=== PATIENT | female | born 1995 | race Caucasian/White ===

== ENCOUNTER 2023-07-02 14:11 | Outpatient (OUT) | payer OTHER, SELFPAY ==
--- NOTE | 2023-07-02 14:21 | US_ITS ---
The [address] [address] Patient Name: JENNIFER SWEET MRN: [id number] date: 1995 Sex: F Assigned Patient Location: US Current Patient Location: US Accession/Order Number: [id number] Exam Date: 07/02/2023 14:45 Report Date: 07/02/2023 15:32 At the request of: CANDELARIA ROWLAND Procedure: US OB transvaginal EXAMINATION: US OB transvaginal HISTORY: amenorrhea N91.2 COMPARISON: No relevant comparison available. FINDINGS: Transvaginal images The uterus is normal in size, contour and echotexture. No focal myometrial mass. The uterus is anteflexed. No intrauterine or ectopic is observed The right kidney measures 3.9 x 2.0 x 2.1 cm. Area of hypoechogenicity measuring 2 cm. The left ovary measures 3.2 x 2.1 x 1.8 cm. Normal color Doppler flow. The cervix is closed measuring 3.8 cm in length US/US OB transvaginal IMPRESSION: No intrauterine or ectopic is observed. Correlate with serial quantitative beta hCG Electronically authenticated by: ARETHA MCGOWAN Date: 07/02/2023 15:32
== END 2023-07-02 14:12 | disposition home or self-care (01) ==
LOC: US 14:15
PROVIDERS: PCP Family Medicine; Visit Provider Midwife
DX: N91.2 Amenorrhea, unspecified (principal)
CPT/HCPCS: 76817

== ENCOUNTER 2023-07-17 07:51 | Outpatient (OUT) | payer OTHER, SELFPAY ==
--- OUTSIDE RECORDS SUMMARY | 2023-07-17 07:54 | XMS_ITS | CCD ---
Author Name Unknown Address [address] [place] [address] Organization [facility] Care Team Providers Care College Teacher Name Role Phone Luli Maddox Primary Care Provi edelmira MIROSLAVA TAPIA Referring Unavailable BRANT-LULI BHAKTA Primary Care Un available POOL, CHANTAL E Referring Unavailable BRANT-LULI BHAKTA Primary Care Un available HOTELLING, MAXINE P Admitting Unavailable HOTELLING, MAXINE P Attending Unavailable BRANT-LULI BHAKTA Primary Care Un available POOL, CHANTAL E Referring Unavailable BRANT-LULI BHAKTA Primary Care Un available POOL, CHANTAL E Admitting Unavailable POOL, CHANTAL E Attending Unavailable BRANT-LULI BHAKTA Primary Care Un available POOL, CHANTAL E Admitting Unavailable POOL, CHANTAL E Attending Unavailable BRANT-LULI BHAKTA Primary Care Un available GREENSLADE-YONY, LULI Camacho Primary Care Un available MYRA REHMANIN Attending Unavailable POOL, CHANTAL E Referring Unavailable BRANT-LULI BHAKTA Primary Care Un available POOL, CHANTAL E Admitting Unavailable POOL, CHANTAL E Attending Unavailable BRANT-LULI BHAKTA Primary Care Un available GUY, LILLIAM Attending Unavailable GUY, LILLIAM Consulting Unavailable GUY, LILLIAM Admitting Unavailable Luli Maddox MD Primary Care Pr ovider NO FAMILY, PHYSICIAN Primary Care Unavailable Printy, [place] Admitting Unavailable Marla Travis Attending Unavailable Medications Current Medications Medication Drug Class(es) Dates Sig (Normalized) Sig (Original) acetaminophen 325 mg oral tablet (1 source) Start: 07-14-2019 acetaminophen (TYLENOL) tablet 650 mg acetaminophen 325 mg / butalbital 50 mg / caffeine 40 mg oral tablet (2 sources) Barbiturate, Central Nervous System Stimulant, Methylxanthine Start: 07-18-2019 take 1 tablet by mouth every four hours as needed for headache butalbital-acetami nophen-caffeine (FIORICET, ESGIC) 50-325-40 MG per tablet Take 1 tablet by mouth every 4 hours as needed for Headaches 30 tablet 0 07/18/2019 Active Start: 07-18-2019 butalbital-baltazar taminophen-caffeine (FIORICET, ESGIC) per tablet 1 tablet acetaminophen 325 mg / oxyCODONE hydrochloride 5 mg oral tablet (3 sources) Opioid Agonist Start: 07-18-2019 End: 07-21-2019 take 1 tablet by mouth every six hours as needed for pain oxyCODONE-acetaminophen (PERCOCET) 5-325 MG per tablet Indications: S/P primary low transverse Take 1 tablet by mouth every 6 hours as needed for Pain for up to 3 days. 12 tablet 0 07/18/2019 07/21/2019 Active Start: 07-14-2019 oxyCODONE-acet aminophen (PERCOCET) 5-325 MG per tablet 2 tablet azithromycin 250 mg oral tablet (2 sources) Macrolide Antimicrobial Start: 04-16-2019 azithromycin (ZITHROMAX) 250 MG tablet Indications: URI, acute Take 2 tabs (500 mg) on Day 1, and take 1 tab (250 mg) on days 2 through 5. 1 packet 0 04/16/2019 Active calcium chloride 0.0014 meq/ml / potassium chloride 0.004 meq/ml / sodium chloride 0.103 meq/ml / sodium lactate 0.028 meq/ml injectable solution (3 sources) Start: 07-14-2019 End: 07-14-2019 lactated ringers infusion docusate sodium 100 mg oral capsule (1 source) Start: 07-14-2019 docusate sodium (COLACE) capsule 100 mg 0.4 ml enoxaparin sodium 100 mg/ml prefilled syringe (1 source) Low Molecular Weight Heparin Start: 07-15-2019 enoxaparin (LOVENOX) injection 40 mg ibuprofen 800 mg oral tablet (5 sources) Nonsteroidal Anti-inflammatory Drug Start: 02-12-2018 ibuprofen (ADVIL;MOTRIN) tablet 800 mg lanolin 0.5 mg/mg topical ointment (1 source) Start: 07-14-2019 lanolin ointment oxytocin (PITOCIN) 20 Units in sodium chloride 0.9 % 1,000 mL infusion (1 source) Start: 07-14-2019 oxytocin (PITOCIN) 20 Units in sodium chloride 0.9 % 1,000 mL infusion oxytocin (PITOCIN) 30 Units in sodium chloride 0.9 % 500 mL infusion (1 source) Start: 07-14-2019 oxytocin (PITOCIN) 30 Units in sodium chloride 0.9 % 500 mL infusion Vit-Fe Fumarate-FA ( VITAMIN) 27-0.8 MG TABS (4 sources) Start: 01-15-2019 take 1 tablet by mouth once daily Vit-Fe Fumarate-FA ( VITAMIN) 27-0.8 MG TABS Indications: 13 weeks gestation of Take 1 tablet by mouth daily 30 tablet 10 01/15/2019 Active 3 ml sodium chloride 9 mg/ml injection (2 sources) Start: 07-14-2019 sodium chloride flush 0.9 % injection 10 mL Completed/Discontinued Medications Medication Drug Class(es) Dates Sig (Normalized) Sig (Original) calcium carbonate 500 mg chewable tablet (3 sources) End: 0 take 2 tablets by mouth three times daily as needed for gastroesophageal reflux disease calcium carbonate (TUMS) 500 MG chewable tablet Take 2 tablets by mouth 3 times daily as needed for Heartburn 0 07/18/2019 Discontinued (Stop Taking at Discharge) cefOXitin (MEFOXIN) 2 g in dextrose 5% 50 mL (mini-bag) (1 source) Start: 0 End: 0 cefOXitin (MEFOXIN) 2 g in dextrose 5% 50 mL (mini-bag) citric acid 66.8 mg/ml / sodium citrate 100 mg/ml oral solution (1 source) Calculi Dissolution Agent, Anti-coagulant Start: 0 End: 0 citric acid-sodium citrate (BICITRA) solution 30 mL diphenhydrAMINE hydrochloride 25 mg oral capsule (1 source) Histamine-1 Receptor Antagonist Start: 0 End: 0 diphenhydrAMINE (BENADRYL) capsule 50 mg 2 ml famotidine 10 mg/ml injection (1 source) Histamine-2 Receptor Antagonist Start: 0 End: 0 famotidine (PEPCID) injection 20 mg 1 ml ketorolac tromethamine 15 mg/ml cartridge (1 source) Nonsteroidal Anti-inflammatory Drug, Cyclooxygenase Inhibitor Start: 0 End: 0 ketorolac (TORADOL) injection 30 mg 2 ml metoclopramide 5 mg/ml prefilled syringe (1 source) Dopamine-2 Receptor Antagonist Start: 0 End: 0 metoclopramide (REGLAN) injection 10 mg Start: 07-14-2019 End: 07-14-2019 metoclopramide (REGLAN) inje ction 10 mg omeprazole 20 mg delayed release oral capsule (4 sources) Proton Pump Inhibitor Start: 04-06-2019 End: 07-18-2019 take 1 capsule by mouth twice daily before mealtime omeprazole (PRILOSEC) 20 MG delayed release capsule Take 1 capsule by mouth 2 times daily (before meals) 30 capsule 1 04/06/2019 07/18/2019 Discontinued (Stop Taking at Discharge) ondansetron 4 mg oral tablet (4 sources) Serotonin-3 Receptor Antagonist Start: 01-26-2019 End: 07-18-2019 take 1 tablet by mouth once daily as needed for nausea ondansetron (ZOFRAN) 4 MG tablet Take 1 tablet by mouth daily as needed for Nausea or Vomiting 30 tablet 0 01/26/2019 07/18/2019 Discontinued (Stop Taking at Discharge) Problems Active Problems Problem Classification Problem Date Documented Da te Episodic/Chronic Immunizations and screening for infectious disease (4 sources) Contact with and (suspected) exposure to other viral communicable diseases; Translations: [CONTCT EXPS OTH VIRL COMMUNICABL DZ] Onset: 06-02-2020 Episodic Other lower respiratory disease (1 source) Cough; Translations: [COUGH] Onset: 06-14-2020 Episodic Other upper respiratory disease (1 source) Nasal congestion; Translations: [NASAL CONGESTION] Onset: 06-14-2020 Episodic Residual codes; unclassified (1 source) Gestation period, 27 weeks; Translations: [27 weeks gestation of ] Episodic Unclassified (2 sources) Finding of uterine contractions 07-09-2019 Unclassified (1 source) History of uterine scar from previous surgery; Translations: [History of uterine scar from previous surgery] Onset: 05-05-2021 Past or Other Problems Problem Classification Problem Date Documented Da te Episodic/Chronic Other circulatory disease (4 sources) Elevated blood pressure Episodic Other conditions (2 sources) Abnormal heart rate Onset: 07-14-2019 Episodic Other and delivery including normal (1 source) Normal labor Onset: 07-14-2019 07-14-2019 Episodic Polyhydramnios and other problems of amniotic cavity (2 sources) Meconium in amniotic fluid affecting management of mother Onset: 07-14-2019 Episodic Residual codes; unclassified (1 source) Gestation period, 36 weeks Episodic Residual codes; unclassified (2 sources) Gestation period, 38 weeks 07-09-2019 Episodic Residual codes; unclassified (2 sources) Gestation period, 39 weeks Onset: 07-14-2019 Episodic Short gestation; low weight; and growth retardation (1 source) [id number] baby Episodic NEGATED: Highlighted row has been ruled out!Unclassified (2 sources) No known active problems Results Test Name Value Interpretation Reference Range Facility US Pelvic, Transvaginalon US Pelvic, Transvaginal HISTORY: Irregul ar menses since spontaneous one year ago. Urine test performed today was negative. TECHNIQUE: Transvaginal ultrasound was performed of the pelvis COMPARISON: None available FINDINGS: Uterus measures 9.4 x 7.3 x 4.4 cm. Areas of altered echogenicity within the uterus are most likely fibroids, the largest of which measures 2.1 x 1.9 x 2.7 cm. Nonspecific thickening of the endometrium measured as 17 mm. A small amount of fluid within the endometrial canal at the fundus measures 1.2 x 0.6 x 0.4 cm. No yolk sac or pole identified. Right ovary is normal in size measuring 2.6 x 2.2 x 3 cm. Blood flow is identified to the right ovary. Left ovary is not visualized. No adnexal mass. There is no free fluid in the pelvis. IMPRESSION: Nonspecific thickening of the endometrium measured as 17 mm. A small amount of nonspecific fluid within the endometrial canal at the fundus measures 1.2 x 0.6 x 0.4 cm. No yolk sac or pole identified. Uterine fibroids, the largest of which measures approximately 2.7 cm. Report reported and signed by Kash Moore on 10/30/2022 1247 Normal [facility] [employer] Director Complete Blood Count Auto Di ffon 05-06-2021 Basophils (Bld) [#/Vol] 0.0 10*3/uL Normal 0.0-0.2 [facility] Comment on above: Result Comment: PERF ORMED BY: [place] [address] PATHOLOGIST TRANSPLANT COORDINATOR TAYLOR YO M.D. Performed By: #### C BC #### [address] Basophils/100 WBC (Bld) 0.4 % Normal . [facility] Comment on above: Performed By: #### C BC #### [address] Eosinophils (Bld) [#/Vol] 0.1 10*3/uL Normal 0.0-0.45 [facility] Comment on above: Performed By: #### C BC #### [address] Eosinophils/100 WBC (Bld) 0.6 % Normal . [facility] Comment on above: Performed By: #### C BC #### [address] Erythrocyte distribution width (RBC) [Ratio] 15.2 % Normal 11.9-15.3 [facility] Comment on above: Performed By: #### C BC #### [address] Hematocrit (Bld) [Volume fraction] 24.6 % Low 34.0-46.4 [facility] Comment on above: Performed By: #### C BC #### [address] Hemoglobin (Bld) [Mass/Vol] 8.1 g/dL Low 11.8-15.4 [facility] Comment on above: Performed By: #### C BC #### [facility] [address] Lymphocytes (Bld) [#/Vol] 3.0 10*3/uL Normal 1.00-4.8 [facility] Comment on above: Performed By: #### C BC #### [facility] [address] Lymphocytes/100 WBC (Bld) 27.3 % Normal . [facility] Comment on above: Performed By: #### C BC #### [facility] [address] MCH (RBC) [Entitic mass] 24.4 pg Low 24.7-34.3 [facility] Comment on above: Performed By: #### C BC #### [address] MCV (RBC) [Entitic vol] 74.1 fL Low 80-100 F [facility] Comment on above: Performed By: #### C BC #### [address] Mean Corpuscular HGB Conc 33.0 g/dL Normal 32.0-35.0 [facility] Comment on above: Performed By: #### C BC #### [address] Monocytes (Bld) [#/Vol] 1.3 10*3/uL High 0.0-0.8 [facility] Comment on above: Performed By: #### C BC #### [facility] [address] [place] [address] [place] Monocytes/100 WBC (Bld) 11.6 % Normal . [facility] Comment on above: Performed By: #### C BC #### [address] Neutrophils (Bld) [#/Vol] 6.5 10*3/uL Normal 1.8-7.7 [facility] Comment on above: Performed By: #### C BC #### [address] Neutrophils/100 WBC (Bld) 60.1 % Normal . [facility] Comment on above: Performed By: #### C BC #### [address] Nucleated RBC/100 WBC (Bld) [Ratio] 0.1 % Normal 0-0.5 [facility] Comment on above: Performed By: #### C BC #### [address] Platelet mean volume (Bld) [Entitic vol] 8.4 fL Normal 6.3-10.7 [facility] Comment on above: Performed By: #### C BC #### [address] Platelets (Bld) [#/Vol] 242 10*3/uL Normal 150-450 [facility] Comment on above: Performed By: #### C BC #### [address] RBC (Bld) [#/Vol] 3.32 10*6/uL Low 3.60-5.00 [facility] Comment on above: Performed By: #### C BC #### [address] WBC (Bld) [#/Vol] 10.8 10*3/uL Normal 4.5-11.0 [facility] Comment on above: Performed By: #### C BC #### [address] COVID-19 Antigenon 1 COVID-19 Antigen Healthcare Worker?: N Mariya Reference Mariya Reference Negative SARS-CoV+SARS-CoV-2 (COVID-19) Ag [Presence] in Respiratory specimen by Rapid immunoassay Negative for SARS Antigen by YURY COVID19 Blank Space Mariya Disclaimer Negative results, from patients with symptom Mariya Disclaimer onset beyond five days, should be treated as Mariya Disclaimer presumptive and confirmation with a molecular Mariya Disclaimer assay, if necessary, for patient management, Mariya Disclaimer may be performed. Negative results do not rule Mariya Disclaimer out COVID-19 and should not be used as the sole Mariya Disclaimer basis for treatment or patient management Mariya Disclaimer decisions, including infection control decisions. Mariya Disclaimer Negative results should be considered in the Mariya Disclaimer context of a patient's recent exposures, history Mariya Disclaimer and the presence of clinical signs and symptoms Mariya Disclaimer consistent with COVID-19. COVID19 Blank Space Mariya Disclaimer The Mariya SARS Antigen YURY does not differentiate Mariya Disclaimer between SARS-CoV and SARS-CoV-2. COVID19 Blank Space Mairya Disclaimer This test was developed and its performance Mariya Disclaimer characteristic determined by [employer] and Mariya Disclaimer validated at [facility]. This Mariya Disclaimer test has not been FDA cleared or approved. This Mariya Disclaimer test has been authorized by FDA under an Emergency Use Mariya Disclaimer Authorization (EUA). This test has been validated Mariya Disclaimer in accordance with the FDA's Guidance Document (Policy Mariya Disclaimer for Diagnostics Testing in Laboratories Certified to Mariya Disclaimer Perform High Complexity Testing under CLIA prior to Mariya Disclaimer Emergency Use Authorization for Coronavirus Mariya Disclaimer isease-2018 during the Public Health Emergency) Mariya Disclaimer issued on September 17, 2019. This test is only authorized Mariya Disclaimer for the duration of time the declaration that Mariya Disclaimer circumstances exist justifying the authorization of Mariya Disclaimer the emergency use of in vitro diagnostic tests for Mariya Disclaimer detection of SARS-CoV-2 virus and/or diagnosis of Mariya Disclaimer COVID-19 infection under section 564(b)(1) of the Mariya Disclaimer Act, 21 U.S.C. 360bbb-3(b)(1), unless the Mariya Disclaimer authorization is terminated or revoked sooner. PERFORMED BY: [place] [address] PATHOLOGIST TRANSPLANT COORDINATOR TAYLOR YO M.D. Normal [facility] Comment on above: Performed By: #### C OVID-19 MARIYA, SOFIANEG #### [address] Complete Blood Count Auto Di ffon 05-05-2021 Basophils (Bld) [#/Vol] 0.1 10*3/uL Normal 0.0-0.2 [facility] Comment on above: Result Comment: PERF ORMED BY: [place] [address] PATHOLOGIST TRANSPLANT COORDINATOR TAYLOR YO M.D. Performed By: #### C BC #### [address] Basophils/100 WBC (Bld) 0.6 % Normal . [facility] Comment on above: Performed By: #### C BC #### [place] [address] [place] Eosinophils (Bld) [#/Vol] 0.1 10*3/uL Normal 0.0-0.45 [facility] Comment on above: Performed By: #### C BC #### [address] Eosinophils/100 WBC (Bld) 0.9 % Normal . [facility] Comment on above: Performed By: #### C BC #### [address] [place] [address] [place] Erythrocyte distribution width (RBC) [Ratio] 15.2 % Normal 11.9-15.3 [facility] Comment on above: Performed By: #### C BC #### [address] Hematocrit (Bld) [Volume fraction] 32.3 % Low 34.0-46.4 [facility] Comment on above: Performed By: #### C BC #### [address] Hemoglobin (Bld) [Mass/Vol] 10.6 g/dL Low 11.8-15.4 [facility] Comment on above: Performed By: #### C BC #### [address] Lymphocytes (Bld) [#/Vol] 2.2 10*3/uL Normal 1.00-4.8 [facility] Comment on above: Performed By: #### C BC #### [address] Lymphocytes/100 WBC (Bld) 22.3 % Normal . [facility] Comment on above: Performed By: #### C BC #### [address] MCH (RBC) [Entitic mass] 24.2 pg Low 24.7-34.3 [facility] Comment on above: Performed By: #### C BC #### [address] MCV (RBC) [Entitic vol] 73.8 fL Low 80-100 F [facility] Comment on above: Performed By: #### C BC #### [address] Mean Corpuscular HGB Conc 32.8 g/dL Normal 32.0-35.0 [facility] Comment on above: Performed By: #### C BC #### [address] Monocytes (Bld) [#/Vol] 1.2 10*3/uL High 0.0-0.8 [facility] Comment on above: Performed By: #### C BC #### [facility] [address] [place] [address] [place] Monocytes/100 WBC (Bld) 12.4 % Normal . [facility] Comment on above: Performed By: #### C BC #### [facility] [address] [place] [address] [place] Neutrophils (Bld) [#/Vol] 6.2 10*3/uL Normal 1.8-7.7 [facility] Comment on above: Performed By: #### C BC #### [facility] [address] Neutrophils/100 WBC (Bld) 63.8 % Normal . [facility] Comment on above: Performed By: #### C BC #### [facility] [address] [place] [address] [place] Nucleated RBC/100 WBC (Bld) [Ratio] 0.0 % Normal 0-0.5 [facility] Comment on above: Performed By: #### C BC #### [facility] [address] [place] [address] [place] Platelet mean volume (Bld) [Entitic vol] 8.0 fL Normal 6.3-10.7 [facility] Comment on above: Performed By: #### C BC #### [facility] [address] [place] [address] [place] Platelets (Bld) [#/Vol] 298 10*3/uL Normal 150-450 [facility] Comment on above: Performed By: #### C BC #### [facility] [address] [place] [address] [place] RBC (Bld) [#/Vol] 4.38 10*6/uL Normal 3.60-5.00 [facility] Comment on above: Performed By: #### C BC #### [facility] [address] [place] [address] [place] WBC (Bld) [#/Vol] 9.7 10*3/uL Normal 4.5-11.0 [facility] Comment on above: Performed By: #### C BC #### [facility] [address] [place] [address] [place] Dipstick and Microscopicon 1 07-05-2020 Appearance (U) Cloudy Critically abnormal Clear [facility] Comment on above: Order Comment: Name Collection Type:: Clean-Voided Midstream Performed By: #### C UU, ADDONUAPLUS #### [address] Bacteria,Urine 1+ High None Seen [facility] Comment on above: Order Comment: Name Collection Type:: Clean-Voided Midstream Performed By: #### C UU, ADDONUAPLUS #### [place] [address] [place] Bilirubin,Urine Negative Normal Negative [facility] Comment on above: Order Comment: Name Collection Type:: Clean-Voided Midstream Performed By: #### C UU, ADDONUAPLUS #### [address] Color (U) Yellow Normal Yellow [facility] Comment on above: Order Comment: Name Collection Type:: Clean-Voided Midstream Performed By: #### C UU, ADDONUAPLUS #### [place] [address] [place] Glucose Ql (U) Normal Normal Normal [facility] Comment on above: Order Comment: Name Collection Type:: Clean-Voided Midstream Performed By: #### C UU, ADDONUAPLUS #### [place] [address] [place] Hyaline Casts,Urine 0-8 Normal 0-8 [facility] Comment on above: Order Comment: Name Collection Type:: Clean-Voided Midstream Result Comment: PERF ORMED BY: [place] [address] PATHOLOGIST TRANSPLANT COORDINATOR TAYLOR YO M.D. Performed By: #### C UU, ADDONUAPLUS #### [address] [place] [address] [place] Ketones Ql (U) Negative Normal Negative [facility] Comment on above: Order Comment: Name Collection Type:: Clean-Voided Midstream Performed By: #### C UU, ADDONUAPLUS #### [address] Leukocyte esterase Test strip Ql (U) 1+ High Negative [facility] Comment on above: Order Comment: Name Collection Type:: Clean-Voided Midstream Performed By: #### C UU, ADDONUAPLUS #### [address] Nitrite,Urine Negative Normal Negative [facility] Comment on above: Order Comment: Name Collection Type:: Clean-Voided Midstream Performed By: #### C UU, ADDONUAPLUS #### [address] Occult Blood,Urine Negative Normal Negative [facility] Comment on above: Order Comment: Name Collection Type:: Clean-Voided Midstream Result Comment: PERF ORMED BY: [place] [address] PATHOLOGIST TRANSPLANT COORDINATOR TAYLOR YO M.D. Performed By: #### C UU, ADDONUAPLUS #### [place] [address] [place] pH (U) 6.5 [pH] Normal 5.0-9.0 [facility] Comment on above: Order Comment: Name Collection Type:: Clean-Voided Midstream Performed By: #### C UU, ADDONUAPLUS #### [facility] [address] [place] [address] [place] Protein,Urine Trace High Negative [facility] Comment on above: Order Comment: Name Collection Type:: Clean-Voided Midstream Performed By: #### C UU, ADDONUAPLUS #### [place] [address] [place] RBC,Urine 1-2 Normal 0-4 [facility] Comment on above: Order Comment: Name Collection Type:: Clean-Voided Midstream Performed By: #### C UU, ADDONUAPLUS #### [facility] [address] [place] [address] Specificy Dracut,Urine 1.019 Normal 1.001-1.030 [facility] Comment on above: Order Comment: Name Collection Type:: Clean-Voided Midstream Performed By: #### C UU, ADDONUAPLUS #### [place] [address] [place] Squamous Epithelial Cell,Urine 04-04 High 0-2 [facility] Comment on above: Order Comment: Name Collection Type:: Clean-Voided Midstream Performed By: #### C UU, ADDONUAPLUS #### [address] Urobilinogen,Urine Normal Normal Normal [facility] Comment on above: Order Comment: Name Collection Type:: Clean-Voided Midstream Performed By: #### C UU, ADDONUAPLUS #### [address] WBC,Urine 04-04 High 0-4 [facility] Comment on above: Order Comment: Name Collection Type:: Clean-Voided Midstream Performed By: #### C UU, ADDONUAPLUS #### [address] OB Urine Drug Screen (NO THC )on 05-05-2021 Amphetamine Screen,Urine Negative Normal Negative [facility] Comment on above: Performed By: #### O BUDS #### [place] [address] [place] Barbiturate Screen,Urine Negative Normal Negative [facility] Comment on above: Performed By: #### O BUDS #### [place] [address] [place] Benzodiazepines Screen,Urine Negative Normal Negative [facility] Comment on above: Performed By: #### O BUDS #### [place] [address] [place] Cocaine Screen,Urine Negative Normal Negative [facility] Comment on above: Performed By: #### O BUDS #### [address] Opiate Screen,Urine Negative Normal Negative [facility] Comment on above: Performed By: #### O BUDS #### [address] Phencyclidine Screen, Urine Negative Normal Negative [facility] Comment on above: Result Comment: Thes e are unconfirmed results and should not be used for legal purposes. Drug Cut-Off Concentration: AMPH 1000 ng/mL LC 200 ng/mL HARDY 200 ng/mL COCM 300 ng/mL OP 300 ng/mL PCP 25 ng/mL PERFORMED BY: [place] [address] PATHOLOGIST TRANSPLANT COORDINATOR TAYLOR YO M.D. Performed By: #### O BUDS #### [address] RPR w/rfx to Quant TP Abson 05-05-2021 RPR, Rfx Quant RPR Non-Reactive Normal Non Reactive [facility] Comment on above: Result Comment: Perf ormed at: - [facility] [place] [id number] Instructional Designer: Neto Rivera PhD, Phone: [phone] PERFORMED BY: [place] [address] PATHOLOGIST TRANSPLANT COORDINATOR TAYLOR YO M.D. Performed By: #### R OK W RFX #### [facility] , Mariya Ag Negativeon 05-05-20 21 Mariya Ag Negative Negative Normal Negative [facility] Comment on above: Result Comment: This is a duplicate Mariya SARS Antigen (YURY) result to be used for statistical tracking purpose only. PERFORMED BY: [place] [address] PATHOLOGIST TRANSPLANT COORDINATOR TAYLOR YO M.D. Performed By: #### C OVID-19 MARIYA, SOFIANEG #### [address] Urine Cultureon 05-05-2021 Bacteria identified Cx Nom (U) 20,000 colonies/ml mixed bacterial skin contaminants 2 Days PERFORMED BY: [facility] [address] [facility] [place] [id number] PATHOLOGIST TRANSPLANT COORDINATOR TAYLOR YO M.D. Normal [facility] Comment on above: Performed By: #### C UU, ADDONUAPLUS #### [facility] [address] [id number] [facility] Covid-19 PCR (CVDTB)on 05-17 Covid-19 PCR DETECTED Abnormal NOT DETECTED [facility] Comment on above: Result Comment: This test is not yet approved or cleared by the [place] FDA. When there are no FDA-approved or cleared tests available, and other criteria are met, FDA can make tests available under an emergency access mechanism called an Emergency Use Authorization (EUA). The EUA for this test is supported by the [place] of Health and Human Service's (HHS's) declaration that circumstances exist to justify the emergency use of in vitro diagnostics for the detection and/or diagnosis of the virus that causes COVID-19. This EUA will remain in effect (meaning this test can be used) for the duration of the COVID-19 declaration justifying emergency of IVDs, unless it is terminated or revoked by FDA (after which the test may no longer be used). Performed By: #### C VDTBH #### Laboratory [address] [address] [place] EUA Statement SEE BELOW [facility] Comment on above: Result Comment: This test is not yet approved or cleared by the [place] FDA. When there are no FDA-approved or cleared tests available, and other criteria are met, FDA can make tests available under an emergency access mechanism called an Emergency Use Authorization (EUA). The EUA for this test is supported by the Placement Coordinator of Health and Human Service?s (HHS?s) declaration that circumstances exist to justify the emergency use of in vitro diagnostics for the detection and/or diagnosis of the virus that causes COVID-19. This EUA will remain in effect (meaning this test can be used) for the duration of the COVID-19 declaration justifying emergency of IVDs, unless it is terminated or revoked by FDA (after which the test may no longer be used). When diagnostic testing is negative, the possibility of a false negative should be considered in the context of a patients recent exposures and the presence of clinical signs and symptoms consistent with SARS-CoV-2. Performed By: #### C VDTB #### Laboratory [address] [place], [place] [address] [place] CBC auto differentialOrdered By: Maxine Crawley on 07-18-2019 Absolute Eos # 0.37 [employer] [facility] Work Phone: Absolute Immature Granulocyte 0.04 [employer] Work Phone: Absolute Lymph # 2.08 [employer] [facility] Work Phone: Absolute Tensas # 0.61 [employer] [facility] Work Phone: Basophils (Bld) [#/Vol] 10*3/uL [employer] Work Phone: Basophils/100 WBC (Bld) 0 % 0 - 2 % [employer] Work Phone: Differential Type NOT REPORTED [employer] Phone: Eosinophils/100 WBC (Bld) 4 % 1 - 4 % [employer] Phone: Erythrocyte distribution width (RBC) [Ratio] 14.3 % 11.8 - 14.4 % [employer] Phone: Hematocrit (Bld) [Volume fraction] 29.0 % Low 36.3 - 47.1 % [employer] Phone: Hemoglobin (Bld) [Mass/Vol] 9.1 g/dL Low 11.9 - 15.1 g/dL [employer] Phone: Immature granulocytes/100 WBC (Bld) 1 % High 0 [employer] Phone: Interpretation and review of laboratory results Abnormal [employer] Phone: Lymphocytes/100 WBC (Bld) 25 % 24 - 43 % [employer] Work Phone: MCH (RBC) [Entitic mass] 26.5 pg 25.2 - 33.5 pg [employer] Work Phone: MCHC (RBC) [Mass/Vol] 31.4 g/dL 28.4 - 34.8 g/dL [facility] Work Phone: MCV (RBC) [Entitic vol] 84.3 fL 82.6 - 102.9 fL [facility] Work Phone: Monocytes/100 WBC (Bld) 7 % 3 - 12 % [facility] Work Phone: NRBC Automated 0.0 0.0 per 100 WBC [facility] Work Phone: Platelet Estimate NOT REPORTED [facility] Work Phone: Platelet mean volume (Bld) [Entitic vol] 9.8 fL 8.1 - 13.5 fL [facility] Work Phone: Platelets (Bld) [#/Vol] 269 10*3/uL [employer] Work Phone: RBC (Bld) [#/Vol] 3.44 10*6/uL Low 3.95 - 5.1 1 m/uL [facility] Work Phone: RBC morphology finding Nom (Bld) NOT REPORTED [facility] Work Phone: Segmented neutrophils/100 WBC (Bld) 63 % 36 - 65 % [facility] Work Phone: Segs Absolute 5.25 [employer] [facility] [employer] Work Phone: WBC (Bld) [#/Vol] 8.4 10*3/uL [facility] Work Phone: WBC Morphology NOT REPORTED [employer] [facility] Work Phone: CBC with Diffon 07-18-2019 Abs. Basophil <0.03 Normal 0.00-0.20 [facility] Comment on above: Performed By: #### B HCG #### [facility] [address] [place], [id number] Instructional Designer: Urbano Moore MD Abs.Imm.Granulocyte 0.04 k/uL Normal 0.00-0.30 [facility] Comment on above: Performed By: #### B HCG #### [facility] [address] [place], [place] [address] Instructional Designer: Urbano Moore MD Abs.Neutrophil (Seg) 5.25 k/uL Normal 1.50-8.10 [facility] Comment on above: Performed By: #### B HCG #### [facility] [address] [place], [place] [address] Instructional Designer: Urbano Moore MD Basophils/100 WBC (Bld) 0 % Normal 0-2 [facility] Comment on above: Performed By: #### B HCG #### [facility] [address] [place], [id number] Instructional Designer: Urbano Moore MD Eosinophils (Bld) [#/Vol] 0.37 10*3/uL Normal 0.00-0.44 [facility] Comment on above: Performed By: #### B HCG #### [facility] [address] [place], [place] [address] Instructional Designer: Urbano Moore MD Eosinophils/100 WBC (Bld) 4 % Normal 1-4 [facility] Comment on above: Performed By: #### B HCG #### [facility] [address] [place], [id number] Instructional Designer: Urbano Moore MD Erythrocyte distribution width (RBC) [Ratio] 14.3 % Normal 11.8-14.4 [facility] Comment on above: Performed By: #### B HCG #### [facility] [address] [place], [id number] Instructional Designer: Urbano Moore MD Hematocrit (Bld) [Volume fraction] 29.0 % Low 36.3-47.1 [facility] Comment on above: Performed By: #### B HCG #### [facility] [address] [place] [id number] Instructional Designer: Urbano Moore MD Hemoglobin (Bld) [Mass/Vol] 9.1 g/dL Low 11.9-15.1 [facility] Comment on above: Performed By: #### B HCG #### [facility] [address] [place], [place] [address] Instructional Designer: Urbano Moore MD Immature granulocytes (Bld) [#/Vol] 1 % High 0 [facility] Comment on above: Performed By: #### B HCG #### [facility] [address] [place] [address] Instructional Designer: Urbano Moore MD Lymphocytes (Bld) [#/Vol] 2.08 10*3/uL Normal 1.10-3.70 [facility] Comment on above: Performed By: #### B HCG #### [facility] [address] [place], [place] [address] Instructional Designer: Urbano Moore MD Lymphocytes/100 WBC (Bld) 25 % Normal 24-43 [facility] Comment on above: Performed By: #### B HCG #### [facility] [address] [place], [place] [address] Instructional Designer: Urbano Moore MD MCH (RBC) [Entitic mass] 26.5 pg Normal 25.2-33.5 [facility] Comment on above: Performed By: #### B HCG #### [facility] [address] [place], [id number] Instructional Designer: Urbano Moore MD MCHC (RBC) [Mass/Vol] 31.4 g/dL Normal 28.4-34.8 [facility] Comment on above: Performed By: #### B HCG #### [facility] [address] [place], [place] [id number] Instructional Designer: Urbano Moore MD MCV (RBC) [Entitic vol] 84.3 fL Normal 82.6-102.9 [facility] Comment on above: Performed By: #### B HCG #### [facility] [address] [place] [address] Instructional Designer: Urbano Moore MD Monocytes (Bld) [#/Vol] 0.61 10*3/uL Normal 0.10-1.20 [facility] Comment on above: Performed By: #### B HCG #### [address] [place], [place] [id number] Instructional Designer: Urbano Moore MD Monocytes/100 WBC (Bld) 7 % Normal 3-12 [facility] Comment on above: Performed By: #### B HCG #### [address] [place], [id number] Instructional Designer: Urbano Moore MD Neutrophil (Seg) 63 % Normal 36-65 [facility] Comment on above: Performed By: #### B HCG #### [address] [place], [place] [id number] Instructional Designer: Urbano Moore MD NRBC Automated 0.0 per 100 WBC Normal 0.0 [facility] Comment on above: Performed By: #### B HCG #### [address] [place], [place] [id number] Instructional Designer: Urbano Moore MD Platelet mean volume (Bld) [Entitic vol] 9.8 fL Normal 8.1-13.5 [facility] Comment on above: Performed By: #### B HCG #### [facility] [address] [place] [address] Instructional Designer: Urbano Moore MD Platelets (Bld) [#/Vol] 269 10*3/uL Normal 138-453 [facility] Comment on above: Performed By: #### B HCG #### [facility] [address] [place] [address] Instructional Designer: Urbano Moore MD RBC (Bld) [#/Vol] 3.44 10*6/uL Low 3.95-5.11 [facility] Comment on above: Performed By: #### B HCG #### [facility] [address] [place] [address] Instructional Designer: Urbano Moore MD WBC (Bld) [#/Vol] 8.4 10*3/uL Normal 3.5-11.3 [facility] Comment on above: Performed By: #### B HCG #### [facility] [address] [place] [address] Instructional Designer: Urbano Moore MD Auto Diff Performed NOT REPORTED Normal [facility] Comment on above: Performed By: #### B HCG #### [facility] [address] [place] [address] Instructional Designer: Urbano Moore MD Platelets (Bld) [#/Vol] NOT REPORTED Normal [facility] Comment on above: Performed By: #### B HCG #### [facility] [address] [place] [address] Instructional Designer: Urbano Moore MD RBC morphology finding Nom (Bld) NOT REPORTED Normal [facility] Comment on above: Performed By: #### B HCG #### [facility] [address] [place] [address] Instructional Designer: Urbano Moore MD WBC Morphology NOT REPORTED Normal [facility] Comment on above: Performed By: #### B HCG #### [facility] [address] [place] [address] Instructional Designer: Urbano Moore MD CT HEAD WO CONTRASTon 2019 CT HEAD WO CONTRAST EXAMINATION: CT OF THE HEAD WITHOUT CONTRAST 07/18/2019 11:18 am TECHNIQUE: CT of the head was performed without the administration of intravenous contrast. Dose modulation, iterative reconstruction, and/or weight based adjustment of the mA/kV was utilized to reduce the radiation dose to as low as reasonably achievable. COMPARISON: None. HISTORY: ORDERING SYSTEM PROVIDED HISTORY: Headache TECHNOLOGIST PROVIDED HISTORY: Headache Is the patient ?->No FINDINGS: BRAIN/VENTRICLES: There is no acute intracranial hemorrhage, mass effect or midline shift. No abnormal extra-axial fluid collection. The urena-white differentiation is maintained without evidence of an acute infarct. There is no evidence of hydrocephalus. ORBITS: The visualized portion of the orbits demonstrate no acute abnormality. SINUSES: The visualized paranasal sinuses and mastoid air cells demonstrate no acute abnormality. SOFT TISSUES/SKULL: No acute abnormality of the visualized skull or soft tissues. IMPRESSION: No acute intracranial abnormality. Interpreted by: Crissy Morocho MD Signed by: Crissy Morocho MD 07/18/19 Final result Normal [facility] CT HEAD WO CONTRASTOrdered B y: Maxine Crawley on 07-18-2019 No acute intracranial abnormality. [employer] Phone: EXAMINATION: CT OF THE HEAD WITHOUT CONTRAST 07/18/2019 11:18 am TECHNIQUE: CT of the head was performed without the administration of intravenous contrast. Dose modulation, iterative reconstruction, and/or weight based adjustment of the mA/kV was utilized to reduce the radiation dose to as low as reasonably achievable. COMPARISON: None. HISTORY: ORDERING SYSTEM PROVIDED HISTORY: Headache TECHNOLOGIST PROVIDED HISTORY: Headache Is the patient ?->No FINDINGS: BRAIN/VENTRICLES: There is no acute intracranial hemorrhage, mass effect or midline shift. No abnormal extra-axial fluid collection. The urena-white differentiation is maintained without evidence of an acute infarct. There is no evidence of hydrocephalus. ORBITS: The visualized portion of the orbits demonstrate no acute abnormality. SINUSES: The visualized paranasal sinuses and mastoid air cells demonstrate no acute abnormality. SOFT TISSUES/SKULL: No acute abnormality of the visualized skull or soft tissues. [facility] (ac[facility] by [employer] in 2014) Phone: Bimal, Mhpn Incoming Radiant Results From [employer] - 07/18/2019 11:31 AM EST EXAMINATION: CT OF THE HEAD WITHOUT CONTRAST 07/18/2019 11:18 am TECHNIQUE: CT of the head was performed without the administration of intravenous contrast. Dose modulation, iterative reconstruction, and/or weight based adjustment of the mA/kV was utilized to reduce the radiation dose to as low as reasonably achievable. COMPARISON: None. HISTORY: ORDERING SYSTEM PROVIDED HISTORY: Headache TECHNOLOGIST PROVIDED HISTORY: Headache Is the patient ?->No FINDINGS: BRAIN/VENTRICLES: There is no acute intracranial hemorrhage, mass effect or midline shift. No abnormal extra-axial fluid collection. The urena-white differentiation is maintained without evidence of an acute infarct. There is no evidence of hydrocephalus. ORBITS: The visualized portion of the orbits demonstrate no acute abnormality. SINUSES: The visualized paranasal sinuses and mastoid air cells demonstrate no acute abnormality. SOFT TISSUES/SKULL: No acute abnormality of the visualized skull or soft tissues. IMPRESSION: No acute intracranial abnormality. [facility] [place] Work Phone: Comp Metabolic Profon 2019 (cont.) Normal [facility] Comment on above: Result Comment: Aver age GFR for 20-29 years old: 116 mL/min/1.73sq m Chronic Kidney Disease: <60 mL/min/1.73sq m Kidney failure: <15 mL/min/1.73sq m eGFR calculated using average adult body mass. Additional eGFR calculator available at: http://www.Bvents.SingleFeed/multiple_crcl_2012.htm Performed By: #### G LYHGB #### [facility] [address] [place] [address] [place] [address] Instructional Designer: Urbano Moore MD #### VIPUL HODGSONB #### [facility] [place] [address] Instructional Designer: Porfirio Calix MD Albumin [Mass/Vol] 2.9 g/dL Low 3.5-5.2 [facility] Comment on above: Performed By: #### G LYHGB #### [facility] [address] [place] [address] Instructional Designer: Urbano Moore MD #### GOKUL HIVCMB #### [place] [address] [place] [address] Instructional Designer: Porfirio Calix MD Albumin/Globulin [Mass ratio] 0.9 {ratio} Low 1.0-2.5 [facility] Comment on above: Performed By: #### G LYHGB #### [facility] [address] [place], [place] [id number] Instructional Designer: Urbano Moore MD #### GOKUL, HIVCMB #### [address] [id number] Instructional Designer: Porfirio Calix MD Alkaline Phos 117 U/L High 35-104 [facility] Comment on above: Performed By: #### G LYHGB #### [facility] [address] [place] [address] [address] [place], [place] [id number] Instructional Designer: Urbano Moore MD #### GOKUL HIVCMB #### [address] [address] Instructional Designer: Porfirio Calix MD ALT [Catalytic activity/Vol] 7 U/L Normal 5-33 [facility] Comment on above: Performed By: #### G LYHGB #### [address] [place], [place] [address] Instructional Designer: Urbano Moore MD #### GOKUL HIVCMB #### [address] [address] Instructional Designer: Porfirio Calix MD Anion gap [Moles/Vol] 13 mmol/L Normal 9-17 [facility] Comment on above: Performed By: #### G LYHGB #### [address] [place], [place] [address] Instructional Designer: Urbano Moore MD #### GOKUL HIVCMB #### [address] [address] Instructional Designer: Porfirio Calix MD AST [Catalytic activity/Vol] 14 U/L Normal <32 [facility] Comment on above: Performed By: #### G LYHGB #### [facility] [address] [place] [address] Instructional Designer: Urbano Moore MD #### AHKOURTNEY, HIVCMB #### [address] [id number] Instructional Designer: Porfirio Calix MD Bilirubin Ql (U) <0.10 Low 0.3-1.2 [facility] Comment on above: Performed By: #### G LYHGB #### [facility] [address] [place] [address] [place] [id number] Instructional Designer: Urbano Moore MD #### GOKUL, HIVCMB #### [address] [id number] Instructional Designer: Porfirio Calix MD BUN/CRE Ratio 12 Normal 9-20 [facility] Comment on above: Performed By: #### G LYHGB #### [address] [place] [id number] Instructional Designer: Urbano Moore MD #### GOKUL, HIVCMB #### [address] [id number] Instructional Designer: Porfirio Calix MD Calcium [Mass/Vol] 8.8 mg/dL Normal 8.6-10.4 [facility] Comment on above: Performed By: #### G LYHGB #### [facility] [address] [place] [address] [place] [address] Instructional Designer: Urbano Moore MD #### AHCV, HIVCMB #### [address] [address] Instructional Designer: Profirio Calix MD Chloride [Moles/Vol] 99 mmol/L Normal 98-107 [facility] Comment on above: Performed By: #### G LYHGB #### [facility] [address] [place] [address] Instructional Designer: Urbano Moore MD #### AHCV, HIVCMB #### [address] [id number] Instructional Designer: Porfirio Calix MD CO2 [Moles/Vol] 23 mmol/L Normal 20-31 [facility] Comment on above: Performed By: #### G LYHGB #### [facility] [address] [place], [place] 9[address]83 Instructional Designer: Urbano Moore MD #### AHCV, HIVCMB #### [address] [address] Instructional Designer: Porfirio Calix MD Creatinine [Mass/Vol] 0.51 mg/dL Normal 0.50-0.90 [facility] Comment on above: Performed By: #### G LYHGB #### [facility] [address] [place], [place] [address]83 Instructional Designer: Urbano Moore MD #### AHKOURTNEY, HIVCMB #### [address] [address] Instructional Designer: Porfirio Calix MD GFR, Amer >60 Normal >60 [facility] Comment on above: Performed By: #### G LYHGB #### [facility] [address] [place], [place] [address] Instructional Designer: Urbano Moore MD #### AHCV, HIVCMB #### [address] [address] Instructional Designer: Porfirio Calix MD GFR,non Amer >60 Normal >60 [facility] Comment on above: Performed By: #### G LYHGB #### [address] [place], [place] [address] Instructional Designer: Urbano Moore MD #### GOKUL HIVCMB #### [address] [id number] Instructional Designer: Porfirio Calix MD Glucose [Mass/Vol] 98 mg/dL Normal 70-99 [facility] Comment on above: Performed By: #### G LYHGB #### [address] [place], [place] 517[address]83 Instructional Designer: Urbano Moore MD #### GOKUL HIVCMB #### [address] [id number] Instructional Designer: Porfirio Calix MD Potassium [Moles/Vol] 3.9 mmol/L Normal 3.7-5.3 [facility] Comment on above: Performed By: #### G LYHGB #### [address] [place], [place] 9420983 Instructional Designer: Urbano Moore MD #### GOKUL HIVCMB #### [address] [id number] Instructional Designer: Porfirio Calix MD Protein [Mass/Vol] 6.0 g/dL Low 6.4-8.3 [facility] Comment on above: Performed By: #### G LYHGB #### [address] [place], [place] 7339283 Instructional Designer: Urbano Moore MD #### GOKUL HIVCMB #### [address] [id number] Instructional Designer: Porfirio Calix MD Sodium [Moles/Vol] 135 mmol/L Normal 135-144 [facility] Comment on above: Performed By: #### G LYHGB #### [address] [place] [address] Instructional Designer: Urbano Moore MD #### AHCV, HIVCMB #### [facility] [address] [place] [address] Instructional Designer: Porfirio Calix MD Staging: Normal [facility] Comment on above: Result Comment: Stag e 1: Some kidney damage normal GFR Stage 2: Mild kidney damage GFR 60-89 Stage 3: Moderate kidney damage GFR 30-59 Stage 4: Severe kidney damage GFR 15-29 Stage 5: Severe kidney damage GFR <15 ESRD - chronic treatment by dialysis or transplant Performed By: #### G LYHGB #### [facility] [address] [place] [address] Instructional Designer: Urbano Moore MD #### AHCV, HIVCMB #### [address] [place] [address] Instructional Designer: Porfirio Calix MD Urea nitrogen [Mass/Vol] 6 mg/dL Normal 6-20 [facility] Comment on above: Performed By: #### G LYHGB #### [facility] [address] [place] [address] Instructional Designer: Urbano Moore MD #### AHCV, HIVCMB #### [facility] [address], [place] [id number] Instructional Designer: Porfirio Calix MD Comprehensive metabolic pane lOrdered By: Maxine Crawley on 07-18-2019 Albumin [Mass/Vol] 2.9 g/dL Low 3.5 - 5.2 g/dL [employer] Phone: Albumin/Globulin [Mass ratio] 0.9 {ratio} Low [facility] (acquired by [employer] in 2014) Phone: ALP [Catalytic activity/Vol] 117 U/L High 35 - 104 U/L [facility] (acquired by [employer] in 2014) Phone: ALT [Catalytic activity/Vol] 7 U/L 5 - 33 U/L [facility] (acquired by [employer] in 2014) Phone: Anion gap [Moles/Vol] 13 mmol/L 9 - 17 mmol/L [employer] Work Phone: AST [Catalytic activity/Vol] 14 U/L <32 [employer] Phone: Bilirubin [Mass/Vol] mg/dL Low 0.3 - 1 .2 mg/dL [employer] Work Phone: Bun/Cre Ratio 12 [employer] Work Phone: Calcium [Mass/Vol] 8.8 mg/dL 8.6 - 10. 4 mg/dL [employer] Work Phone: Chloride [Moles/Vol] 99 mmol/L 98 - 10 7 mmol/L [employer] Phone: CO2 [Moles/Vol] 23 mmol/L 20 - 31 mmol/L [employer] Phone: Creatinine [Mass/Vol] 0.51 mg/dL 0.5 - 0.9 mg/dL [employer] Phone: GFR >60 >60 mL/min [employer] Phone: GFR Comment [employer] Phone: Comment on above: Average GFR for 20-2 9 years old: 116 mL/min/1.73sq m Chronic Kidney Disease: <60 mL/min/1.73sq m Kidney failure: <15 mL/min/1.73sq m eGFR calculated using average adult body mass. Additional eGFR calculator available at: http://www.Bvents.SingleFeed/multiple_crcl_2012.htm GFR Non- >60 >60 mL/min [employer] Phone: GFR Staging [employer] Phone: Comment on above: Stage 1: Some kidney damage normal GFR Stage 2: Mild kidney damage GFR 60-89 Stage 3: Moderate kidney damage GFR 30-59 Stage 4: Severe kidney damage GFR 15-29 Stage 5: Severe kidney damage GFR <15 ESRD - chronic treatment by dialysis or transplant Glucose [Mass/Vol] 98 mg/dL 70 - 99 mg/dL [employer] Phone: Interpretation and review of laboratory results Abnormal [employer] Phone: Potassium [Moles/Vol] 3.9 mmol/L 3.7 - 5.3 mmol/L [employer] Phone: Protein [Mass/Vol] 6.0 g/dL Low 6.4 - 8.3 g/dL [employer] Phone: Sodium [Moles/Vol] 135 mmol/L 135 - 144 mmol/L [employer] Phone: Urea nitrogen [Mass/Vol] 6 mg/dL 6 - 20 mg/dL [employer] Phone: Surgical PathologyOrdered By : Chantal Mckeon on 07-16-2019 Surgical Pathology Report [id number] [facility] ANATOMIC PATHOLOGY [address] [place] [id number] SURGICAL PATHOLOGY CONSULTATION Patient Name: JENNIFER SWEET [facility] Rec: [id number] Path Number: [id number] Collected: 07/14/2019 Received: 07/15/2019 Reported: 07/16/2019 17:45 -- Diagnosis -- PLACENTA, CORD AND MEMBRANES, DELIVERY: - MILD ACUTE CHORIOAMNIONITIS AND MECONIUM STAINING OF MEMBRANES, AND ACUTE DECIDUITIS. - MILD LYMPHOHISTIOCYTIC VILLITIS. - FOCAL PLACENTAL INFARCTION. - MATURE THIRD TRIMESTER PLACENTA WITH THREE-VESSEL CORD. Alek Mejia M.D. Electronically Signed Out jet/07/16/2019 Clinical Information Operative Findings: PLACENTA Source of Specimen 1: PLACENTA Gross Description JENNIFER SWEET, PLACENTA Placenta with attached membranes and umbilical cord. UMBILICAL CORD Length: 26.0 cm Diameter: 1.3 cm True knots: No Number of vessels: 3 Spiraling: Hypospiraled Insertion into surface: Eccentric, 2.0 cm from the margin MEMBRANES Color: [place]-frederick, focally opacified with faint green discoloration and a marginal insertion Meconium staining: Possible, faint SURFACE Color: Purple-urena, with a normal array of surface vessels Subchorionic fibrin: No MATERNAL SURFACE Cotyledons: -Fragmented/torn: (Approximately 5%) but appears complete -Focal lesions: There are areas of frederick induration up to 1.0 cm that occupy less than 5% of the disc Placental size: 17.0 x 15.0 x 3.0 cm Shape: Ovoid Weight: 272 grams Number of cassettes: 4cs tm Microscopic Description Umbilical cord: Unremarkable Membranes: mild neutrophilic inflammation Meconium staining: yes Infarcts: yes Intervillous thrombi: No Subchorionic fibrin: Not significantly increased Villous maturation: Appropriate Nucleated erythrocytes in villous capillaries: Not increased Other: Few microcalcifications. Patchy lymphohistiocytic villitis and acute deciduitis. An anti-treponemal* antibody immunostain is negative for spirochetes. Controls stain appropriately. * This test was developed and its performance characteristics determined by [facility] Anatomic Pathology. It has not been cleared or approved by the U.S. Food and Drug Administration. The FDA has determined that such clearance or approval is not necessary. This test is used for clinical purposes. It should not be regarded as investigational or for research. This laboratory is certified under the Clinical Laboratory Improvement Amendments of 1988 (CLIA) as qualified to perform high complexity clinical laboratory testing. [facility] Work Phone: CBCon 07-15-2019 Erythrocyte distribution width (RBC) [Ratio] 13.7 % Normal 11.8-14.4 [facility] Comment on above: Performed By: #### B HCG #### [facility] [address] [place] [address] Instructional Designer: Urbano Moore MD Hematocrit (Bld) [Volume fraction] 32.3 % Low 36.3-47.1 [facility] Comment on above: Performed By: #### B HCG #### [facility] [address] [place] [address] Instructional Designer: Urbano Moore MD Hemoglobin (Bld) [Mass/Vol] 10.4 g/dL Low 11.9-15.1 [facility] Comment on above: Performed By: #### B HCG #### [facility] [address] [place] [address] Instructional Designer: Urbano Moore MD MCH (RBC) [Entitic mass] 26.3 pg Normal 25.2-33.5 [facility] Comment on above: Performed By: #### B HCG #### [facility] [address] [place] [id number] Instructional Designer: Urbano Moore MD MCHC (RBC) [Mass/Vol] 32.2 g/dL Normal 28.4-34.8 [facility] Comment on above: Performed By: #### B HCG #### [facility] [address] [place] [id number] Instructional Designer: Urbano Moore MD MCV (RBC) [Entitic vol] 81.6 fL Low 82.6-102.9 [facility] Comment on above: Performed By: #### B HCG #### [facility] [address] [place] [address] Instructional Designer: Urbano Moore MD NRBC Automated 0.0 per 100 WBC Normal 0.0 [facility] Comment on above: Performed By: #### B HCG #### [facility] [address] [place] [id number] Instructional Designer: Urbano Moore MD Platelet mean volume (Bld) [Entitic vol] 11.1 fL Normal 8.1-13.5 [facility] Comment on above: Performed By: #### B HCG #### [facility] [address] [place] [id number] Instructional Designer: Urbano Moore MD Platelets (Bld) [#/Vol] 222 10*3/uL Normal 138-453 [facility] Comment on above: Performed By: #### B HCG #### [facility] [address] [place] [address] Instructional Designer: Urbano Moore MD RBC (Bld) [#/Vol] 3.96 10*6/uL Normal 3.95-5.11 [facility] Comment on above: Performed By: #### B HCG #### [facility] [address] [place] [address] Instructional Designer: Urbano Moore MD WBC (Bld) [#/Vol] 16.1 10*3/uL High 3.5-11.3 [facility] Comment on above: Performed By: #### B HCG #### [facility] [address] [place] [address] Instructional Designer: Urbano Moore MD CBCOrdered By: Anabela damon on 07-15-2019 Erythrocyte distribution width (RBC) [Ratio] 13.7 % 11.8 - 14.4 % [employer] Phone: Hematocrit (Bld) [Volume fraction] 32.3 % Low 36.3 - 47.1 % [employer] Phone: Hemoglobin (Bld) [Mass/Vol] 10.4 g/dL Low 11.9 - 15.1 g/dL [employer] Phone: Interpretation and review of laboratory results Abnormal [employer] Phone: MCH (RBC) [Entitic mass] 26.3 pg 25.2 - 33.5 pg [employer] Phone: MCHC (RBC) [Mass/Vol] 32.2 g/dL 28.4 - 34.8 g/dL [employer] Phone: MCV (RBC) [Entitic vol] 81.6 fL Low 82.6 - 102.9 fL [employer] Phone: NRBC Automated 0.0 0.0 per 100 WBC [employer] Phone: Platelet mean volume (Bld) [Entitic vol] 11.1 fL 8.1 - 13.5 fL [employer] Work Phone: Platelets (Bld) [#/Vol] 222 10*3/uL [employer] Work Phone: RBC (Bld) [#/Vol] 3.96 10*6/uL 3.95 - 5.1 1 m/uL [facility] Work Phone: WBC (Bld) [#/Vol] 16.1 10*3/uL High [facility] Work Phone: CBC auto differentialOrdered By: Chantal Mckeon on 07-14-2019 Absolute Eos # 0.09 [facility] Work Phone: Absolute Immature Granulocyte 0.07 [employer] Work Phone: Absolute Lymph # 2.62 [employer] [facility] Work Phone: Absolute Tensas # 0.96 [facility] Work Phone: Basophils (Bld) [#/Vol] 0.05 10*3/uL [employer] Work Phone: Basophils/100 WBC (Bld) 0 % 0 - 2 % [facility] Work Phone: Differential Type NOT REPORTED [employer] Work Phone: Eosinophils/100 WBC (Bld) 1 % 1 - 4 % [facility] Work Phone: Erythrocyte distribution width (RBC) [Ratio] 13.7 % 11.8 - 14.4 % [employer] Work Phone: Hematocrit (Bld) [Volume fraction] 37.8 % 36.3 - 47.1 % [employer] Work Phone: Hemoglobin (Bld) [Mass/Vol] 12.3 g/dL 11.9 - 15.1 g/dL [employer] Work Phone: Immature granulocytes/100 WBC (Bld) 1 % High 0 [employer] Work Phone: Interpretation and review of laboratory results Abnormal [facility] Work Phone: Lymphocytes/100 WBC (Bld) 22 % Low 24 - 43 % [facility] Work Phone: MCH (RBC) [Entitic mass] 26.5 pg 25.2 - 33.5 pg [facility] (ac[employer] by [employer] in 2014) Phone: MCHC (RBC) [Mass/Vol] 32.5 g/dL 28.4 - 34.8 g/dL [facility] Work Phone: MCV (RBC) [Entitic vol] 81.5 fL Low 82.6 - 102.9 fL [facility] Work Phone: Monocytes/100 WBC (Bld) 8 % 3 - 12 % [facility] Work Phone: NRBC Automated 0.0 0.0 per 100 WBC [facility] Work Phone: Platelet Estimate NOT REPORTED [facility] Work Phone: Platelet mean volume (Bld) [Entitic vol] 10.8 fL 8.1 - 13.5 fL [facility] (ac[facility] by [employer] in 2014) Phone: Platelets (Bld) [#/Vol] 305 10*3/uL [facility] Work Phone: RBC (Bld) [#/Vol] 4.64 10*6/uL 3.95 - 5.1 1 m/uL [facility] Work Phone: RBC morphology finding Nom (Bld) NOT REPORTED [facility] [employer] Work Phone: Segmented neutrophils/100 WBC (Bld) 68 % High 36 - 65 % [facility] [employer] Work Phone: Segs Absolute 8.06 [facility] [employer] Work Phone: WBC (Bld) [#/Vol] 11.9 10*3/uL High [facility] Work Phone: WBC Morphology NOT REPORTED [employer] [facility] Work Phone: CBC with Diffon 07-14-2019 Abs. Basophil 0.05 k/uL Normal 0.00-0.20 [facility] Comment on above: Performed By: #### B HCG #### [facility] [address] [place] [address] Instructional Designer: Urbano Moore MD Abs.Imm.Granulocyte 0.07 k/uL Normal 0.00-0.30 [facility] Comment on above: Performed By: #### B HCG #### [facility] [address] [place] [address] Instructional Designer: Urbano Moore MD Abs.Neutrophil (Seg) 8.06 k/uL Normal 1.50-8.10 [facility] Comment on above: Performed By: #### B HCG #### [facility] [address] [place], [place] [id number] Instructional Designer: Urbano Moore MD Basophils/100 WBC (Bld) 0 % Normal 0-2 [facility] Comment on above: Performed By: #### B HCG #### [facility] [address] [place] [address] Instructional Designer: Urbano Moore MD Eosinophils (Bld) [#/Vol] 0.09 10*3/uL Normal 0.00-0.44 [facility] Comment on above: Performed By: #### B HCG #### [facility] [address] [place] [address] Instructional Designer: Urbano Moore MD Eosinophils/100 WBC (Bld) 1 % Normal 1-4 [facility] Comment on above: Performed By: #### B HCG #### [facility] [address] [place], [place] [id number] Instructional Designer: Urbano Moore MD Erythrocyte distribution width (RBC) [Ratio] 13.7 % Normal 11.8-14.4 [facility] Comment on above: Performed By: #### B HCG #### [facility] [address] [place], [place] [address] Instructional Designer: Urbano Moore MD Hematocrit (Bld) [Volume fraction] 37.8 % Normal 36.3-47.1 [facility] Comment on above: Performed By: #### B HCG #### [facility] [address] [place] [id number] Instructional Designer: Urbano Moore MD Hemoglobin (Bld) [Mass/Vol] 12.3 g/dL Normal 11.9-15.1 [facility] Comment on above: Performed By: #### B HCG #### [facility] [address] [place], [place] [id number] Instructional Designer: Urbano Moore MD Immature granulocytes (Bld) [#/Vol] 1 % High 0 [facility] Comment on above: Performed By: #### B HCG #### [facility] [address] [place], [id number] Instructional Designer: Urbano Moore MD Lymphocytes (Bld) [#/Vol] 2.62 10*3/uL Normal 1.10-3.70 [facility] Comment on above: Performed By: #### B HCG #### [facility] [address] [place], [place] [id number] Instructional Designer: Urbano Moore MD Lymphocytes/100 WBC (Bld) 22 % Low 24-43 [facility] Comment on above: Performed By: #### B HCG #### [facility] [address] [place], [place] [id number] Instructional Designer: Urbano Moore MD MCH (RBC) [Entitic mass] 26.5 pg Normal 25.2-33.5 [facility] Comment on above: Performed By: #### B HCG #### [facility] [address] [place] [id number] Instructional Designer: Urbano Moore MD MCHC (RBC) [Mass/Vol] 32.5 g/dL Normal 28.4-34.8 [facility] Comment on above: Performed By: #### B HCG #### [facility] [address] [place], [place] [id number] Instructional Designer: Urbano Moore MD MCV (RBC) [Entitic vol] 81.5 fL Low 82.6-102.9 [facility] Comment on above: Performed By: #### B HCG #### [facility] [address] [place], [place] [id number] Instructional Designer: Urbano Moore MD Monocytes (Bld) [#/Vol] 0.96 10*3/uL Normal 0.10-1.20 [facility] Comment on above: Performed By: #### B HCG #### [facility] [address] [place], [id number] Instructional Designer: Urbano Moore MD Monocytes/100 WBC (Bld) 8 % Normal 3-12 [facility] Comment on above: Performed By: #### B HCG #### [facility] [address] [place], [place] [address] Instructional Designer: Urbano Moore MD Neutrophil (Seg) 68 % High 36-65 [facility] Comment on above: Performed By: #### B HCG #### [facility] [address] [place], [place] [address] Instructional Designer: Urbano Moore MD NRBC Automated 0.0 per 100 WBC Normal 0.0 [facility] Comment on above: Performed By: #### B HCG #### [facility] [address] [place], [place] [address] Instructional Designer: Urbano Moore MD Platelet mean volume (Bld) [Entitic vol] 10.8 fL Normal 8.1-13.5 [facility] Comment on above: Performed By: #### B HCG #### [facility] [address] [place] [address] Instructional Designer: Urbano Moore MD Platelets (Bld) [#/Vol] 305 10*3/uL Normal 138-453 [facility] Comment on above: Performed By: #### B HCG #### [facility] [address] [place] [address] Instructional Designer: Urbano Moore MD RBC (Bld) [#/Vol] 4.64 10*6/uL Normal 3.95-5.11 [facility] Comment on above: Performed By: #### B HCG #### [facility] [address] [place] [address] Instructional Designer: Urbano Moore MD WBC (Bld) [#/Vol] 11.9 10*3/uL High 3.5-11.3 [facility] Comment on above: Performed By: #### B HCG #### [facility] [address] [place] [address] Instructional Designer: Urbano Moore MD Auto Diff Performed NOT REPORTED Normal [facility] Comment on above: Performed By: #### B HCG #### [facility] [address] [place] [address] Instructional Designer: Urbano Moore MD Platelets (Bld) [#/Vol] NOT REPORTED Normal [facility] Comment on above: Performed By: #### B HCG #### [facility] [address] [place] [address] Instructional Designer: Urbaon Moore MD RBC morphology finding Nom (Bld) NOT REPORTED Normal [facility] Comment on above: Performed By: #### B HCG #### [facility] [address] [place] [address] Instructional Designer: Urbano Moore MD WBC Morphology NOT REPORTED Normal [facility] Comment on above: Performed By: #### B HCG #### [facility] [address] [place], [place] [address] Instructional Designer: Urbano Moore MD Comp Metabolic Profon 2019 (cont.) Normal [facility] Comment on above: Result Comment: Aver age GFR for 20-29 years old: 116 mL/min/1.73sq m Chronic Kidney Disease: <60 mL/min/1.73sq m Kidney failure: <15 mL/min/1.73sq m eGFR calculated using average adult body mass. Additional eGFR calculator available at: http://www.[employer]/multiple_crcl_2012.htm Performed By: #### B HCG #### [facility] [address] [place], [place] [id number] Instructional Designer: Urbano Moore MD Albumin [Mass/Vol] 3.7 g/dL Normal 3.5-5.2 [facility] Comment on above: Performed By: #### B HCG #### [facility] [address] [place], [place] [address] Instructional Designer: Urbano Moore MD Albumin/Globulin [Mass ratio] 1.0 {ratio} Normal 1.0-2.5 [facility] Comment on above: Performed By: #### B HCG #### [facility] [address] [place], [place] [address] Instructional Designer: Urbano Moore MD Alkaline Phos 181 U/L High 35-104 [facility] Comment on above: Performed By: #### B HCG #### [facility] [address] [place], [place] [id number] Instructional Designer: Urbano Moore MD ALT [Catalytic activity/Vol] U/L Low 5-33 [facility] Comment on above: Performed By: #### B HCG #### [facility] [address] [place] [address] Instructional Designer: Urbano Moore MD Anion gap [Moles/Vol] 14 mmol/L Normal 9-17 [facility] Comment on above: Performed By: #### B HCG #### [facility] [address] [place], [place] [address] Instructional Designer: Urbano Moore MD AST [Catalytic activity/Vol] 11 U/L Normal <32 [facility] Comment on above: Performed By: #### B HCG #### [facility] [address] [place], [place] [id number] Instructional Designer: Urbano Moore MD Bilirubin Ql (U) 0.15 mg/dL Low 0.3-1.2 [facility] Comment on above: Performed By: #### B HCG #### [facility] [address] [place], [place] [address] Instructional Designer: Urbano Moore MD BUN/CRE Ratio 13 Normal 9-20 [facility] Comment on above: Performed By: #### B HCG #### [facility] [address] [place], [place] [address]483 Instructional Designer: Urbano Moore MD Calcium [Mass/Vol] 9.0 mg/dL Normal 8.6-10.4 [facility] Comment on above: Performed By: #### B HCG #### [facility] [address] [place], [place] [address] Instructional Designer: Urbano Moore MD Chloride [Moles/Vol] 103 mmol/L Normal 98-107 [facility] Comment on above: Performed By: #### B HCG #### [facility] [address] [place], [place] [address] Instructional Designer: Urbano Moore MD CO2 [Moles/Vol] 18 mmol/L Low 20-31 [facility] Comment on above: Performed By: #### B HCG #### [facility] [address] [place], [place] [address] Instructional Designer: Urbano Moore MD Creatinine [Mass/Vol] 0.55 mg/dL Normal 0.50-0.90 [facility] Comment on above: Performed By: #### B HCG #### [facility] [address] [place], [place] [address] Instructional Designer: Urbano Moore MD GFR, Amer >60 Normal >60 [facility] Comment on above: Performed By: #### B HCG #### [facility] [address] [place], [place] [id number] Instructional Designer: Urbano Moore MD GFR,non Amer >60 Normal >60 [facility] Comment on above: Performed By: #### B HCG #### [facility] [address] [place], [place] [phone] Instructional Designer: Urbano Moore MD Glucose [Mass/Vol] 80 mg/dL Normal 70-99 [facility] Comment on above: Performed By: #### B HCG #### [facility] [address] [place], [place] [id number] Instructional Designer: Urbano Moore MD Potassium [Moles/Vol] 4.6 mmol/L Normal 3.7-5.3 [facility] Comment on above: Performed By: #### B HCG #### [facility] [address] [place], [place] [address] Instructional Designer: Urbano Moore MD Protein [Mass/Vol] 7.5 g/dL Normal 6.4-8.3 [facility] Comment on above: Performed By: #### B HCG #### [facility] [address] [place], [place] [address] Instructional Designer: Urbano Moore MD Sodium [Moles/Vol] 135 mmol/L Normal 135-144 [facility] Comment on above: Performed By: #### B HCG #### [facility] [address] [place], [place] [address] Instructional Designer: Urbano Moore MD Staging: Normal [facility] Comment on above: Result Comment: Stag e 1: Some kidney damage normal GFR Stage 2: Mild kidney damage GFR 60-89 Stage 3: Moderate kidney damage GFR 30-59 Stage 4: Severe kidney damage GFR 15-29 Stage 5: Severe kidney damage GFR <15 ESRD - chronic treatment by dialysis or transplant Performed By: #### B HCG #### [facility] [address] [place] [address] Instructional Designer: Urbano Moore MD Urea nitrogen [Mass/Vol] 7 mg/dL Normal 6-20 [facility] Comment on above: Performed By: #### B HCG #### [facility] [address] [place] [address] Instructional Designer: Urbano Moore MD [facility] Metabolic Pane lOrdered By: Chantal Mckeon on 07-14-2019 Albumin [Mass/Vol] 3.7 g/dL 3.5 - 5.2 g/dL [facility] ([facility] [employer] in 2014) Phone: Albumin/Globulin [Mass ratio] 1.0 {ratio} [facility] Work Phone: ALP [Catalytic activity/Vol] 181 U/L High 35 - 104 U/L [facility] ([facility] by [employer] in 2014) Phone: ALT [Catalytic activity/Vol] U/L Low 5 - 33 U/L [facility] (acquired by [employer] in 2014) Phone: Anion gap [Moles/Vol] 14 mmol/L 9 - 17 mmol/L [facility] (acquired by [employer] in 2014) Phone: AST [Catalytic activity/Vol] 11 U/L <32 [facility] (acquired by [employer] in 2014) Phone: Bilirubin [Mass/Vol] 0.15 mg/dL Low 0.3 - 1 .2 mg/dL [facility] (acquired by [employer] in 2014) Phone: Bun/Cre Ratio 13 [facility] Work Phone: Calcium [Mass/Vol] 9.0 mg/dL 8.6 - 10. 4 mg/dL [facility] (acquired by [employer] in 2014) Phone: Chloride [Moles/Vol] 103 mmol/L 98 - 10 7 mmol/L [employer] Phone: CO2 [Moles/Vol] 18 mmol/L Low 20 - 31 mmol/L [employer] Phone: Creatinine [Mass/Vol] 0.55 mg/dL 0.5 - 0.9 mg/dL [employer] Phone: GFR >60 >60 mL/min [employer] Phone: GFR Comment [employer] Phone: Comment on above: Average GFR for 20-2 9 years old: 116 mL/min/1.73sq m Chronic Kidney Disease: <60 mL/min/1.73sq m Kidney failure: <15 mL/min/1.73sq m eGFR calculated using average adult body mass. Additional eGFR calculator available at: http://www.[employer]/multiple_crcl_2012.htm GFR Non- >60 >60 mL/min [employer] Phone: GFR Staging [employer] Phone: Comment on above: Stage 1: Some kidney damage normal GFR Stage 2: Mild kidney damage GFR 60-89 Stage 3: Moderate kidney damage GFR 30-59 Stage 4: Severe kidney damage GFR 15-29 Stage 5: Severe kidney damage GFR <15 ESRD - chronic treatment by dialysis or transplant Glucose [Mass/Vol] 80 mg/dL 70 - 99 mg/dL [employer] Phone: Interpretation and review of laboratory results Abnormal [employer] Phone: Potassium [Moles/Vol] 4.6 mmol/L 3.7 - 5.3 mmol/L [employer] Phone: Protein [Mass/Vol] 7.5 g/dL 6.4 - 8.3 g/dL [employer] Phone: Sodium [Moles/Vol] 135 mmol/L 135 - 144 mmol/L [employer] Phone: Urea nitrogen [Mass/Vol] 7 mg/dL 6 - 20 mg/dL [facility] Work Phone: DRUG SCREEN MULTI URINEOrder ed By: Chantal Mckeon on 07-14-2019 Amphetamine Screen, Ur Negative NEGATIVE [facility] Work Phone: Barbiturate Screen, Ur Negative NEGATIVE [facility] Work Phone: Benzodiazepine Screen, Urine Negative NEGATIVE [facility] Work Phone: Buprenorphine Urine Negative NEGATIVE [facility] Work Phone: Cannabinoid Scrn, Ur Negative NEGATIVE [facility] Work Phone: Cocaine Metabolite, Urine Negative NEGATIVE [facility] Work Phone: MDMA, Urine NOT REPORTED NEGATIVE [facility] Work Phone: Methadone Screen, Urine Negative NEGATIVE [facility] Work Phone: Methamphetamine, Urine Negative NEGATIVE [facility] Work Phone: Opiates, Urine Negative NEGATIVE [facility] Work Phone: Oxycodone Screen, Ur Negative NEGATIVE [facility] Work Phone: Phencyclidine, Urine Negative NEGATIVE [facility] Work Phone: Propoxyphene, Urine Negative NEGATIVE [facility] Work Phone: Test Information NOT REPORTED [facility] Work Phone: Tricyclic Antidepressants, Urine Negative NEGATIVE [facility] Work Phone: Comment on above: Drug screen results are to be used for medical purposes only. All positive results are unconfirmed. Testing for employment or legal uses should be sent to a reference laboratory for confirmation. Drug Scr, Abuse, Uron 2019 Amphetamine(s),Ur Negative Normal NEG [facility] Comment on above: Performed By: #### B HCG #### [facility] [address] [place] [address] [place] [address] Instructional Designer: Urbano Moore MD Barbiturate(s),Ur Negative Normal [facility] Comment on above: Performed By: #### B HCG #### [facility] [address] [place] [address] Instructional Designer: Urbano Moore MD Base excess Calc (Bld) [Moles/Vol] Negative Normal [facility] Comment on above: Performed By: #### B HCG #### [facility] [address] [place], [place] [id number] Instructional Designer: Urbano Moore MD Benzodiazepine(s) Negative Normal [facility] Comment on above: Performed By: #### B HCG #### [facility] [address] [place], [place] [id number] Instructional Designer: Urbano Moore MD Buprenorphrine, Ur Negative Normal [facility] Comment on above: Performed By: #### B HCG #### [facility] [address] [place] [address] Instructional Designer: Urbano Moore MD Cannabinoid(s),Ur Negative [facility] Comment on above: Performed By: #### B HCG #### [facility] [address] [place], [place] [id number] Instructional Designer: Urbano Moore MD Methadone Ql (U) Negative Normal [facility] Comment on above: Performed By: #### B HCG #### [facility] [address] [place] [address] Instructional Designer: Urbano Moore MD Methamphetamine, Ur Negative [facility] Comment on above: Performed By: #### B HCG #### [facility] [address] [place], [place] [id number] Instructional Designer: Urbano Moore MD Opiate(s), Ur Negative Normal [facility] Comment on above: Performed By: #### B HCG #### [facility] [address] [place] [address] Instructional Designer: Urbano Moore MD Oxycodone, Urine Negative Normal NEG [facility] Comment on above: Performed By: #### B HCG #### [facility] [address] [place], [place] [id number] Instructional Designer: Urbano Moore MD Phencyclidine, Ur Negative Normal NEG [facility] Comment on above: Performed By: #### B HCG #### [facility] [address] [place] [address] Instructional Designer: Urbano Moore MD Propoxyphene,Urine Negative Normal NEG [facility] Comment on above: Performed By: #### B HCG #### [facility] [address] [place] [address] Instructional Designer: Urbano Moore MD Tricyclic antidepressants Screen Ql (U) Negative Normal [facility] Comment on above: Result Comment: Drug screen results are to be used for medical purposes only. All positive results are unconfirmed. Testing for employment or legal uses should be sent to a reference laboratory for confirmation. Performed By: #### B HCG #### [facility] [address] [place] [address] Instructional Designer: Urbano Moore MD Interpretive Info NOT REPORTED Normal [facility] Comment on above: Performed By: #### B HCG #### [facility] [address] [place] [address] Instructional Designer: Urbano Moore MD MDMA, Urine NOT REPORTED Normal NEG [facility] Comment on above: Performed By: #### B HCG #### [facility] [address] [place] [address] Instructional Designer: Urbano Moore MD Fibrinogenon 07-14-2019 Fibrinogen 491 mg/dL High 185-451 [facility] Comment on above: Performed By: #### B HCG #### [facility] [address] [place] [address] Instructional Designer: Urbano Moore MD FibrinogenOrdered By: Jorge Mckeon on 07-14-2019 Fibrinogen 491 mg/dL High 185 - 451 mg/dL [facility] (acquired by [employer] in 2014) Phone: Interpretation and review of laboratory results Abnormal [employer] Phone: Lactate Dehydrogenaseon 06-18 LDH [Catalytic activity/Vol] 149 U/L Normal 135-214 [facility] Comment on above: Performed By: #### B HCG #### [facility] [address] [place] [address] Instructional Designer: Urbano Moore MD Lactate DehydrogenaseOrdered By: Chantal Mckeon on 07-14-2019 LD 149 U/L 135 - 214 U/L [employer] Phone: Surgical Pathologyon 020 Surgical Pathology (NOTE) [id number] [employer] CONSULTING PATHOLOGISTS [facility] [place] ANATOMIC PATHOLOGY [address] [place] [id number] SURGICAL PATHOLOGY CONSULTATION Patient Name: JENNIFER SWEET [facility] Rec: [id number] Path Number: [id number] Collected: 07/14/2019 Received: 07/15/2019 Reported: 07/16/2019 17:45 -- Diagnosis -- PLACENTA, CORD AND MEMBRANES, DELIVERY: - MILD ACUTE CHORIOAMNIONITIS AND MECONIUM STAINING OF MEMBRANES, AND ACUTE DECIDUITIS. - MILD LYMPHOHISTIOCYTIC VILLITIS. - FOCAL PLACENTAL INFARCTION. - MATURE THIRD TRIMESTER PLACENTA WITH THREE-VESSEL CORD. Alek Mejia M.D. Electronically Signed Out jet/07/16/2019 Clinical Information Operative Findings: PLACENTA Source of Specimen 1: PLACENTA Gross Description JENNIFER SWEET, PLACENTA Placenta with attached membranes and umbilical cord. UMBILICAL CORD Length: 26.0 cm Diameter: 1.3 cm True knots: No Number of vessels: 3 Spiraling: Hypospiraled Insertion into surface: Eccentric, 2.0 cm from the margin MEMBRANES Color: [place]-frederick, focally opacified with faint green discoloration and a marginal insertion Meconium staining: Possible, faint SURFACE Color: Purple-urena, with a normal array of surface vessels Subchorionic fibrin: No MATERNAL SURFACE Cotyledons: -Fragmented/torn: (Approximately 5%) but appears complete -Focal lesions: There are areas of frederick induration up to 1.0 cm that occupy less than 5% of the disc Placental size: 17.0 x 15.0 x 3.0 cm Shape: Ovoid Weight: 272 grams Number of cassettes: 4cs tm Microscopic Description Umbilical cord: Unremarkable Membranes: mild neutrophilic inflammation Meconium staining: yes Infarcts: yes Intervillous thrombi: No Subchorionic fibrin: Not significantly increased Villous maturation: Appropriate Nucleated erythrocytes in villous capillaries: Not increased Other: Few microcalcifications. Patchy lymphohistiocytic villitis and acute deciduitis. An anti-treponemal* antibody immunostain is negative for spirochetes. Controls stain appropriately. * This test was developed and its performance characteristics determined by [facility] Anatomic Pathology. It has not been cleared or approved by the U.S. Food and Drug Administration. The FDA has determined that such clearance or approval is not necessary. This test is used for clinical purposes. It should not be regarded as investigational or for research. This laboratory is certified under the Clinical Laboratory Improvement Amendments of 1988 (CLIA) as qualified to perform high complexity clinical laboratory testing. Normal [facility] Comment on above: Performed By: #### B HCG #### [facility] [address] [place] [address] [place] [address] Instructional Designer: Urbano Moore MD Uric Acidon 07-14-2019 Urate [Mass/Vol] 4.7 mg/dL Normal 2.4-5.7 [facility] Comment on above: Performed By: #### B HCG #### [facility] [address] [place] [address] Instructional Designer: Urbano Moore MD Uric AcidOrdered By: Gianni Mckeon on 07-14-2019 Urate [Mass/Vol] 4.7 mg/dL 2.4 - 5.7 mg/dL [facility] Work Phone: Cult,Urineon 07-10-2019 Cult,Urine Specimen Description .VOIDED URINE Special Requests NOT REPORTED Culture NO SIGNIFICANT GROWTH Report Status FINAL 07/10/2019 Normal [facility] Comment on above: Performed By: #### B HCG #### [facility] [address] [place] [address] Instructional Designer: Urbano Moore MD APTTon 07-09-2019 aPTT Coag (Bld) [Time] 25.4 s Normal 23.2-34.4 [facility] Comment on above: Performed By: #### F IB, PT, PTT, URI ####[facility] [place] [address] Lab Director: Urbano Moore MD APTTOrdered By: Chantal camacho on 07-09-2019 aPTT Coag (Bld) [Time] 25.4 s [facility] Work Phone: CBC auto differentialOrdered By: Chantal Mckeon on 07-09-2019 [employer] Eos # 0.08 [facility] Work Phone: Absolute Immature Granulocyte 0.03 [facility] Work Phone: Absolute Lymph # 2.13 [facility] Work Phone: Absolute Tensas # 1.14 [facility] Work Phone: Basophils (Bld) [#/Vol] 0.04 10*3/uL [facility] [employer] Work Phone: Basophils/100 WBC (Bld) 1 % 0 - 2 % M [facility] [employer] Work Phone: Differential Type NOT REPORTED [facility] [employer] Work Phone: Eosinophils/100 WBC (Bld) 1 % 1 - 4 % [facility] [employer] Work Phone: Erythrocyte distribution width (RBC) [Ratio] 13.6 % 11.8 - 14.4 % [employer] Phone: Hematocrit (Bld) [Volume fraction] 36.3 % 36.3 - 47.1 % [facility] (acquired by [employer] in 2014) Phone: Hemoglobin (Bld) [Mass/Vol] 12.0 g/dL 11.9 - 15.1 g/dL [employer] Phone: Immature granulocytes/100 WBC (Bld) 0 % 0 [facility] (acquired by [employer] in 2014) Phone: Interpretation and review of laboratory results Abnormal [employer] Phone: Lymphocytes/100 WBC (Bld) 25 % 24 - 43 % [facility] (acquired by [employer] in 2014) Phone: MCH (RBC) [Entitic mass] 26.7 pg 25.2 - 33.5 pg [employer] Phone: MCHC (RBC) [Mass/Vol] 33.1 g/dL 28.4 - 34.8 g/dL [employer] Phone: MCV (RBC) [Entitic vol] 80.7 fL Low 82.6 - 102.9 fL [employer] Phone: Monocytes/100 WBC (Bld) 13 % High 3 - 12 % [facility] ([facility] by [employer] in 2014) Phone: NRBC Automated 0.0 0.0 per 100 WBC [employer] Phone: Platelet Estimate NOT REPORTED [facility] (acquired by [employer] in 2014) Phone: Platelet mean volume (Bld) [Entitic vol] 10.9 fL 8.1 - 13.5 fL [facility] (acquired by [employer] in 2014) Phone: Platelets (Bld) [#/Vol] 270 10*3/uL [employer] Phone: RBC (Bld) [#/Vol] 4.50 10*6/uL 3.95 - 5.1 1 m/uL [employer] Phone: RBC morphology finding Nom (Bld) NOT REPORTED [facility] Work Phone: Segmented neutrophils/100 WBC (Bld) 60 % 36 - 65 % [facility] Work Phone: Segs Absolute 5.17 [facility] Work Phone: WBC (Bld) [#/Vol] 8.6 10*3/uL [facility] Work Phone: WBC Morphology NOT REPORTED [facility] Work Phone: CBC with Diffon 07-09-2019 Abs. Basophil 0.04 k/uL Normal 0.00-0.20 [facility] Comment on above: Performed By: #### U A #### [address] [place] [address] Instructional Designer: Urbano Moore MD Abs.Imm.Granulocyte 0.03 k/uL Normal 0.00-0.30 [facility] Comment on above: Performed By: #### U A #### [address] [place], [place] [id number] Instructional Designer: Urbano Moore MD Abs.Neutrophil (Seg) 5.17 k/uL Normal 1.50-8.10 [facility] Comment on above: Performed By: #### U A #### [address] [place] [address] Instructional Designer: Urbano Moore MD Basophils/100 WBC (Bld) 1 % Normal 0-2 [facility] Comment on above: Performed By: #### U A #### [address] [place] [address] Instructional Designer: Urbano Moore MD Eosinophils (Bld) [#/Vol] 0.08 10*3/uL Normal 0.00-0.44 [facility] Comment on above: Performed By: #### U A #### [facility] [address] [place] [address] [place] [address] Instructional Designer: Urbano Moore MD Eosinophils/100 WBC (Bld) 1 % Normal 1-4 [facility] Comment on above: Performed By: #### U A #### [facility] [address] [place] [id number] Instructional Designer: Urbano Moore MD Erythrocyte distribution width (RBC) [Ratio] 13.6 % Normal 11.8-14.4 [facility] Comment on above: Performed By: #### U A #### [facility] [address] [place] [address] Instructional Designer: Urbano Moore MD Hematocrit (Bld) [Volume fraction] 36.3 % Normal 36.3-47.1 [facility] Comment on above: Performed By: #### U A #### [address] [place] [address] Instructional Designer: Urbano Moore MD Hemoglobin (Bld) [Mass/Vol] 12.0 g/dL Normal 11.9-15.1 [facility] Comment on above: Performed By: #### U A #### [address] [place] [address] Instructional Designer: Urbano Moore MD Immature granulocytes (Bld) [#/Vol] 0 % Normal 0 [facility] Comment on above: Performed By: #### U A #### [facility] [address] [place], [place] [address] Instructional Designer: Urbano Moore MD Lymphocytes (Bld) [#/Vol] 2.13 10*3/uL Normal 1.10-3.70 [facility] Comment on above: Performed By: #### U A #### [facility] [address] [place] [address] Instructional Designer: Urbano Moore MD Lymphocytes/100 WBC (Bld) 25 % Normal 24-43 [facility] Comment on above: Performed By: #### U A #### [facility] [address] [place] [id number] Instructional Designer: Urbano Moore MD MCH (RBC) [Entitic mass] 26.7 pg Normal 25.2-33.5 [facility] Comment on above: Performed By: #### U A #### [address] [place] [id number] Instructional Designer: Urbano Moore MD MCHC (RBC) [Mass/Vol] 33.1 g/dL Normal 28.4-34.8 [facility] Comment on above: Performed By: #### U A #### [address] [place] [address] Instructional Designer: Urbano Moore MD MCV (RBC) [Entitic vol] 80.7 fL Low 82.6-102.9 [facility] Comment on above: Performed By: #### U A #### [address] [place], [place] [address] Instructional Designer: Urbano Moore MD Monocytes (Bld) [#/Vol] 1.14 10*3/uL Normal 0.10-1.20 [facility] Comment on above: Performed By: #### U A #### [address] [place] [address] Instructional Designer: Urbano Moore MD Monocytes/100 WBC (Bld) 13 % High 3-12 [facility] Comment on above: Performed By: #### U A #### [facility] [address] [place] [address] [place]. [place] [id number] Instructional Designer: Urbano Moore MD Neutrophil (Seg) 60 % Normal 36-65 [facility] Comment on above: Performed By: #### U A #### [facility] [address] [place] [address] [place] [address] Instructional Designer: Urbano Moore MD NRBC Automated 0.0 per 100 WBC Normal 0.0 [facility] Comment on above: Performed By: #### U A #### [facility] [address] [place], [id number] Instructional Designer: Urbano Moore MD Platelet mean volume (Bld) [Entitic vol] 10.9 fL Normal 8.1-13.5 [facility] Comment on above: Performed By: #### U A #### [facility] [address] [place], [id number] Instructional Designer: Urbano Moore MD Platelets (Bld) [#/Vol] 270 10*3/uL Normal 138-453 [facility] Comment on above: Performed By: #### U A #### [address] [place], [id number] Instructional Designer: Urbano Moore MD RBC (Bld) [#/Vol] 4.50 10*6/uL Normal 3.95-5.11 [facility] Comment on above: Performed By: #### U A #### [address] [place], [id number] Instructional Designer: Urbano Moore MD WBC (Bld) [#/Vol] 8.6 10*3/uL Normal 3.5-11.3 [facility] Comment on above: Performed By: #### U A #### [address] [place], [id number] Instructional Designer: Urbano Moore MD Auto Diff Performed NOT REPORTED Normal [facility] Comment on above: Performed By: #### U A #### [facility] [address] [place], [id number] Instructional Designer: Urbano Moore MD Platelets (Bld) [#/Vol] NOT REPORTED Normal [facility] Comment on above: Performed By: #### U A #### [facility] [address] [place], [id number] Instructional Designer: Urbano Moore MD RBC morphology finding Nom (Bld) NOT REPORTED Normal [facility] Comment on above: Performed By: #### U A #### [facility] [address] [place] [address] Instructional Designer: Urbano Moore MD WBC Morphology NOT REPORTED Normal [facility] Comment on above: Performed By: #### U A #### [facility] [address] [place], [place] [id number] Instructional Designer: Urbano Moore MD Comp Metabolic Profon 2019 (cont.) Normal [facility] Comment on above: Result Comment: Aver age GFR for 20-29 years old: 116 mL/min/1.73sq m Chronic Kidney Disease: <60 mL/min/1.73sq m Kidney failure: <15 mL/min/1.73sq m eGFR calculated using average adult body mass. Additional eGFR calculator available at: http://www.[employer]/multiple_crcl_2011.htm Performed By: #### C DP, CP ####[address] , [place] [id number] [facility] Director: Urbano Moore MD Albumin [Mass/Vol] 3.6 g/dL Normal 3.5-5.2 [facility] Comment on above: Performed By: #### C DP, CP ####[address] , [place] [id number] [facility] Director: Urbano Moore MD Albumin/Globulin [Mass ratio] 1.0 {ratio} Normal 1.0-2.5 [facility] Comment on above: Performed By: #### C DP, CP ####[address] [place] [address] [facility] Director: Urbano Moore MD Alkaline Phos 162 U/L High 35-104 [facility] Comment on above: Performed By: #### C DP, CP ####[address] , [place] [id number] Lab Director: Urbano Moore MD ALT [Catalytic activity/Vol] U/L Low 5-33 [facility] Comment on above: Performed By: #### C DP, CP ####[address] , [place] [id number] Lab Director: Urbano Moore MD Anion gap [Moles/Vol] 14 mmol/L Normal 9-17 [facility] Comment on above: Performed By: #### C DP, CP ####[address] , [place] [id number] Lab Director: Urbano Moore MD AST [Catalytic activity/Vol] 9 U/L Normal <32 [facility] Comment on above: Performed By: #### C DP, CP ####[address] , [place] [id number] Lab Director: Urbano Moore MD Bilirubin Ql (U) 0.16 mg/dL Low 0.3-1.2 [facility] Comment on above: Performed By: #### C DP, CP ####[address] [place] [address] Lab Director: Urbano Moore MD BUN/CRE Ratio 16 Normal 9-20 [facility] Comment on above: Performed By: #### C DP, CP ####[address] [place] [address] Lab Director: Urbano Moore MD Calcium [Mass/Vol] 9.4 mg/dL Normal 8.6-10.4 [facility] Comment on above: Performed By: #### C DP, CP ####[address] , [place] [id number] Lab Director: Urbano Moore MD Chloride [Moles/Vol] 104 mmol/L Normal 98-107 [facility] Comment on above: Performed By: #### C DP, CP ####[address] [place] [address] Lab Director: Urbano Moore MD CO2 [Moles/Vol] 19 mmol/L Low 20-31 [facility] Comment on above: Performed By: #### C DP, CP ####[address] , [place] [id number] Lab Director: Urbano Moore MD Creatinine [Mass/Vol] 0.56 mg/dL Normal 0.50-0.90 [facility] Comment on above: Performed By: #### C DP, CP ####[address] , [place] [id number] Lab Director: Urbano Moore MD GFR, Amer >60 Normal >60 [facility] Comment on above: Performed By: #### C DP, CP ####[address] [place] [address] Lab Director: Urbano Moore MD GFR,non Amer >60 Normal >60 [facility] Comment on above: Performed By: #### C DP, CP ####[address] [place] [address] Lab Director: Urbano Moore MD Glucose [Mass/Vol] 83 mg/dL Normal 70-99 [facility] Comment on above: Performed By: #### C DP, CP ####[address] [place] [address] Lab Director: Urbano Moore MD Potassium [Moles/Vol] 3.9 mmol/L Normal 3.7-5.3 [facility] Comment on above: Performed By: #### C DP, CP ####[address] [place] [address] Lab Director: Urbano Moore MD Protein [Mass/Vol] 7.2 g/dL Normal 6.4-8.3 [facility] Comment on above: Performed By: #### C DP, CP ####[facility] [place] [address] lab Director: Urbano Moore MD Sodium [Moles/Vol] 137 mmol/L Normal 135-144 [facility] Comment on above: Performed By: #### C DP, CP ####[facility] [place] [address] lab Director: Urbnao Moore MD Staging: Normal [facility] Comment on above: Result Comment: Stag e 1: Some kidney damage normal GFR Stage 2: Mild kidney damage GFR 60-89 Stage 3: Moderate kidney damage GFR 30-59 Stage 4: Severe kidney damage GFR 15-29 Stage 5: Severe kidney damage GFR <15 ESRD - chronic treatment by dialysis or transplant Performed By: #### C DP, CP ####[address] [place] [address] lab Director: Urbano Moore MD Urea nitrogen [Mass/Vol] 9 mg/dL Normal 6-20 [facility] Comment on above: Performed By: #### C DP, CP ####[address] [place] [address] lab Director: Urabno Moore MD [facility] lOrdered By: Chantal Mckeon on 07-09-2019 Albumin [Mass/Vol] 3.6 g/dL 3.5 - 5.2 g/dL [employer] Phone: Albumin/Globulin [Mass ratio] 1.0 {ratio} [facility] (acquired by [employer] in 2014) Phone: ALP [Catalytic activity/Vol] 162 U/L High 35 - 104 U/L [employer] Phone: ALT [Catalytic activity/Vol] U/L Low 5 - 33 U/L [facility] (acquired by [employer] in 2014) Phone: Anion gap [Moles/Vol] 14 mmol/L 9 - 17 mmol/L [employer] Phone: AST [Catalytic activity/Vol] 9 U/L <32 [employer] Phone: Bilirubin [Mass/Vol] 0.16 mg/dL Low 0.3 - 1 .2 mg/dL [employer] Phone: Bun/Cre Ratio 16 [email or web address] Work Phone: Calcium [Mass/Vol] 9.4 mg/dL 8.6 - 10. 4 mg/dL [employer] Phone: Chloride [Moles/Vol] 104 mmol/L 98 - 10 7 mmol/L [employer] Phone: CO2 [Moles/Vol] 19 mmol/L Low 20 - 31 mmol/L [employer] Phone: Creatinine [Mass/Vol] 0.56 mg/dL 0.5 - 0.9 mg/dL [employer] Phone: GFR >60 >60 mL/min [employer] Phone: GFR Comment [employer] Phone: Comment on above: Average GFR for 20-2 9 years old: 116 mL/min/1.73sq m Chronic Kidney Disease: <60 mL/min/1.73sq m Kidney failure: <15 mL/min/1.73sq m eGFR calculated using average adult body mass. Additional eGFR calculator available at: http://www.Bvents.SingleFeed/multiple_crcl_2012.htm GFR Non- >60 >60 mL/min [employer] Phone: GFR Staging [employer] Phone: Comment on above: Stage 1: Some kidney damage normal GFR Stage 2: Mild kidney damage GFR 60-89 Stage 3: Moderate kidney damage GFR 30-59 Stage 4: Severe kidney damage GFR 15-29 Stage 5: Severe kidney damage GFR <15 ESRD - chronic treatment by dialysis or transplant Glucose [Mass/Vol] 83 mg/dL 70 - 99 mg/dL [employer] Phone: Interpretation and review of laboratory results Abnormal [employer] Phone: Potassium [Moles/Vol] 3.9 mmol/L 3.7 - 5.3 mmol/L [employer] Phone: Protein [Mass/Vol] 7.2 g/dL 6.4 - 8.3 g/dL [employer] Work Phone: Sodium [Moles/Vol] 137 mmol/L 135 - 144 mmol/L [employer] Work Phone: Urea nitrogen [Mass/Vol] 9 mg/dL 6 - 20 mg/dL [employer] Phone: Fibrinogenon 07-09-2019 Fibrinogen 498 mg/dL High 185-451 [facility] Comment on above: Performed By: #### F IB, PT, PTT, URI ####[facility] [place] [address] [facility] Director: Urbano Moore MD FibrinogenOrdered By: Jorge Mckeon on 07-09-2019 Fibrinogen 498 mg/dL High 185 - 451 mg/dL [facility] (acquired by [employer] in 2014) Phone: Microscopic UrinalysisOrdere d By: Chantal Mckeon on 07-09-2019 - [employer] Work Phone: Amorphous, UA NOT REPORTED None [employer] [facility] Work Phone: Bacteria, UA 1+ Abnormal None [employer] Work Phone: Casts UA NOT REPORTED /LPF [employer] Work Phone: Crystals UA NOT REPORTED None /HPF [employer] [facility] Work Phone: Epithelial Cells UA 2 TO 5 [employer] Work Phone: Interpretation and review of laboratory results Abnormal [employer] Work Phone: Mucus, UA TRACE Abnormal None [employer] Phone: Other Observations UA NOT REPORTED NOT REQ. [employer] Phone: RBC, UA None [employer] Phone: Renal Epithelial, Urine NOT REPORTED 0 /HPF [employer] Phone: Trichomonas, UA NOT REPORTED None [employer] Work Phone: WBC, UA None [employer] Phone: Yeast, UA NOT REPORTED None [employer] Phone: No Panel InformationOrdered By: Chantal Mckeon on 07-09-2019 Single live intrauterine with gestational age of 36 weeks, 0 days by current sonographic biometry. The estimated due date is 08/06/2019 by measurements. Biophysical profile score of 8/8. [employer] Phone: EXAMINATION: BIOPHYSICAL PROFILE WITH NON-STRESS TEST; TRANSABDOMINAL SECOND/THIRD TRIMESTER OBSTETRIC PELVIC ULTRASOUND WITH COLOR DOPPLER FLOW 07/09/2019 TECHNIQUE: ULTRASOUND BIOPHYSICAL PROFILE WITH NON-STRESS TEST; TRANSABDOMINAL PELVIC ULTRASOUND WITH COLOR DOPPLER FLOW HISTORY: ORDERING SYSTEM PROVIDED HISTORY: elevated bp, ctx, SGA TECHNOLOGIST PROVIDED HISTORY: ADD COMPLETE elevated bp, ctx, SGA; ORDERING SYSTEM PROVIDED HISTORY: Elevated blood pressure affecting , antepartum TECHNOLOGIST PROVIDED HISTORY: complete FINDINGS: A single live intrauterine is present. heart rate measures 135 beats per minute. There is normal body and limb movement. The fetus is in cephalic position. The placenta is located anterior. The amniotic fluid volume is 17.7 and the amniotic fluid index measures normal. BPD measures 9.0 cm, 19.3 percentile. Head circumference measures 32.0 cm, less than 3 percentile. Abdominal circumference measures 32.4 cm, 14.2 percentile. Femur length measures 6.9 cm, less than 3 percentile. Estimated weight is 2822 grams which correlates to 11.8 percentile based upon last menstrual period. Estimated gestational age by current ultrasound is 36 weeks, 0 days. BIOPHYSICAL PROFILE: Tone: 2/2 Gross Body: 2/2 Breathin/2 Qualitative Fluid: 2/2 Biophysical Profile Score: 8/8 [employer] Phone: Bimal, Mhpn Incoming Radiant Results From [id number]/Pacs - 07/09/2019 12:29 PM EST EXAMINATION: BIOPHYSICAL PROFILE WITH NON-STRESS TEST; TRANSABDOMINAL SECOND/THIRD TRIMESTER OBSTETRIC PELVIC ULTRASOUND WITH COLOR DOPPLER FLOW 07/09/2019 TECHNIQUE: ULTRASOUND BIOPHYSICAL PROFILE WITH NON-STRESS TEST; TRANSABDOMINAL PELVIC ULTRASOUND WITH COLOR DOPPLER FLOW HISTORY: ORDERING SYSTEM PROVIDED HISTORY: elevated bp, ctx, SGA TECHNOLOGIST PROVIDED HISTORY: ADD COMPLETE elevated bp, ctx, SGA; ORDERING SYSTEM PROVIDED HISTORY: Elevated blood pressure affecting , antepartum TECHNOLOGIST PROVIDED HISTORY: complete FINDINGS: A single live intrauterine is present. heart rate measures 135 beats per minute. There is normal body and limb movement. The fetus is in cephalic position. The placenta is located anterior. The amniotic fluid volume is 17.7 and the amniotic fluid index measures normal. BPD measures 9.0 cm, 19.3 percentile. Head circumference measures 32.0 cm, less than 3 percentile. Abdominal circumference measures 32.4 cm, 14.2 percentile. Femur length measures 6.9 cm, less than 3 percentile. Estimated weight is 2822 grams which correlates to 11.8 percentile based upon last menstrual period. Estimated gestational age by current ultrasound is 36 weeks, 0 days. BIOPHYSICAL PROFILE: Tone: 2/2 Gross Body: 2/2 Breathin/2 Qualitative Fluid: 2/2 Biophysical Profile Score: 8/8 IMPRESSION: Single live intrauterine with gestational age of 36 weeks, 0 days by current sonographic biometry. The estimated due date is 08/06/2019 by measurements. Biophysical profile score of 8/8. [employer] Phone: Interpretation and review of laboratory results Abnormal [employer] Phone: PTon 07-09-2019 INR Coag (PPP) [Relative time] 0.9 {INR} Normal 0.9-1.2 [facility] Comment on above: Performed By: #### F IB, PT, PTT, URI ####[facility] [place] [address] lab Director: Urbano Moore MD PT Coag (PPP) [Time] 9.1 s Low 9.7-12.2 [facility] Comment on above: Performed By: #### F IB, PT, PTT, URI ####[facility] [place] [address] lab Director: Urbano Moore MD Protein, urine, randomOrdere d By: Chantal Mckeon on 07-09-2019 Protein (U) [Mass/Vol] 42 mg/dL [facility] [employer] Phone: Comment on above: No normal range esta blished. Protein,Tot,[place] Uron 2019 Tot Prot. Conc. 42 mg/dL Normal [facility] Comment on above: Result Comment: No n ormal range established. Performed By: #### U RTP ####[facility] [place] [address] lab Director: Urbano Moore MD Protime-INROrdered By: Nicolas Mckeon on 07-09-2019 INR Coag (PPP) [Relative time] 0.9 {INR} [facility] [employer] Phone: PT Coag (PPP) [Time] 9.1 s Low [facility] [employer] Phone: US BIOPHYS PROFILE W N ON STRESSon 07-09-2019 US BIOPHYS PROFILE W NON STRESS EXAMINATION: BIOPHYSICAL PROFILE WITH NON-STRESS TEST; TRANSABDOMINAL SECOND/THIRD TRIMESTER OBSTETRIC PELVIC ULTRASOUND WITH COLOR DOPPLER FLOW 07/09/2019 TECHNIQUE: ULTRASOUND BIOPHYSICAL PROFILE WITH NON-STRESS TEST; TRANSABDOMINAL PELVIC ULTRASOUND WITH COLOR DOPPLER FLOW HISTORY: ORDERING SYSTEM PROVIDED HISTORY: elevated bp, ctx, SGA TECHNOLOGIST PROVIDED HISTORY: ADD COMPLETE elevated bp, ctx, SGA; ORDERING SYSTEM PROVIDED HISTORY: Elevated blood pressure affecting , antepartum TECHNOLOGIST PROVIDED HISTORY: complete FINDINGS: A single live intrauterine is present. heart rate measures 135 beats per minute. There is normal body and limb movement. The fetus is in cephalic position. The placenta is located anterior. The amniotic fluid volume is 17.7 and the amniotic fluid index measures normal. BPD measures 9.0 cm, 19.3 percentile. Head circumference measures 32.0 cm, less than 3 percentile. Abdominal circumference measures 32.4 cm, 14.2 percentile. Femur length measures 6.9 cm, less than 3 percentile. Estimated weight is 2822 grams which correlates to 11.8 percentile based upon last menstrual period. Estimated gestational age by current ultrasound is 36 weeks, 0 days. BIOPHYSICAL PROFILE: Tone: 2/2 Gross Body: 2/2 Breathin/2 Qualitative Fluid: 2/2 Biophysical Profile Score: 8/8 IMPRESSION: Single live intrauterine with gestational age of 36 weeks, 0 days by current sonographic biometry. The estimated due date is 08/06/2019 by measurements. Biophysical profile score of 8/8. Interpreted by: Jose Garcia MD Signed by: Jose Garcia MD 07/09/19 Final result Normal [facility] US OB 14 PLUS WEEKS SINGLE O R FIRST GESTATIONon 07-09-2019 US OB 14 PLUS WEEKS SINGLE OR FIRST GESTATION EXAMINATION: BIOPHYSICAL PROFILE WITH NON-STRESS TEST; TRANSABDOMINAL SECOND/THIRD TRIMESTER OBSTETRIC PELVIC ULTRASOUND WITH COLOR DOPPLER FLOW 07/09/2019 TECHNIQUE: ULTRASOUND BIOPHYSICAL PROFILE WITH NON-STRESS TEST; TRANSABDOMINAL PELVIC ULTRASOUND WITH COLOR DOPPLER FLOW HISTORY: ORDERING SYSTEM PROVIDED HISTORY: elevated bp, ctx, SGA TECHNOLOGIST PROVIDED HISTORY: ADD COMPLETE elevated bp, ctx, SGA; ORDERING SYSTEM PROVIDED HISTORY: Elevated blood pressure affecting , antepartum TECHNOLOGIST PROVIDED HISTORY: complete FINDINGS: A single live intrauterine is present. heart rate measures 135 beats per minute. There is normal body and limb movement. The fetus is in cephalic position. The placenta is located anterior. The amniotic fluid volume is 17.7 and the amniotic fluid index measures normal. BPD measures 9.0 cm, 19.3 percentile. Head circumference measures 32.0 cm, less than 3 percentile. Abdominal circumference measures 32.4 cm, 14.2 percentile. Femur length measures 6.9 cm, less than 3 percentile. Estimated weight is 2822 grams which correlates to 11.8 percentile based upon last menstrual period. Estimated gestational age by current ultrasound is 36 weeks, 0 days. BIOPHYSICAL PROFILE: Tone: 2/2 Gross Body: 2/2 Breathin/2 Qualitative Fluid: 2/2 Biophysical Profile Score: 8/8 IMPRESSION: Single live intrauterine with gestational age of 36 weeks, 0 days by current sonographic biometry. The estimated due date is 08/06/2019 by measurements. Biophysical profile score of 8/8. Interpreted by: Jose Garcia MD Signed by: Jose Garcia MD 07/09/19 Final result Normal [facility] Uric Acidon 07-09-2019 Urate [Mass/Vol] 4.5 mg/dL Normal 2.4-5.7 [facility] Comment on above: Performed By: #### F IB, PT, PTT, URI ####[facility] [place] , [place] [id number] [facility] Director: Urbano Moore MD Uric acidOrdered By: Gianni Mckeon on 07-09-2019 Urate [Mass/Vol] 4.5 mg/dL 2.4 - 5.7 mg/dL [facility] Work Phone: UrinalysisOrdered By: Jorge Mckeon on 07-09-2019 Bilirubin Urine Negative NEGATIVE [facility] Work Phone: Color, UA YELLOW YELLOW [facility] Work Phone: Glucose, Ur Negative NEGATIVE [facility] Work Phone: Interpretation and review of laboratory results Abnormal [facility] Work Phone: Ketones Ql (U) Negative NEGATIVE [facility] Work Phone: Leukocyte esterase Test strip Ql (U) Negative NEGATIVE [facility] [employer] Phone: Nitrite, Urine Negative NEGATIVE [facility] Work Phone: pH, UA 7.5 [facility] [employer] Work Phone: Protein, UA TRACE Abnormal NEGATIVE [facility] Work Phone: Specific [place], UA 1.015 [facility] [employer] Work Phone: Turbidity UA CLEAR CLEAR [facility] Work Phone: Urinalysis Comments NOT REPORTED [facility] [employer] Work Phone: Urine Hgb Negative NEGATIVE [facility] Work Phone: Urobilinogen, Urine Normal Normal [facility] Work Phone: Urinalysis, Routineon 2019 Acetoacetic Acid,Ur Negative Normal [facility] Comment on above: Performed By: #### U A, UMICAO ####[facility] [place] [address] Lab Director: Urbano Moore MD Bilirubin, SemiQt,Ur Negative Normal NEG [facility] Comment on above: Performed By: #### U A, UMICAO ####[facility] [place] [address] Lab Director: Urbano Moore MD Color (U) YELLOW Normal [facility] Comment on above: Performed By: #### U A, UMICAO ####[address] [place] [address] Lab Director: Urbano Moore MD Glucose Ql (U) Negative Normal [facility] Comment on above: Performed By: #### U A, UMICAO ####[address] [place] [address] Lab Director: Urbano Moore MD Hemoglobin, Ur Negative Normal [facility] Comment on above: Performed By: #### U A, UMICAO ####[address] [place] [address] Lab Director: Urbano Moore MD Leukocyte esterase Test strip Ql (U) Negative Normal [facility] Comment on above: Performed By: #### U A, UMICAO ####[address] [place] [address] Lab Director: Urbano Moore MD Nitrite,Ur Negative Normal [facility] Comment on above: Performed By: #### U A, UMICAO ####[address] [place] [address] Lab Director: Urbano Moore MD pH (U) 7.5 [pH] Normal 5.0-9.0 [facility] Comment on above: Performed By: #### U A, UMICAO ####[address] , [place] [phone] Director: Urbano Moore MD Protein Ql (U) TRACE Abnormal NEG [facility] Comment on above: Performed By: #### U A, UMICAO ####[address] [place] [address] Lab Director: Urbano Moore MD Specific gravity (U) [Rel density] 1.015 Normal 1.010-1.020 [facility] Comment on above: Performed By: #### U A, UMICAO ####[address] , [place] [address])[phone] Director: Urbano Moore MD Turbidity CLEAR Normal CLEAR [facility] Comment on above: Performed By: #### U A, UMICAO ####[address] [place] [address] Lab Director: Urbano Moore MD Urobilinogen,Ur Normal Normal NORM [facility] Comment on above: Performed By: #### U A, UMICAO ####[address] , [place] [address])[phone] Director: Urbano Moore MD Comment NOT REPORTED Normal [facility] Comment on above: Performed By: #### U A, UMICAO ####[address] [place] [address] Lab Director: Urbano Moore MD Urinalysis,Microon 0 ----- Normal [facility] Comment on above: Performed By: #### U A, UMICAO ####[address] [phone] Director: Urbano Moore MD Bacteria LM.HPF (Urine sed) [#/Area] 1+ Abnormal [facility] Comment on above: Performed By: #### U A, UMICAO ####[address] [place] [id number] Lab Director: Urbano Moore MD Epithelial cells LM.HPF (Urine sed) [#/Area] 2 TO 5 Normal 0-25 [facility] Comment on above: Performed By: #### U A, UMICAO ####[address] [place] [phone] Director: Urbano Moore MD Mucus Strands TRACE Abnormal [facility] Comment on above: Performed By: #### U A, UMICAO ####[address] [place] [id number])[phone] Director: Urbano Moore MD RBC (U) [#/Vol] None Normal 0-2 [facility] Comment on above: Performed By: #### U A, UMICAO ####[address] [place] [phone] Director: Urbano Moore MD WBC (U) [#/Vol] None Normal 0-5 [facility] Comment on above: Performed By: #### U A, UMICAO ####[address] , [phone] Director: Urbano Moore MD Amorphous sediment LM Ql (Urine sed) NOT REPORTED Normal [facility] Comment on above: Performed By: #### U A, UMICAO ####[address] [place] [phone] Director: Urbano Moore MD Casts LM.LPF (Urine sed) [#/Area] NOT REPORTED Normal [facility] Comment on above: Performed By: #### U A, UMICAO ####[facility] [place] [address] Lab Director: Urbano Moore MD Crystals LM Nom (Urine sed) NOT REPORTED Normal NONE [facility] Comment on above: Performed By: #### U A, UMICAO ####[facility] [place] [address] Lab Director: Urbano Moore MD Epithelial, Renal NOT REPORTED Normal 0 [facility] Comment on above: Performed By: #### U A, UMICAO ####[address] [place] [address] Lab Director: Urbano Moore MD Other Observations NOT REPORTED Normal NREQ [facility] Comment on above: Performed By: #### U A, UMICAO ####[address] [place] [address] [facility] Director: Urbano Moore MD Trichomonas NOT REPORTED Normal [facility] Comment on above: Performed By: #### U A, UMICAO ####[address] [place] [address] Lab Director: Urbano Moore MD Yeast LM Ql (Urine sed) NOT REPORTED Normal NONE [facility] Comment on above: Performed By: #### U A, UMICAO ####[address] [place] [address] Lab Director: Urbano Moore MD Urinalysis, Routineon 2019 Acetoacetic Acid,Ur TRACE Abnormal NEG [facility] Comment on above: Performed By: #### U A #### [address] [place] [address] Instructional Designer: Urbano Moore MD Bilirubin, SemiQt,Ur Negative Normal NEG [facility] Comment on above: Performed By: #### U A #### [facility] [address] [place] [address] Instructional Designer: Urbano oMore MD Color (U) YELLOW Normal YEL [facility] Comment on above: Performed By: #### U A #### [facility] [address] [place], [place] [phone] Instructional Designer: Urbano Moore MD Glucose Ql (U) Negative Normal NEG [facility] Comment on above: Performed By: #### U A #### [facility] [address] [place], [place] [phone] Instructional Designer: Urbano Moore MD Hemoglobin, Ur Negative Normal NEG [facility] Comment on above: Performed By: #### U A #### [facility] [address] [place] [address] Dr[address] [place], [place] [phone] Instructional Designer: Urbano Moore MD Leukocyte esterase Test strip Ql (U) Negative Normal NEG [facility] Comment on above: Performed By: #### U A #### [facility] [address] [place] [address] Dr[address] [place], [place] [id number] Instructional Designer: Urbano Moore MD Nitrite,Ur Negative Normal [facility] Comment on above: Performed By: #### U A #### [facility] [address] [place] [address] Dr[address] [place], [place] [phone] Instructional Designer: Urbano Moore MD pH (U) 7.0 [pH] Normal 5.0-9.0 [facility] Comment on above: Performed By: #### U A #### [facility] [address] [place], [place] [phone] Instructional Designer: Urbano Moore MD Protein Ql (U) 1+ Abnormal NEG [facility] Comment on above: Performed By: #### U A #### [facility] [address] [place], [place] [phone] Instructional Designer: Urbano Moore MD Specific gravity (U) [Rel density] 1.020 Normal 1.010-1.020 [facility] Comment on above: Performed By: #### U A #### [facility] [address] [place] [address] Instructional Designer: Urbano Moore MD Turbidity CLEAR Normal CLEAR [facility] Comment on above: Performed By: #### U A #### [facility] [address] [place] [address] Instructional Designer: Urbano Moore MD Urobilinogen,Ur Normal Normal NORM [facility] Comment on above: Performed By: #### U A #### [facility] [address] [place] [address] Instructional Designer: Urbano Moore MD Comment NOT REPORTED Normal [facility] Comment on above: Performed By: #### U A #### [facility] [address] [place] [id number] Instructional Designer: Urbano Moore MD Urinalysis,Microon 0 ----- Normal [facility] Comment on above: Performed By: #### U A #### [facility] [address] [place] [address] Instructional Designer: Urbano Moore MD Bacteria LM.HPF (Urine sed) [#/Area] 1+ Abnormal NONE [facility] Comment on above: Performed By: #### U A #### [facility] [address] [place], [id number] Instructional Designer: Urbano Moore MD Epithelial cells LM.HPF (Urine sed) [#/Area] 2 TO 5 Normal 0-25 [facility] Comment on above: Performed By: #### U A #### [facility] [address] [place] [address] Instructional Designer: Urbano Moore MD Mucus Strands 1+ Abnormal NONE [facility] Comment on above: Performed By: #### U A #### [facility] [facility] [address] [place], [place] [id number] Instructional Designer: Urbano Moore MD RBC (U) [#/Vol] 0 TO 2 Normal 0-2 [facility] Comment on above: Performed By: #### U A #### [facility] [address] [place] [address] Instructional Designer: Urbano Moore MD WBC (U) [#/Vol] 0 TO 2 Normal 0-5 [facility] [place] Comment on above: Performed By: #### U A #### [facility] [address] [place], [place] [address] Instructional Designer: Urbano Moore MD Amorphous sediment LM Ql (Urine sed) NOT REPORTED Normal NONE [facility] Comment on above: Performed By: #### U A #### [address] [place] [id number] Instructional Designer: Urbano Moore MD Casts LM.LPF (Urine sed) [#/Area] NOT REPORTED Normal [facility] Comment on above: Performed By: #### U A #### [address] [place] [id number] Instructional Designer: Urbano oMore MD Crystals LM Nom (Urine sed) NOT REPORTED Normal NONE [facility] Comment on above: Performed By: #### U A #### [facility] [address] [place] [address] Dr. [place], [id number] Instructional Designer: Urbano Moore MD Epithelial, Renal NOT REPORTED Normal 0 [facility] Comment on above: Performed By: #### U A #### [address] [place] [address] Instructional Designer: Urbano Moore MD Other Observations NOT REPORTED Normal NREQ [facility] Comment on above: Performed By: #### U A #### [facility] [address] [place] [address] [place] [address] Instructional Designer: Urbano Moore MD Trichomonas NOT REPORTED Normal NONE [facility] Comment on above: Performed By: #### U A #### [facility] [address] [place] [address] Instructional Designer: Urbano Moore MD Yeast LM Ql (Urine sed) NOT REPORTED Normal [facility] Comment on above: Performed By: #### U A #### [facility] [address] [place] [address] Instructional Designer: Urbano Moore MD Rule Out Grp.B Strepon 06-27 Rule Out Grp.B Strep Specimen Descriptio n .VAGINA Special Requests NOT REPORTED Culture NEGATIVE FOR GROUP B STREPTOCOCCI Report Status FINAL 06/27/2019 Normal [facility] Comment on above: Performed By: #### U A #### [address] [place] [address] Instructional Designer: Urbano Moore MD Urinalysis, Routineon 2018 Acetoacetic Acid,Ur Negative Normal NEG [facility] Comment on above: Performed By: #### U A #### [address] [place] [address] Instructional Designer: Urbano Moore MD Bilirubin, SemiQt,Ur Negative Normal NEG [facility] Comment on above: Performed By: #### U A #### [facility] [address] [place] [address] Instructional Designer: Urbano Moore MD Color (U) YELLOW Normal YEL [facility] Comment on above: Performed By: #### U A #### [facility] [address] [place] [address] Instructional Designer: Urbano Moore MD Glucose Ql (U) Negative Normal NEG [facility] Comment on above: Performed By: #### U A #### [facility] [address] [place] [address] Instructional Designer: Urbano Moore MD Hemoglobin, Ur Negative Normal NEG [facility] Comment on above: Performed By: #### U A #### [facility] [address] [place] [address] Instructional Designer: Urbano Moore MD Leukocyte esterase Test strip Ql (U) Negative Normal NEG [facility] Comment on above: Performed By: #### U A #### [facility] [address] [place] [address] Instructional Designer: Urbano Moore MD Nitrite,Ur Negative Normal NEG [facility] Comment on above: Performed By: #### U A #### [facility] [address] [place] [address] [place] [address] Instructional Designer: Urbano Moore MD pH (U) 7.5 [pH] Normal 5.0-9.0 [facility] Comment on above: Performed By: #### U A #### [address] [place] [address] Instructional Designer: Urbano Moore MD Protein Ql (U) Negative Normal NEG [facility] Comment on above: Performed By: #### U A #### [address] [place] [address] Instructional Designer: Urbano Moore MD Specific gravity (U) [Rel density] 1.010 Normal 1.010-1.020 [facility] Comment on above: Performed By: #### U A #### [facility] [address] [place] [address] [place] [address] Instructional Designer: Urbano Moore MD Turbidity CLEAR Normal CLEAR [facility] Comment on above: Performed By: #### U A #### [facility] [address] [place] [address] [place] [address] Instructional Designer: Urbano Moore MD Urobilinogen,Ur Normal Normal NORM [facility] Comment on above: Performed By: #### U A #### [facility] [address] [place], [place] [address] Instructional Designer: Urbano Moore MD Comment NOT REPORTED Normal [facility] Comment on above: Performed By: #### U A #### [facility] [address] [place], [place] [address] Instructional Designer: Urbano Moore MD Hemoglobinon 04-27-2019 Hemoglobin (Bld) [Mass/Vol] 12.2 g/dL Normal 11.9-15.1 [facility] Comment on above: Performed By: #### U A #### [facility] [address] [place] [id number] Instructional Designer: Urbano Moore MD Hemoglobin (Bld) [Mass/Vol] 12.2 g/dL 11.9 - 15.1 g/dL [place], [place] Hemoglobin A1Con 04-27-2019 HbA1c (Bld) [Mass fraction] 5.0 % Normal 4.8-5.9 [facility] Comment on above: Performed By: #### U A #### [facility] [address] [place] [id number] Instructional Designer: Urbano Moore MD HbA1c (Bld) [Mass fraction] 97 mg/dL Normal [facility] Comment on above: Result Comment: The ADA and AACC recommend providing the estimated average glucose result to permit better patient understanding of their HBA1c result. Performed By: #### U A #### [facility] [address] [place] [id number] Instructional Designer: Urbano Moore MD Glucose [Mass/Vol] 97 mg/dL [place], [place] Comment on above: The ADA and AACC rec ommend providing the estimated average glucose result to permit better patient understanding of their HBA1c result. HbA1c (Bld) [Mass fraction] 5.0 % 4.8 - 5.9 % [place], [place] Cytologyon 01-15-2019 Cytology (NOTE) [id number] [facility] Bin1 ATE CONSULTING PATHOLOGISTS [facility] ANATOMIC PATHOLOGY [address] [place], [place] [address] GYNECOLOGIC CYTOLOGY REPORT Patient Name: JENNIFER SWEET MR#: [id number] Specimen #[id number] Source: 1: Cervical material, (ThinPrep vial, Imaging-assisted review) Clinical History : Z3A.13 High risk HPV DNA testing is requested if the diagnosis is abnormal LMP: 10/14/18 INTERPRETATION Cervical material, (ThinPrep vial, Imaging-assisted review): Specimen Adequacy: Satisfactory for evaluation. - Endocervical/transfo rmation zone component present. Descriptive Diagnosis: Negative for intraepithelial lesion or malignancy. Mortgage Processing Manager: GUERITA Mcdonald JD(ASCP) Electronically Signed Out benitez/01/23/2019 Normal [facility] Comment on above: Performed By: #### U A #### [facility] [address] [place] [address] Instructional Designer: Urbano Moore MD Chlamydia/GC DNA, Uron 11-27 Chlamydia Probe, Ur Negative Normal NEG [facility] Comment on above: Result Comment: CHLA MYDIA TRACHOMATIS DNA not detected by nucleic acid amplification. This test is intended for medical purposes only and is not valid for the evaluation of suspected sexual abuse or for other forensic purposes. In certain contexts, culture may be required to meet applicable laws and regulations for diagnosis of C. trachomatis and N. gonorrhoeae infections. Per 2014 CDC recommendations, this test does not include confirmation of positive results by an alternative nucleic acid target. Performed By: #### U A #### [facility] [address] [place] [address] Instructional Designer: Urbano Moore MD Gonorrhea Probe, Ur Negative Normal NEG [facility] Comment on above: Result Comment: NEIS SERIA GONORRHOEAE DNA not detected by nucleic acid amplification. This test is intended for medical purposes only and is not valid for the evaluation of suspected sexual abuse or for other forensic purposes. In certain contexts, culture may be required to meet applicable laws and regulations for diagnosis of C. trachomatis and N. gonorrhoeae infections. Per 2014 CDC recommendations, this test does not include confirmation of positive results by an alternative nucleic acid target. Performed By: #### U A #### [facility] [address] [place] [address] [place] [address] Instructional Designer: Urbano Moore MD HIV Ag/Abon 11-26-2018 HIV Ag/Ab NONREACTIVE Normal [facility] Comment on above: Result Comment: No l aboratory evidence of HIV infection. If acute HIV infection is suspected, consider testing for HIV-1 RNA. Performed By: #### G LYHGB #### [facility] [address] [place] [address] [place] [address] Instructional Designer: Urbano Moore MD #### GOKUL, HIVCMB #### [place] [address] [place] [address] Instructional Designer: Porfirio Calix MD Hep C Abon 11-26-2018 Hep C Ab NONREACTIVE Normal [facility] Comment on above: Result Comment: The hepatitis C procedure used in our laboratory is a Chemiluminescent test specific for three recombinant HCV antigens. A negative anti-HCV result indicates that the antibodies to hepatitis C virus are not present at this time. Individuals with reactive anti-HCV should be considered infected and infectious until proven otherwise. Confirmation of all equivocal or reactive results is recommended by ordering HCV RNA by PCR. Performed By: #### G LYHGB #### [address] [place] [address] Instructional Designer: Urbano Moore MD #### GOKUL, HIVCMB #### [place] [address] [place] [address] Instructional Designer: Porfirio Calix MD Profileon 9 T.pallidum Ab Screen NONREACTIVE Normal [facility] Comment on above: Result Comment: T. pallidum antibodies are not detected. There is no serological evidence of infection with T. pallidum (early primary syphilis cannot be excluded). Retest in 2-4 weeks if syphilis is clinically suspect. Performed By: #### U A #### [facility] [address] [place] [address] Instructional Designer: Urbano Moore MD Hep B Surf Ag NONREACTIVE Normal NR [facility] Comment on above: Performed By: #### U A #### [address] [place] [address] Instructional Designer: Urbano Moore MD Rubella Ab, IgG 124.7 IU/mL Normal [facility] Comment on above: Result Comment: REFERENCE RANGE: <5.0 NON-REACTIVE (non-immune) 5.0 TO 9.9 EQUIVOCAL >=10.0 REACTIVE (immune) Performed By: #### U A #### [address] [place] [address] Instructional Designer: Urbano Moore MD HCG, Quanton 11-25-2018 HCG, Quant [id number] IU/L High <5 [facility] Comment on above: Result Comment: Non-preg premeno <=5 Postmeno <=8 Male <=3 If HCG results do not concur with clinical observations, additional testing to confirm results is recommended. Elevated results not associated with may be found in patients with other diseases such as tumors of the germ cells (testis, ovaries, etc.), bladder, pancreas, stomach, lungs, and liver. Performed By: #### B HCG #### [address] [place] [address] Instructional Designer: Urbano Moore MD Hemoglobin A1Con 11-25-2018 HbA1c (Bld) [Mass fraction] 4.8 % Normal 4.8-5.9 [facility] Comment on above: Performed By: #### G LYHGB #### [address] [place] [address] Instructional Designer: Urbano Moore MD #### AHCV, HIVCMB #### [address] [id number] Instructional Designer: Porfirio Calix MD HbA1c (Bld) [Mass fraction] 91 mg/dL Normal [facility] Comment on above: Result Comment: The ADA and AACC recommend providing the estimated average glucose result to permit better patient understanding of their HBA1c result. Performed By: #### G LYHGB #### [facility] [address] [place] [address] Instructional Designer: Urbano Moore MD #### AHCV, HIVCMB #### [facility] [address] [place], [place] [address]25[address] Instructional Designer: Porfirio Calix MD Profileon 9 Abs. Basophil 0.03 k/uL Normal 0.00-0.20 [facility] Comment on above: Performed By: #### U A #### [address] [place] [id number] ( Instructional Designer: Urbano Moore MD Abs.Imm.Granulocyte <0.03 Normal 0.00-0.30 [facility] Comment on above: Performed By: #### U A #### [address] [place] [address] Instructional Designer: Urbano Moore MD Abs.Neutrophil (Seg) 4.36 k/uL Normal 1.50-8.10 [facility] Comment on above: Performed By: #### U A #### [address] [place] [address] Instructional Designer: Urbano Moore MD Basophils/100 WBC (Bld) 0 % Normal 0-2 [facility] Comment on above: Performed By: #### U A #### [address] [place] [address] Instructional Designer: Urbano Moore MD Eosinophils (Bld) [#/Vol] 0.08 10*3/uL Normal 0.00-0.44 [facility] Comment on above: Performed By: #### U A #### [address] [place] [id number] Instructional Designer: Urbano Moore MD Eosinophils/100 WBC (Bld) 1 % Normal 1-4 [facility] Comment on above: Performed By: #### U A #### [facility] [address] [place] [id number] Instructional Designer: Urbano Moore MD Erythrocyte distribution width (RBC) [Ratio] 13.1 % Normal 11.8-14.4 [facility] Comment on above: Performed By: #### U A #### [facility] [address] [place] [address] Instructional Designer: Urbano Moore MD Hematocrit (Bld) [Volume fraction] 37.8 % Normal 36.3-47.1 [facility] Comment on above: Performed By: #### U A #### [address] [place] [address] Instructional Designer: Urbano Moore MD Hemoglobin (Bld) [Mass/Vol] 11.9 g/dL Normal 11.9-15.1 [facility] Comment on above: Performed By: #### U A #### [address] [place], [id number] Instructional Designer: Urbano Moore MD Immature granulocytes (Bld) [#/Vol] 0 % Normal 0 [facility] Comment on above: Performed By: #### U A #### [facility] [address] [place], [id number] Instructional Designer: Urbano Moore MD Lymphocytes (Bld) [#/Vol] 2.11 10*3/uL Normal 1.10-3.70 [facility] Comment on above: Performed By: #### U A #### [facility] [address] [place], [id number] Instructional Designer: Urbano Moore MD Lymphocytes/100 WBC (Bld) 28 % Normal 24-43 [facility] Comment on above: Performed By: #### U A #### [facility] [address] [place] [address] Instructional Designer: Urbano Moore MD MCH (RBC) [Entitic mass] 26.0 pg Normal 25.2-33.5 [facility] Comment on above: Performed By: #### U A #### [facility] [address] [place] [id number] Instructional Designer: Urbano Moore MD MCHC (RBC) [Mass/Vol] 31.5 g/dL Normal 28.4-34.8 [facility] Comment on above: Performed By: #### U A #### [address] [place] [address] Instructional Designer: Urbano Moore MD MCV (RBC) [Entitic vol] 82.5 fL Low 82.6-102.9 [facility] Comment on above: Performed By: #### U A #### [address] [place], [id number] Instructional Designer: Urbano Moore MD Monocytes (Bld) [#/Vol] 0.99 10*3/uL Normal 0.10-1.20 [facility] Comment on above: Performed By: #### U A #### [address] [place], [id number] Instructional Designer: Urbano Moore MD Monocytes/100 WBC (Bld) 13 % High 3-12 [facility] Comment on above: Performed By: #### U A #### [facility] [address] [place] [address] Instructional Designer: Urbano Moore MD Neutrophil (Seg) 58 % Normal 36-65 [facility] Comment on above: Performed By: #### U A #### [facility] [address] [place] [address] Instructional Designer: Urbano Moore MD NRBC Automated 0.0 per 100 WBC Normal 0.0 [facility] Comment on above: Performed By: #### U A #### [facility] [address] [place] [id number] Instructional Designer: Urbano Moore MD Platelet mean volume (Bld) [Entitic vol] 10.2 fL Normal 8.1-13.5 [facility] Comment on above: Performed By: #### U A #### [facility] [address] [place] [id number] Instructional Designer: Urbano Moore MD Platelets (Bld) [#/Vol] 311 10*3/uL Normal 138-453 [facility] Comment on above: Performed By: #### U A #### [address] [place] [id number] Instructional Designer: Urbano Moore MD RBC (Bld) [#/Vol] 4.58 10*6/uL Normal 3.95-5.11 [facility] Comment on above: Performed By: #### U A #### [address] [place] [id number] Instructional Designer: Urbano Moore MD WBC (Bld) [#/Vol] 7.6 10*3/uL Normal 3.5-11.3 [facility] Comment on above: Performed By: #### U A #### [address] [place], [id number] Instructional Designer: Urbano Moore MD Auto Diff Performed NOT REPORTED Normal [facility] Comment on above: Performed By: #### U A #### [address] [place] [address] Instructional Designer: Urbano Moore MD Platelets (Bld) [#/Vol] NOT REPORTED Normal [facility] Comment on above: Performed By: #### U A #### [address] [place] [address] Instructional Designer: Urbano Moore MD RBC morphology finding Nom (Bld) NOT REPORTED Normal [facility] Comment on above: Performed By: #### U A #### [facility] [address] [place], [place] [address]83 Instructional Designer: Urbano Moore MD WBC Morphology NOT REPORTED Normal [facility] Comment on above: Performed By: #### U A #### [facility] [address] [place] [address] Instructional Designer: Urbano Moore MD Type + Scrnon 11-25 Type + Scrn Negative [facility] Comment on above: Performed By: #### P RTYS #### [facility] [address] [place] [address] [place] [address] Instructional Designer: Urbano Moore MD Toxicology Scree, Urineon Amphetamine(s),Ur Negative Normal NEG [facility] Comment on above: Performed By: #### C PDAU #### [facility] [address] [place], [place] 2348983 Instructional Designer: Urbano Moore MD Barbiturate(s),Ur Negative Normal NEG [facility] Comment on above: Performed By: #### C PDAU #### [facility] [address] [place] [address] Instructional Designer: Urbano Moore MD Benzodiazepine(s) Negative Normal [facility] Comment on above: Performed By: #### C PDAU #### [facility] [address] [place], [place] [id number] Instructional Designer: Urbano Moore MD Buprenorphrine, Ur Negative Normal NEG [facility] Comment on above: Performed By: #### C PDAU #### [facility] [address] [place], [place] 1959883 Instructional Designer: Urbano Moore MD Cannabinoid(s),Ur Negative Normal NEG [facility] Comment on above: Performed By: #### C PDAU #### [facility] [address] [place] [address] Instructional Designer: Urbano Moore MD Cocaine Metabolite Negative Normal [facility] Comment on above: Performed By: #### C PDAU #### [facility] [address] [place] [address] Instructional Designer: Urbano Moore MD Methadone Ql (U) Negative Normal NEG [facility] Comment on above: Performed By: #### C PDAU #### [facility] [address] [place] [address] Instructional Designer: Urbano Moore MD Methamphetamine, Ur Negative Normal [facility] Comment on above: Performed By: #### C PDAU #### [facility] [address] [place], [id number] Instructional Designer: Urbano Moore MD Opiate(s), Ur Negative Normal [facility] Comment on above: Performed By: #### C PDAU #### [facility] [address] [place] [id number] Instructional Designer: Urbano Moore MD Oxycodone, Urine Negative Normal [facility] Comment on above: Performed By: #### C PDAU #### [facility] [address] [place], [id number] Instructional Designer: Urbano Moore MD Phencyclidine, Ur Negative Normal [facility] Comment on above: Performed By: #### C PDAU #### [facility] [address] [place] [address] Instructional Designer: Urbano Moore MD Propoxyphene,Urine Negative Normal [facility] Comment on above: Performed By: #### C PDAU #### [facility] [address] [place], [place] [id number] Instructional Designer: Urbano Moore MD Tricyclic antidepressants Screen Ql (U) Negative Normal NEG [facility] Comment on above: Result Comment: Drug screen results are to be used for medical purposes only. All positive results are unconfirmed. Testing for employment or legal uses should be sent to a reference laboratory for confirmation. Performed By: #### C PDAU #### [facility] [address] [place], [place] 4158183 Instructional Designer: Urbano Moore MD Interpretive Info NOT REPORTED Normal [facility] Comment on above: Performed By: #### C PDAU #### [address] [place] [address] Instructional Designer: Urbano Moore MD MDMA, Urine NOT REPORTED Normal NEG [facility] Comment on above: Performed By: #### C PDAU #### [address] [place], [place] 0295383 Instructional Designer: Urbano Moore MD ABO/Rh(D)on 11-22-2018 ABO/Rh(D) Positive Normal [facility] Comment on above: Performed By: #### A [facility] #### [address] [place], [place] [id number] Instructional Designer: Urbano Moore MD HCG, Quanton 11-22-2018 HCG, Quant [id number] IU/L High <5 [facility] Comment on above: Result Comment: Non-preg premeno <=5 Postmeno <=8 Male <=3 If HCG results do not concur with clinical observations, additional testing to confirm results is recommended. Elevated results not associated with may be found in patients with other diseases such as tumors of the germ cells (testis, ovaries, etc.), bladder, pancreas, stomach, lungs, and liver. Performed By: #### B HCG #### [facility] [address] [place] [address] Instructional Designer: Urbano Moore MD OB TRANSVAGINALon 019 US OB TRANSVAGINAL EXAMINATION: FIRST TRIMESTER OBSTETRIC ULTRASOUND 11/22/2018 TECHNIQUE: Transvaginal first trimester obstetric pelvic ultrasound was performed without color Doppler flow evaluation. COMPARISON: None HISTORY: ORDERING SYSTEM PROVIDED HISTORY: Pelvic pain / rule out ectopic FINDINGS: Uterus: 8.9 x 6 x 5.1 cm. No myometrial abnormality. Gestational Sac(s): Single normal appearing gestational sac. No evidence of subchorionic hemorrhage. Yolk Sac: Present Pole: Single pole [place] Rump Length: 2 mm Heart Rate: No cardiac motion identified. Right ovary: Normal, measuring 2.6 x 1.8 x 1.7 cm Left ovary: Normal, measuring 1.9 x 1.7 x 1.3 cm Free fluid: None. Measurements: Estimated gestational age by current ultrasound: 5 weeks, 4 days Estimated gestational by LMP/prior ultrasound: 5 weeks, 4 days Estimated Due Date: 07/21/2019 IMPRESSION: 1. Single intrauterine gestation of 5 weeks, 4 days estimated sonographic gestational age. No cardiac motion is detected, however none is expected with crown-rump length less than 7 mm. 2. No perigestational hemorrhage. 3. Normal ovaries. Interpreted by: Oni Burroughs MD Signed by: Oni Burroughs MD 11/22/18 Final result Normal [facility] Urinalysis, Routineon 2018 Acetoacetic Acid,Ur Negative Normal NEG [facility] Comment on above: Performed By: #### U A #### [facility] [address] [place] [address] Instructional Designer: Urbano Moore MD Bilirubin, SemiQt,Ur Negative Normal NEG [facility] Comment on above: Performed By: #### U A #### [facility] [address] [place] [address] Instructional Designer: Urbano Moore MD Color (U) YELLOW Normal L [facility] Comment on above: Performed By: #### U A #### [facility] [address] [place] [address] Instructional Designer: Urbano Moore MD Glucose Ql (U) Negative Normal [facility]G [facility] Comment on above: Performed By: #### U A #### [facility] [address] [place], [id number] Instructional Designer: Urbano Moore MD Hemoglobin, Ur Negative Normal NEG [facility] in Hospital Comment on above: Performed By: #### U A #### [facility] [address] [place] [address] Dr. [place], [id number] Instructional Designer: Urbano Moore MD Leukocyte esterase Test strip Ql (U) Negative Normal NEG [facility] Comment on above: Performed By: #### U A #### [address] [place] [id number] Instructional Designer: Urbano Moore MD Nitrite,Ur Negative Normal NEG [facility] Comment on above: Performed By: #### U A #### [address] [place] [id number] Instructional Designer: Urbano Moore MD pH (U) 6.5 [pH] Normal 5.0-9.0 [facility] Comment on above: Performed By: #### U A #### [address] [place] [id number] Instructional Designer: Urbano Moore MD Protein Ql (U) Negative Normal NEG [facility] in Hospital Comment on above: Performed By: #### U A #### [address] [place], [id number] Instructional Designer: Urbano Moore MD Specific gravity (U) [Rel density] 1.020 Normal 1.010-1.020 [facility] Comment on above: Performed By: #### U A #### [address] [place] [address] Instructional Designer: Urbano Moore MD Turbidity CLEAR Normal CLEAR [facility] Comment on above: Performed By: #### U A #### [address] [place], [place] [id number] Instructional Designer: Urbano Moore MD Urobilinogen,Ur Normal Normal NORM [facility] Comment on above: Performed By: #### U A #### [facility] [address] [place], [place] [id number] Instructional Designer: Urbano Moore MD Comment NOT REPORTED Normal [facility] Comment on above: Performed By: #### U A #### [facility] [address] [place], [place] [id number] Instructional Designer: Urbano Moore MD Vital Signs Date Time Vital Sign Value Performing Clinician Shital ayers 07-18-2019 08:24-0500 Body temperature 98.4 [degF] Chantal Pool RELOCATION ASSOCIATE - CNM Work Phone: [employer] Work Phone: 07-18-2019 08:24-0500 Diastolic blood pressure 82 mm[Hg] Chantal Pool RELOCATION ASSOCIATE - CNM Work Phone: [employer] Work Phone: 07-18-2019 08:24-0500 Heart rate 75 /min Chantal Pool RELOCATION ASSOCIATE - CNM Work Phone: [employer] Work Phone: 07-18-2019 08:24-0500 Respiratory rate 16 /min Chantal Pool RELOCATION ASSOCIATE - CNM Work Phone: [employer] Work Phone: 07-18-2019 08:24-0500 Systolic blood pressure 141 mm[Hg] Chantal Pool RELOCATION ASSOCIATE - CNM Work Phone: [employer] Work Phone: 07-15-2019 01:23-0500 SaO2% (BldA) [Mass fraction] 97 % Chantal Pool RELOCATION ASSOCIATE - CNM Work Phone: [employer] Work Phone: 07-09-2019 12:52-0500 Diastolic blood pressure 67 mm[Hg] Chantal Mckeon RELOCATION ASSOCIATE - CNM Work Phone: [employer] Work Phone: 07-09-2019 12:52-0500 Heart rate 76 /min Chantal Pool RELOCATION ASSOCIATE - CNM Work Phone: [employer] Work Phone: 07-09-2019 12:52-0500 Systolic blood pressure 125 mm[Hg] Chantal Pool RELOCATION ASSOCIATE - CNM Work Phone: [employer] Work Phone: 07-09-2019 12:23-0500 Respiratory rate 16 /min Chantal Pool RELOCATION ASSOCIATE - CNM Work Phone: [employer] Work Phone: 07-09-2019 12:08-0500 Body temperature 98.49 [degF] Chantal Mckeon RELOCATION ASSOCIATE - CNM Work Phone: [employer] Work Phone: Encounters Encounter Date Encounter Type Care Provider Facility Start: 05-05-2021 End: 05-07-2021 Evaluation and management of inpatient PHYSICIAN [facility]IA [facility] Facility:[facility] Start: 06-02-2020 End: 06-02-2020 Patient encounter procedure [facility] Facility: Start: 07-14-2019 End: 07-18-2019 Evaluation and management of inpatient [facility] Start: 07-14-2019 End: 07-18-2019 Evaluation and management of inpatient Chantal E Guanica RELOCATION ASSOCIATE - CNM Work Phone: [facility] Comment on above: S/P primary low franco sverse (Primary Dx) Start: 07-09-2019 End: 07-09-2019 Patient encounter procedure [facility] Start: 07-09-2019 End: 07-09-2019 Subsequent hospital visit by physician Chantal Mckeon RELOCATION ASSOCIATE - CNM Work Phone: [facility] Comment on above: Elevated blood press ure affecting , antepartum; SGA (small for gestational age) Start: 07-08-2019 End: 07-09-2019 Patient encounter procedure [facility] Start: 06-23-2019 End: 06-24-2019 Patient encounter procedure [facility] Start: 06-23-2019 End: 06-23-2019 Subsequent hospital visit by physician Luli Maddox MD Work Phone: [facility] Laboratory Comment on above: 36 weeks gestation o f Start: 06-07-2019 End: 06-07-2019 Patient encounter procedure [facility] Start: 04-27-2019 End: 04-28-2019 Patient encounter procedure [facility] Start: 04-27-2019 End: 04-27-2019 Subsequent hospital visit by physician Luli HODGES Laboratory Comment on above: 27 weeks gestation o f Start: 01-15-2019 End: 01-16-2019 Patient encounter procedure MIROSLAVA Brito [facility] Start: 11-25-2018 End: 11-26-2018 Patient encounter procedure [facility] Start: 11-22-2018 Emergency department patient visit [facility] Procedures Date Procedure Procedure Detail Performing Clinician Start: 07-18-2019 DISCHARGE PATIENT MIROSLAVA TAPIA Start: 07-18-2019 Ct head/brain w/o contrast material MIROSLAVA TAPIA Start: 07-18-2019 INSERT PERIPHERAL IV MIROSLAVA TAPIA Start: 07-18-2019 Blood count complete auto&auto difrntl wbc MIROSLAVA TAPIA Start: 07-18-2019 Comprehensive metabolic panel MIROSLAVA TAPIA Start: 07-18-2019 Ct head/brain w/o contrast material Maxine Crawley RELOCATION ASSOCIATE - CNM Work Phone: Start: 07-18-2019 Comprehensive metabolic panel Maxine Crawley RELOCATION ASSOCIATE - CNM Work Phone: Start: 07-18-2019 INITIATE OXYGEN THERAPY PROTOCOL MIROSLAVA TAPIA Start: 07-17-2019 INITIATE OXYGEN THERAPY PROTOCOL MIROSLAVA TAPIA Start: 07-16-2019 INITIATE OXYGEN THERAPY PROTOCOL MIROSLAVA TAPIA Start: 07-15-2019 INITIATE OXYGEN THERAPY PROTOCOL MIROSLAVA TAPIA Start: 07-15-2019 Blood count complete automated MIROSLAVA TAPIA Start: 07-15-2019 Blood count complete automated Anabela Bragg DO Work Phone: Start: 07-14-2019 Level iv surg pathology gross&microscopic exam MIROSLAVA TAPIA Start: 07-14-2019 DIET GENERAL MIROSLAVA TAPIA Start: 07-14-2019 ENCOURAGE DEEP BREATHING AND COUGHING MIROSLAVA TAPIA Start: 07-14-2019 INITIATE OXYGEN THERAPY PROTOCOL MIROSLAVA TAPIA Start: 07-14-2019 PLACE INTERMITTENT PNEUMATIC COMPRESSION DEVICE MIROSLAVA TAPIA Start: 07-14-2019 AMBULATE PATIENT MIROSLAVA TAPIA Start: 07-14-2019 CATHETER REMOVAL MIROSLAVA TAPIA Start: 07-14-2019 FULL CODE MIROSLAVA TAPIA Start: 07-14-2019 INTAKE AND OUTPUT MIROSLAVA TAPIA Start: 07-14-2019 NOTIFY PHYSICIAN (SPECIFY) MIROSLAVA TAPIA Start: 07-14-2019 STRAIGHT CATH MIROSLAVA TAPIA Start: 07-14-2019 VITAL SIGNS MIROSLAVA TAPIA Start: 07-14-2019 WOUND CARE MIROSLAVA TAPIA Start: 07-14-2019 TRANSFER PATIENT MIROSLAVA TAPIA Start: 07-14-2019 PATIENT STATUS (DIRECT) MIROSLAVA TAPIA Start: 07-14-2019 Assay of blood/uric acid MIROSLAVA TAPIA Start: 07-14-2019 Blood count complete auto&auto difrntl wbc MIROSLAVA TAPIA Start: 07-14-2019 Comprehensive metabolic panel MIROSLAVA TAPIA Start: 07-14-2019 Fibrinogen activity MIROSLAVA TAPAI Start: 07-14-2019 Lactate dehydrogenase ldh MIROSLAVA TAPIA Start: 07-14-2019 End: 07-14-2019 delivery only Anabela Bragg DO Work Phone: Start: 07-14-2019 Comprehensive metabolic panel Chantal Mckeon RELOCATION ASSOCIATE - CNM Work Phone: Start: 07-14-2019 Drug screen class list a MIROSLAVA TAPIA Start: 07-14-2019 Level iv surg pathology gross&microscopic exam MIROSLAVA TAPIA Start: 07-14-2019 Drug screen class list a Chantal Mckeon RELOCATION ASSOCIATE - CNM Work Phone: Start: 07-14-2019 Level iv surg pathology gross&microscopic exam Chantal Enriquez CN Work Phone: Start: 07-14-2019 H/O: section S/P primary low transverse Chantal Mckeon APRN - CN Work Phone: Start: 07-09-2019 DISCHARGE PATIENT MIROSLAVA TAPIA Start: 07-09-2019 biophysical profile non-stress testing MIROSLAVA TAPIA Start: 07-09-2019 Us preg uterus after 1st trimest 06/17 gestation MIROSLAVA TAPIA Start: 07-09-2019 Assay of blood/uric acid MIROSLAVA TAPIA Start: 07-09-2019 Blood count complete auto&auto difrntl wbc MIROSLAVA TAPIA Start: 07-09-2019 Comprehensive metabolic panel MIRSOLAVA TAPIA Start: 07-09-2019 Fibrinogen activity MIROSLAVA TAPIA Start: 07-09-2019 Prothrombin time MIROSLAVA TAPIA Start: 07-09-2019 Thromboplastin time partial plasma/whole blood MIROSLAVA ROSSDez Start: 07-09-2019 CONTRACTION -MONITORING MIROSLAVA TAPIA Start: 07-09-2019 DIET NPO, NOW MIROSLAVA TAPIA Start: 07-09-2019 FULL CODE MIROSLAVA TAPIA Start: 07-09-2019 Gluc bld gluc mntr dev cleared fda spec home use MIROSLAVA TAPIA Start: 07-09-2019 NOTIFY PHYSICIAN (SPECIFY) MIROSLAVA VANDANADez Start: 07-09-2019 SALINE LOCK IV MIROSLAVA TAPIA Start: 07-09-2019 ASSESS HEART TONES MIROSLAVA VANDANADez Start: 07-09-2019 MONITOR HEART TONES MIROSLAVA VANDANADez Start: 07-09-2019 VITAL SIGNS MIROSLAVA TAPIA Start: 07-09-2019 Protein total xcpt refractometry urine MIROSLAVA TAPIA Start: 07-09-2019 Urinalysis microscopic only MIROSLAVA TAPIA Start: 07-09-2019 Urnls dip stick/tablet rgnt auto w/o microscopy MIROSLAVA TAPIA Start: 07-09-2019 Us preg uterus after 1st trimest 06/17 gestation Chantal Mckeon RELOCATION ASSOCIATE - CNM Work Phone: Start: 07-09-2019 End: 07-09-2019 Comprehensive metabolic panel Chantal Mckeon APRN - CN Work Phone: Start: 07-09-2019 Urinalysis microscopic only Chantal Montgomery Pool RELOCATION ASSOCIATE - CNM Work Phone: Start: 07-09-2019 Urnls dip stick/tablet rgnt auto w/o microscopy Chantal Mckeon RELOCATION ASSOCIATE - CNM Work Phone: Start: 07-09-2019 DISCHARGE PATIENT MIROSLAVA TAPIA Start: 07-08-2019 ASSESS HEART TONES MIROSLAVA TAPIA Start: 07-08-2019 CONTRACTION -MONITORING MIROSLAVA TAPIA Start: 07-08-2019 DIET CLEAR LIQUID MIROSLAVA TAPIA Start: 07-08-2019 FULL CODE MIROSLAVA TAPIA Start: 07-08-2019 Gluc bld gluc mntr dev cleared fda spec home use MIROSLAVA TAPIA Start: 07-08-2019 MONITOR HEART TONES MIROSLAVA TAPIA Start: 07-08-2019 NOTIFY PHYSICIAN (SPECIFY) MIROSLAVA TAPIA Start: 07-08-2019 VITAL SIGNS MIROSLAVA TAPIA Start: 07-08-2019 Culture bacterial quanttative colony count urine MIROSLAVA TAPIA Start: 07-08-2019 Urinalysis microscopic only MIROSLAVA TAPIA Start: 07-08-2019 Urnls dip stick/tablet rgnt auto w/o microscopy MIROSLAVA TAPIA Start: 06-24-2019 Cul prsmptv pthgnc organism scrn w/colony estimj MIROSLAVA TAPIA Start: 06-07-2019 Urnls dip stick/tablet rgnt auto w/o microscopy MIROSLAVA TAPIA Start: 06-07-2019 CONTRACTION -MONITORING MIROSLAVA TAPIA Start: 06-07-2019 DIET NPO, NOW MIROSLAVA TAPIA Start: 06-07-2019 FULL CODE MIROSLAVA TAPIA Start: 06-07-2019 Gluc bld gluc mntr dev cleared fda spec home use MIROSLAVA TAPIA Start: 06-07-2019 MONITOR HEART TONES MIROSLAVA TAPIA Start: 06-07-2019 NOTIFY PHYSICIAN (SPECIFY) MIROSLAVA TAPIA Start: 06-07-2019 VITAL SIGNS MIROSLAVA TAPIA Start: 04-27-2019 Blood count hemoglobin MIROSLAVA TAPIA Start: 04-27-2019 Hemoglobin glycosylated a1c MIROSLAVA TAPIA Start: 04-27-2019 Blood count hemoglobin Chantal Mckeon Work Phone: Start: 04-27-2019 Hemoglobin glycosylated a1c Chantal Montgomery [employer] Work Phone: Start: 01-15-2019 Screen pap by vanessa mcpherson MIROSLAVA TAPIA Start: 11-25-2018 C.TRACHOMATIS N.GONORRHOEAE DNA, URINE MIROSLAVA TAPIA Start: 11-25-2018 Drug screen, qualitate/multi MIROSLAVA TAPIA Start: 11-25-2018 Gonadotropin chorionic quantitative MIROSLAVA TAPIA Start: 11-25-2018 Antibody hiv-1&hiv-2 single result MIROSLAVA TAPIA Start: 11-25-2018 Hemoglobin glycosylated a1c MIROSLAVA TAPIA Start: 11-25-2018 Hepatitis c antibody MIROSLAVA TAPIA Start: 11-25-2018 Obstetric panel MIROSLAVA TAPIA Start: 11-25-2018 TYPE AND SCREEN MIROSLAVA TAPIA Start: 11-22-2018 Us preg uterus real time w/image dcmtn transvag MIROSLAVA TAPIA Start: 11-22-2018 Urnls dip stick/tablet rgnt auto w/o microscopy MIROSLAVA TAPIA Start: 11-22-2018 ABO/RH MIROSLAVA TAPIA Start: 11-22-2018 Gonadotropin chorionic quantitative MIROSLAVA TAPIA Plan of Treatment Date Care Activity Detail Author Start: 01-15-2022 Cervical cancer screen Cervical canc er screen [place] Start: 11-26-2019 Chlamydia screen Chlamydia screen [place], [place] Start: 08-25-2019 End: 08-25-2019 ambulatory 08/25/2019 Visit Obstetrics and Gynecology GuyChantal, RELOCATION ASSOCIATE - CNM [address] [place], [place] [id number] [facility] Start: 08-17-2019 HPV vaccine (1 - Fem conor 2-dose series) HPV vaccine (1 - Female 2-dose series) [facility] (acquired by [employer] in 2014) Phone: Comment on above: Postponed from 05/24 (Not Indicated) Start: 08-17-2019 Influenza vaccination Flu vaccine (# 1) [facility] Phone: Comment on above: Postponed from 02/15 (Not Indicated) Start: 07-30-2019 End: 07-30-2019 ambulatory 07/30/2019 Visit Obstetrics and Gynecology Chantal Mckeon APRN - IAN [address] [place] [address] [phone] [facility] Start: 07-22-2019 End: 07-22-2019 ambulatory 07/22/2019 Visit Obstetrics and Gynecology Chantal Mckeon APRN - CNM [address] [place] [address] [phone] [facility] Start: 07-21-2019 DTaP/Tdap/Td vaccine (1 - Tdap) DTaP/Tdap/Td vaccine (1 - Tdap) [facility] Phone: Comment on above: Postponed from 05/24 (Not Indicated) Start: 07-21-2019 Varicella Vaccine (1 of 2 - 2-dose childhood series) Varicella Vaccine (1 of 2 - 2-dose childhood series) [employer] Phone: Comment on above: Postponed from 05/24 (Not Indicated) Start: 07-16-2019 End: 07-16-2019 Patient encounter procedure 07/16/2019 Routine Obstetrics and Gynecology Chantal Mckeon APRN - CNM [address] [place] [address] [phone] [facility] Start: 07-09-2019 End: 07-09-2019 Patient encounter procedure 07/09/2019 Routine Obstetrics and Gynecology Chantal Mckeon APRN - CNM [address] [place] [address] [phone] [facility] Start: 06-30-2019 End: 06-30-2019 Patient encounter procedure 06/30/2019 Routine Obstetrics and Gynecology Chantal Mckeon APRN - IAN [address] [place] [address] [phone] [facility] Start: 06-29-2019 DTaP/Tdap/Td vaccine (1 - Tdap) DTaP/Tdap/Td vaccine (1 - Tdap) [facility] (acquired by [employer] in 2014) Phone: Comment on above: Postponed from 05/24 (Not Indicated) Start: 06-29-2019 Varicella Vaccine (1 of 2 - 2-dose childhood series) Varicella Vaccine (1 of 2 - 2-dose childhood series) [facility] (acquired by [employer] in 2014) Phone: Comment on above: Postponed from 05/24 (Not Indicated) Start: 06-10-2019 HPV vaccine (1 - Fem conor 2-dose series) HPV vaccine (1 - Female 2-dose series) [place] Comment on above: Postponed from 05/24 (Not Indicated) Start: 05-11-2019 End: 05-11-2019 Routine 05/11/2019 Routine Obstetrics and Gynecology Chantal Mckeon APRN 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 Start: 05-07-2019 DTaP/Tdap/Td vaccine (1 - Tdap) DTaP/Tdap/Td vaccine (1 - Tdap) [place] Comment on above: Postponed from 05/24 (Not Indicated) Start: 05-07-2019 Varicella Vaccine (1 of 2 - 2-dose childhood series) Varicella Vaccine (1 of 2 - 2-dose childhood series) [place] Comment on above: Postponed from 05/24 (Not Indicated) Start: 02-15-2019 Influenza vaccination Flu vaccine (# 1) [place] nonstress test nonst ress test OB Routine Daily until discontinued starting 07/10/2019 [facility] (acquired by [employer] in 2014) Phone: Comment on above: Daily until disconti nued starting 07/10/2019 Initiate Oxygen Ther apy Protocol Initiate Oxygen Therapy Protocol Respiratory Care Routine Daily until discontinued starting 07/14/2019 [facility] (acquired by [employer] in 2014) Phone: Comment on above: Daily until disconti nued starting 07/14/2019 Nonrebreather mask oxygen Nonrebreather mask oxygen Respiratory Care Routine As directed - RT (PRN) until discontinued starting 07/09/2019 [employer] Phone: Comment on above: As directed - RT (OK N) until discontinued starting 07/09/2019 End: 06-23-2019 Strep B Screen, Vaginal / Rectal Strep B Screen, Vaginal / Rectal Microbiology Routine 36 weeks gestation of 1 Occurrences starting 06/23/2019 until 06/23/2019 [employer] Phone: Comment on above: 1 Occurrences starti ng 06/23/2019 until 06/23/2019 Strep B Screen, Vagi nal / Rectal Strep B Screen, Vaginal / Rectal Microbiology Routine 36 weeks gestation of 06/23/2019 10:09 PM EST [employer] Phone: End: 07-14-2019 Surgical Pathology Surgical Pathology Lab Routine One Time for 1 Occurrences starting 07/14/2019 until 07/14/2019 [employer] Phone: Comment on above: One Time for 1 Occur rences starting 07/14/2019 until 07/14/2019 End: 07-09-2019 SVE SVE Point of Care Testing Routine One Time for 1 Occurrences starting 07/09/2019 until 07/09/2019 [employer] Phone: Comment on above: One Time for 1 Occur rences starting 07/09/2019 until 07/09/2019 Immunizations Immunization Date Immunization Notes Care Provider Fa cility 07-14-2019 diphtheria, tetanus toxoids and acellular pertussis vaccine, unspecified formulation Chantal Mckeon RELOCATION ASSOCIATE - CNM Work Phone: [employer] Phone: Payers Date Payer Category Payer Self-pay 2021 Unknown [id number] 2014 Unknown BCBS [place] - [place] P PO xxxxxxxxxxxx 2014-Present [address] [place] [address] xxxxxxxxxxxx [id number] 1996 Unknown [id number] 1996 Unknown [id number] 1996 Unknown [id number] 1996 Unknown [id number] 1996 Unknown [id number] 1996 Unknown [id number] 1996 Unknown [id number] 1996 Unknown [id number] 1996 Unknown [id number] 1996 Unknown [id number] 1959 Unknown [id number] Unknown [id number] Social History Date Type Detail Facility Start: 04-27-2019 End: 07-17-2019 Tobacco smoking status NHIS Never smoker [place] Start: 04-27-2019 End: 07-17-2019 Alcohol intake Current non-drinker of alcohol (finding) [place] Start: 10-28-2018 [place] Sex Assigned At Not on file [place] History of Present illness Narrative 07-18-2019 Kiley Lee RN - 07/18/2019 5:25 PM Maxine Velazquez APRN - IAN - 07/18/2019 12:41 PM Chantal Noyola APRN - CNM - 07/17/2019 11:38 AM EST Note Date & Type Note Facility 07-18-2019 History of Present illness Narrative Patient off unit in stable condition. Departure Mode: with significant other. Mobility at Departure: ambulatory Discharged to: private residence Time of Discharge: 1724 C/S Labor and Delivery Post Progress Note Flatus:+ Bm: + Diet: Tolerating regular diet Ambulation: Ambulating without difficulty Vitals: VSS ABDOMEN: NT INCISION: C/D NSI GENITAL/URINARY: normal Cor: RRR no Murmurs Pulmonary: clear to auscultation anterior and posterior Extremities: no Clubbing cyanosis or ecchymosis OBJECTIVE: Vitals: BP (!) 141/82 Pulse 75 Temp 98.4 F (36.9 C) (Oral) Resp 16 LMP 10/14/2018 SpO2 97% Unknown Patient Vitals for the past 24 hrs: BP Temp Temp src Pulse Resp 07/18/19 0824 (!) 141/82 98.4 F (36.9 C) Oral 75 16 07/18/19 0123 136/65 98.4 F (36.9 C) Oral 75 07/17/19 2037 134/69 98.8 F (37.1 C) Oral 61 16 07/17/19 1542 (!) 121/57 98.2 F (36.8 C) Oral 74 16 ASSESSMENT: Principal Problem: Intermittant Elevated blood pressure affecting , antepartum 39 weeks gestation of Non-reassuring heart rate with late deceleration Meconium in amniotic fluid affecting management of mother in third trimester S/P primary low transverse S/P C/S post op day # 4 Headache- Neg CT of head, relieved with benadryl, IV hydration and fioracet PLAN: Home this afternoon if no further headache C/S Labor and Delivery Post Progress Note SUBJECTIVE: Pt doing well . Pt does not want to go home today Flatus:Present BM:no Diet: Tolerating regular diet Ambulation: Ambulateswithout difficulty OBJECTIVE: Vitals: BP 128/60 Pulse 71 Temp 98.2 F (36.8 C) (Oral) Resp 16 LMP 10/14/2018 SpO2 97% Unknown Patient Vitals for the past 24 hrs: BP Temp Temp src Pulse Resp 07/17/19 0744 128/60 98.2 F (36.8 C) Oral 71 16 07/17/19 0326 (!) 121/55 98.2 F (36.8 C) Oral 77 16 07/16/19 2245 (!) 120/53 97.9 F (36.6 C) Oral 73 14 07/16/192014 130/66 97.8 F (36.6 C) Oral 68 14 07/16/19 1524 126/63 97.7 F (36.5 C) Oral 73 16 ABDOMEN: No scars, normal bowel sounds, soft, non-distended, non-tender, no masses palpated, no hepatosplenomegally INCISION: dressing in place, clean, dry and intact GENITAL/URINARY: Cor: RRR no Murmurs Pulmonary: clear to auscultation anterior and posterior Extremities: no Clubbing cyanosis or ecchymosis DATA: Hemoglobin/Hematocrit: Lab Results Component Value Date HGB 10.4 07/15/2019 HCT 32.3 07/15/2019 ASSESSMENT: Principal Problem: Elevated blood pressure affecting , antepartum Active Problems: 39 weeks gestation of Non-reassuring heart rate with late deceleration Meconium in amniotic fluid affecting management of mother in third trimester S/P primary low transverse S/P C/S post op day # 3 PLAN: Continue care C/S Labor and Delivery Post Progress Note SUBJECTIVE: Patient resting today. Stating she has not showered yet but she is ready to get up and shower. Patient states she is feeling really good and her pain is well controlled. Flatus:Present BM:no Diet: Tolerating regular diet Ambulation: Ambulateswithout difficulty OBJECTIVE: Vitals: BP (!) 110/55 Pulse 67 Temp 97.7 F (36.5 C) (Oral) Resp 16 LMP 10/14/2018 SpO2 97% Unknown Patient Vitals for the past 24 hrs: BP Temp Temp src Pulse Resp 07/16/19 0723 (!) 110/55 97.7 F (36.5 C) Oral 67 16 07/16/19 0426 (!) 113/53 98 F (36.7 C) Oral 86 14 07/15/19 2325 (!) 118/56 98 F (36.7 C) Oral 64 16 07/15/19 2016 (!) 113/57 98.4 F (36.9 C) Oral 75 18 07/15/19 1622 (!) 126/59 98.2 F (36.8 C) Oral 62 16 07/15/19 1254 123/67 98.3 F (36.8 C) Oral 62 16 ABDOMEN: No scars, normal bowel sounds, soft, non-distended, non-tender, no masses palpated, no hepatosplenomegally INCISION: dressing in place, clean, dry and intact GENITAL/URINARY: Uterus: Size normal, Contour normal Cor: RRR no Murmurs Pulmonary: clear to auscultation anterior and posterior Extremities: no Clubbing cyanosis or ecchymosis DATA: Hemoglobin/Hematocrit: Lab Results Component Value Date HGB 10.4 07/15/2019 HCT 32.3 07/15/2019 ASSESSMENT: Principal Problem: Elevated blood pressure affecting , antepartum Active Problems: 39 weeks gestation of Non-reassuring heart rate with late deceleration Meconium in amniotic fluid affecting management of mother in third trimester S/P primary low transverse S/P C/S post op day # 2 PLAN: Continue care C/S Labor and Delivery Post Progress Note Flatus:+ Bm: - Diet: Tolerating regular diet Ambulation: Ambulates OBJECTIVE: Vitals: VSS ABDOMEN: NT INCISION: C/D NSI GENITAL/URINARY: normal Cor: RRR no Murmurs Pulmonary: clear to auscultation anterior and posterior Extremities: no Clubbing cyanosis or ecchymosis DATA: ASSESSMENT: S/P C/S post op day # 1 PLAN: F/U in am Pt disconnected from monitors to be taken to OR at this time. Dr. Spencer on unit at this time. Kristal Mckeon CNM on unit and c/s called at this time. RN notified Kristal Mckeon CNM about FHR. RN informed that she will be calling Dr. Spencer at this time. Dr. Spencer notified of need for C/S due to late deceleration Planning 30 minutes Vikas Lopez CRNA in pt's room to attempt IV start with ultrasound guide. ale Burnett supervision in pt's room to start IV. Melina Burciaga RN in pt's room to attempt IV start. Kristal Salguero RN in room to start IV at this time. Kristal Mckeon CNM notified by RN that late decels were noted on monitor. RN ask if pt BP's was fine. RN verbalized it was stable. RN ordered to re-assess FHR pattern once IV access was successfully placed. Pt arrived to the unit from Kristal Mckeon CNM office for pitocin induction due to have high blood pressures. Pt denies any concerns at this time. Pt placed on monitors, admission questions asked, and urine sample collected. documented in this encounter [employer] Work Phone: Hospital Discharge instructions 07-18-2019 Instructions Note Date & Type Note Facility 07-18-2019 Hospital Discharg e instructions Kiley Lee RN - 07/18/2019 Follow-up with your OB doctor as specified. [facility] OB Department phone: Dr. Daisy Mckeon CNM Dr. Jaylan Keen CNM [address] [facility] [address] [place] Idalia Dos Santos, MSN, RELOCATION ASSOCIATE, CNM [place] [id number] [facility] [address] [address] [facility] [address] [address] Twila Haro [address] [place], [place] [id number] Maxine PLAZA [address] [place] [address] [place] [address] DIET Eat a well balanced diet focusing on foods high in fiber and protein. Drink plenty of fluids especially water. To avoid constipation you may take a mild stool softener as recommended by your doctor or audiology director. ACTIVITY Gradually increase your activity. Resume exercise regimen only after advice by your doctor or audiology director. Avoid lifting anything heavier than a gallon of milk for SIX weeks. Avoid driving until your doctor or audiology director has given their approval. Rise slowly from a lying to sitting and then a standing position. Climb stairs one at a time. Use caution when carrying your baby up and down the stairs. NO SEXUAL Activity for 4-6 weeks or until advised by your doctor; Nothing in vagina: intercourse, tampons, or douching. Be prepared to discuss family planning at your follow-up OB visit. You may feel tired or have a lack of energy. You may continue your vitamin to replenish nutrients post delivery. Nap when baby naps to catch up on sleep. EMOTIONS You may feel matt, sad, teary, & overwhelmed. Contact your OB provider if you feel you may be showing signs of depression, or have thoughts of harming yourself or your infant. If infant will not stop crying, contact another adult for help or place infant in their crib on their back and take a break. NEVER shake your . BLEEDING Vaginal bleeding will decrease in amount over the next few weeks. You will notice that as your activity increases, your flow may increase. This is your body's way of telling you, you need to take things easier and rest more often. Call your care provider if you are saturating more than one maxi pad in an hour & resting does not help. BREAST CARE Take medications as recommended by your doctor or audiology director for pain If you develop a warm, red, tender area on your breast or develop a fever contact your OB provider. For moms: If you become engorged, feeding may be more difficult or painful for 1-2 days. You may find it helpful to hand express some milk so that the can latch on more easily. While , continue to take your vitamins as directed by your doctor or audiology director. Refer to the booklet in the folder/binder for more information. If you feel you need more assistance or have questions, please call Jacklyn Garcia IBCLC, contact center consultant, at or the OB department to schedule an appointment or phone consultation. For more FREE help, visit the Support Group on Saturday evenings at 7 pm in the OB department. For NON- moms: You may apply ice packs to your breasts over your bra for twenty minutes at a time for comfort. Avoid stimulation to your breasts, when showering allow the water to strike your back not your breasts. Wear a good fitting bra until your milk dries, such as a sports bra. INCISIONAL CARE / RENEA CARE Clean your incision in the shower with mild soap. After shower pat the incision area dry and allow the area open to air. If used, Steri-strips should be completely removed by 2 weeks but you may remove them as they become loose or soiled. If used, Jessica should be removed by your care provider. If used/ordered, an abdominal binder may provide support for your incision. Use the renea-bottle after toileting until bleeding stops. Cleanse your perineum from front to back If used, stitches will dissolve in 4-6 weeks. You may use a sitz bath or soak in a clean tub as needed for comfort. Kegel exercises will help restore bladder control. SWELLING Try to keep your legs elevated when you are sitting. When lying down keep your legs elevated. When wearing stocking or socks, make sure they are not too tight. WHEN TO CALL THE DOCTOR If you have a temp of 100.6 or more. If your bleeding has increased and you are saturating a pad in an hour. Your abdomen is tender to touch. You are passing blood clots bigger than the size of a lemon. If you are experiencing extreme weakness or dizziness. If you are having flu-like symptoms such as achy muscles or joints. There is a foul smell or a green color to your vaginal bleeding. If you have pain that cannot be relieved. You have persistent burning or frequency with urination. Call if you have concerns about your well-being. You are unable to sleep, eat, or are having thoughts of harming yourself or your baby. You have swelling, bleeding, drainage, foul odor, redness, or warmth in/around your incision or stitches. You have a red, warm, tender area in your calf. documented in this encounter [employer] Phone: History of Present illness Narrative 07-09-2019 Chantal Mckeon APRN - CNM - 07/09/2019 12:47 PM Rajni Hussein RN - 07/09/2019 10:19 AM EST Note Date & Type Note Facility 07-09-2019 History of Present illness Narrative NSt reactive DX. 38 weeks gestation elevated BP in office PT ARRIVES TO OB UNIT AMBULATORY BY SELF SENT FROM Kristal MCKEON CNM OFFICE D/T ELEVATED BP. ORIENTED PT TO ROOM, POC, AND XTAFF. PT ACKNOWLEDGES AND UNDERSTANDS. PT DENIES C/O VAGINAL LEAKING, BLEEDING, CTX, AND PAIN. PT DENIES C/O VISUAL DISTURBANCES, RUQ PAIN, N/V, CP AT THIS TIME. documented in this encounter [employer] Phone: Evaluation note Note Date & Type Note Facility Evaluation note Diagnosis 36 weeks gestation of state, incidental documented in this encounter [employer] Phone: Evaluation note Note Date & Type Note Facility Evaluation note Diagnosis Elevated blood pressure affecting , antepartum SGA (small for gestational age) [id number] without mention of malnutrition, unspecified (weight) documented in this encounter [employer] Phone: Evaluation note Note Date & Type Note Facility Evaluation note Diagnosis Elevated blood pressure affecting , antepartum- Primary S/P primary low transverse delivery, without mention of indication, unspecified as to episode of care 39 weeks gestation of state, incidental Non-reassuring heart rate with late deceleration Meconium in amniotic fluid affecting management of mother in third trimester documented in this encounter [employer] Phone: Hospital Discharge instructions Instructions Note Date & Type Note Facility Hospital Discharge instructions Rajni Bruno RN - 07/09/2019 OUTPATIENT DISCHARGE Viv Dodd [facility] [place] Maxine Quintanilla [facility] ACTIVITY LIMITATIONS: ( X )Up and about as desired and tolerated ( )Up to bathroom only (X )Lay on either side (X )Avoid heavy lifting or exercise ( )No sex ( )No nipple stimulation ( )Complet bedrest ( )Avoid using stairs ( )Increase fluids DRINK AT LEAST eight-8oz. Glasses of water daily. Call your Doctor if: (X )Contractions are every 5 minutes apart (from start of one to the start of the next contraction) lasting 60 seconds for at least 1 hour, strong enough you can not walk or talk through the contraction and regular. (X )Bag of water breaks (X )Vaginal bleeding ( X )Unusual pain occurs (X )Decreased movement Keep your scheduled follow up appointment. Or call for a follow up on 07-16-2019 NST IN CASE OF EMERGENCY CONTACT LABOR AND DELIVERY . 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 Latest Code Status on File Code Status Date Activated Date Inactivated Comments Full Code 06/07/2019 5:22 PM 06/07/2019 11:38 PM Latest Code Status on File Code Status Date Activated Date Inactivated Comments Full Code 07/09/2019 10:35 AM Full Code 07/08/2019 9:30 PM 07/09/2019 1:26 AM Full Code 06/07/2019 5:22 PM 06/07/2019 11:38 PM Latest Code Status on File Code Status Date Activated Date Inactivated Comments Full Code 07/14/2019 8:07 PM Full Code 07/14/2019 6:07 PM 07/14/2019 8:02 PM Full Code 07/14/2019 3:35 PM 07/14/2019 6:07 PM Full Code 07/09/2019 10:35 AM 07/09/2019 3:46 PM Summary Purpose Family History No Family History Records FoundNo Family History Records FoundNo Family History Records FoundNo Family History Records Found Additional Source Comments INFORMATION SOURCE (unrecogn ized section and content) DATE CREATED AUTHOR 07/20/2019 Esha Whelan [facility] DATE CREATED AUTHOR AUTHOR'S ORGANIZ ATION 06/15/2020 [facility] DATE CREATED AUTHOR AUTHOR'S ORGANIZ ATION 04/21/2022 [facility] DATE CREATED AUTHOR AUTHOR'S ORGANIZ ATION 10/31/2022 [facility] dical Specialist Reason for Visit (unrecogniz ed section and content) Reason Comments Hypertension SENT FROM OFFICE Reason Comments Hypertension Status Reason Specialty Diagnoses / Procedures Referre d By Contact Referred To Contact Diagnoses Normal labor Chantal Mckeon, RELOCATION ASSOCIATE - CNM [address] [facility] [address] [place] [address] [employer] FOR RECORDS PERTAINING TO PATIENTS WHO ARE OR HAVE BEEN ENROLLED IN A CHEMICAL DEPENDENCY/SUBSTANCEABUSE PROGRAM, SOME INFORMATION MAY BE OMITTED. This clinical summary was aggregated from multiple sources. Caution should be exercised in using it in the provision of clinical care. This summary normalizes information from multiple sources, and as a consequence, information in this document may materially change the coding, format and clinical context of patient data. In addition, data may be omitted in some cases. CLINICAL DECISIONS SHOULD BE BASED ON THE PRIMARY CLINICAL RECORDS. [employer] [facility]. provides no warranty or guarantee of the accuracy or completeness of information in this document.
--- NOTE | 2023-07-17 07:57 | US_ITS ---
[address] [address] Patient Name: JENNIFER SWEET MRN: [id number] date: 1995 Sex: F Assigned Patient Location: US Current Patient Location: US Accession/Order Number: [id number] Exam Date: 07/17/2023 08:00 Report Date: 07/17/2023 08:50 At the request of: CANDELARIA ROWLAND Procedure: US OB transvaginal EXAMINATION: US OB transvaginal HISTORY: Amenorrhea N91.2 COMPARISON: 07/02/2023 FINDINGS: Area of anechoic echogenicity is identified within the endometrial cavity with a mean sac diameter of 9.7 mm. There is a small area of hypoechogenicity within the fluid measuring 4.2 mm possibly a yolk sac or pole. Cervix: Closed, 3.8 cm The right ovary measures 3.7 x 2.4 x 2.2 cm. Corpus luteal cyst. Left ovary is not visualized US/US OB transvaginal IMPRESSION: Suspected early intrauterine gestation. Correlation with quantitative beta hCG as well as follow-up ultrasound is recommended Electronically authenticated by: ARETHA MCGOWAN Date: 07/17/2023 08:50
== END 2023-07-17 07:52 | disposition home or self-care (01) ==
LOC: US 07:51
PROVIDERS: PCP Family Medicine; Visit Provider Midwife
DX: N91.2 Amenorrhea, unspecified (principal)
CPT/HCPCS: 76817

== ENCOUNTER 2023-07-30 15:25 | Outpatient (OUT) | payer OTHER, SELFPAY ==
--- NOTE | 2023-07-30 15:28 | US_ITS ---
[address] [address] Patient Name: JENNIFER SWEET MRN: [id number] date: 1995 Sex: F Assigned Patient Location: US Current Patient Location: Accession/Order Number: [id number] Exam Date: 07/30/2023 15:30 Report Date: 07/31/2023 06:25 At the request of: CANDELARIA ROWLAND Procedure: US OB transvaginal EXAMINATION: US OB transvaginal HISTORY: amenorrhea N91.2 COMPARISON: 07/17/2023 US OB transvaginal FINDINGS: GESTATIONAL SAC: Present and normal appearing. YOLK SAC: Present and normal appearing. POLE: Present and normal appearing. CARDIAC: Present. UTERUS: Small subchorionic hematoma. OVARIES: Right: Corpus luteal cysts. Left: Not seen. CERVIX: 5.8 cm in length and closed. CUL-DE-SAC: Normal. OTHER: None. AGE BY LMP: Unknown LMP NATASHA BY LMP: AGE BY US CRL: 7w 3d NATASHA BY US CRL: 03/14/2024 US/US OB transvaginal IMPRESSION: 1. Single live intrauterine 7weeks 3 days gestational age. Electronically authenticated by: ABHISHEK HAMMOND Date: 07/31/2023 06:25
== END 2023-07-30 15:26 | disposition home or self-care (01) ==
LOC: US 15:25
PROVIDERS: PCP Family Medicine; Visit Provider Midwife
DX: Z34.91 Encounter for supervision of normal pregnancy, unspecified, first trimester (principal); Z3A.01 Less than 8 weeks gestation of pregnancy; N91.2 Amenorrhea, unspecified
CPT/HCPCS: 76817

== ENCOUNTER 2023-11-14 16:59 | Observation (INO) | payer OTHER, SELFPAY ==
--- NOTE | 2023-11-14 17:16 | US_ITS ---
[address] [address] Patient Name: JENNIFER SWEET MRN: [id number] date: 1995 Sex: F Assigned Patient Location: [facility] Current Patient Location: Accession/Order Number: [id number] Exam Date: 11/14/2023 17:50 Report Date: 11/14/2023 20:29 At the request of: CANDELARIA ROWLAND Procedure: US OB placenta US PELVIS: OB Greater than 14 weeks HISTORY: 28 year old G 4 P 2 AB 1 female presents for US evaluation. TECHNIQUE: Ultrasound performed of the pelvis using static images with urena scale, M-mode and color doppler. This exam is performed in the emergency room setting to evaluate viability. As such, it is not protocoled to evaluate anatomy as that should be performed on an outpatient basis at the patient's PHP WEB DEVELOPER office. COMPARISON: None. FINDINGS: Summary: Number of Fetuses: Singlefetus in breech position. Total TESFAYE: Subjectively normal heart: 120 bpm. Cervix: Cervical length: 5.8 cm. Cervix: Closed. Placenta previa: Complete placenta previa covering the internal os. US/US OB placenta IMPRESSION: 1. Viable Melo fetus IUP 2. Complete placenta previa covering the internal os. Electronically authenticated by: REYNA ARANDA Date: 11/14/2023 20:29
[2023-11-14 17:35] VITALS: BP 120/59; PULSE 82
[2023-11-14 17:42] LABS: Bilirubin Urine NEGATIVE (NEGATIVE); Blood Urine NEGATIVE (NEGATIVE); Clarity Urine CLEAR (CLEAR); Color Urine YELLOW (YELLOW); Glucose Urine UA NEGATIVE (NEGATIVE); Ketones Urine TRACE mg/dL (NEGATIVE); Leukocyte Esterase Urine NEGATIVE (NEGATIVE); Nitrite Urine NEGATIVE (NEGATIVE); Protein Urine NEGATIVE (NEG/TRACE); Specific Gravity Urine 1.025 (1.005-1.025)
[2023-11-14 17:45] LABS: Urine Microscopic Indicated NO
[2023-11-14] MEDS: ACETAMINOPHEN 500 MG TABLET 1000 MG PO (17:59)
--- NOTE | 2023-11-14 18:13 | PC.NURSE ---
1750: Idalia Dos Santos CNM notified of patient assessment and UA results. States if placenta US WNL may be discharged and XS tylenol given for muscoskeletal discomfort.
--- NOTE | 2023-11-14 18:28 | US_ITS ---
[address] [address] Patient Name: JENNIFER SWEET MRN: [id number] date: 1995 Sex: F Assigned Patient Location: [facility] Current Patient Location: [facility] Accession/Order Number: [id number] Exam Date: 11/14/2023 17:50 Report Date: 11/14/2023 20:39 At the request of: CANDELARIA ROWLAND Procedure: US OB cervical length US PELVIS: OB Greater than 14 weeks HISTORY: 28 year old G 4 P 2 AB 1 female presents for US evaluation. TECHNIQUE: Ultrasound performed of the pelvis using static images with urena scale, M-mode and color doppler. This exam is performed in the emergency room setting to evaluate viability. As such, it is not protocoled to evaluate anatomy as that should be performed on an outpatient basis at the patient's COMB WINDER office. COMPARISON: None. FINDINGS: Summary: Number of Fetuses: Singlefetus in breech position. Total TESFAYE: Subjectively normal heart: 120 bpm. Cervix: Cervical length: 5.8 cm. Cervix: Closed. Placenta previa: Complete placenta previa covering the internal os. US/US OB cervical length IMPRESSION: 1. Viable Melo fetus IUP 2. Complete placenta previa covering the internal os. Electronically authenticated by: REYNA ARANDA Date: 11/14/2023 20:39
--- NOTE | 2023-11-14 19:07 | PC.NURSE ---
1845- Cervical length 5.2. Fluid noted in the stripe of the patients cervix. Complete placenta previa noted.
== END 2023-11-14 19:05 | disposition home or self-care (01) ==
PROVIDERS: Admitting Provider Midwife; PCP Family Medicine; Visit Provider Midwife
DX: O26.852 Spotting complicating pregnancy, second trimester (principal); O26.892 Other specified pregnancy related conditions, second trimester; R10.9 Unspecified abdominal pain; O44.02 Complete placenta previa NOS or without hemorrhage, second trimester; Z3A.22 22 weeks gestation of pregnancy
CPT/HCPCS: 59025; 76815; 76817; 81003; G0378; G0379

== ENCOUNTER 2024-02-12 20:21 | Inpatient (IN) | payer OTHER, SELFPAY ==
[2024-02-12] VITALS (19 sets, daily range): BP systolic 122–172; BP diastolic 55–87; PULSE 60–100; TEMP 36.5; O2SAT 98–100
--- OUTSIDE RECORDS SUMMARY | 2024-02-12 20:26 | XMS_ITS | CCD ---
Author Organization [facility] Care Team Providers Care Drier Operator Head Name Role Phone Luli Bolden Primary Care Provi edelmira MIROSLAVA TAPIA Referring Unavailable BRANT-LULI BHAKTA Primary Care Un available POOL, CHANTAL E Referring Unavailable BRANT-LULI BHAKTA Primary Care Un available HOTELLING, MAXINE P Admitting Unavailable HOTELLING, MAXINE P Attending Unavailable LULI BOLDEN Primary Care Un available POOL, CHANTAL E Referring Unavailable BRANT-LULI BHAKTA Primary Care Un available POOL, CHANTAL E Admitting Unavailable POOL, CHANTAL E Attending Unavailable BRANT-LULI BHAKTA Primary Care Un available POOL, CHANTAL E Admitting Unavailable POOL, CHANTAL E Attending Unavailable BRANT-LULI BHAKTA Primary Care Un available CINTHIASLADE-YONY, LULI Camacho Primary Care Un available ANDMYRA MAHERIN Attending Unavailable POOL, CHANTAL E Referring Unavailable BRANT-LULI BHAKTA Primary Care Un available POOL, CHANTAL E Admitting Unavailable POOL, CHANTAL E Attending Unavailable BRANT-LULI BHAKTA Primary Care Un available GUY, LILLIAM Attending Unavailable GUY, LILLIAM Consulting Unavailable GUY, LILLIAM Admitting Unavailable Luli Bolden MD Primary Care Pr ovider FRANCES, JUANJOSE A Referring Unavailable FRANCES, JUANJOSE A Primary Care Unavailable ODILON GARCIA Attending Unavailable NO FAMILY, PHYSICIAN Primary Care Provider Unava MD Paty Evangelista Emergency Provider [phone] MD Camden Lala Attending Provider [phone] DOCHEVA, NIKOLINA P Referring Unavailable FRANCES, JUANJOSE A Primary Care Unavailable DOCHEVA, NIKOLINA P Referring Unavailable FRANCES, JUANJOSE A Primary Care Unavailable DOCHEVA, NIKOLINA P Referring Unavailable FRANCES, JUANJOSE A Primary Care Unavailable DOCHEVA, NIKOLINA P Referring Unavailable FRANCES, JUANJOSE A Primary Care Unavailable DOCHEVA, NIKOLINA P Referring Unavailable FRANCES, JUANJOSE A Primary Care Unavailable NO FAMILY, PHYSICIAN Primary Care Unavailable Paty Burnette Admitting Unavailable Paty Burnette Attending Unavailable Camden Lala Admitting Unavailable Camden Lala Attending Unavailable NO FAMILY, PHYSICIAN Primary Care Unavailable FLORO, CANDELARIA Referring Unavailable FRANCES, JUANJOSE A Primary Care Unavailable DOCHEVA, NIKOLINA P Attending Unavailable HAVEN CODY Referring Unavailab le FRANCES, JUANJOSE A Primary Care Unavailable REGUEYRA ESTHER A Admitting Unavailable REGUEYRA ESTHER A Attending Unavailable FRANCES, JUANJOSE A Primary Care Unavailable AYANA WILLINGHAM Attending Unavaila ble FRANCES, JUANJOSE A Referring Unavailable FRANCES, JUANJOSE A Primary Care Unavailable AYANA WILLINGHAM Referring Unavaila ble FRANCES, JUANJOES A Primary Care Unavailable DOCHEVA, NIKOLINA P Attending Unavailable FLORO, CANDELARIA Referring Unavailable FRANCES, JUANJOSE A Primary Care Unavailable FLORO, CANDELARIA Referring Unavailable FRANCES, JUANJOSE A Primary Care Unavailable FLORO, CANDELARIA Camacho Attending Unavailable FLORO, CANDELARIA Camacho Attending Unavailable FLORO, CANDELARIA Camacho Attending Unavailable FLORO, CANDELARIA L Attending Unavailable FLORO, CANDELARIA L Referring Unavailable FLORO, CANDELARIA L Attending Unavailable FLORO, CANDELARIA L Attending Unavailable FLORO, CANDELARIA L Attending Unavailable FLORO, CANDELARIA L Attending Unavailable FLORO, CANDELARIA L Attending Unavailable FLORO, CANDELARIA L Referring Unavailable FLORO, CANDELARIA L Attending Unavailable FLORO, CANDELARIA L Referring Unavailable FLORO, CANDELARIA L Attending Unavailable FLORO, CANDELARIA L Referring Unavailable FLORO, CANDELARIA L Attending Unavailable CANDELARIA DOS SANTOS Attending Unavailable CANDELARIA DOS SANTOS Referring Unavailable CAMDEN LALA Attending Unavailable CANDELARIA DOS SANTOS Attending Unavailable CANDELARIA DOS SANTOS Referring Unavailable Medications Current Medications Medication Drug Class(es) Dates Sig (Normalized) Sig (Original) acetaminophen 500 mg oral tablet (5 sources) Start: 05-06-2021 End: 12-22-2023 take 1000 mg by mouth every six hours Acetaminophen Active 1000 MG PO Q6H December 22, 2023 12:00am Start: 07-14-2019 acetaminophen (TYLENOL) tablet 650 mg acetaminophen 325 mg / butalbital 50 mg / caffeine 40 mg oral tablet (2 sources) Barbiturate, Central Nervous System Stimulant, Methylxanthine Start: 07-18-2019 take 1 tablet by mouth every four hours as needed for headache abwqtdgmiz-tixlhfpfujsck-qqwofffn (FIORICET, ESGIC) 50-325-40 MG per tablet Take [...] (PERCOCET) 5-325 MG per tablet 2 tablet aspirin 81 mg delayed release oral tablet (4 sources) Platelet Aggregation Inhibitor, Nonsteroidal Anti-inflammatory Drug Start: 12-22-2023 take 1 tablet by mouth once daily Aspirin (Adult Aspirin Regimen) 81 mg tablet,delayed release (DR/EC) Active 81 MG PO Daily December 22, 2023 12:00am Start: 02-11-2021 End: 05-05-2021 take 80 mg by mouth once daily Aspirin Discontinued 80 MG PO Daily February 11, 2021 12:00am May 05, 2021 7:21am azithromycin 250 mg oral tablet (2 sources) [...] Start: 07-14-2019 End: 07-14-2019 lactated ringers infusion 0.4 ml enoxaparin sodium 100 mg/ml prefilled syringe (1 source) Low Molecular Weight Heparin Start: 07-15-2019 enoxaparin (LOVENOX) injection 40 mg lanolin 0.5 mg/mg topical ointment (1 [...] sodium chloride 0.9 % 500 mL infusion [id number] Fumarate-Fa () 28-800 mg-mcg Tablet (2 sources) Start: 02-11-2021 take 1 tablet by mouth once daily [id number] Fumarate-Fa () 28-800 mg-mcg Tablet Active 1 TAB PO Daily February 11, 2021 12:00am Vit-Fe Fumarate-FA ( VITAMIN) 27-0.8 MG TABS [...] 500 mg chewable tablet (3 sources) End: 07-18-2019 take 2 tablets by mouth three times daily as needed for gastroesophageal reflux disease calcium carbonate (TUMS) 500 MG chewable tablet Take 2 tablets by mouth 3 times daily as needed for Heartburn 0 07/18/2019 Discontinued (Stop Taking at Discharge) cefOXitin (MEFOXIN) 2 g in dextrose 5% 50 mL (mini-bag) (1 source) Start: 07-14-2019 End: 07-14-2019 cefOXitin (MEFOXIN) 2 g in dextrose 5% 50 mL (mini-bag) citric acid 66.8 mg/ml / sodium citrate 100 mg/ml oral solution (1 source) Calculi Dissolution Agent, Anti-coagulant Start: 07-14-2019 End: 07-14-2019 citric acid-sodium citrate (BICITRA) solution 30 mL diphenhydrAMINE hydrochloride 25 mg oral capsule (1 source) Histamine-1 Receptor Antagonist Start: 07-18-2019 End: 07-18-2019 diphenhydrAMINE (BENADRYL) capsule 50 mg docusate sodium 100 mg oral capsule (5 sources) Start: 03-09-2021 End: 12-22-2023 take 1 capsule by mouth once daily at bedtime Docusate Sodium (Dok) 100 mg Capsule Discontinued 100 MG PO Daily at bedtime May 06, 2021 1:00am December 22, 2023 4:09pm Start: 07-14-2019 docusate sodiu m (COLACE) capsule 100 mg 2 ml famotidine 10 mg/ml injection (1 source) Histamine-2 Receptor Antagonist Start: 07-14-2019 End: 07-14-2019 famotidine (PEPCID) injection 20 mg ferrous sulfate 325 mg oral tablet (4 sources) Start: 05-07-2021 End: 12-22-2023 take 325 mg by mouth once daily Ferrous Sulfate Discontinued 325 MG PO Daily May 07, 2021 1:00am December 22, 2023 4:09pm Start: 03-09-2021 End: 12-22-2023 take 325 mg by mouth twice daily Ferrous Sulfate Discontinued 325 MG PO Twice daily March 09, 2021 12:00am December 22, 2023 4:09pm ibuprofen 600 mg oral tablet (7 sources) Nonsteroidal Anti-inflammatory Drug Start: 05-06-2021 End: 12-22-2023 take 600 mg by mouth every six hours Ibuprofen Discontinued 600 MG PO Q6H 60 May 06, 2021 1:00am December 22, 2023 4:09pm Start: 02-12-2018 ibuprofen (ADV IL;MOTRIN) tablet 800 mg 1 ml ketorolac tromethamine 15 mg/ml cartridge (1 source) Nonsteroidal Anti-inflammatory Drug, Cyclooxygenase Inhibitor Start: 07-14-2019 End: 07-15-2019 ketorolac (TORADOL) injection 30 mg 2 ml metoclopramide 5 mg/ml prefilled syringe (1 source) Dopamine-2 Receptor Antagonist Start: 07-14-2019 End: 07-14-2019 metoclopramide (REGLAN) injection 10 mg Start: 07-14-2019 [...] Active Problems Problem Classification Problem Date Documented Date Episodic/Chronic 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; 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] Onset: 01-27-2024 Chronic Hypertension complicating ; childbirth and the puerperium (2 sources) Unspecified maternal hypertension, unspecified trimester; Translations: [Unspecified maternal hypertension, unspecified trimester] Onset: 01-07-2024 Chronic Hypertension complicating ; childbirth and the puerperium (1 source) Gestational [-induced] hypertension without significant proteinuria, third trimester; Translations: [Gestational (-induced) hypertension without significant proteinuria, third trimester] Onset: 02-06-2024 Episodic Immunizations and screening for infectious disease (4 sources) Contact with and (suspected) exposure to other viral communicable diseases; Translations: [CONTCT EXPS OTH VIRL COMMUNICABL DZ] Onset: 06-02-2020 Episodic Nonspecific chest pain (3 sources) Atypical chest pain; Translations: [Other chest pain] Onset: 12-22-2023 12-22-2023 Episodic Other complications of (1 source) Obesity complicating , second trimester; Translations: [Obesity complicating , second trimester] Onset: 11-29-2023 Chronic Other complications of (1 source) Obesity complicating , unspecified trimester; Translations: [Obesity complicating , unspecified trimester] Onset: 01-07-2024 Chronic Other complications of (1 source) Maternal care for excessive growth, second trimester, not applicable or unspecified; Translations: [Maternal care for excessive growth, second trimester, not applicable or unspecified] Onset: 11-29-2023 Episodic Other complications of (1 source) Supervision of with other poor reproductive or obstetric history, unspecified trimester; Translations: [Supervision of with other poor reproductive or obstetric history, unspecified trimester] Onset: 11-29-2023 Episodic Other complications of (2 sources) Abnormal ultrasonic finding on screening of mother; Translations: [Abnormal ultrasonic finding on screening of mother] Onset: 11-29-2023 Episodic Other complications of (1 source) Decreased movements, third trimester, not applicable or unspecified; Translations: [Decreased movements, third trimester, not applicable or unspecified] Onset: 02-01-2024 Episodic Other complications of (1 source) Supervision of high risk , unspecified, unspecified trimester; Translations: [Supervision of high risk , unspecified, unspecified trimester] Onset: 01-07-2024 Episodic Other complications of (1 source) Maternal care for excessive growth, third trimester, not applicable or unspecified; Translations: [Maternal care for excessive growth, third trimester, not applicable or unspecified] Onset: 01-07-2024 Episodic Other lower respiratory disease (1 source) Cough; Translations: [COUGH] Onset: 06-14-2020 Episodic Other screening for suspected conditions (not mental disorders or infectious disease) (3 sources) Encounter for other specified screening; Translations: [Encounter for screening for macrosomia] Onset: 11-29-2023 Episodic Other upper respiratory disease (1 source) Nasal congestion; Translations: [NASAL CONGESTION] Onset: 06-14-2020 Episodic Polyhydramnios and other problems of amniotic cavity (5 sources) Meconium in amniotic fluid affecting management of mother ; Translations: [Polyhydramnios, unspecified trimester, not applicable or unspecified] Onset: 07-14-2019 Episodic Previous (2 sources) Maternal care for unspecified type scar from previous delivery; Translations: [Maternal care for unspecified type scar from previous delivery] Onset: 11-29-2023 Episodic Residual codes; unclassified (1 source) Gestation period, 27 weeks; Translations: [27 weeks gestation of ] Episodic Residual codes; unclassified (1 source) 24 weeks gestation of ; Translations: [24 weeks gestation of ] Onset: 11-29-2023 Episodic Residual codes; unclassified (2 sources) 30 weeks gestation of ; Translations: [30 weeks gestation of ] Onset: 01-07-2024 Episodic Residual codes; unclassified (1 source) 34 weeks gestation of ; Translations: [34 weeks gestation of ] Onset: 02-07-2024 Episodic Residual codes; unclassified (1 source) Personal history of other complications of , childbirth and the puerperium; Translations: [Personal history of other complications of , childbirth and the puerperium] Onset: 01-07-2024 Episodic Unclassified (2 sources) Finding of uterine contractions 07-09-2019 Unclassified (2 sources) Maternal care for other (suspected) abnormality and damage, genitourinary anomalies, not applicable or unspecified; Translations: [Maternal care for other (suspected) abnormality and damage, genitourinary anomalies, not applicable or unspecified] Onset: 11-29-2023 Unclassified (1 source) complete previa w/ spotting Onset: 11-29-2023 Unclassified (1 source) Non-stress Test Onset: 01-07-2024 Unclassified (1 source) Maternal care for other (suspected) abnormality and damage, cardiac anomalies, not applicable or unspecified; Translations: [Maternal care for other (suspected) abnormality and damage, cardiac anomalies, not applicable or unspecified] Onset: 01-07-2024 Unclassified (1 source) poly Onset: 01-07-2024 Past or Other Problems Problem Classification Problem Date Documented Da te Episodic/Chronic Other circulatory disease (4 sources) Elevated blood pressure Episodic Other conditions (2 sources) Abnormal heart rate Onset: 07-14-2019 Episodic Other and delivery including normal (1 source) Normal labor Onset: 07-14-2019 07-14-2019 Episodic Residual codes; unclassified (1 source) Gestation period, 36 weeks Episodic Residual codes; unclassified (2 sources) Gestation period, 38 weeks 07-09-2019 Episodic Residual codes; unclassified (2 sources) Gestation period, 39 weeks Onset: 07-14-2019 Episodic Short gestation; low weight; and growth retardation (1 source) Kkohv-hxu-bnlqh baby Episodic NEGATED: Highlighted row has been ruled out!Unclassified (2 sources) No known active problems Results Test Name Value Interpretation Reference Range Facility COMPLETE BLOOD COUNTon 02-05 Erythrocyte distribution width (RBC) [Ratio] 14.8 % Normal 11.5-15.0 [facility] Comment on above: Performed By: #### C AILYN HASSAN, CMP #### [facility] ([id number]) [address] [place] [address] Hematocrit (Bld) [Volume fraction] 33.9 % Low 35-47 [facility] Comment on above: Performed By: #### AILYN ASTUDILLO, CMP #### [facility] ([id number]) [address], [address] [place] [address] Hemoglobin (Bld) [Mass/Vol] 10.9 g/dL Low 11.7-15.5 [facility] Comment on above: Performed By: #### AILYN ASTUDILLO, CMP #### [facility] ([id number]) [address], [address] [place] [address] MCH (RBC) [Entitic mass] 23.8 pg Low 27-34 [facility] Comment on above: Performed By: #### C SONYA UPCR, CMP #### [facility] ([id number]) [address], [address] [place] [address] MCHC (RBC) [Mass/Vol] 32.3 g/dL Normal 32-36 [facility] Comment on above: Performed By: #### C SONYA UPCR, CMP #### [facility] ([id number]) [address], [address] [place] [address] MCV (RBC) [Entitic vol] 74 fL Low 80-100 [facility] Comment on above: Performed By: #### C SONYA UPCR, CMP #### [facility] ([id number]) [address], [address] [place] [address] Platelet mean volume (Bld) [Entitic vol] 8.8 fL Normal 7-12 [facility] Comment on above: Performed By: #### Los HASSAN UPCR, CMP #### [facility] ([id number]) [address] [address] [place] [address] Platelets (Bld) [#/Vol] 273 10*3/uL Normal 150-450 [facility] Comment on above: Performed By: #### Los HASSAN UPCR, CMP #### [facility] ([id number]) [address], [facility] [address] [place] [address] RBC COUNT 4.59 X10E12/L Normal 3.80-5.20 [facility] Comment on above: Performed By: #### Los HASSAN UPCR, CMP #### [facility] ([id number]) [address] [address] [place] [address] WBC (Bld) [#/Vol] 8.2 10*3/uL Normal 4.0-11.0 [facility] Comment on above: Performed By: #### Los HASSAN UPCR, CMP #### [facility] ([id number]) [address], [address] [place] [address] COMPREHENSIVE METABOLIC PANE Yazan 02-06-2024 Albumin [Mass/Vol] 3.2 g/dL Normal 3.2-5.3 [facility] Comment on above: Performed By: #### C BC, UPCR, CMP #### [facility] ([id number]) [address], [address] [place] [address] ALP [Catalytic activity/Vol] 122 U/L Normal 39-130 [facility] Comment on above: Performed By: #### C SONYA, UPCR, CMP #### [facility] ([id number]) [address], [address] [place] [address] ALT [Catalytic activity/Vol] 5 U/L Normal 0-31 [facility] Comment on above: Performed By: #### Los HASSAN, UPCR, CMP #### [facility] ([id number]) [address], [address] [place] [address] Anion gap [Moles/Vol] 8 mmol/L Normal 5-15 [facility] Comment on above: Performed By: #### C BC, UPCR, CMP #### [facility] ([id number]) [address], [address] [place] [address] AST [Catalytic activity/Vol] 10 U/L Normal 0-41 [facility] Comment on above: Performed By: #### Los BC, UPCR, CMP #### [facility] ([id number]) [address], [address] [place] [address] Bilirubin [Mass/Vol] 0.3 mg/dL Normal 0.3-1.2 [facility] Comment on above: Performed By: #### C BC, UPCR, CMP #### [facility] ([id number]) [address], [address] [place] [address] Calcium [Mass/Vol] 9.3 mg/dL Normal 8.5-10.5 [facility] Comment on above: Performed By: #### C SONYA UPCR, CMP #### [facility] ([id number]) [address], [address] [place] [address] Chloride [Moles/Vol] 105 mmol/L Normal 98-109 [facility] Comment on above: Performed By: #### C SONYA UPCR, CMP #### [facility] ([id number]) [address] [address] [place] [address] CO2 [Moles/Vol] 22 mmol/L Normal 22-32 [facility] Comment on above: Performed By: #### C SONYA UPCR, CMP #### [facility] ([id number]) [address] [place] [address] Creatinine [Mass/Vol] 0.58 mg/dL Normal 0.40-1.00 [facility] Comment on above: Result Comment: METH OD TRACEABLE TO IDMS STANDARD Performed By: #### C SONYA UPCR, CMP #### [facility] ([id number]) [address] [address] [place] [address] eGFR (CKD-EPI) NON-RACE DEPENDENT >90 Normal >59 [facility] Comment on above: Result Comment: Reported eGFR is based on the CKD-EPI 2020 equation that does not use a race coefficient. Performed By: #### C BC UPCR, CMP #### [facility] ([id number]) [address], [address] [place] [address] Glucose [Mass/Vol] 70 mg/dL Normal 65-99 [facility] Comment on above: Performed By: #### C SONYA UPCR, CMP #### [facility] ([id number]) [address] [address] [place] [address] Potassium [Moles/Vol] 4.2 mmol/L Normal 3.5-5.0 [facility] Comment on above: Performed By: #### C BC, UPCR, CMP #### [facility] ([id number]) [address], [address] [place] [address] Protein [Mass/Vol] 6.6 g/dL Normal 6.0-8.0 [facility] Comment on above: Performed By: #### C BC, UPCR, CMP #### [facility] ([id number]) [address], [address] [place] [address] Sodium [Moles/Vol] 135 mmol/L Normal 134-146 [facility] Comment on above: Performed By: #### C BC, UPCR, CMP #### [facility] ([id number]) [address], [address] [place] [address] Urea nitrogen [Mass/Vol] 5 mg/dL Normal 5-23 [facility] Comment on above: Performed By: #### C BC, UPCR, CMP #### [facility] ([id number]) [address] [address] [place] [address] PROTEIN CREAT RATIOon 2023 RANDOM URINE PROTEIN 240 mg/L High <120 [facility] Comment on above: Performed By: #### C BC, UPCR, CMP #### [facility] ([id number]) [address], [facility] [address] [place] [address] U/PRO/ATHLETIC EQUIPMENT MANAGER RATIO CALC 0.11 Normal <0.2 [facility] Comment on above: Result Comment: Neph rotic Syndrome is associated with ratios >3.5 Performed By: #### C BC, UPCR, CMP #### [facility] ([id number]) [address] [address] [place] [address] URINE CREATININE,RDM 225.45 mg/dL Normal [facility] Comment on above: Performed By: #### C BC, UPCR, CMP #### [facility] ([id number]) [address] [facility] [place] [address] US BIOPHYSICAL PROFILE WO NON STRESS TESTINGon 02-06-2024 US BIOPHYSICAL PROFILE WO NON STRESS TESTING TITLE OF EXAM: OB Ultrasound: REASON FOR EXAM: Gestational diabetes, HTN, BPP, Polyhydramnios. TECHNIQUE: Grayscale and color Doppler imaging is performed. Measurements: heart rate: 139 bpm TESFAYE: 31.0 cm (7.9-24.9) Biophysical Profile: 01/22 Breathing 2 Tone 2 Movement 2 AFV 2 Cervix length: 4.7 cm NATASHA: 03/14/2024 CLINICAL SUMMARY: BPP: 01/22 A single intrauterine is noted in cephalic presentation. heart is observed with a heart rate of 139 bpm. motion and organ seen: breathing movements were observed. tone is noted. body and limb movements are observed. Placenta is located left lateral. Placenta is Grade II/III Amniotic fluid volume is increased (Polyhydramnios). *This report is generated using voice recognition reporting ([employer]). On occasion [employer] erroneously drops words from the report or replaces the spoken word with similar sounding words. Please call with any questions/concerns regarding this report.* Dictated and transcribed 02/07/24/dpd This report has been electronically signed and approved by the interpreting radiologist. Electronically Signed Rui Mujica M.D. 2024-02-07 16:27:56 Normal Not Available Amphetamine Screen Ql (U)Ord ered By: CAMDEN LALA on 02-01-2024 Amphetamines Ql (U) Negative Negative [facility] Barbiturates [Presence] in U rine by Screen methodOrdered By: CAMDEN LALA on 02-01-2024 Barbiturates Screen Ql (U) Negative Negative [facility] Benzodiazepines Screen Ql (U )Ordered By: CAMDEN LALA on 02-01-2024 Benzodiazepines Ql (U) Negative Negative [facility] Benzoylecgonine [Presence] i n Urine by Screen methodOrdered By: CAMDEN LALA on 02-01-2024 Benzoylecgonine Screen Ql (U) Negative Negative [facility] Bilirubin Test strip Ql (U)O rdered By: CAMDEN LALA on 02-01-2024 Bilirubin Ql (U) Negative Negative [facility] Color of Urine by AutoOrdere d By: CAMDEN LALA on 02-01-2024 Color (U) Light-yellow Normal Yellow [facility] Comment on above: Order Comment: Name Collection Type:: Clean-Voided Midstream Performed By: #### P T, BMP, MG, LDH, URIC, PTT, DDIMER, HEPATIC #### [facility] [address] [place] [address] [place] Glucose [Mass/volume] in Uri ne by Test stripOrdered By: CAMDEN LALA on 02-01-2024 Glucose Test strip (U) [Mass/Vol] Normal mg/dL Normal [facility] Hemoglobin Test strip Ql (U) Ordered By: CAMDEN LALA on 02-01-2024 Hemoglobin Ql (U) Negative Negative [facility] Ketones [Presence] in Urine by Test stripOrdered By: CAMDEN LALA on 02-01-2024 Ketones Ql (U) Negative Normal Negative [facility] Comment on above: Order Comment: Name Collection Type:: Clean-Voided Midstream Performed By: #### P T, BMP, MG, LDH, URIC, PTT, DDIMER, HEPATIC #### [facility] [address] [place] [address] [place] Leukocyte esterase [Presence ] in Urine by Test stripOrdered By: CAMDEN LALA on 02-01-2024 Leukocyte esterase Test strip Ql (U) Negative Normal Negative [facility] Comment on above: Order Comment: Name Collection Type:: Clean-Voided Midstream Performed By: #### P T, BMP, MG, LDH, URIC, PTT, DDIMER, HEPATIC #### [facility] [address] [place] [id number] [place] Nitrite Test strip Ql (U)Ord ered By: CAMDEN LALA on 02-01-2024 Nitrite Ql (U) Negative Negative [facility] OB Urine Drug Screen (NO THC )on 02-01-2024 Amphetamine Screen,Urine Negative Normal Negative [facility] Comment on above: Performed By: #### P T, BMP, MG, LDH, URIC, PTT, DDIMER, HEPATIC #### [facility] [address] Barbiturate Screen,Urine Negative Normal Negative [facility] Comment on above: Performed By: #### P T, BMP, MG, LDH, URIC, PTT, DDIMER, HEPATIC #### [facility] [address] Benzodiazepines Screen,Urine Negative Normal Negative [facility] Comment on above: Performed By: #### P T, BMP, MG, LDH, URIC, PTT, DDIMER, HEPATIC #### [facility] [address] Cocaine Screen,Urine Negative Normal Negative [facility] Comment on above: Performed By: #### P T, BMP, MG, LDH, URIC, PTT, DDIMER, HEPATIC #### [facility] [address] Opiate Screen,Urine Negative Normal Negative [facility] Comment on above: Performed By: #### P T, BMP, MG, LDH, URIC, PTT, DDIMER, HEPATIC #### [address] Phencyclidine Screen, Urine Negative Normal Negative [facility] Comment on above: Result Comment: Thes e are unconfirmed results and should not be used for legal purposes. Drug Cut-Off Concentration: AMPH 1000 ng/mL LC 200 ng/mL HARDY 200 ng/mL COCM 300 ng/mL OP 300 ng/mL PCP 25 ng/mL PERFORMED BY: [place] [address] PATHOLOGIST CRYSTAL LAPPER TAYLOR YO M.D. Performed By: #### P T, BMP, MG, LDH, URIC, PTT, DDIMER, HEPATIC #### [address] Opiates [Presence] in Urine by Screen methodOrdered By: CAMDEN LALA on 02-01-2024 Opiates Screen Ql (U) Negative Negative [facility] Phencyclidine Screen Ql (U)O rdered By: CAMDEN LALA on 02-01-2024 Phencyclidine Ql (U) Negative Negative [facility] Comment on above: These are unconfirme d results and should not be used for legal purposes. Drug Cut-Off Concentration: AMPH 1000 ng/mL LC 200 ng/mL HARDY 200 ng/mL COCM 300 ng/mL OP 300 ng/mL PCP 25 ng/mL Protein Test strip (U) [Mass /Vol]Ordered By: CAMDEN LALA on 02-01-2024 Protein (U) [Mass/Vol] Negative Negative [facility] Specific gravity Test strip (U) [Rel density]Ordered By: CAMDEN LALA on 02-01-2024 Specific gravity (U) [Rel density] 1.008 1.001-1.03 0 [facility] Urinalysison 02-01-2024 Bilirubin,Urine Negative Normal Negative [facility] Comment on above: Order Comment: Name Collection Type:: Clean-Voided Midstream Performed By: #### P T, BMP, MG, LDH, URIC, PTT, DDIMER, HEPATIC #### [address] Glucose Ql (U) Normal Normal Normal [facility] Comment on above: Order Comment: Name Collection Type:: Clean-Voided Midstream Performed By: #### P T, BMP, MG, LDH, URIC, PTT, DDIMER, HEPATIC #### [facility] [address] [place] [address] Nitrite,Urine Negative Normal Negative [facility] Comment on above: Order Comment: Name Collection Type:: Clean-Voided Midstream Performed By: #### P T, BMP, MG, LDH, URIC, PTT, DDIMER, HEPATIC #### [place] [address] [place] Occult Blood,Urine Negative Normal Negative [facility] Comment on above: Order Comment: Name Collection Type:: Clean-Voided Midstream Result Comment: PERF ORMED BY: [place] [address] PATHOLOGIST CRYSTAL LAPPER TAYLOR YO M.D. Performed By: #### P T, BMP, MG, LDH, URIC, PTT, DDIMER, HEPATIC #### [place] [address] [place] Protein,Urine Negative Normal Negative [facility] Comment on above: Order Comment: Name Collection Type:: Clean-Voided Midstream Performed By: #### P T, BMP, MG, LDH, URIC, PTT, DDIMER, HEPATIC #### [address] Specificy D Lo,Urine 1.008 Normal 1.001-1.03 0 [facility] Comment on above: Order Comment: Name Collection Type:: Clean-Voided Midstream Performed By: #### P T, BMP, MG, LDH, URIC, PTT, DDIMER, HEPATIC #### [address] Urobilinogen,Urine Normal Normal Normal [facility] Comment on above: Order Comment: Name Collection Type:: Clean-Voided Midstream Performed By: #### P T, BMP, MG, LDH, URIC, PTT, DDIMER, HEPATIC #### [address] Urine appearanceOrdered By: CAMDEN LALA on 02-01-2024 Appearance (U) Clear Normal Clear [facility] Comment on above: Order Comment: Name Collection Type:: Clean-Voided Midstream Performed By: #### P T, BMP, MG, LDH, URIC, PTT, DDIMER, HEPATIC #### [address] Urobilinogen Test strip (U) [Mass/Vol]Ordered By: CAMDEN LALA on 02-01-2024 Urobilinogen (U) [Mass/Vol] Normal mg/dL Normal [facility] pH of Urine by Test stripOrd ered By: CAMDEN LALA on 02-01-2024 pH (U) 6.5 [pH] Normal 5.0-9.0 [facility] Comment on above: Order Comment: Name Collection Type:: Clean-Voided Midstream Performed By: #### P T, BMP, MG, LDH, URIC, PTT, DDIMER, HEPATIC #### [address] COMPLETE BLOOD COUNTon 01-29 Erythrocyte distribution width (RBC) [Ratio] 14.6 % Normal 11.5-15.0 [facility] Comment on above: Performed By: #### C SELENA HASSAN, UPCR #### [facility] ([id number]) [address], [address] [place] [address] Hematocrit (Bld) [Volume fraction] 31.8 % Low 35-47 [facility] Comment on above: Performed By: #### C SELENA HASSAN, UPCR #### [facility] ([id number]) [address], [address] [place] [address] Hemoglobin (Bld) [Mass/Vol] 10.4 g/dL Low 11.7-15.5 [facility] Comment on above: Performed By: #### Los HASSAN CMP, UPCR #### [facility] ([id number]) [address], [address] [place] [address] MCH (RBC) [Entitic mass] 24.1 pg Low 27-34 [facility] Comment on above: Performed By: #### [place] HASSAN CMP, UPCR #### [facility] ([id number]) [address], [address] [place] [address] MCHC (RBC) [Mass/Vol] 32.8 g/dL Normal 32-36 [facility] Comment on above: Performed By: #### C SELENA HASSAN, UPCR #### [facility] ([id number]) [address], [address] [place] [address] MCV (RBC) [Entitic vol] 74 fL Low 80-100 [facility] Comment on above: Performed By: #### [place] H[place] CMP, UPCR #### [facility] ([id number]) [address], [address] [place] [address] Platelet mean volume (Bld) [Entitic vol] 8.4 fL Normal 7-12 [facility] Comment on above: Performed By: #### C BC, CMP, UPCR #### [facility] ([id number]) [address], [address] [place] [address] Platelets (Bld) [#/Vol] 274 10*3/uL Normal 150-450 [facility] Comment on above: Performed By: #### C BC, CMP, UPCR #### [facility] ([id number]) [address], [address] [place] [address] RBC COUNT 4.32 X10E12/L Normal 3.80-5.20 [facility] Comment on above: Performed By: #### C BC, CMP, UPCR #### [facility] ([id number]) [address], [address] [place] [address] WBC (Bld) [#/Vol] 6.4 10*3/uL Normal 4.0-11.0 [facility] Comment on above: Performed By: #### C BC, CMP, UPCR #### [facility] ([id number]) [address], [address] [place] [address] COMPREHENSIVE METABOLIC PANE Yazan 01-30-2024 Albumin [Mass/Vol] 3.1 g/dL Low 3.2-5.3 [facility] Comment on above: Performed By: #### C BC, UPCR, CMP #### [facility] ([id number]) [address], [address] [place] [address] ALP [Catalytic activity/Vol] 107 U/L Normal 39-130 [facility] Comment on above: Performed By: #### C BC, UPCR, CMP #### [facility] ([id number]) [address], [address] [place] [address] ALT [Catalytic activity/Vol] 6 U/L Normal 0-31 [facility] Comment on above: Performed By: #### C BC, UPCR, CMP #### [facility] ([id number]) [address], [address] [place] [address] Anion gap [Moles/Vol] 9 mmol/L Normal 5-15 [facility] Comment on above: Performed By: #### C BC, UPCR, CMP #### [facility] ([id number]) [address], [address] [place] [address] AST [Catalytic activity/Vol] 12 U/L Normal 0-41 [facility] Comment on above: Performed By: #### C SONYA, UPCR, CMP #### [facility] ([id number]) [address], [address] [place] [address] Bilirubin [Mass/Vol] 0.2 mg/dL Low 0.3-1.2 [facility] Comment on above: Performed By: #### C SONYA, UPCR, CMP #### [facility] ([id number]) [address], [address] [place] [address] Calcium [Mass/Vol] 8.5 mg/dL Normal 8.5-10.5 [facility] Comment on above: Performed By: #### C SONYA, UPCR, CMP #### [facility] ([id number]) [address], [address] [place] [address] Chloride [Moles/Vol] 106 mmol/L Normal 98-109 [facility] Comment on above: Performed By: #### C BC, UPCR, CMP #### [facility] ([id number]) [address], [address] [place] [address] CO2 [Moles/Vol] 20 mmol/L Low 22-32 [facility] Comment on above: Performed By: #### C BC, UPCR, CMP #### [facility] ([id number]) [address], [address] [place] [address] Creatinine [Mass/Vol] 0.45 mg/dL Normal 0.40-1.00 [facility] Comment on above: Result Comment: METH OD TRACEABLE TO IDMS STANDARD Performed By: #### C SONYA UPCORRINA, CMP #### [facility] ([id number]) [address], [address] [place] [address] eGFR (CKD-EPI) NON-RACE DEPENDENT >90 Normal >59 [facility] Comment on above: Result Comment: Reported eGFR is based on the CKD-EPI 2020 equation that does not use a race coefficient. Performed By: #### C SONYA UPCORRINA, CMP #### [facility] ([id number]) [address], [address] [place] [address] Glucose [Mass/Vol] 111 mg/dL High 65-99 [facility] Comment on above: Performed By: #### [place] UPCORRINA, CMP #### [facility] ([id number]) [address], [address] [place] [address] Potassium [Moles/Vol] 3.8 mmol/L Normal 3.5-5.0 [facility] Comment on above: Performed By: #### C SONYA UPCORRINA, CMP #### [facility] ([id number]) [address], [address] [place] [address] Protein [Mass/Vol] 6.3 g/dL Normal 6.0-8.0 [facility] Comment on above: Performed By: #### [place] UPCR, CMP #### [facility] ([id number]) [address], [address] [place] [address] Sodium [Moles/Vol] 135 mmol/L Normal 134-146 [facility] Comment on above: Performed By: #### [place] UPCR, CMP #### [facility] ([id number]) [address] [address] [place] [address] Urea nitrogen [Mass/Vol] 5 mg/dL Normal 5-23 [facility] Comment on above: Performed By: #### C BC, UPCR, CMP #### [facility] ([id number]) [address], [address] [place] [address] PROTEIN CREAT RATIOon 2023 RANDOM URINE PROTEIN 340 mg/L High <120 [facility] Comment on above: Performed By: #### C BC, UPCR, CMP #### [facility] ([id number]) [address], [address] [place] [address] U/PRO/ATHLETIC EQUIPMENT MANAGER RATIO CALC 0.16 Normal <0.2 [facility] Comment on above: Result Comment: Neph rotic Syndrome is associated with ratios >3.5 Performed By: #### C BC, UPCR, CMP #### [facility] ([id number]) [address], [address] [place] [address] URINE CREATININE,RDM 209.61 mg/dL Normal Pr [facility] Comment on above: Performed By: #### C BC, UPCR, CMP #### [facility] ([id number]) [address], [address] [place] [address] US BIOPHYSICAL PROFILE WO NON STRESS TESTINGon 01-30-2024 US BIOPHYSICAL PROFILE WO NON STRESS TESTING TITLE OF EXAM: OB Ultrasound: REASON FOR EXAM: Hypertension. TECHNIQUE: Grayscale imaging is performed. Measurements: heart rate: 136 bpm TESFAYE: 29.3 cm (8.2-24.7) Biophysical Profile: 01/22 Breathin Tone: 2 Movement: 2 AFV: 2 Cervix Length: 5.2 cm NATASHA: 03/14/2024 CLINICAL SUMMARY: heart is observed with a heart rate of 136. Placenta is located anteriorly. Placenta is Grade I/III Amniotic fluid volume is increased (Polyhydramnios). BPP score 01/22. Limited study. Full anatomical survey not performed. Dictated and transcribed 01/31/24/dpd This report has been electronically signed and approved by the interpreting radiologist. Electronically Signed Wilder Zhao D.O. 2024-01-31 16:05:12 Normal Not Available COMPLETE BLOOD COUNTon 01-22 Erythrocyte distribution width (RBC) [Ratio] 14.2 % Normal 11.5-15.0 [facility] Comment on above: Performed By: #### C SONYA UPCORRINA, CMP #### [facility] ([id number]) [address], [address] [place] [address] Hematocrit (Bld) [Volume fraction] 32.9 % Low 35-47 [facility] Comment on above: Performed By: #### C AILYN HASSAN, CMP #### [facility] ([id number]) [address], [address] [place] [address] Hemoglobin (Bld) [Mass/Vol] 10.5 g/dL Low 11.7-15.5 [facility] Comment on above: Performed By: #### C AILYN HASSAN, CMP #### [facility] ([id number]) [address], [address] [place] [address] MCH (RBC) [Entitic mass] 24.1 pg Low 27-34 [facility] Comment on above: Performed By: #### C SONYA UPCORRINA, CMP #### [facility] ([id number]) [address], [address] [place] [address] MCHC (RBC) [Mass/Vol] 31.9 g/dL Low 32-36 [facility] Comment on above: Performed By: #### C SONYA UPCORRINA, CMP #### [facility] ([id number]) [address] [place] [address] MCV (RBC) [Entitic vol] 75 fL Low 80-100 [facility] Comment on above: Performed By: #### C OSNYA UPCR, CMP #### [facility] ([id number]) [address], [address] [place] [address] Platelet mean volume (Bld) [Entitic vol] 8.7 fL Normal 7-12 [facility] Comment on above: Performed By: #### C SONYA UPCR, CMP #### [facility] ([id number]) [address], [address] [place] [address] Platelets (Bld) [#/Vol] 301 10*3/uL Normal 150-450 [facility] Comment on above: Performed By: #### C SONYA UPCR, CMP #### [facility] ([id number]) [address], [address] [place] [address] RBC COUNT 4.37 X10E12/L Normal 3.80-5.20 [facility] Comment on above: Performed By: #### C SONYA UPCR, CMP #### [facility] ([id number]) [address] [facility] [address] [place] [address] WBC (Bld) [#/Vol] 8.0 10*3/uL Normal 4.0-11.0 [facility] Comment on above: Performed By: #### C SONYA UPCR, CMP #### [facility] ([id number]) [address] [place] [address] COMPREHENSIVE METABOLIC PANE Yazan 01-23-2024 Albumin [Mass/Vol] 3.3 g/dL Normal 3.2-5.3 [facility] Comment on above: Performed By: #### [place] UPCR, CMP #### [facility] ([id number]) [address], [address] [place] [address] ALP [Catalytic activity/Vol] 99 U/L Normal 39-130 [facility] Comment on above: Performed By: #### C SONYA UPCR, CMP #### [facility] ([id number]) [address], [address] [place] [address] ALT [Catalytic activity/Vol] 4 U/L Normal 0-31 [facility] Comment on above: Performed By: #### C BC UPCR, CMP #### [facility] ([id number]) [address] [place] [address] Anion gap [Moles/Vol] 8 mmol/L Normal 5-15 [facility] Comment on above: Performed By: #### C BC, UPCR, CMP #### [facility] ([id number]) [address] [place] [address] AST [Catalytic activity/Vol] 15 U/L Normal 0-41 [facility] Comment on above: Performed By: #### C BC, UPCR, CMP #### [facility] ([id number]) [address] [place] [address] Bilirubin [Mass/Vol] 0.2 mg/dL Low 0.3-1.2 [facility] Comment on above: Performed By: #### C BC, UPCR, CMP #### [facility] ([id number]) [address], [address] [place] [address] Calcium [Mass/Vol] 9.1 mg/dL Normal 8.5-10.5 [facility] Comment on above: Performed By: #### C BC, UPCR, CMP #### [facility] ([id number]) [address] [place] [address] Chloride [Moles/Vol] 105 mmol/L Normal 98-109 [facility] Comment on above: Performed By: #### C BC, UPCR, CMP #### [facility] ([id number]) [address] [place] [address] CO2 [Moles/Vol] 22 mmol/L Normal 22-32 [facility] Comment on above: Performed By: #### C BC, UPCR, CMP #### [facility] ([id number]) [address] [place] [address] Creatinine [Mass/Vol] 0.49 mg/dL Normal 0.40-1.00 [facility] Comment on above: Result Comment: METH OD TRACEABLE TO IDMS STANDARD Performed By: #### C SONYA UPCR, CMP #### [facility] ([id number]) [address] [place] [address] eGFR (CKD-EPI) NON-RACE DEPENDENT >90 Normal >59 [facility] Comment on above: Result Comment: Reported eGFR is based on the CKD-EPI 2020 equation that does not use a race coefficient. Performed By: #### C SONYA UPCR, CMP #### [facility] ([id number]) [address], [address] [place] [address] Glucose [Mass/Vol] 97 mg/dL Normal 65-99 [facility] Comment on above: Performed By: #### C SONYA UPCR, CMP #### [facility] ([id number]) [address], [address] [place] [address] Potassium [Moles/Vol] 4.6 mmol/L Normal 3.5-5.0 [facility] Comment on above: Performed By: #### C BC UPCR, CMP #### [facility] ([id number]) [address], [address] [place] [address] Protein [Mass/Vol] 6.6 g/dL Normal 6.0-8.0 [facility] Comment on above: Performed By: #### C BC UPCR, CMP #### [facility] ([id number]) [address] [place] [address] Sodium [Moles/Vol] 135 mmol/L Normal 134-146 [facility] Comment on above: Performed By: #### C BC, UPCR, CMP #### [facility] ([id number]) [address] [place] [address] Urea nitrogen [Mass/Vol] 5 mg/dL Normal 5-23 [facility] Comment on above: Performed By: #### C BC, UPCR, CMP #### [facility] ([id number]) [address], [address] [place] [address] PROTEIN CREAT RATIOon 2023 RANDOM URINE PROTEIN 330 mg/L High <120 [facility] Comment on above: Performed By: #### C BC, UPCR, CMP #### [facility] ([id number]) [address] [place] [address] U/PRO/ATHLETIC EQUIPMENT MANAGER RATIO CALC 0.15 Normal <0.2 [facility] Comment on above: Result Comment: Neph rotic Syndrome is associated with ratios >3.5 Performed By: #### C BC, UPCR, CMP #### [facility] ([id number]) [address] [place] [address] URINE CREATININE,RDM 224.61 mg/dL Normal Pr [facility] Comment on above: Performed By: #### C BC, UPCR, CMP #### [facility] ([id number]) [address] [place] [address] US BIOPHYSICAL PROFILE WO NON STRESS TESTINGon 01-23-2024 US BIOPHYSICAL PROFILE WO NON STRESS TESTING TITLE OF EXAM: US - BIOPHYSICAL PROFILE W/O STRESS REASON FOR EXAM: Gestational hypertension TECHNIQUE: Grayscale and M-mode Doppler ultrasound evaluation of the fetus and maternal pelvis. COMPARISON: Obstetric ultrasound 01/20/2024 FINDINGS: LMP: 06/08/2023 Age by LMP: 32 weeks, 5 days Single live intrauterine gestation in cephalic position. heart rate 141 bpm. A positive breathing motion, tone, and gross body movement. Normal amniotic fluid index of 28.4 cm. Biophysical profile score 8 out of 8. Anteriorly positioned placenta, grade 1. Cervical length 6.3 cm. No evidence of placenta previa on the provided images. IMPRESSION: 1. Single live intrauterine gestation. Biophysical profile score 8 out of 8. 2. Polyhydramnios; amniotic fluid index 28.4 cm (measured at 30 cm 3 days prior). DICTATED ON: 01/23/2024 10:49 AM This report has been electronically signed and approved by the interpreting radiologist. Electronically Signed Lonnie Duff M.D. 2024-01-23 10:53:01 Normal Not Available US BIOPHYSICAL PROFILE WO NON STRESS TESTINGon 01-20-2024 US BIOPHYSICAL PROFILE WO NON STRESS TESTING TITLE OF EXAM: US - US BIOPHYSICAL PROFILE REASON FOR EXAM: Nonreactive stress test TECHNIQUE: Grayscale, color, and M mode Doppler sonographic evaluation of the fetus and maternal pelvis. COMPARISON: Ultrasound biophysical profile score 01/16/2024 FINDINGS: PATIENT : 06/08/2022 GA by LMP: 32 weeks, 2 days FINDINGS: Single intrauterine gestation in cephalic position. Positive breathing movement, muscular tone, gross body movement, and elevated amniotic fluid index (31 cm). Biophysical profile score 8 out of 8. Incidentally observed structures, the stomach, kidneys, and urinary bladder, do not demonstrate abnormality on the provided images. Partially demonstrated left-sided placenta. No evidence of previa on the provided images. There are a few basal hyperechoic areas which suggest placental grade 2. Cervical length 6.8 cm. IMPRESSION: 1. Single live intrauterine gestation. Biophysical profile score 8 out of 8. 2. Elevated amniotic fluid index, 31 cm indicating polyhydramnios. TESFAYE was calculated at 21.9 cm on the comparison study of 4 days prior. Question differences in position and technique. 3. Cervical length is 6.8 cm. DICTATED ON: 01/21/2024 9:34 AM This report has been electronically signed and approved by the interpreting radiologist. Electronically Signed Lonnie Duff M.D. 2024-01-21 09:44:25 Normal Not Available COMPLETE BLOOD COUNTon 01-16 Erythrocyte distribution width (RBC) [Ratio] 14.4 % Normal 11.5-15.0 [facility] Comment on above: Performed By: #### C BC, CMP, UPCR #### [facility] ([id number]) [address], [address] [place] [address] Hematocrit (Bld) [Volume fraction] 31.3 % Low 35-47 [facility] Comment on above: Performed By: #### C BC, CMP, UPCR #### [facility] ([id number]) [address], [address] [place] [address] Hemoglobin (Bld) [Mass/Vol] 10.5 g/dL Low 11.7-15.5 [facility] Comment on above: Performed By: #### C BC, CMP, UPCR #### [facility] ([id number]) [address], [address] [place] [address] MCH (RBC) [Entitic mass] 25.1 pg Low 27-34 [facility] Comment on above: Performed By: #### C BC, CMP, UPCR #### [facility] ([id number]) [address], [address] [place] [address] MCHC (RBC) [Mass/Vol] 33.4 g/dL Normal 32-36 [facility] Comment on above: Performed By: #### C BC, CMP, UPCR #### [facility] ([id number]) [address], [address] [place] [address] MCV (RBC) [Entitic vol] 75 fL Low 80-100 [facility] Comment on above: Performed By: #### C BC, CMP, UPCR #### [facility] ([id number]) [address], [address] [place] [address] Platelet mean volume (Bld) [Entitic vol] 8.6 fL Normal 7-12 [facility] Comment on above: Performed By: #### C BC, CMP, UPCR #### [facility] ([id number]) [address], [facility] [address] [place] [address] Platelets (Bld) [#/Vol] 278 10*3/uL Normal 150-450 [facility] Comment on above: Performed By: #### C BC, CMP, UPCR #### [facility] ([id number]) [address], [address] [place] [address] RBC COUNT 4.16 X10E12/L Normal 3.80-5.20 [facility] Comment on above: Performed By: #### C SONYA CMP, UPCR #### [facility] ([id number]) [address], [address] [place] [address] WBC (Bld) [#/Vol] 7.4 10*3/uL Normal 4.0-11.0 [facility] Comment on above: Performed By: #### C SONYA CMP, UPCR #### [facility] ([id number]) [address], [address] [place] [address] COMPREHENSIVE METABOLIC PANE Yazan 01-17-2024 Albumin [Mass/Vol] 3.2 g/dL Normal 3.2-5.3 [facility] Comment on above: Performed By: #### [place] CMP, UPCR #### [facility] ([id number]) [address], [address] [place] [address] ALP [Catalytic activity/Vol] 107 U/L Normal 39-130 [facility] Comment on above: Performed By: #### [place] CMP, UPCR #### [facility] ([id number]) [address], [address] [place] [address] ALT [Catalytic activity/Vol] 9 U/L Normal 0-31 [facility] Comment on above: Performed By: #### C SONYA CMP, UPCR #### [facility] ([id number]) [address], [address] [place] [address] Anion gap [Moles/Vol] 9 mmol/L Normal 5-15 [facility] Comment on above: Performed By: #### [place] CMP, UPCR #### [facility] ([id number]) [address], [address] [place] [address] AST [Catalytic activity/Vol] 12 U/L Normal 0-41 [facility] Comment on above: Performed By: #### C SONYA CMP, UPCR #### [facility] ([id number]) [address] [place] [address] Bilirubin [Mass/Vol] 0.2 mg/dL Low 0.3-1.2 [facility] Comment on above: Performed By: #### C BC, CMP, UPCR #### [facility] ([id number]) [address], [facility] [address] [place] [address] Calcium [Mass/Vol] 8.0 mg/dL Low 8.5-10.5 [facility] Comment on above: Performed By: #### C SONYA CMP, UPCR #### [facility] ([id number]) [address], [facility] [address] [place] [address] Chloride [Moles/Vol] 105 mmol/L Normal 98-109 [facility] Comment on above: Performed By: #### C SONYA CMP, UPCR #### [facility] ([id number]) [address], [facility] [address] [place] [address] CO2 [Moles/Vol] 22 mmol/L Normal 22-32 [facility] Comment on above: Performed By: #### [place] CMP, UPCR #### [facility] ([id number]) [address] [place] [address] Creatinine [Mass/Vol] 0.48 mg/dL Normal 0.40-1.00 [facility] Comment on above: Result Comment: METH OD TRACEABLE TO IDMS STANDARD Performed By: #### C BC, CMP, UPCR #### [facility] ([id number]) [address] [place] [address] eGFR (CKD-EPI) NON-RACE DEPENDENT >90 Normal >59 [facility] Comment on above: Result Comment: Reported eGFR is based on the CKD-EPI 2020 equation that does not use a race coefficient. Performed By: #### C SELENA HASSAN, UPCR #### [facility] ([id number]) [address], [address] [place] [address] Glucose [Mass/Vol] 120 mg/dL High 65-99 [facility] Comment on above: Performed By: #### C SONYA CMP, UPCR #### [facility] ([id number]) [address], [address] [place] [address] Potassium [Moles/Vol] 3.6 mmol/L Normal 3.5-5.0 [facility] Comment on above: Performed By: #### C SELENA HASSAN, UPCR #### [facility] ([id number]) [address], [address] [place] [address] Protein [Mass/Vol] 6.6 g/dL Normal 6.0-8.0 [facility] Comment on above: Performed By: #### C SONYA CMP, UPCR #### [facility] ([id number]) [address], [address] [place] [address] Sodium [Moles/Vol] 136 mmol/L Normal 134-146 [facility] Comment on above: Performed By: #### [place] CMP, UPCR #### [facility] ([id number]) [address] [address] [place] [address] Urea nitrogen [Mass/Vol] 3 mg/dL Low 5-23 [facility] Comment on above: Performed By: #### C SONYA CMP, UPCR #### [facility] ([id number]) [address] [address] [place] [address] PROTEIN CREAT RATIOon 2023 RANDOM URINE PROTEIN 370 mg/L High <120 [facility] Comment on above: Performed By: #### C BC CMP, UPCR #### [facility] ([id number]) [address], [address] [place] [address] U/PRO/ATHLETIC EQUIPMENT MANAGER RATIO CALC 0.18 Normal <0.2 [facility] Comment on above: Result Comment: Neph rotic Syndrome is associated with ratios >3.5 Performed By: #### C BC, CMP, UPCR #### [facility] ([id number]) [address], [address] [place] [address] URINE CREATININE,RDM 209.57 mg/dL Normal Pr [facility] Comment on above: Performed By: #### C BC, CMP, UPCR #### [facility] ([id number]) [address], [address] [place] [address] US BIOPHYSICAL PROFILE WO NON STRESS TESTINGon 01-16-2024 US BIOPHYSICAL PROFILE WO NON STRESS TESTING TITLE OF EXAM: OB Ultrasound/Biophysical Profile. REASON FOR EXAM: Non reactive stress test. TECHNIQUE: Grayscale imaging is performed. Measurements: heart rate: 138 bpm TESFAYE: 21.9 cm (8.7-24.1) Biophysical Profile: 8/ Breathing 2 Tone 2 Movement 2 AFV 2 Cervix Length: 5.2 cm NATASHA: 03/14/2024 CLINICAL SUMMARY: A single intrauterine is noted in cephalic presentation. heart is observed with a heart rate of 138 bpm. Placenta is located anteriorly. Placenta is Grade II/III Amniotic fluid volume is within the upper limit of normal. TECH NOTES: Patient sees [facility] for polyhydramnios on 01/07/2024. Largest pocket measured 10.52. Dictated and transcribed 01/17/24/dpd This report has been electronically signed and approved by the interpreting radiologist. Electronically Signed Rui Mujica M.D. 2024-01-17 16:58:20 Normal Not Available COMPLETE BLOOD COUNTon 01-07 Erythrocyte distribution width (RBC) [Ratio] 13.9 % Normal 11.5-15.0 [facility] Comment on above: Performed By: #### C BC, UPCR, CMP #### [facility] ([id number]) [address], [address] [place] [address] Hematocrit (Bld) [Volume fraction] 32.4 % Low 35-47 [facility] Comment on above: Performed By: #### AILYN ASTUDILLO, CMP #### [facility] ([id number]) [address], [facility] [address] [place] [address] Hemoglobin (Bld) [Mass/Vol] 10.7 g/dL Low 11.7-15.5 [facility] Comment on above: Performed By: #### C SONYA UPCORRINA, CMP #### [facility] ([id number]) [address] [address] [place] [address] MCH (RBC) [Entitic mass] 24.8 pg Low 27-34 [facility] Comment on above: Performed By: #### AILYN ASTUDILLO, CMP #### [facility] ([id number]) [address], [facility] [address] [place] [address] MCHC (RBC) [Mass/Vol] 33.0 g/dL Normal 32-36 [facility] Comment on above: Performed By: #### AILYN ASTUDILLO, CMP #### [facility] ([id number]) [address], [facility] [address] [place] [address] MCV (RBC) [Entitic vol] 75 fL Low 80-100 [facility] Comment on above: Performed By: #### AILYN ASTUDILLO, CMP #### [facility] ([id number]) [address] [address] [place] [address] Platelet mean volume (Bld) [Entitic vol] 8.4 fL Normal 7-12 [facility] Comment on above: Performed By: #### AILYN ASTUDILLO, CMP #### [facility] ([id number]) [address], [address] [place] [address] Platelets (Bld) [#/Vol] 289 10*3/uL Normal 150-450 [facility] Comment on above: Performed By: #### C SONYA UPCR, CMP #### [facility] ([id number]) [address], [address] [place] [address] RBC COUNT 4.31 X10E12/L Normal 3.80-5.20 [facility] Comment on above: Performed By: #### C SONYA UPCR, CMP #### [facility] ([id number]) [address] [place] [address] WBC (Bld) [#/Vol] 7.8 10*3/uL Normal 4.0-11.0 [facility] Comment on above: Performed By: #### C SONYA UPCR, CMP #### [facility] ([id number]) [address], [address] [place] [address] COMPREHENSIVE METABOLIC PANE Yazan 01-08-2024 Albumin [Mass/Vol] 3.3 g/dL Normal 3.2-5.3 [facility] Comment on above: Performed By: #### C SONYA UPCR, CMP #### [facility] ([id number]) [address] [place] [address] ALP [Catalytic activity/Vol] 97 U/L Normal 39-130 [facility] Comment on above: Performed By: #### C SONYA UPCR, CMP #### [facility] ([id number]) [address] [place] [address] ALT [Catalytic activity/Vol] 6 U/L Normal 0-31 [facility] Comment on above: Performed By: #### C SONYA UPCR, CMP #### [facility] ([id number]) [address], [address] [place] [address] Anion gap [Moles/Vol] 7 mmol/L Normal 5-15 [facility] Comment on above: Performed By: #### C SONYA UPCR, CMP #### [facility] ([id number]) [address], [address] [place] [address] AST [Catalytic activity/Vol] 12 U/L Normal 0-41 [facility] Comment on above: Performed By: #### C BC, UPCR, CMP #### [facility] ([id number]) [address], [address] [place] [address] Bilirubin [Mass/Vol] 0.2 mg/dL Low 0.3-1.2 [facility] Comment on above: Performed By: #### C BC, UPCR, CMP #### [facility] ([id number]) [address], [address] [place] [address] Calcium [Mass/Vol] 8.3 mg/dL Low 8.5-10.5 [facility] Comment on above: Performed By: #### C BC, UPCR, CMP #### [facility] ([id number]) [address], [address] [place] [address] Chloride [Moles/Vol] 105 mmol/L Normal 98-109 [facility] Comment on above: Performed By: #### C BC, UPCR, CMP #### [facility] ([id number]) [address], [address] [place] [address] CO2 [Moles/Vol] 23 mmol/L Normal 22-32 [facility] Comment on above: Performed By: #### C BC, UPCR, CMP #### [facility] ([id number]) [address], [address] [place] [address] Creatinine [Mass/Vol] 0.42 mg/dL Normal 0.40-1.00 [facility] Comment on above: Result Comment: METH OD TRACEABLE TO IDMS STANDARD Performed By: #### C BC, UPCR, CMP #### [facility] ([id number]) [address], [address] [place] [address] eGFR (CKD-EPI) NON-RACE DEPENDENT >90 Normal >59 [facility] Comment on above: Result Comment: Reported eGFR is based on the CKD-EPI 2020 equation that does not use a race coefficient. Performed By: #### C SONYA UPCR, CMP #### [facility] ([id number]) [address], [address] [place] [address] Glucose [Mass/Vol] 112 mg/dL High 65-99 [facility] Comment on above: Performed By: #### C SONYA UPCR, CMP #### [facility] ([id number]) [address], [address] [place] [address] Potassium [Moles/Vol] 3.7 mmol/L Normal 3.5-5.0 [facility] Comment on above: Performed By: #### C SONYA UPCR, CMP #### [facility] ([id number]) [address], [address] [place] [address] Protein [Mass/Vol] 6.6 g/dL Normal 6.0-8.0 [facility] Comment on above: Performed By: #### [place] UPCR, CMP #### [facility] ([id number]) [address], [address] [place] [address] Sodium [Moles/Vol] 135 mmol/L Normal 134-146 [facility] Comment on above: Performed By: #### [place] UPCR, CMP #### [facility] ([id number]) [address], [address] [place] [address] Urea nitrogen [Mass/Vol] 4 mg/dL Low 5-23 [facility] Comment on above: Performed By: #### C SONYA UPCR, CMP #### [facility] ([id number]) [address], [address] [place] [address] PROTEIN CREAT RATIOon 2023 RANDOM URINE PROTEIN 380 mg/L High <120 [facility] Comment on above: Performed By: #### C BC, UPCR, CMP #### [facility] ([id number]) [address], [address] [place] [address] U/PRO/ATHLETIC EQUIPMENT MANAGER RATIO CALC 0.17 Normal <0.2 [facility] Comment on above: Result Comment: Neph rotic Syndrome is associated with ratios >3.5 Performed By: #### C BC, UPCR, CMP #### [facility] ([id number]) [address] [place] [address] URINE CREATININE,RDM 229.02 mg/dL Normal Pr [facility] Comment on above: Performed By: #### C BC, UPCR, CMP #### [facility] ([id number]) [address], [facility] [address] [place] [address] Activated partial thrombopla stin time (aPTT) in platelet poor plasma by coagulation aOrdered By: Paty Burnette on 12-22-2023 aPTT Coag (PPP) [Time] 25.0 s Low 25.1-36.5 [facility] Comment on above: A hematocrit value g reater than 55% may lead to inaccurate results in coagulation testing. Patients having hematocrit values >55% require a special collection tube for coagulation studies. Please contact the laboratory at [phone] for redraw instructions. Alanine aminotransferase [En zymatic activity/volume] in Serum or PlasmaOrdered By: Paty Burnette on 12-22-2023 ALT [Catalytic activity/Vol] 5 U/L Low 7-52 [facility] Comment on above: Performed By: #### P T, BMP, MG, LDH, URIC, PTT, DDIMER, HEPATIC #### [facility] [address] Albumin [Mass/volume] in Ser um or Plasma by Bromocresol green (BCG) dye binding methoOrdered By: Paty Burnette on 12-22-2023 Albumin BCG dye [Mass/Vol] 3.3 g/dL Low 3.5-5.7 [facility] Alkaline phosphatase [Enzyma tic activity/volume] in Serum or PlasmaOrdered By: Paty Burnette on 12-22-2023 ALP [Catalytic activity/Vol] 82 U/L Normal 34-104 [facility] Comment on above: Performed By: #### P T, BMP, MG, LDH, URIC, PTT, DDIMER, HEPATIC #### [address] Aspartate aminotransferase [ Enzymatic activity/volume] in Serum or PlasmaOrdered By: Paty Burnette on 12-22-2023 AST [Catalytic activity/Vol] 10 U/L Low 13-39 [facility] Comment on above: Performed By: #### P T, BMP, MG, LDH, URIC, PTT, DDIMER, HEPATIC #### [address] Automated basophil %Ordered By: Paty Burnette on 12-22-2023 Basophils/100 WBC (Bld) 0.6 % Normal . [facility] Comment on above: Performed By: #### P T, BMP, MG, LDH, URIC, PTT, DDIMER, HEPATIC #### [address] Automated basophil countOrde red By: Paty Burnette on 12-22-2023 Basophils (Bld) [#/Vol] 0.0 10*3/uL Normal 0.0-0.2 [facility] Comment on above: Result Comment: PERF ORMED BY: [place] [address] PATHOLOGIST CRYSTAL LAPPER TAYLOR YO M.D. Performed By: #### P T, BMP, MG, LDH, URIC, PTT, DDIMER, HEPATIC #### [address] Automated blood monocyte cou ntOrdered By: Paty Burnette on 12-22-2023 Monocytes (Bld) [#/Vol] 0.8 10*3/uL Normal 0.0-0.8 [facility] Comment on above: Performed By: #### P T, BMP, MG, LDH, URIC, PTT, DDIMER, HEPATIC #### [address] Automated eosinophil %Ordere d By: Paty Burnette on 12-22-2023 Eosinophils/100 WBC (Bld) 0.7 % Normal . [facility] Comment on above: Performed By: #### P T, BMP, MG, LDH, URIC, PTT, DDIMER, HEPATIC #### [address] Automated eosinophil countOr dered By: Paty Burnette on 12-22-2023 Eosinophils (Bld) [#/Vol] 0.1 10*3/uL Normal 0.0-0.45 [facility] Comment on above: Performed By: #### P T, BMP, MG, LDH, URIC, PTT, DDIMER, HEPATIC #### [address] Automated monocyte %Ordered By: Paty Burnette on 12-22-2023 Monocytes/100 WBC (Bld) 10.5 % Normal . [facility] Comment on above: Performed By: #### P T, BMP, MG, LDH, URIC, PTT, DDIMER, HEPATIC #### [address] Automated neutrophil %Ordere d By: Paty Burnette on 12-22-2023 Neutrophils/100 WBC (Bld) 64.2 % Normal . [facility] Comment on above: Performed By: #### P T, BMP, MG, LDH, URIC, PTT, DDIMER, HEPATIC #### [address] BNP ser/plasOrdered By: Logan Burnette on 12-22-2023 Natriuretic peptide B (Bld) [Mass/Vol] 16.0 pg/mL Normal 5-100 [facility] Comment on above: Result Comment: PERF ORMED BY: [place] [address] PATHOLOGIST CRYSTAL LAPPER TAYLOR YO M.D. Performed By: #### P T, BMP, MG, LDH, URIC, PTT, DDIMER, HEPATIC #### [address] Bacteria [Presence] in Urine by AutomatedOrdered By: Paty Burnette on 12-22-2023 Bacteria Auto Ql (U) Rare [HPF] None Seen [facility] Basic Metabolic Panelon Creatinine Clr Calc Pharmacy 220.74 Normal [facility] Comment on above: Performed By: #### P T, BMP, MG, LDH, URIC, PTT, DDIMER, HEPATIC #### [facility] [address] GFR/1.73 sq M.predicted MDRD (S/P/Bld) [Vol rate/Area] mL/min/{1.73_m2} Normal [facility] Comment on above: Performed By: #### P T, BMP, MG, LDH, URIC, PTT, DDIMER, HEPATIC #### [facility] [address] Bilirubin Test strip Ql (U)O rdered By: Paty Burnette on 12-22-2023 Bilirubin Ql (U) Negative Negative [facility] Bilirubin.direct [Mass/volum e] in Serum or PlasmaOrdered By: Paty Burnette on 12-22-2023 Bilirubin.direct [Mass/Vol] 0.00 mg/dL Low 0.03-0.18 [facility] Comment on above: If the DBIL is less than 0.1, IBIL is not able to becalculated. Bilirubin.total [Mass/volume ] in Serum or PlasmaOrdered By: Paty Burnette on 12-22-2023 Bilirubin [Mass/Vol] 0.2 mg/dL Low 0.3-1.0 [facility] Comment on above: Performed By: #### P T, BMP, MG, LDH, URIC, PTT, DDIMER, HEPATIC #### [facility] [address] Calcium [Mass/volume] in Ser um or PlasmaOrdered By: Paty Burnette on 12-22-2023 Calcium [Mass/Vol] 8.6 mg/dL Normal 8.6-10.3 [facility] Comment on above: Performed By: #### P T, BMP, MG, LDH, URIC, PTT, DDIMER, HEPATIC #### [address] Carbon dioxide, total [Moles /volume] in Serum or PlasmaOrdered By: Paty Burnette on 12-22-2023 CO2 [Moles/Vol] 21.2 mmol/L Normal 21.0-31.0 [facility] Comment on above: Performed By: #### P T, BMP, MG, LDH, URIC, PTT, DDIMER, HEPATIC #### [address] Chloride [Moles/volume] in S more or PlasmaOrdered By: Paty Burnette on 12-22-2023 Chloride [Moles/Vol] 104 mmol/L Normal 98-107 [facility] Comment on above: Performed By: #### P T, BMP, MG, LDH, URIC, PTT, DDIMER, HEPATIC #### [address] Color of Urine by AutoOrdere d By: Paty Burnette on 12-22-2023 Color (U) Yellow Normal Yellow [facility] Comment on above: Order Comment: Name Collection Type:: Clean-Voided Midstream Performed By: #### P T, BMP, MG, LDH, URIC, PTT, DDIMER, HEPATIC #### [address] Complete Blood Count Auto Di ffon 12-22-2023 Mean Corpuscular HGB Conc 33.6 g/dL Normal 32.0-35.0 [facility] Comment on above: Performed By: #### P T, BMP, MG, LDH, URIC, PTT, DDIMER, HEPATIC #### [address] Monocytes/100 WBC (Bld) 18.28 % Normal 0.00-20.00 [facility] Comment on above: Performed By: #### P T, BMP, MG, LDH, URIC, PTT, DDIMER, HEPATIC #### [address] NRBC% 0.0 /100{WBC} Normal 0-0.5 [facility] Comment on above: Performed By: #### P T, BMP, MG, LDH, URIC, PTT, DDIMER, HEPATIC #### [facility] [address] Creatine kinase [Enzymatic a ctivity/volume] in Serum or PlasmaOrdered By: Paty Burnette on 12-22-2023 CK [Catalytic activity/Vol] 25 U/L Low 30-223 [facility] Comment on above: Performed By: #### P T, BMP, MG, LDH, URIC, PTT, DDIMER, HEPATIC #### [facility] [address] Creatinine [Mass/volume] in Serum or PlasmaOrdered By: Paty Burnette on 12-22-2023 Creatinine [Mass/Vol] 0.49 mg/dL Low 0.60-1.20 [facility] Comment on above: Performed By: #### P T, BMP, MG, LDH, URIC, PTT, DDIMER, HEPATIC #### [facility] [address] Creatinine [Mass/volume] in UrineOrdered By: Paty Burnette on 12-22-2023 Creatinine (U) [Mass/Vol] 204.00 mg/dL [facility] Comment on above: No reference range e stablished D-Dimer High Sensitivityon 0 12-22-2023 D-Dimer High Sensitivity 266 ng/mL High 0-243 [facility] Comment on above: Result Comment: The reference range for D-dimer is <243 ng/mL D-dimer units. D-dimer results must be used in conjunction with a clinical pretest probability (PTP) assessment model for deep vein thrombosis (DVT) and pulmonary embolism (PE). Results <230 ng/mL d-dimer units can be used as a negative predictor in patients with low or moderate probability for DVT/PE. Results above the exclusion threshold of 230 ng/ml D-dimer units for DVT/PE may indicate the need for further diagnostic testing. D-Dimer can be increased in hospitalized patients due to co-morbid conditions. A hematocrit value greater than 55% may lead to inaccurate results in coagulation testing. Patients having hematocrit values >55% require a special collection tube for coagulation studies. Please contact the laboratory at [phone] for redraw instructions. PERFORMED BY: [place] [address] PATHOLOGIST CRYSTAL LAPPER TAYLOR YO M.D. Performed By: #### P T, BMP, MG, LDH, URIC, PTT, DDIMER, HEPATIC #### [address] Dipstick and Microscopicon 0 12-22-2023 Bacteria,Urine Rare Normal None Seen [facility] Comment on above: Order Comment: Name Collection Type:: Clean-Voided Midstream Performed By: #### P T, BMP, MG, LDH, URIC, PTT, DDIMER, HEPATIC #### [address] Bilirubin,Urine Negative Normal Negative [facility] Comment on above: Order Comment: Name Collection Type:: Clean-Voided Midstream Performed By: #### P T, BMP, MG, LDH, URIC, PTT, DDIMER, HEPATIC #### [address] Glucose Ql (U) 100 mg/dL High Normal [facility] Comment on above: Order Comment: Name Collection Type:: Clean-Voided Midstream Performed By: #### P T, BMP, MG, LDH, URIC, PTT, DDIMER, HEPATIC #### [address] Hyaline Casts,Urine None Normal 0-8 [facility] Comment on above: Order Comment: Name Collection Type:: Clean-Voided Midstream Performed By: #### P T, BMP, MG, LDH, URIC, PTT, DDIMER, HEPATIC #### [address] Mucus,Urine 4+ Critically abnormal [facility] Comment on above: Order Comment: Name Collection Type:: Clean-Voided Midstream Result Comment: PERF ORMED BY: [place] [address] PATHOLOGIST CRYSTAL LAPPER TAYLOR OY M.D. Performed By: #### P T, BMP, MG, LDH, URIC, PTT, DDIMER, HEPATIC #### [address] Nitrite,Urine Negative Normal Negative [facility] Comment on above: Order Comment: Name Collection Type:: Clean-Voided Midstream Performed By: #### P T, BMP, MG, LDH, URIC, PTT, DDIMER, HEPATIC #### [address] Occult Blood,Urine Negative Normal Negative [facility] Comment on above: Order Comment: Name Collection Type:: Clean-Voided Midstream Result Comment: PERF ORMED BY: [place] [address] PATHOLOGIST CRYSTAL LAPPER TAYLOR YO M.D. Performed By: #### P T, BMP, MG, LDH, URIC, PTT, DDIMER, HEPATIC #### [address] RBC,Urine 1-2 Normal 0-4 [facility] Comment on above: Order Comment: Name Collection Type:: Clean-Voided Midstream Performed By: #### P T, BMP, MG, LDH, URIC, PTT, DDIMER, HEPATIC #### [address] Specificy D Lo,Urine 1.025 Normal 1.001-1.03 0 [facility] Comment on above: Order Comment: Name Collection Type:: Clean-Voided Midstream Performed By: #### P T, BMP, MG, LDH, URIC, PTT, DDIMER, HEPATIC #### [address] Squamous Epithelial Cell,Urine 5-9 High 0-2 [facility] Comment on above: Order Comment: Name Collection Type:: Clean-Voided Midstream Performed By: #### P T, BMP, MG, LDH, URIC, PTT, DDIMER, HEPATIC #### [address] Urobilinogen,Urine Normal Normal Normal [facility] Comment on above: Order Comment: Name Collection Type:: Clean-Voided Midstream Performed By: #### P T, BMP, MG, LDH, URIC, PTT, DDIMER, HEPATIC #### [facility] [address] WBC,Urine 1-2 Normal 0-4 [facility] Comment on above: Order Comment: Name Collection Type:: Clean-Voided Midstream Performed By: #### P T, BMP, MG, LDH, URIC, PTT, DDIMER, HEPATIC #### [facility] [address] ECG 12 lead ECGon 12-22-2023 ECG 12 lead ECG [facility] [address] [place] [address] Electrocardiograph Report Signed Patient: Jennifer Tello MR#: [id number] 2 : 1995 Acct:[id number] Age/Sex: 28 / F ADM Date: 12/22/23 Loc: ER Room: Type: [facility] ER Attending Dr: Ordering Provider: Paty Burnette MD Date of Service: 12/22/2301/08/1636 ECG/ECG 12 lead ECG: Chest Pain Copies to: Test Reason : Blood Pressure : 157/072 mmHG Vent. Rate : 112 BPM Atrial Rate : 112 BPM P-R Int : 132 ms QRS Dur : 080 ms QT Int : 330 ms P-R-T Axes : 056 070 051 degrees QTc Int : 450 ms Sinus tachycardia with occasional premature ventricular complexes regular axis significant artifact Confirmed by Paty Burnette MD ([id number]) on 12/22/2023 5:56:24 PM Referred By: Electronically Signed By:Paty Burnette MD Transcribed By: MUS Signed By Paty Burnette MD 01/07 639 Normal [facility] Epithelial cells.squamous [# /area] in Urine sediment by Automated countOrdered By: Paty Burnette on 12-22-2023 Epithelial cells.squamous Auto (Urine sed) [#/Area] 5-9 [HPF] High 0-2 [facility] Erythrocyte distribution wid th [Ratio] by Automated countOrdered By: Paty Burnette on 12-22-2023 Erythrocyte distribution width (RBC) [Ratio] 14.0 % Normal 11.9-15.3 [facility] Comment on above: Performed By: #### P T, BMP, MG, LDH, URIC, PTT, DDIMER, HEPATIC #### [facility] [address] [place] [id number] [place] Erythrocytes [#/area] in Uri ne sediment by Automated countOrdered By: Paty Burnette on 12-22-2023 RBC Auto (Urine sed) [#/Area] 1-2 [HPF] 0-4 [facility] Erythrocytes [#/volume] in B lood by Automated countOrdered By: Paty Burnette on 12-22-2023 RBC (Bld) [#/Vol] 4.28 10*6/uL Normal 3.60-5.00 [facility] Comment on above: Performed By: #### P T, BMP, MG, LDH, URIC, PTT, DDIMER, HEPATIC #### [facility] [address] [place] [address] [facility] Fibrin D-dimer [Presence] in Platelet poor plasma by Latex agglutinationOrdered By: Paty Burnette on 12-22-2023 Fibrin D-dimer LA Ql (PPP) 266 ng/mL High 0-243 [facility] Comment on above: The reference range for D-dimer is <243 ng/mL D-dimer units.D-dimer results must be used in conjunction with a clinicalpretest probability (PTP) assessment model for deep veinthrombosis (DVT) and pulmonary embolism (PE). Results <230ng/mL d-dimer units can be used as a negative predictor inpatients with low or moderate probability for DVT/PE.Results above the exclusion threshold of 230 ng/ml D-dimerunits for DVT/PE may indicate the need for furtherdiagnostic testing.D-Dimer can be increased in hospitalized patients due toco-morbid conditions.A hematocrit value greater than 55% may lead to inaccurate results in coagulation testing. Patients having hematocrit values >55% require a special collection tube for coagulation studies. Please contact the laboratory at [phone] for redraw instructions. Glucose [Mass/volume] in Ser um or PlasmaOrdered By: Paty Burnette on 12-22-2023 Glucose [Mass/Vol] 100 mg/dL Normal 70-100 [facility] Comment on above: ADA recommended refe rence rangeRandom Glucose Reference Range is dependent on time and content of last meal. Glucose of more than 200 mg/dL in a nonstressed, ambulatory subject supports the diagnosis of Diabetes Mellitus. Result Comment: [place] om Glucose Reference Range is dependent on time and content of last meal. Glucose of more than 200 mg/dL in a nonstressed, ambulatory subject supports the diagnosis of Diabetes Mellitus. ADA recommended reference range Performed By: #### P T, BMP, MG, LDH, URIC, PTT, DDIMER, HEPATIC #### [facility] [address] Glucose [Mass/volume] in Uri ne by Test stripOrdered By: Paty Burnette on 12-22-2023 Glucose Test strip (U) [Mass/Vol] 100 mg/dL High Normal [facility] Hematocrit [Volume Fraction] of Blood by Automated countOrdered By: Paty Burnette on 12-22-2023 Hematocrit (Bld) [Volume fraction] 32.6 % Low 34.0-46.4 [facility] Comment on above: Performed By: #### P T, BMP, MG, LDH, URIC, PTT, DDIMER, HEPATIC #### [address] Hemoglobin Test strip Ql (U) Ordered By: Paty Burnette on 12-22-2023 Hemoglobin Ql (U) Negative Negative [facility] Hemoglobin [Mass/volume] in BloodOrdered By: Paty Burnette on 12-22-2023 Hemoglobin (Bld) [Mass/Vol] 11.0 g/dL Low 11.8-15.4 [facility] Comment on above: Performed By: #### P T, BMP, MG, LDH, URIC, PTT, DDIMER, HEPATIC #### [facility] [address] Hepatic Panelon 12-22-2023 Albumin [Mass/Vol] 3.3 g/dL Low 3.5-5.7 [facility] Comment on above: Performed By: #### P T, BMP, MG, LDH, URIC, PTT, DDIMER, HEPATIC #### [address] Bilirubin,Indirect 0.2 mg/dL Normal [facility] Comment on above: Performed By: #### P T, BMP, MG, LDH, URIC, PTT, DDIMER, HEPATIC #### [facility] [address] Bilirubin.indirect [Mass/Vol] 0.00 mg/dL Low 0.03-0.18 [facility] Comment on above: Result Comment: If t he DBIL is less than 0.1, IBIL is not able to be calculated. Performed By: #### P T, BMP, MG, LDH, URIC, PTT, DDIMER, HEPATIC #### [facility] [address] Hyaline casts [#/area] in Ur ine sediment by Automated countOrdered By: Paty Burnette on 12-22-2023 Hyaline casts Auto (Urine sed) [#/Area] None [LPF] 0-8 [facility] INR in Platelet poor plasma by Coagulation assayOrdered By: Paty Burntete on 12-22-2023 INR Coag (PPP) [Relative time] 1.0 {INR} Normal [facility] Comment on above: INR Therapeutic Rang e A) Pre- and Peroperative OAT started two weeks before surgery. NOT HIP SURGERY: 1.5 - 2.5 HIP SURGERY: 2 - 3B) Primary and secondary prevention of venous THROMBOSIS: 2 - 3C) Active venous thrombosis, pulmonary embolismand prevention of recurrent venous thrombosis: 2 - 3D) Prevention of arterial thromboembolismincluding patients with mechanical heart valves: 3 - 4.5 Result Comment: INR Therapeutic Range A) Pre- and Peroperative OAT started two weeks before surgery. NOT HIP SURGERY: 1.5 - 2.5 HIP SURGERY: 2 - 3 B) Primary and secondary prevention of venous THROMBOSIS: 2 - 3 C) Active venous thrombosis, pulmonary embolism and prevention of recurrent venous thrombosis: 2 - 3 D) Prevention of arterial thromboembolism including patients with mechanical heart valves: 3 - 4.5 Performed By: #### P T, BMP, MG, LDH, URIC, PTT, DDIMER, HEPATIC #### [facility] [address] Ketones [Presence] in Urine by Test stripOrdered By: Paty Burnette on 12-22-2023 Ketones Ql (U) Trace High Negative [facility] Comment on above: Order Comment: Name Collection Type:: Clean-Voided Midstream Performed By: #### P T, BMP, MG, LDH, URIC, PTT, DDIMER, HEPATIC #### [facility] [address] [place] [address] [place] LDH Lactate Dehydrogenaseon 12-22-2023 LDH Lactate Dehydrogenase 131 U/L Low 140-271 [facility] Comment on above: Performed By: #### P T, BMP, MG, LDH, URIC, PTT, DDIMER, HEPATIC #### [facility] [address] Lactate dehydrogenase [Enzym atic activity/volume] in Serum or Plasma by Lactate to pyOrdered By: Paty Burnette on 12-22-2023 LDH Lactate to pyruvate reaction [Catalytic activity/Vol] 131 U/L Low 140-271 [facility] Leukocyte esterase [Presence ] in Urine by Test stripOrdered By: Paty Burnette on 12-22-2023 Leukocyte esterase Test strip Ql (U) Negative Normal Negative [facility] Comment on above: Order Comment: Name Collection Type:: Clean-Voided Midstream Performed By: #### P T, BMP, MG, LDH, URIC, PTT, DDIMER, HEPATIC #### [facility] [address] Leukocytes [#/area] in Urine sediment by Automated countOrdered By: Paty Burnette on 12-22-2023 WBC Auto (Urine sed) [#/Area] 1-2 [HPF] 0-4 [facility] Leukocytes [#/volume] correc maggy for nucleated erythrocytes in Blood by Automated counOrdered By: Paty Burnette on 12-22-2023 WBC corrected for nucl RBC Auto (Bld) [#/Vol] 8.0 10*3/uL 3.8-11.6 [facility] Leukocytes [#/volume] in Blo od by Automated countOrdered By: Paty Burnette on 12-22-2023 WBC (Bld) [#/Vol] 8.0 10*3/uL Normal 3.8-11.6 [facility] Comment on above: Performed By: #### P T, BMP, MG, LDH, URIC, PTT, DDIMER, HEPATIC #### [address] Lymphocytes [#/volume] in Bl ood by Automated countOrdered By: Paty Burnette on 12-22-2023 Lymphocytes (Bld) [#/Vol] 1.9 10*3/uL Normal 1.00-4.8 [facility] Comment on above: Performed By: #### P T, BMP, MG, LDH, URIC, PTT, DDIMER, HEPATIC #### [address] Lymphocytes/100 leukocytes i n Blood by Automated countOrdered By: Paty Burnette on 12-22-2023 Lymphocytes/100 WBC (Bld) 24.0 % Normal . [facility] Comment on above: Performed By: #### P T, BMP, MG, LDH, URIC, PTT, DDIMER, HEPATIC #### [address] MCH [Entitic mass] by Automa maggy countOrdered By: Paty Burnette on 12-22-2023 MCH (RBC) [Entitic mass] 25.7 pg Normal 24.7-34.3 [facility] Comment on above: Performed By: #### P T, BMP, MG, LDH, URIC, PTT, DDIMER, HEPATIC #### [address] MCHC Auto (RBC) [Mass/Vol]Or dered By: Paty Burnette on 12-22-2023 MCHC (RBC) [Mass/Vol] 33.6 g/dL 32.0-35.0 [facility] MCV [Entitic volume] by Auto mated countOrdered By: Paty Burnette on 12-22-2023 MCV (RBC) [Entitic vol] 76.3 fL Low 80-100 [facility] Comment on above: Performed By: #### P T, BMP, MG, LDH, URIC, PTT, DDIMER, HEPATIC #### [address] Magnesium [Mass/volume] in S more or PlasmaOrdered By: Paty Burnette on 12-22-2023 Magnesium [Mass/Vol] 1.7 mg/dL Low 1.9-2.7 [facility] Comment on above: Performed By: #### P T, BMP, MG, LDH, URIC, PTT, DDIMER, HEPATIC #### [facility] [address] [place] [address] [place] Monocyte distribution width [Entitic volume] in Blood by AutomatedOrdered By: Paty Burnette on 12-22-2023 Monocyte distribution width Auto (Bld) [Entitic vol] 18.28 % 0.00-20.00 [facility] Mucus [Presence] in Urine by AutomatedOrdered By: Paty Burnette on 12-22-2023 Mucus Auto Ql (U) 4+ [LPF] Abnormal [facility] Neutrophils [#/volume] in Bl ood by Automated countOrdered By: Paty Burnette on 12-22-2023 Neutrophils (Bld) [#/Vol] 5.2 10*3/uL Normal 1.8-7.7 [facility] Comment on above: Performed By: #### P T, BMP, MG, LDH, URIC, PTT, DDIMER, HEPATIC #### [facility] [address] Nitrite Test strip Ql (U)Ord ered By: Paty Burnette on 12-22-2023 Nitrite Ql (U) Negative Negative [facility] No Panel InformationOrdered By: Paty Burnette on 12-22-2023 Estimated GFR (CKD-EPI) > 60.0 mL/Min [facility] Creatinine Clearance (Chem 220.74 [facility] Nucleated erythrocytes [Pres ence] in Blood by Automated countOrdered By: Paty Burnette on 12-22-2023 Nucleated RBC Auto Ql (Bld) 0.0 /100{WBC} 0-0.5 [facility] Partial Thromboplastin Timeo n 12-22-2023 aPTT Coag (Bld) [Time] 25.0 s Low 25.1-36.5 [facility] Comment on above: Result Comment: A he matocrit value greater than 55% may lead to inaccurate results in coagulation testing. Patients having hematocrit values >55% require a special collection tube for coagulation studies. Please contact the laboratory at [phone] for redraw instructions. Performed By: #### P T, BMP, MG, LDH, URIC, PTT, DDIMER, HEPATIC #### [facility] [address] Platelet mean volume [Entiti c volume] in Blood by Automated countOrdered By: Paty Burnette on 12-22-2023 Platelet mean volume (Bld) [Entitic vol] 7.9 fL Normal 6.3-10.7 [facility] Comment on above: Performed By: #### P T, BMP, MG, LDH, URIC, PTT, DDIMER, HEPATIC #### [address] Platelets [#/volume] in Bloo d by Automated countOrdered By: Paty Burnette on 12-22-2023 Platelets (Bld) [#/Vol] 290 10*3/uL Normal 150-450 [facility] Comment on above: Performed By: #### P T, BMP, MG, LDH, URIC, PTT, DDIMER, HEPATIC #### [address] Potassium [Moles/volume] in Serum or PlasmaOrdered By: Paty Burnette on 12-22-2023 Potassium [Moles/Vol] 3.6 mmol/L Normal 3.5-5.1 [facility] Comment on above: Performed By: #### P T, BMP, MG, LDH, URIC, PTT, DDIMER, HEPATIC #### [address] Protein Creat Ratio Ur Rando mon 12-22-2023 Creatinine, Urine (Random) 204.00 mg/dL Normal [facility] Comment on above: Result Comment: No r eference range established Performed By: #### P T, BMP, MG, LDH, URIC, PTT, DDIMER, HEPATIC #### [place] [id number] [facility] Urine Protein/Creatinine Ratio 137 mg/g{Cre} Normal 0-200 [facility] Comment on above: Performed By: #### P T, BMP, MG, LDH, URIC, PTT, DDIMER, HEPATIC #### [facility] [address] [place] [id number] [facility] Protein [Mass/volume] in Ser um or PlasmaOrdered By: Paty Burnette on 12-22-2023 Protein [Mass/Vol] 6.5 g/dL Normal 6.4-8.9 [facility] Comment on above: Performed By: #### P T, BMP, MG, LDH, URIC, PTT, DDIMER, HEPATIC #### [facility] [address] [place] [address] [facility] Protein [Mass/volume] in Uri neOrdered By: Paty Burnette on 12-22-2023 Protein (U) [Mass/Vol] 28 mg/dL High 0-9 [facility] Comment on above: *Additional results available. Contact laboratory/see report* Performed By: #### P T, BMP, MG, LDH, URIC, PTT, DDIMER, HEPATIC #### [facility] [address] [place] [id number] [facility] Result Comment: PERF ORMED BY: [place] [address] PATHOLOGIST CRYSTAL LAPPER TAYLOR YO M.D. Protein [Mass/volume] in Uri ne by Test stripOrdered By: Paty Burnette on 12-22-2023 Protein (U) [Mass/Vol] 30 mg/dL High Negative [facility] Comment on above: Order Comment: Name Collection Type:: Clean-Voided Midstream Performed By: #### P T, BMP, MG, LDH, URIC, PTT, DDIMER, HEPATIC #### [facility] [address] [place] [id number] [facility] Prothrombin time (PT)Ordered By: Paty Burnette on 12-22-2023 PT Coag (PPP) [Time] 11.3 s Normal 9.0-12.9 [facility] Comment on above: A hematocrit value g reater than 55% may lead to inaccurate results in coagulation testing. Patients having hematocrit values >55% require a special collection tube for coagulation studies. Please contact the laboratory at [phone] for redraw instructions. Result Comment: A he matocrit value greater than 55% may lead to inaccurate results in coagulation testing. Patients having hematocrit values >55% require a special collection tube for coagulation studies. Please contact the laboratory at [phone] for redraw instructions. Performed By: #### P T, BMP, MG, LDH, URIC, PTT, DDIMER, HEPATIC #### [address] Serum globulin measurement b y calculation (mass/volume)Ordered By: Paty Burnette on 12-22-2023 Globulin (S) [Mass/Vol] 3.2 g/dL [facility] Comment on above: Performed By: #### P T, BMP, MG, LDH, URIC, PTT, DDIMER, HEPATIC #### [address] Serum or plasma albumin/glob ulin mass ratioOrdered By: Paty Burnette on 12-22-2023 Albumin/Globulin [Mass ratio] 1.0 {ratio} [facility] Comment on above: Performed By: #### P T, BMP, MG, LDH, URIC, PTT, DDIMER, HEPATIC #### [address] Serum or plasma anion gap de terminationOrdered By: Paty Burnette on 12-22-2023 Anion gap [Moles/Vol] 9.4 mmol/L Normal 6.0-15.0 [facility] Comment on above: Performed By: #### P T, BMP, MG, LDH, URIC, PTT, DDIMER, HEPATIC #### [address] Serum or plasma non-glucuron idated bilirubin measurement (mass/volume)Ordered By: Paty Burnette on 12-22-2023 Bilirubin.indirect [Mass/Vol] 0.2 mg/dL [facility] Sodium [Moles/volume] in Ser um or PlasmaOrdered By: Paty Burnette on 12-22-2023 Sodium [Moles/Vol] 131 mmol/L Low 136-145 [facility] Comment on above: Performed By: #### P T, BMP, MG, LDH, URIC, PTT, DDIMER, HEPATIC #### [address] Specific gravity Test strip (U) [Rel density]Ordered By: Paty Burnette on 12-22-2023 Specific gravity (U) [Rel density] 1.025 1.001-1.03 0 [facility] Troponin I High Sensitivityo n 12-22-2023 Troponin I High Sensitivity 2.6 pg/mL Normal 0.0-15.0 [facility] Comment on above: Result Comment: PERF ORMED BY: [place] [address] PATHOLOGIST CRYSTAL LAPPER TAYLOR YO M.D. Performed By: #### P T, BMP, MG, LDH, URIC, PTT, DDIMER, HEPATIC #### [address] Troponin I High Sensitivity 3.4 pg/mL Normal 0.0-15.0 [facility] Comment on above: Result Comment: PERF ORMED BY: [place] [address] PATHOLOGIST CRYSTAL LAPPER TAYLOR YO M.D. Performed By: #### P T, BMP, MG, LDH, URIC, PTT, DDIMER, HEPATIC #### [address] Troponin I.cardiac [Mass/vol ume] in Serum or Plasma by Detection limit <= 0.01 ng/Ordered By: Paty Burnette on 12-22-2023 Troponin I.cardiac DL <= 0.01 ng/mL [Mass/Vol] 2.6 pg/mL 0.0-15.0 [facility] US OB limitedon 12-22-2023 US OB limited [facility] [place] [id number] Ultrasound Report Signed Patient: Jennifer Tello MR#: [id number] 2 : 1995 Acct:[id number] Age/Sex: 28 / F ADM Date: 12/22/23 Loc: ER Room: Type: REG ER Attending Dr: Ordering Provider: Paty Burnette MD Date of Service: 12/22/23 US/US OB limited: Chest Pain, sob Copies to: Paty Bunrette MD LIMITED OB ULTRASOUND COMPARISON: None CLINICAL DATA: Chest pain, shortness of breath and decreased movement. There is a single live tree uterine gestation in variable presentation. The placenta is anterior and within normal limits for position. The amniotic fluid index measures 21.8 cm. This is around the 95th percentile. The estimated cervical length is 4.8 cm. There is and cardiac activity with heart rate of 106 bpm. The ovaries were not seen. There is no free fluid. The following measurements were obtained: Biparietal diameter 7.5 cm 30 weeks 1 day +/- 3 weeks 1 day 92% Head circumference 26.5 cm 29 weeks 0 days +/-2 weeks 1 day 41% Abdominal circumference 27.3 cm 31 weeks 3 days +/- 3 weeks 0 days >98% Femur length 5.3 cm 20 weeks 1 day +/- 2 weeks 1 day 33% The composite ultrasound age based on these measurements is 29 weeks 5 days. US/US OB limited IMPRESSION: SINGLE LIVE INTRAUTERINE GESTATION WITH ULTRASOUND AGE OF 29 WEEKS 5 DAYS. POLYHYDRAMNIOS. Impression dictated by: Sarah Solano M.D.12/22/2023 6:23 PM Dictation Location: [place] [address] Tech: Peggymaria victoria Cardosoer Transcribed By: KEZIA 12/22/231822 Dictated By: Sarah Solano MD 12/22/231811 Signed By: 12/22/231822 Normal [facility] Urate [Mass/volume] in Serum or PlasmaOrdered By: Paty Burnette on 12-22-2023 Urate [Mass/Vol] 2.7 mg/dL Normal 2.3-6.6 [facility] Comment on above: Result Comment: PERF ORMED BY: [facility] [address] [place] [address] PATHOLOGIST CRYSTAL LAPPER TAYLOR YO M.D. Performed By: #### P T, BMP, MG, LDH, URIC, PTT, DDIMER, HEPATIC #### [facility] [address] Urea nitrogen [Mass/volume] in Serum or PlasmaOrdered By: Paty Burnette on 12-22-2023 Urea nitrogen [Mass/Vol] 4 mg/dL Low 7-25 [facility] Comment on above: Performed By: #### P T, BMP, MG, LDH, URIC, PTT, DDIMER, HEPATIC #### [facility] [address] Urine appearanceOrdered By: Paty Burnette on 12-22-2023 Appearance (U) Clear Normal Clear [facility] Comment on above: Order Comment: Name Collection Type:: Clean-Voided Midstream Performed By: #### P T, BMP, MG, LDH, URIC, PTT, DDIMER, HEPATIC #### [facility] [address] Urine protein/creatinine rat ioOrdered By: Paty Burnette on 12-22-2023 Protein/Creatinine (U) [Ratio] 137 mg/g{Cre} 0-200 [facility] Urobilinogen Test strip (U) [Mass/Vol]Ordered By: Paty Burnette on 12-22-2023 Urobilinogen (U) [Mass/Vol] Normal mg/dL Normal [facility] XR chest 2V*on 12-22-2023 XR chest 2V* [facility] [address] [place] [address] XRay Report Signed Patient: Jennifer Tello MR#: [id number] 2 : 1995 Acct:[id number] Age/Sex: 28 / F ADM Date: 12/22/23 Loc: ER Room: Type: [facility] ER Attending Dr: Copies to: Paty Burnette MD Ordering Provider: Paty Burnette MD Date of Service: 12/22/23 XR/XR chest 2V*: Chest Pain PA AND LATERAL CHEST: CLINICAL HISTORY: Chest pain, shortness of breath and decreased movement. COMPARISON: None There is no focal parenchymal consolidation, effusion or pneumothorax. The heart is top normal in size. The hilar and mediastinal silhouettes are within normal limits. There is no vascular congestion. The visualized bony thorax is intact. XR/XR chest 2V* IMPRESSION: NO ACUTE CARDIOPULMONARY ABNORMALITY. Impression dictated by: Sarah Solano M.D.12/22/2023 6:24 PM Dictation Location: [place] [address] Transcribed By: [facility] 12/22/231823 Dictated By: Sarah Solano MD 12/22/231822 Signed By: 12/22/231823 Normal [facility] pH of Urine by Test stripOrd ered By: Paty Burnette on 12-22-2023 pH (U) 6.5 [pH] Normal 5.0-9.0 [facility] Comment on above: Order Comment: Name Collection Type:: Clean-Voided Midstream Performed By: #### P T, BMP, MG, LDH, URIC, PTT, DDIMER, HEPATIC #### [address] US OB 14+ WEEKS ANATOMY SCAN on 10-24-2023 US OB 14+ WEEKS ANATOMY SCAN FINDINGS: A single, live intrauterine is present with normal cardiac rate of 139 beats per minute. Normal activity and amniotic fluid volume. Amniotic fluid index is 14 cm. Morphology is grossly normal. The cervix is long and closed, 5.3 cm. The placenta is posterior, minimally low-lying, inferior aspect 2.7 cm from the closed internal cervical os. The current sonographic age is 19 weeks and 6 days, based on the following measurements: BPD 4.6 cm (19 weeks, 5 days) Head Circumference 17.1 cm (19 weeks, 5 days) Abdominal Circumference 14.7 cm (20 weeks, 0 days) Femur Length 3.2 cm (19 weeks, 6 days) Presentation Cephalic ( head to the maternal right) Placenta Posterior, Grade I Weight (g) by Percentile 53.2 % * These measurements result in an estimated date of delivery of March 13, 2024 The current estimated weight is 318 grams (0 pounds, 11 ounces). IMPRESSION: 1. Single, live intrauterine , current sonographic age of 19 weeks and 6 days, with an estimated date of delivery of March 13, 2024 2. Minimally low-lying placenta (non-worrisome on this exam) * Estimated Weight (g) by Percentile is based upon an accurate estimated age based on last menstrual period. TRANSCRIBED BY: ELECTRONICALLY SIGNED BY: Jermaine Irwin MD Normal Not Available US Pelvic, Transvaginalon US Pelvic, Transvaginal HISTORY: Irregular menses since spontaneous one year ago. Urine [...] by Kash Moore on 10/30/2022 1247 Normal [facility] Supervisor [employer] Finishing Covid-19 PCR (CVDTB)on 05-17 Covid-19 PCR DETECTED Abnormal NOT DETECTED [facility] Comment on above: Result Comment: This test is not yet approved or cleared by the [place] FDA. When there are no FDA-approved or cleared tests available, and other criteria are met, FDA can make tests available under an emergency access mechanism called an Emergency Use Authorization (EUA). The EUA for this test is supported by the [place] of Health and Human Service's (HHS's) declaration [...] used). Performed By: #### C VDTBH #### [facility] [address] [place] [id number] [place] EUA Statement SEE BELOW Normal [facility] Comment on above: Result Comment: This test is not yet approved or cleared by the [place] FDA. When there are no FDA-approved or cleared tests available, and other criteria are met, FDA can make tests available under an emergency access mechanism called an Emergency Use Authorization (EUA). The EUA for this test is supported by the Box Folding Machine Operator of Health and Human Service?s (HHS?s) declaration [...] consistent with SARS-CoV-2. Performed By: #### C VDTBH #### [facility] [address] [place], [place] [address] [place] CBC auto differentialOrdered By: Maxine Crawley on 07-18-2019 Absolute Eos # 0.37 [facility] Phone: Absolute Immature Granulocyte 0.04 [facility] Phone: Absolute Lymph # 2.08 [facility] Phone: Absolute Winston # 0.61 [facility] Phone: Basophils (Bld) [#/Vol] 10*3/uL [facility] Phone: Basophils/100 WBC (Bld) 0 % 0 - 2 % [facility] Phone: Differential Type NOT REPORTED [facility] Phone: Eosinophils/100 WBC (Bld) 4 % 1 - 4 % [facility] Phone: Erythrocyte distribution width (RBC) [Ratio] 14.3 % 11.8 - 14.4 % [facility] Phone: Hematocrit (Bld) [Volume fraction] 29.0 % Low 36.3 - 47.1 % [facility] Phone: Hemoglobin (Bld) [Mass/Vol] 9.1 g/dL Low 11.9 - 15.1 g/dL [facility] Phone: Immature granulocytes/100 WBC (Bld) 1 % High 0 [facility] Phone: Interpretation and review of laboratory results Abnormal [facility] Phone: [phone] Lymphocytes/100 WBC (Bld) 25 % 24 - 43 % [facility] Phone: MCH (RBC) [Entitic mass] 26.5 pg 25.2 - 33.5 pg [facility] Phone: MCHC (RBC) [Mass/Vol] 31.4 g/dL 28.4 - 34.8 g/dL [facility] Phone: MCV (RBC) [Entitic vol] 84.3 fL 82.6 - 102.9 fL [facility] Phone: Monocytes/100 WBC (Bld) 7 % 3 - 12 % [facility] Phone: NRBC Automated 0.0 0.0 per 100 WBC [facility] Phone: Platelet Estimate NOT REPORTED [facility] Phone: Platelet mean volume (Bld) [Entitic vol] 9.8 fL 8.1 - 13.5 fL [facility] Phone: Platelets (Bld) [#/Vol] 269 10*3/uL [facility] Phone: RBC (Bld) [#/Vol] 3.44 10*6/uL Low 3.95 - 5.11 m/uL [facility] Phone: RBC morphology finding Nom (Bld) NOT REPORTED [facility] Phone: Segmented neutrophils/100 WBC (Bld) 63 % 36 - 65 % [facility] Phone: Segs Absolute 5.25 [facility] Phone: WBC (Bld) [#/Vol] 8.4 10*3/uL [facility] Phone: WBC Morphology NOT REPORTED [facility] Phone: CBC with Diffon 07-18-2019 Abs. Basophil <0.03 Normal 0.00-0.20 [facility] Comment on above: Performed By: #### B HCG #### [facility] [address] [place], [place] [id number] Body And Frame Technician: Urbano Moore MD Abs.Imm.Granulocyte 0.04 k/uL Normal 0.00-0.30 [facility] Comment on above: Performed By: #### B HCG #### [facility] [address] [place], [place] [id number] Body And Frame Technician: Urbano Moore MD Abs.Neutrophil (Seg) 5.25 k/uL Normal 1.50-8.10 [facility] Comment on above: Performed By: #### B HCG #### [facility] [address] [place] [address] Body And Frame Technician: Urbano Moore MD Basophils/100 WBC (Bld) 0 % Normal 0-2 [facility] Comment on above: Performed By: #### B HCG #### [facility] [address] [place] [address] Body And Frame Technician: Urbano Moore MD Eosinophils (Bld) [#/Vol] 0.37 10*3/uL Normal 0.00-0.44 [facility] Comment on above: Performed By: #### B HCG #### [facility] [address] [place], [facility]83 Body And Frame Technician: Urbano Moore MD Eosinophils/100 WBC (Bld) 4 % Normal 1-4 [facility] Comment on above: Performed By: #### B HCG #### [facility] [address] [place], [facility]83 Body And Frame Technician: Urbano Moore MD Erythrocyte distribution width (RBC) [Ratio] 14.3 % Normal 11.8-14.4 [facility] Comment on above: Performed By: #### B HCG #### [facility] [address] [place], [facility]83 Body And Frame Technician: Urbano Moore MD Hematocrit (Bld) [Volume fraction] 29.0 % Low 36.3-47.1 [facility] Comment on above: Performed By: #### B HCG #### [facility] [address] [place], [facility]83 Body And Frame Technician: Urbano Moore MD Hemoglobin (Bld) [Mass/Vol] 9.1 g/dL Low 11.9-15.1 [facility] Comment on above: Performed By: #### B HCG #### [facility] [address] [place], [place] [address] Body And Frame Technician: Urbano Moore MD Immature granulocytes (Bld) [#/Vol] 1 % High 0 [facility] Comment on above: Performed By: #### B HCG #### [facility] [address] [place], [facility]83 Body And Frame Technician: Urbano Moore MD Lymphocytes (Bld) [#/Vol] 2.08 10*3/uL Normal 1.10-3.70 [facility] Comment on above: Performed By: #### B HCG #### [facility] [address] [place] [address] Body And Frame Technician: Urbano Moore MD Lymphocytes/100 WBC (Bld) 25 % Normal 24-43 [facility] Comment on above: Performed By: #### B HCG #### [facility] [address] [place], [place] [id number] Body And Frame Technician: Urbano Moore MD MCH (RBC) [Entitic mass] 26.5 pg Normal 25.2-33.5 [facility] Comment on above: Performed By: #### B HCG #### [facility] [address] [place] [address] Body And Frame Technician: Urbano Moore MD MCHC (RBC) [Mass/Vol] 31.4 g/dL Normal 28.4-34.8 [facility] Comment on above: Performed By: #### B HCG #### [facility] [address] [place] [address] Body And Frame Technician: Urbano Moore MD MCV (RBC) [Entitic vol] 84.3 fL Normal 82.6-102.9 [facility] Comment on above: Performed By: #### B HCG #### [facility] [address] [place] [address] Body And Frame Technician: Urbano Moore MD Monocytes (Bld) [#/Vol] 0.61 10*3/uL Normal 0.10-1.20 [facility] Comment on above: Performed By: #### B HCG #### [facility] [address] [place] [address] Body And Frame Technician: Urbano Moore MD Monocytes/100 WBC (Bld) 7 % Normal 3-12 [facility] Comment on above: Performed By: #### B HCG #### [facility] [address] [place], [place] [phone] Body And Frame Technician: Urbano Moore MD Neutrophil (Seg) 63 % Normal 36-65 [facility] Comment on above: Performed By: #### B HCG #### [facility] [address] [place], [place] [id number] Body And Frame Technician: Urbano Moore MD NRBC Automated 0.0 per 100 WBC Normal 0.0 [facility] Comment on above: Performed By: #### B HCG #### [facility] [address] [place], [place] [id number] Body And Frame Technician: Urbano Moore MD Platelet mean volume (Bld) [Entitic vol] 9.8 fL Normal 8.1-13.5 [facility] Comment on above: Performed By: #### B HCG #### [facility] [address] [place], [place] [address] Body And Frame Technician: Urbano Moore MD Platelets (Bld) [#/Vol] 269 10*3/uL Normal 138-453 [facility] Comment on above: Performed By: #### B HCG #### [facility] [address] [place], [place] [address] Body And Frame Technician: Urbano Moore MD RBC (Bld) [#/Vol] 3.44 10*6/uL Low 3.95-5.11 [facility] Comment on above: Performed By: #### B HCG #### [facility] [address] [place] [address] Body And Frame Technician: Urbano Moore MD WBC (Bld) [#/Vol] 8.4 10*3/uL Normal 3.5-11.3 [facility] Comment on above: Performed By: #### B HCG #### [facility] [address] [place], [place] [id number] Body And Frame Technician: Urbano Moore MD Auto Diff Performed NOT REPORTED Normal [facility] Comment on above: Performed By: #### B HCG #### [facility] [address] [place], [place] [phone] Body And Frame Technician: Urbano Moore MD Platelets (Bld) [#/Vol] NOT REPORTED Normal [facility] Comment on above: Performed By: #### B HCG #### [facility] [address] [place] [address] Body And Frame Technician: Urbano Moore MD RBC morphology finding Nom (Bld) NOT REPORTED Normal [facility] Comment on above: Performed By: #### B HCG #### [facility] [address] [place] [address] Body And Frame Technician: Urbano Moore MD WBC Morphology NOT REPORTED Normal [facility] Comment on above: Performed By: #### B HCG #### [facility] [address] [place] [address] Body And Frame Technician: Urbano Moore MD CT HEAD WO CONTRASTon [...] Crissy Morocho MD 07/18/19 Final result Normal [facility] CT HEAD WO CONTRASTOrdered B y: Maxine Crawley on 07-18-2019 No acute intracrania l abnormality. [facility] Work Phone: EXAMINATION: CT OF T HE HEAD WITHOUT CONTRAST 07/18/2019 11:18 am TECHNIQUE: [...] of the visualized skull or soft tissues. [facility] Phone: Bimal, Mhpn Incoming R adiant Results From [employer] - 07/18/2019 11:31 AM EST EXAMINATION: CT [...] soft tissues. IMPRESSION: No acute intracranial abnormality. [facility] Phone: Comp Metabolic Profon 2019 (cont.) Normal [facility] Comment on above: Result Comment: Aver age GFR for 20-29 years old: 116 mL/min/1.73sq m Chronic Kidney Disease: <60 mL/min/1.73sq m Kidney failure: <15 mL/min/1.73sq m eGFR calculated using average adult body mass. Additional eGFR calculator available at: http://www.[employer].com/multiple_crcl_2012.htm Performed By: #### G LYHGB #### [address] [place] [address] Body And Frame Technician: Urbano Moore MD #### GOKUL, HIVCMB #### [place] [address] [place] [address] Body And Frame Technician: Porfirio Calix MD Albumin [Mass/Vol] 2.9 g/dL Low 3.5-5.2 [facility] Comment on above: Performed By: #### G LYHGB #### [address] [place] [id number] ( Body And Frame Technician: Urbano Moore MD #### GOKUL, HIVCMB #### [address] [address] Body And Frame Technician: Porfirio Calix MD Albumin/Globulin [Mass ratio] 0.9 {ratio} Low 1.0-2.5 [facility] Comment on above: Performed By: #### G LYHGB #### [address] [place] [id number] ( Body And Frame Technician: Urbano Moore MD #### GOKUL, HIVCMB #### [place] [address] [place] [address] Body And Frame Technician: Porfirio Calix MD Alkaline Phos 117 U/L High 35-104 [facility] Comment on above: Performed By: #### G LYHGB #### [facility] [address] [place] [address] [place] [address] Body And Frame Technician: Urbano Moore MD #### AHCV, HIVCMB #### [place] [address] [place] [address] Body And Frame Technician: Porfirio Calix MD ALT [Catalytic activity/Vol] 7 U/L Normal 5-33 [facility] Comment on above: Performed By: #### G LYHGB #### [facility] [address] [place] [id number] Body And Frame Technician: Urbano Moore MD #### GOKUL, HIVCMB #### [address] [id number] Body And Frame Technician: Porfirio Calix MD Anion gap [Moles/Vol] 13 mmol/L Normal 9-17 [facility] Comment on above: Performed By: #### G LYHGB #### [facility] [address] [place] [id number] Body And Frame Technician: Urbano Moore MD #### GOKUL, HIVCMB #### [address] [id number] Body And Frame Technician: Porfirio Calix MD AST [Catalytic activity/Vol] 14 U/L Normal <32 [facility] Comment on above: Performed By: #### G LYHGB #### [facility] [address] [place], [facility]83 Body And Frame Technician: Urbano Moore MD #### GOKUL, HIVCMB #### [address] [address] Body And Frame Technician: Porfirio Calix MD Bilirubin Ql (U) <0.10 Low 0.3-1.2 [facility] Comment on above: Performed By: #### G LYHGB #### [facility] [address] [place] [id number] Body And Frame Technician: Urbano Moore MD #### GOKUL, HIVCMB #### [address] [address] Body And Frame Technician: Porfirio Calix MD BUN/CRE Ratio 12 Normal 9-20 [facility] Comment on above: Performed By: #### G LYHGB #### [facility] [address] [place], [place] [address] Body And Frame Technician: Urbano Moore MD #### GOKUL HIVCMB #### [address] [id number] Body And Frame Technician: Porfirio Calix MD Calcium [Mass/Vol] 8.8 mg/dL Normal 8.6-10.4 [facility] Comment on above: Performed By: #### G LYHGB #### [address] [place] [address] Body And Frame Technician: Urbano Moore MD #### GOKUL HIVCMB #### [address] [id number] Body And Frame Technician: Porfirio Calix MD Chloride [Moles/Vol] 99 mmol/L Normal 98-107 [facility] Comment on above: Performed By: #### G LYHGB #### [address] [place], [place] [address] Body And Frame Technician: Urbano Moore MD #### GOKUL HIVCMB #### [address] [id number] Body And Frame Technician: Porfirio Calix MD CO2 [Moles/Vol] 23 mmol/L Normal 20-31 [facility] Comment on above: Performed By: #### G LYHGB #### [address] [place] [id number] Body And Frame Technician: Urbano Moore MD #### OGKUL HIVCMB #### [address] [id number] Body And Frame Technician: Porfirio Calix MD Creatinine [Mass/Vol] 0.51 mg/dL Normal 0.50-0.90 [facility] Comment on above: Performed By: #### G LYHGB #### [address] [place] [address] Body And Frame Technician: Urbano Moore MD #### AHCV, HIVCMB #### [address] [address] Body And Frame Technician: Porfirio Calix MD GFR, Amer >60 Normal >60 [facility] Comment on above: Performed By: #### G LYHGB #### [facility] [address] [place] [address] [address] [place] [id number] Body And Frame Technician: Urbano Moore MD #### AHCV, HIVCMB #### [address] [address] Body And Frame Technician: Porfirio Calix MD GFR,non Amer >60 Normal >60 [facility] Comment on above: Performed By: #### G LYHGB #### [address] [place] [id number] Body And Frame Technician: Urbano Moore MD #### GOKUL, HIVCMB #### [address] [address] Body And Frame Technician: Porfirio Calix MD Glucose [Mass/Vol] 98 mg/dL Normal 70-99 [facility] Comment on above: Performed By: #### G LYHGB #### [address] [place] [id number] Body And Frame Technician: Urbano Moore MD #### AHCV, HIVCMB #### [address] [address] Body And Frame Technician: Porfirio Calix MD Potassium [Moles/Vol] 3.9 mmol/L Normal 3.7-5.3 [facility] Comment on above: Performed By: #### G LYHGB #### [facility] [address] [place] [address] [address]. [place], [place] [id number] Body And Frame Technician: Urbano Moore MD #### STEVENCV, HIVCMB #### [place] [address] [place], [place] [address] Body And Frame Technician: Porfirio Calix MD Protein [Mass/Vol] 6.0 g/dL Low 6.4-8.3 [facility] Comment on above: Performed By: #### G LYHGB #### [address] [place], [place] [address]83 Body And Frame Technician: Urbano Moore MD #### GOKUL, HIVCMB #### [address] [id number] Body And Frame Technician: Porfirio Calix MD Sodium [Moles/Vol] 135 mmol/L Normal 135-144 [facility] Comment on above: Performed By: #### G LYHGB #### [address] [place] [address] Body And Frame Technician: Urbano Moore MD #### GOKUL, HIVCMB #### [address] [id number] Body And Frame Technician: Porfirio Calix MD Staging: Normal [facility] Comment on above: Result Comment: Stag e 1: Some kidney damage normal GFR Stage 2: Mild kidney damage GFR 60-89 Stage 3: Moderate kidney damage GFR 30-59 Stage 4: Severe kidney damage GFR 15-29 Stage 5: Severe kidney damage GFR <15 ESRD - chronic treatment by dialysis or transplant Performed By: #### G LYHGB #### [address] [place], [place] [address]83 Body And Frame Technician: Urbano Moore MD #### GOKUL, HIVCMB #### [address] [id number] Body And Frame Technician: Porfirio Calix MD Urea nitrogen [Mass/Vol] 6 mg/dL Normal 6-20 [facility] Comment on above: Performed By: #### G LYHGB #### [address] [place] [address] Body And Frame Technician: Urbano Moore MD #### AHCV, HIVCMB #### [facility] [address] [place] [address] Body And Frame Technician: Porfirio Calix MD Comprehensive metabolic pane lOrdered By: Maxine Crawley on 07-18-2019 Albumin [Mass/Vol] 2.9 g/dL Low 3.5 - 5.2 g/dL [facility] Phone: Albumin/Globulin [Mass ratio] 0.9 {ratio} Low [facility] Phone: ALP [Catalytic activity/Vol] 117 U/L High 35 - 104 U/L [facility] Phone: ALT [Catalytic activity/Vol] 7 U/L 5 - 33 U/L [facility] Phone: Anion gap [Moles/Vol] 13 mmol/L 9 - 17 mmol/L [facility] Phone: AST [Catalytic activity/Vol] 14 U/L <32 [facility] Phone: Bilirubin [Mass/Vol] mg/dL Low 0.3 - 1 .2 mg/dL [facility] Phone: Bun/Cre Ratio 12 [facility] Phone: Calcium [Mass/Vol] 8.8 mg/dL 8.6 - 10. 4 mg/dL [facility] Phone: Chloride [Moles/Vol] 99 mmol/L 98 - 10 7 mmol/L [facility] Phone: CO2 [Moles/Vol] 23 mmol/L 20 - 31 mmol/L [facility] Phone: Creatinine [Mass/Vol] 0.51 mg/dL 0.5 - 0.9 mg/dL [facility] Phone: GFR >60 >60 mL/min [facility] Phone: GFR Comment [facility] Phone: Comment on above: Average GFR for 20-2 9 years old: 116 mL/min/1.73sq m Chronic Kidney Disease: <60 mL/min/1.73sq m Kidney failure: <15 mL/min/1.73sq m eGFR calculated using average adult body mass. Additional eGFR calculator available at: http://www.iFit/multiple_crcl_2012.htm GFR Non- >60 >60 mL/min [facility] Phone: GFR Staging [facility] Phone: Comment on above: Stage 1: Some kidney damage normal GFR Stage 2: Mild kidney damage GFR 60-89 Stage 3: Moderate kidney damage GFR 30-59 Stage 4: Severe kidney damage GFR 15-29 Stage 5: Severe kidney damage GFR <15 ESRD - chronic treatment by dialysis or transplant Glucose [Mass/Vol] 98 mg/dL 70 - 99 mg/dL [facility] Phone: Interpretation and review of laboratory results Abnormal [facility] Phone: Potassium [Moles/Vol] 3.9 mmol/L 3.7 - 5.3 mmol/L [facility] Phone: Protein [Mass/Vol] 6.0 g/dL Low 6.4 - 8.3 g/dL [facility] Phone: Sodium [Moles/Vol] 135 mmol/L 135 - 144 mmol/L [facility] Phone: Urea nitrogen [Mass/Vol] 6 mg/dL 6 - 20 mg/dL [facility] Phone: Surgical PathologyOrdered By : Chantal Mckeon on 07-16-2019 Surgical Pathology Report [id number] [email or web address] [facility] ANATOMIC PATHOLOGY [address] [place] [address]. [place], [place] [address] SURGICAL PATHOLOGY CONSULTATION Patient Name: JENNIFER SWEET [facility] Rec: [id number] Path Number: [id number] Collected: 07/14/2019 Received: 07/15/2019 Reported: 07/16/2019 17:45 [...] 2.0 cm from the margin MEMBRANES Color: Harold-frederick, focally opacified with faint green discoloration and [...] developed and its performance characteristics determined by [facility] Anatomic Pathology. It has not [...] to perform high complexity clinical laboratory testing. [facility] Work Phone: CBCon 07-15-2019 Erythrocyte distribution width (RBC) [Ratio] 13.7 % Normal 11.8-14.4 [facility] Comment on above: Performed By: #### B HCG #### [facility] [address] [place] [address] Body And Frame Technician: Urbano Moore MD Hematocrit (Bld) [Volume fraction] 32.3 % Low 36.3-47.1 [facility] Comment on above: Performed By: #### B HCG #### [address] [place] [address] Body And Frame Technician: Urbano Moore MD Hemoglobin (Bld) [Mass/Vol] 10.4 g/dL Low 11.9-15.1 [facility] Comment on above: Performed By: #### B HCG #### [address] [place] [address] Body And Frame Technician: Urbano Moore MD MCH (RBC) [Entitic mass] 26.3 pg Normal 25.2-33.5 [facility] Comment on above: Performed By: #### B HCG #### [address] [place] [address] Body And Frame Technician: Urbano Moore MD MCHC (RBC) [Mass/Vol] 32.2 g/dL Normal 28.4-34.8 [facility] Comment on above: Performed By: #### B HCG #### [address] [place] [address] Body And Frame Technician: Urbano Moore MD MCV (RBC) [Entitic vol] 81.6 fL Low 82.6-102.9 [facility] Comment on above: Performed By: #### B HCG #### [address] [place], [place] [id number] Body And Frame Technician: Urbano Moore MD NRBC Automated 0.0 per 100 WBC Normal 0.0 [facility] Comment on above: Performed By: #### B HCG #### [facility] [address] [place], [place] [id number] Body And Frame Technician: Urbano Moore MD Platelet mean volume (Bld) [Entitic vol] 11.1 fL Normal 8.1-13.5 [facility] Comment on above: Performed By: #### B HCG #### [facility] [address] [place], [place] [id number] Body And Frame Technician: Urbano Moore MD Platelets (Bld) [#/Vol] 222 10*3/uL Normal 138-453 [facility] Comment on above: Performed By: #### B HCG #### [facility] [address] [place], [facility]83 Body And Frame Technician: Urbano Moore MD RBC (Bld) [#/Vol] 3.96 10*6/uL Normal 3.95-5.11 [facility] Comment on above: Performed By: #### B HCG #### [facility] [address] [place], [place] [id number] Body And Frame Technician: Urbano Moore MD WBC (Bld) [#/Vol] 16.1 10*3/uL High 3.5-11.3 [facility] Comment on above: Performed By: #### B HCG #### [facility] [address] [place], [place] [id number] Body And Frame Technician: Urbano Moore MD CBCOrdered By: Anabela damon on 07-15-2019 Erythrocyte distribution width (RBC) [Ratio] 13.7 % 11.8 - 14.4 % [facility] Work Phone: Hematocrit (Bld) [Volume fraction] 32.3 % Low 36.3 - 47.1 % [facility] Work Phone: Hemoglobin (Bld) [Mass/Vol] 10.4 g/dL Low 11.9 - 15.1 g/dL [facility] Phone: Interpretation and review of laboratory results Abnormal [facility] Phone: MCH (RBC) [Entitic mass] 26.3 pg 25.2 - 33.5 pg [facility] Phone: MCHC (RBC) [Mass/Vol] 32.2 g/dL 28.4 - 34.8 g/dL [facility] Phone: MCV (RBC) [Entitic vol] 81.6 fL Low 82.6 - 102.9 fL [facility] Phone: NRBC Automated 0.0 0.0 per 100 WBC [facility] Phone: Platelet mean volume (Bld) [Entitic vol] 11.1 fL 8.1 - 13.5 fL [facility] Phone: Platelets (Bld) [#/Vol] 222 10*3/uL [facility] Phone: RBC (Bld) [#/Vol] 3.96 10*6/uL 3.95 - 5.11 m/uL [facility] Phone: WBC (Bld) [#/Vol] 16.1 10*3/uL High [facility] Phone: CBC auto differentialOrdered By: Chantal Mckeon on 07-14-2019 Absolute Eos # 0.09 [facility] Phone: Absolute Immature Granulocyte 0.07 [facility] Phone: Absolute Lymph # 2.62 [facility] Phone: Absolute Winston # 0.96 [facility] Phone: Basophils (Bld) [#/Vol] 0.05 10*3/uL [facility] Phone: Basophils/100 WBC (Bld) 0 % 0 - 2 % [facility] Phone: Differential Type NOT REPORTED [facility] Phone: Eosinophils/100 WBC (Bld) 1 % 1 - 4 % [facility] Phone: Erythrocyte distribution width (RBC) [Ratio] 13.7 % 11.8 - 14.4 % [facility] Phone: Hematocrit (Bld) [Volume fraction] 37.8 % 36.3 - 47.1 % [facility] Phone: Hemoglobin (Bld) [Mass/Vol] 12.3 g/dL 11.9 - 15.1 g/dL [facility] Phone: Immature granulocytes/100 WBC (Bld) 1 % High 0 [facility] Phone: Interpretation and review of laboratory results Abnormal [facility] Phone: Lymphocytes/100 WBC (Bld) 22 % Low 24 - 43 % [facility] Phone: MCH (RBC) [Entitic mass] 26.5 pg 25.2 - 33.5 pg [facility] Phone: MCHC (RBC) [Mass/Vol] 32.5 g/dL 28.4 - 34.8 g/dL [facility] Phone: MCV (RBC) [Entitic vol] 81.5 fL Low 82.6 - 102.9 fL [facility] Phone: Monocytes/100 WBC (Bld) 8 % 3 - 12 % [facility] Phone: NRBC Automated 0.0 0.0 per 100 WBC [facility] Phone: Platelet Estimate NOT REPORTED [facility] Phone: Platelet mean volume (Bld) [Entitic vol] 10.8 fL 8.1 - 13.5 fL [facility] Phone: Platelets (Bld) [#/Vol] 305 10*3/uL [facility] Phone: RBC (Bld) [#/Vol] 4.64 10*6/uL 3.95 - 5.11 m/uL [facility] Phone: RBC morphology finding Nom (Bld) NOT REPORTED [facility] Phone: Segmented neutrophils/100 WBC (Bld) 68 % High 36 - 65 % [facility] Phone: Segs Absolute 8.06 [facility] Phone: WBC (Bld) [#/Vol] 11.9 10*3/uL High [facility] Phone: WBC Morphology NOT REPORTED [facility] Phone: CBC with Diffon 07-14-2019 Abs. Basophil 0.05 k/uL Normal 0.00-0.20 [facility] Comment on above: Performed By: #### B HCG #### [facility] [address] [place], [place] [id number] Body And Frame Technician: Urbano Moore MD Abs.Imm.Granulocyte 0.07 k/uL Normal 0.00-0.30 [facility] Comment on above: Performed By: #### B HCG #### [facility] [address] [place] [address] Body And Frame Technician: Urbano Moore MD Abs.Neutrophil (Seg) 8.06 k/uL Normal 1.50-8.10 [facility] Comment on above: Performed By: #### B HCG #### [facility] [address] [place] [address] Body And Frame Technician: Urbano Moore MD Basophils/100 WBC (Bld) 0 % Normal 0-2 [facility] Comment on above: Performed By: #### B HCG #### [facility] [address] [place], [place] [id number] Body And Frame Technician: Urbano Moore MD Eosinophils (Bld) [#/Vol] 0.09 10*3/uL Normal 0.00-0.44 [facility] Comment on above: Performed By: #### B HCG #### [facility] [address] [place], [place] [id number] Body And Frame Technician: Urbano Moore MD Eosinophils/100 WBC (Bld) 1 % Normal 1-4 [facility] Comment on above: Performed By: #### B HCG #### [address] [place], [facility]83 Body And Frame Technician: Urbano Moore MD Erythrocyte distribution width (RBC) [Ratio] 13.7 % Normal 11.8-14.4 [facility] Comment on above: Performed By: #### B HCG #### [address] [place], [place] [id number] Body And Frame Technician: Urbano Moore MD Hematocrit (Bld) [Volume fraction] 37.8 % Normal 36.3-47.1 [facility] Comment on above: Performed By: #### B HCG #### [address] [place], [facility]83 Body And Frame Technician: Urbano Moore MD Hemoglobin (Bld) [Mass/Vol] 12.3 g/dL Normal 11.9-15.1 [facility] Comment on above: Performed By: #### B HCG #### [facility] [address] [place] [address] Body And Frame Technician: Urbano Moore MD Immature granulocytes (Bld) [#/Vol] 1 % High 0 [facility] Comment on above: Performed By: #### B HCG #### [facility] [address] [place], [place] [id number] Body And Frame Technician: Urbano Moore MD Lymphocytes (Bld) [#/Vol] 2.62 10*3/uL Normal 1.10-3.70 [facility] Comment on above: Performed By: #### B HCG #### [facility] [address] [place], [place] [id number] Body And Frame Technician: Urbano Moore MD Lymphocytes/100 WBC (Bld) 22 % Low 24-43 [facility] Comment on above: Performed By: #### B HCG #### [facility] [address] [place] [facility]83 Body And Frame Technician: Urbano Moore MD MCH (RBC) [Entitic mass] 26.5 pg Normal 25.2-33.5 [facility] Comment on above: Performed By: #### B HCG #### [facility] [address] [place], [facility]83 Body And Frame Technician: Urbano Moore MD MCHC (RBC) [Mass/Vol] 32.5 g/dL Normal 28.4-34.8 [facility] Comment on above: Performed By: #### B HCG #### [address] [place], [facility]83 Body And Frame Technician: Urbano Moore MD MCV (RBC) [Entitic vol] 81.5 fL Low 82.6-102.9 [facility] Comment on above: Performed By: #### B HCG #### [facility] [address] [place], [facility]83 Body And Frame Technician: Urbano Moore MD Monocytes (Bld) [#/Vol] 0.96 10*3/uL Normal 0.10-1.20 [facility] Comment on above: Performed By: #### B HCG #### [facility] [address] [place] [address] Body And Frame Technician: Urbano Moore MD Monocytes/100 WBC (Bld) 8 % Normal 3-12 [facility] Comment on above: Performed By: #### B HCG #### [facility] [address] [place], [place] [address] Body And Frame Technician: Urbano Moore MD Neutrophil (Seg) 68 % High 36-65 [facility] Comment on above: Performed By: #### B HCG #### [facility] [address] [place], [facility]83 Body And Frame Technician: Urbano Moore MD NRBC Automated 0.0 per 100 WBC Normal 0.0 [facility] Comment on above: Performed By: #### B HCG #### [facility] [address] [place], [place] [id number] Body And Frame Technician: Urbano Moore MD Platelet mean volume (Bld) [Entitic vol] 10.8 fL Normal 8.1-13.5 [facility] Comment on above: Performed By: #### B HCG #### [facility] [address] [place], [facility]83 Body And Frame Technician: Urbano Moore MD Platelets (Bld) [#/Vol] 305 10*3/uL Normal 138-453 [facility] Comment on above: Performed By: #### B HCG #### [facility] [address] [place], [place] [id number] Body And Frame Technician: Urbano Moore MD RBC (Bld) [#/Vol] 4.64 10*6/uL Normal 3.95-5.11 [facility] Comment on above: Performed By: #### B HCG #### [facility] [address] [place], [place] [id number] Body And Frame Technician: Urbano Moore MD WBC (Bld) [#/Vol] 11.9 10*3/uL High 3.5-11.3 [facility] Comment on above: Performed By: #### B HCG #### [facility] [address] [place] [id number] Body And Frame Technician: Urbano Moore MD Auto Diff Performed NOT REPORTED Normal [facility] Comment on above: Performed By: #### B HCG #### [facility] [address] [place], [place] [id number] Body And Frame Technician: Urbano Moore MD Platelets (Bld) [#/Vol] NOT REPORTED Normal [facility] Comment on above: Performed By: #### B HCG #### [facility] [address] [place] [address] Body And Frame Technician: Urbano Moore MD RBC morphology finding Nom (Bld) NOT REPORTED Normal [facility] Comment on above: Performed By: #### B HCG #### [facility] [address] [place], [place] [address] Body And Frame Technician: Urbano Moore MD WBC Morphology NOT REPORTED Normal [facility] Comment on above: Performed By: #### B HCG #### [facility] [address] [place], [place] [address] Body And Frame Technician: Urbano Moore MD Comp Metabolic Profon 2019 (cont.) [facility] Comment on above: Result Comment: Aver age GFR for 20-29 years old: 116 mL/min/1.73sq m Chronic Kidney Disease: <60 mL/min/1.73sq m Kidney failure: <15 mL/min/1.73sq m eGFR calculated using average adult body mass. Additional eGFR calculator available at: http://www.[employer].com/multiple_crcl_2011.htm Performed By: #### B HCG #### [facility] [address] [place], [place] [address] Body And Frame Technician: Urbano Moore MD Albumin [Mass/Vol] 3.7 g/dL Normal 3.5-5.2 [facility] Comment on above: Performed By: #### B HCG #### [facility] [address] [place], [place] [id number] Body And Frame Technician: Urbano Moore MD Albumin/Globulin [Mass ratio] 1.0 {ratio} Normal 1.0-2.5 [facility] Comment on above: Performed By: #### B HCG #### [facility] [address] [place] [id number] Body And Frame Technician: Urbano Moore MD Alkaline Phos 181 U/L High 35-104 [facility] Comment on above: Performed By: #### B HCG #### [facility] [address] [place] [address] Body And Frame Technician: Urabno Moore MD ALT [Catalytic activity/Vol] U/L Low 5-33 [facility] Comment on above: Performed By: #### B HCG #### [facility] [address] [place], [place] [address] Body And Frame Technician: Urbano Moore MD Anion gap [Moles/Vol] 14 mmol/L Normal 9-17 [facility] Comment on above: Performed By: #### B HCG #### [facility] [address] [place] [address] Body And Frame Technician: Urbano Moore MD AST [Catalytic activity/Vol] 11 U/L Normal <32 [facility] Comment on above: Performed By: #### B HCG #### [facility] [address] [place] [address] Body And Frame Technician: Urbano Moore MD Bilirubin Ql (U) 0.15 mg/dL Low 0.3-1.2 [facility] Comment on above: Performed By: #### B HCG #### [facility] [address] [place] [id number] Body And Frame Technician: Urbano Moore MD BUN/CRE Ratio 13 Normal 9-20 [facility] Comment on above: Performed By: #### B HCG #### [facility] [address] [place] [address] Body And Frame Technician: Urbano Moore MD Calcium [Mass/Vol] 9.0 mg/dL Normal 8.6-10.4 [facility] Comment on above: Performed By: #### B HCG #### [facility] [address] [place], [place] [address] Body And Frame Technician: Urbano Moore MD Chloride [Moles/Vol] 103 mmol/L Normal 98-107 [facility] Comment on above: Performed By: #### B HCG #### [facility] [address] [place], [place] [address] Body And Frame Technician: Urbano Moore MD CO2 [Moles/Vol] 18 mmol/L Low 20-31 [facility] Comment on above: Performed By: #### B HCG #### [facility] [address] [place], [place] [address] Body And Frame Technician: Urbano Moore MD Creatinine [Mass/Vol] 0.55 mg/dL Normal 0.50-0.90 [facility] Comment on above: Performed By: #### B HCG #### [facility] [address] [place], [place] [address] Body And Frame Technician: Urbano Moore MD GFR, Amer >60 Normal >60 [facility] Comment on above: Performed By: #### B HCG #### [facility] [address] [place] [address] Body And Frame Technician: Urbano Moore MD GFR,non Amer >60 Normal >60 [facility] Comment on above: Performed By: #### B HCG #### [facility] [address] [place] [id number] Body And Frame Technician: Urbano Moore MD Glucose [Mass/Vol] 80 mg/dL Normal 70-99 [facility] Comment on above: Performed By: #### B HCG #### [facility] [address] [place], [place] [address] Body And Frame Technician: Urbano Moore MD Potassium [Moles/Vol] 4.6 mmol/L Normal 3.7-5.3 [facility] Comment on above: Performed By: #### B HCG #### [facility] [address] [place] [address] Body And Frame Technician: Urbano Moore MD Protein [Mass/Vol] 7.5 g/dL Normal 6.4-8.3 [facility] Comment on above: Performed By: #### B HCG #### [facility] [address] [place] [address] Body And Frame Technician: Urbano Moore MD Sodium [Moles/Vol] 135 mmol/L Normal 135-144 [facility] Comment on above: Performed By: #### B HCG #### [facility] [address] [place] [address] Body And Frame Technician: Urbano Moore MD Staging: Normal [facility] Comment on above: Result Comment: Stag e 1: Some kidney damage normal GFR Stage 2: Mild kidney damage GFR 60-89 Stage 3: Moderate kidney damage GFR 30-59 Stage 4: Severe kidney damage GFR 15-29 Stage 5: Severe kidney damage GFR <15 ESRD - chronic treatment by dialysis or transplant Performed By: #### B HCG #### [facility] [address] [place], [place] [address] Body And Frame Technician: Urbano Moore MD Urea nitrogen [Mass/Vol] 7 mg/dL Normal 6-20 [facility] Comment on above: Performed By: #### B HCG #### [facility] [address] [place] [address] Body And Frame Technician: Urbano Moore MD Comprehensive Metabolic Pane lOrdered By: Chantal Mckeon on 07-14-2019 Albumin [Mass/Vol] 3.7 g/dL 3.5 - 5.2 g/dL [facility] Work Phone: Albumin/Globulin [Mass ratio] 1.0 {ratio} [employer] Phone: ALP [Catalytic activity/Vol] 181 U/L High 35 - 104 U/L [facility] Phone: ALT [Catalytic activity/Vol] U/L Low 5 - 33 U/L [facility] Phone: Anion gap [Moles/Vol] 14 mmol/L 9 - 17 mmol/L [facility] Phone: AST [Catalytic activity/Vol] 11 U/L <32 [facility] Phone: Bilirubin [Mass/Vol] 0.15 mg/dL Low 0.3 - 1 .2 mg/dL [facility] Phone: Bun/Cre Ratio 13 [facility] Phone: Calcium [Mass/Vol] 9.0 mg/dL 8.6 - 10. 4 mg/dL [facility] Phone: Chloride [Moles/Vol] 103 mmol/L 98 - 10 7 mmol/L [facility] Phone: CO2 [Moles/Vol] 18 mmol/L Low 20 - 31 mmol/L [facility] Phone: Creatinine [Mass/Vol] 0.55 mg/dL 0.5 - 0.9 mg/dL [facility] Phone: GFR >60 >60 mL/min [facility] Phone: GFR Comment [facility] Phone: Comment on above: Average GFR for 20-2 9 years old: 116 mL/min/1.73sq m Chronic Kidney Disease: <60 mL/min/1.73sq m Kidney failure: <15 mL/min/1.73sq m eGFR calculated using average adult body mass. Additional eGFR calculator available at: http://www.[employer]/multiple_crcl_2012.htm GFR Non- >60 >60 mL/min [facility] Phone: GFR Staging [facility] Phone: Comment on above: Stage 1: Some kidney damage normal GFR Stage 2: Mild kidney damage GFR 60-89 Stage 3: Moderate kidney damage GFR 30-59 Stage 4: Severe kidney damage GFR 15-29 Stage 5: Severe kidney damage GFR <15 ESRD - chronic treatment by dialysis or transplant Glucose [Mass/Vol] 80 mg/dL 70 - 99 mg/dL [facility] Phone: Interpretation and review of laboratory results Abnormal [facility] Phone: Potassium [Moles/Vol] 4.6 mmol/L 3.7 - 5.3 mmol/L [facility] Phone: [phone] Protein [Mass/Vol] 7.5 g/dL 6.4 - 8.3 g/dL [facility] Phone: Sodium [Moles/Vol] 135 mmol/L 135 - 144 mmol/L [facility] Phone: Urea nitrogen [Mass/Vol] 7 mg/dL 6 - 20 mg/dL [facility] Phone: DRUG SCREEN MULTI URINEOrder ed By: Chantal Mckeon on 07-14-2019 Amphetamine Screen, Ur Negative NEGATIVE [employer] Phone: Barbiturate Screen, Ur Negative NEGATIVE [employer] Phone: Benzodiazepine Screen, Urine Negative NEGATIVE [facility] Phone: [phone] Buprenorphine Urine Negative NEGATIVE [facility] Phone: Cannabinoid Scrn, Ur Negative NEGATIVE [employer] Phone: Cocaine Metabolite, Urine Negative NEGATIVE [facility] Phone: MDMA, Urine NOT REPORTED NEGATIVE [facility] Phone: Methadone Screen, Urine Negative NEGATIVE [facility] Phone: Methamphetamine, Urine Negative NEGATIVE [facility] [employer] Work Phone: Opiates, Urine Negative NEGATIVE [facility] [employer] Work Phone: Oxycodone Screen, Ur Negative NEGATIVE [facility] Work Phone: Phencyclidine, Urine Negative NEGATIVE [facility] Work Phone: Propoxyphene, Urine Negative NEGATIVE [facility] Work Phone: Test Information NOT REPORTED [facility] Work Phone: Tricyclic Antidepressants, Urine Negative NEGATIVE [facility] Work Phone: Comment on above: Drug screen results are to be used for medical purposes only. All positive results are unconfirmed. Testing for employment or legal uses should be sent to a reference laboratory for confirmation. Drug Scr, Abuse, Uron 2019 Amphetamine(s),Ur Negative Normal [facility] Comment on above: Performed By: #### B HCG #### [facility] [address] [place] [address] Body And Frame Technician: Urbano Moore MD Barbiturate(s),Ur Negative [facility] Comment on above: Performed By: #### B HCG #### [facility] [address] [place] [address] Body And Frame Technician: Urbano Moore MD Base excess Calc (Bld) [Moles/Vol] Negative Normal [facility] Comment on above: Performed By: #### B HCG #### [facility] [address] [place] [address] Body And Frame Technician: Urbano Moore MD Benzodiazepine(s) Negative Normal [facility] Comment on above: Performed By: #### B HCG #### [facility] [address] [place] [address] Body And Frame Technician: Urbano Moore MD Buprenorphrine, Ur Negative Normal NEG [facility] Comment on above: Performed By: #### B HCG #### [facility] [address] [place] [address] Body And Frame Technician: Urbano Moore MD Cannabinoid(s),Ur Negative Normal [facility] [facility] [place] Comment on above: Performed By: #### B HCG #### [facility] [address] [place] [address] Body And Frame Technician: Urbano Moore MD Methadone Ql (U) Negative Normal [facility] [place] Comment on above: Performed By: #### B HCG #### [facility] [address] [place] [address] Body And Frame Technician: Urbano Moore MD Methamphetamine, Ur Negative Normal [facility] [place] Comment on above: Performed By: #### B HCG #### [facility] [address] [place] [id number] Body And Frame Technician: Urbano Moore MD Opiate(s), Ur Negative Normal [facility] [place] Comment on above: Performed By: #### B HCG #### [facility] [address] [place] [address] Body And Frame Technician: Urbano Moore MD Oxycodone, Urine Negative Normal [facility] [place] Comment on above: Performed By: #### B HCG #### [facility] [address] [place] [address] Body And Frame Technician: Urbano Moore MD Phencyclidine, Ur Negative Normal [facility] [place] Comment on above: Performed By: #### B HCG #### [facility] [address] [place] [address] Body And Frame Technician: Urbano Moore MD Propoxyphene,Urine Negative Normal [facility] [place] Comment on above: Performed By: #### B HCG #### [facility] [address] [place] [address] Body And Frame Technician: Urbano Moore MD Tricyclic antidepressants Screen Ql (U) Negative Normal NEG [facility] Comment on above: Result Comment: Drug screen results are to be used for medical purposes only. All positive results are unconfirmed. Testing for employment or legal uses should be sent to a reference laboratory for confirmation. Performed By: #### B HCG #### [facility] [address] [place] [address] Body And Frame Technician: Urbano Moore MD Interpretive Info NOT REPORTED Normal [facility] Comment on above: Performed By: #### B HCG #### [facility] [address] [place] [address] Body And Frame Technician: Urbano Moore MD MDMA, Urine NOT REPORTED Normal NEG [facility] Comment on above: Performed By: #### B HCG #### [facility] [address] [place] [address] Body And Frame Technician: Urbano Moore MD Fibrinogenon 07-14-2019 Fibrinogen 491 mg/dL High 185-451 [facility] Comment on above: Performed By: #### B HCG #### [facility] [address] [place] [address] Body And Frame Technician: Urbano Moore MD FibrinogenOrdered By: Jorge Mckeon on 07-14-2019 Fibrinogen 491 mg/dL High 185 - 451 mg/dL [facility] [email or web address] Phone: Interpretation and review of laboratory results Abnormal [facility] Phone: Lactate Dehydrogenaseon 06-18 LDH [Catalytic activity/Vol] 149 U/L Normal 135-214 [facility] Comment on above: Performed By: #### B HCG #### [facility] [address] [place] [address] Body And Frame Technician: Urbano Moore MD Lactate DehydrogenaseOrdered By: Chantal Mckeon on 07-14-2019 LD 149 U/L 135 - 214 U/L [facility] [email or web address] Phone: Surgical Pathologyon 020 Surgical Pathology (NOTE) [id number] [email or web address] [facility] ANATOMIC PATHOLOGY [address] [place] [address]. [place], [place] [address] SURGICAL PATHOLOGY CONSULTATION Patient Name: JENNIFER SWEET [facility] Rec: [id number] Path Number: [id number] Collected: 07/14/2019 Received: 07/15/2019 Reported: 07/16/2019 17:45 [...] 2.0 cm from the margin MEMBRANES Color: Harold-frederick, focally opacified with faint green discoloration and [...] developed and its performance characteristics determined by [facility] Anatomic Pathology. It has not [...] perform high complexity clinical laboratory testing. Normal [facility] Comment on above: Performed By: #### B HCG #### [facility] [address] [place] [address] Body And Frame Technician: Urbano Moore MD Uric Acidon 07-14-2019 Urate [Mass/Vol] 4.7 mg/dL Normal 2.4-5.7 [facility] Comment on above: Performed By: #### B HCG #### [address] [place] [address] Body And Frame Technician: Urbano Moore MD Uric AcidOrdered By: Gianni Mckeon on 07-14-2019 Urate [Mass/Vol] 4.7 mg/dL 2.4 - 5.7 mg/dL [facility] Work Phone: Cult,Urineon 07-10-2019 Cult,Urine Specimen Description .VOIDED URINE Special Requests NOT REPORTED Culture NO SIGNIFICANT GROWTH Report Status FINAL 07/10/2019 Normal [facility] Comment on above: Performed By: #### B HCG #### [address] [place] [address] Body And Frame Technician: Urbano Moore MD APTTon 07-09-2019 aPTT Coag (Bld) [Time] 25.4 s Normal 23.2-34.4 [facility] Comment on above: Performed By: #### F IB, PT, PTT, URI ####[address] [place] [address] Lab Director: Urbano Moore MD APTTOrdered By: Chantal camacho on 07-09-2019 aPTT Coag (Bld) [Time] 25.4 s Me [employer] Phone: CBC auto differentialOrdered By: Chantal Mckeon on 07-09-2019 Absolute Eos # 0.08 [facility] Phone: Absolute Immature Granulocyte 0.03 [facility] Phone: Absolute Lymph # 2.13 [facility] Phone: Absolute Winston # 1.14 [facility] Phone: Basophils (Bld) [#/Vol] 0.04 10*3/uL [facility] Phone: Basophils/100 WBC (Bld) 1 % 0 - 2 % [facility] Phone: Differential Type NOT REPORTED [facility] Phone: Eosinophils/100 WBC (Bld) 1 % 1 - 4 % [facility] Phone: Erythrocyte distribution width (RBC) [Ratio] 13.6 % 11.8 - 14.4 % [facility] Phone: Hematocrit (Bld) [Volume fraction] 36.3 % 36.3 - 47.1 % [facility] Phone: Hemoglobin (Bld) [Mass/Vol] 12.0 g/dL 11.9 - 15.1 g/dL [facility] Phone: Immature granulocytes/100 WBC (Bld) 0 % 0 [facility] Phone: Interpretation and review of laboratory results Abnormal [facility] Phone: Lymphocytes/100 WBC (Bld) 25 % 24 - 43 % [facility] Phone: MCH (RBC) [Entitic mass] 26.7 pg 25.2 - 33.5 pg [facility] Phone: MCHC (RBC) [Mass/Vol] 33.1 g/dL 28.4 - 34.8 g/dL [facility] Phone: MCV (RBC) [Entitic vol] 80.7 fL Low 82.6 - 102.9 fL [facility] Phone: Monocytes/100 WBC (Bld) 13 % High 3 - 12 % [facility] Phone: NRBC Automated 0.0 0.0 per 100 WBC [facility] Phone: Platelet Estimate NOT REPORTED [facility] Phone: Platelet mean volume (Bld) [Entitic vol] 10.9 fL 8.1 - 13.5 fL [facility] Phone: Platelets (Bld) [#/Vol] 270 10*3/uL [facility] Phone: RBC (Bld) [#/Vol] 4.50 10*6/uL 3.95 - 5.11 m/uL [facility] Phone: RBC morphology finding Nom (Bld) NOT REPORTED [facility] Phone: Segmented neutrophils/100 WBC (Bld) 60 % 36 - 65 % [facility] Phone: Segs Absolute 5.17 [facility] Phone: WBC (Bld) [#/Vol] 8.6 10*3/uL [facility] Phone: WBC Morphology NOT REPORTED [facility] Phone: CBC with Diffon 07-09-2019 Abs. Basophil 0.04 k/uL Normal 0.00-0.20 [facility] Comment on above: Performed By: #### U A #### [facility] [address] [place] [address] Body And Frame Technician: Urbano Moore MD Abs.Imm.Granulocyte 0.03 k/uL Normal 0.00-0.30 [facility] Comment on above: Performed By: #### U A #### [facility] [address] [place], [facility]83 Body And Frame Technician: Urbano Moore MD Abs.Neutrophil (Seg) 5.17 k/uL Normal 1.50-8.10 [facility] Comment on above: Performed By: #### U A #### [facility] [address] [place] [address] Body And Frame Technician: Urbano Moore MD Basophils/100 WBC (Bld) 1 % Normal 0-2 [facility] Comment on above: Performed By: #### U A #### [address] [place] [id number] Body And Frame Technician: Urbano Moore MD Eosinophils (Bld) [#/Vol] 0.08 10*3/uL Normal 0.00-0.44 [facility] Comment on above: Performed By: #### U A #### [address] [place] [address] Body And Frame Technician: Urbano Moore MD Eosinophils/100 WBC (Bld) 1 % Normal 1-4 [facility] Comment on above: Performed By: #### U A #### [address] [place] [id number] Body And Frame Technician: Urbano Moore MD Erythrocyte distribution width (RBC) [Ratio] 13.6 % Normal 11.8-14.4 [facility] Comment on above: Performed By: #### U A #### [address] [place] [id number] Body And Frame Technician: Urbano Moore MD Hematocrit (Bld) [Volume fraction] 36.3 % Normal 36.3-47.1 [facility] Comment on above: Performed By: #### U A #### [address] [place] [address] Body And Frame Technician: Urbano Moore MD Hemoglobin (Bld) [Mass/Vol] 12.0 g/dL Normal 11.9-15.1 [facility] Comment on above: Performed By: #### U A #### [facility] [address] [place] [address] Body And Frame Technician: Urbano Moore MD Immature granulocytes (Bld) [#/Vol] 0 % Normal 0 [facility] Comment on above: Performed By: #### U A #### [facility] [address] [place] [id number] Body And Frame Technician: Urbano Moore MD Lymphocytes (Bld) [#/Vol] 2.13 10*3/uL Normal 1.10-3.70 [facility] Comment on above: Performed By: #### U A #### [address] [place] [facility]83 Body And Frame Technician: Urbano Moore MD Lymphocytes/100 WBC (Bld) 25 % Normal 24-43 [facility] Comment on above: Performed By: #### U A #### [address] [place] [id number] Body And Frame Technician: Urbano Moore MD MCH (RBC) [Entitic mass] 26.7 pg Normal 25.2-33.5 [facility] Comment on above: Performed By: #### U A #### [address] [place] [facility]83 Body And Frame Technician: Urbano Moore MD MCHC (RBC) [Mass/Vol] 33.1 g/dL Normal 28.4-34.8 [facility] Comment on above: Performed By: #### U A #### [address] [place] [address] Body And Frame Technician: Urbano Moore MD MCV (RBC) [Entitic vol] 80.7 fL Low 82.6-102.9 [facility] Comment on above: Performed By: #### U A #### [facility] [address] [place] [address] Body And Frame Technician: Urbano Moore MD Monocytes (Bld) [#/Vol] 1.14 10*3/uL Normal 0.10-1.20 [facility] Comment on above: Performed By: #### U A #### [facility] [address] [place], [place] [id number] Body And Frame Technician: Urbano Moore MD Monocytes/100 WBC (Bld) 13 % High 3-12 [facility] Comment on above: Performed By: #### U A #### [facility] [address] [place] [id number] Body And Frame Technician: Urbano Moore MD Neutrophil (Seg) 60 % Normal 36-65 [facility] Comment on above: Performed By: #### U A #### [facility] [address] [place], [place] [address] Body And Frame Technician: Urbano Moore MD NRBC Automated 0.0 per 100 WBC Normal 0.0 [facility] Comment on above: Performed By: #### U A #### [facility] [address] [place] [id number] Body And Frame Technician: Urbano Moore MD Platelet mean volume (Bld) [Entitic vol] 10.9 fL Normal 8.1-13.5 [facility] Comment on above: Performed By: #### U A #### [facility] [address] [place] [id number] Body And Frame Technician: Urbano Moore MD Platelets (Bld) [#/Vol] 270 10*3/uL Normal 138-453 [facility] Comment on above: Performed By: #### U A #### [facility] [address] [place] [address] Body And Frame Technician: Urbano Moore MD RBC (Bld) [#/Vol] 4.50 10*6/uL Normal 3.95-5.11 [facility] Comment on above: Performed By: #### U A #### [facility] [address] [place], [place] [id number] Body And Frame Technician: Urbano Moore MD WBC (Bld) [#/Vol] 8.6 10*3/uL Normal 3.5-11.3 [facility] Comment on above: Performed By: #### U A #### [facility] [address] [place], [place] [id number] Body And Frame Technician: Urbano Moore MD Auto Diff Performed NOT REPORTED Normal [facility] Comment on above: Performed By: #### U A #### [facility] [address] [place], [place] [address] Body And Frame Technician: Urbano Moore MD Platelets (Bld) [#/Vol] NOT REPORTED Normal [facility] Comment on above: Performed By: #### U A #### [facility] [address] [place] [address] Body And Frame Technician: Urbano Moore MD RBC morphology finding Nom (Bld) NOT REPORTED Normal [facility] Comment on above: Performed By: #### U A #### [facility] [address] [place], [place] [id number] Body And Frame Technician: Urbano Moore MD WBC Morphology NOT REPORTED [facility] Comment on above: Performed By: #### U A #### [facility] [address] [place], [place] [id number] Body And Frame Technician: Urbano Moore MD Comp Metabolic Profon 2019 (cont.) [facility] Comment on above: Result Comment: Aver age GFR for 20-29 years old: 116 mL/min/1.73sq m Chronic Kidney Disease: <60 mL/min/1.73sq m Kidney failure: <15 mL/min/1.73sq m eGFR calculated using average adult body mass. Additional eGFR calculator available at: http://www.[employer].Entelos/multiple_crcl_2012.htm Performed By: #### C DP, CP ####[address] [place] [address] Lab Director: Urbano Moore MD Albumin [Mass/Vol] 3.6 g/dL Normal 3.5-5.2 [facility] Comment on above: Performed By: #### C DP, CP ####[address] , [place] [phone] Director: Urbano Moore MD Albumin/Globulin [Mass ratio] 1.0 {ratio} Normal 1.0-2.5 [facility] Comment on above: Performed By: #### C DP, CP ####[address] , [phone] Director: Urbano Moore MD Alkaline Phos 162 U/L High 35-104 [facility] Comment on above: Performed By: #### C DP, CP ####[address] , [place] [phone] Director: Urbano Moore MD ALT [Catalytic activity/Vol] U/L Low 5-33 [facility] Comment on above: Performed By: #### C DP, CP ####[address] , [place] [phone] Director: Urbano Moore MD Anion gap [Moles/Vol] 14 mmol/L Normal 9-17 [facility] Comment on above: Performed By: #### C DP, CP ####[address] , [place] [phone] Director: Urbano Moore MD AST [Catalytic activity/Vol] 9 U/L Normal <32 [facility] Comment on above: Performed By: #### C DP, CP ####[address] , [place] [id number] Lab Director: Urbano Moore MD Bilirubin Ql (U) 0.16 mg/dL Low 0.3-1.2 [facility] Comment on above: Performed By: #### C DP, CP ####[address] , [place] [id number] Lab Director: Urbano Moore MD BUN/CRE Ratio 16 Normal 9-20 [facility] Comment on above: Performed By: #### C DP, CP ####[address] , [place] [id number] Lab Director: Urbano Moore MD Calcium [Mass/Vol] 9.4 mg/dL Normal 8.6-10.4 [facility] Comment on above: Performed By: #### C DP, CP ####[address] [place] [address] Lab Director: Urbano Moore MD Chloride [Moles/Vol] 104 mmol/L Normal 98-107 [facility] Comment on above: Performed By: #### C DP, CP ####[address] [place] [address] Lab Director: Urbano Moore MD CO2 [Moles/Vol] 19 mmol/L Low 20-31 [facility] Comment on above: Performed By: #### C DP, CP ####[address] [place] [address] Lab Director: Urbano Moore MD Creatinine [Mass/Vol] 0.56 mg/dL Normal 0.50-0.90 [facility] Comment on above: Performed By: #### C DP, CP ####[address] , [place] [phone] Lab Director: Urbano Moore MD GFR, Amer >60 Normal >60 [facility] Comment on above: Performed By: #### C DP, CP ####[address] , [place] [phone] Lab Director: Urbano Moore MD GFR,non Amer >60 Normal >60 [facility] Comment on above: Performed By: #### C DP, CP ####[address] , [place] 2165483 Lab Director: Urbano Moore MD Glucose [Mass/Vol] 83 mg/dL Normal 70-99 [facility] Comment on above: Performed By: #### C DP, CP ####[address] , [place] [id number] Lab Director: Urbano Moore MD Potassium [Moles/Vol] 3.9 mmol/L Normal 3.7-5.3 [facility] Comment on above: Performed By: #### C DP, CP ####[address] , [place] [id number] Lab Director: Urbano Moore MD Protein [Mass/Vol] 7.2 g/dL Normal 6.4-8.3 [facility] Comment on above: Performed By: #### C DP, CP ####[address] [place] [address] Lab Director: Urbano Moore MD Sodium [Moles/Vol] 137 mmol/L Normal 135-144 [facility] Comment on above: Performed By: #### C DP, CP ####[address] , [place] [id number] Lab Director: Urbano Moore MD Staging: Normal [facility] Comment on above: Result Comment: Stag e 1: Some kidney damage normal GFR Stage 2: Mild kidney damage GFR 60-89 Stage 3: Moderate kidney damage GFR 30-59 Stage 4: Severe kidney damage GFR 15-29 Stage 5: Severe kidney damage GFR <15 ESRD - chronic treatment by dialysis or transplant Performed By: #### C DP, CP ####[facility] [place] [address] Lab Director: Urbano Moore MD Urea nitrogen [Mass/Vol] 9 mg/dL Normal 6-20 [facility] Comment on above: Performed By: #### C ROJAS JOHNSON ####[facility] [place] [address] Lab Director: Urbano Moore MD Comprehensive metabolic pane lOrdered By: Chantal Mckeon on 07-09-2019 Albumin [Mass/Vol] 3.6 g/dL 3.5 - 5.2 g/dL [facility] Phone: Albumin/Globulin [Mass ratio] 1.0 {ratio} [facility] Phone: ALP [Catalytic activity/Vol] 162 U/L High 35 - 104 U/L [facility] Phone: ALT [Catalytic activity/Vol] U/L Low 5 - 33 U/L [facility] Phone: Anion gap [Moles/Vol] 14 mmol/L 9 - 17 mmol/L [facility] Phone: AST [Catalytic activity/Vol] 9 U/L <32 [facility] Phone: Bilirubin [Mass/Vol] 0.16 mg/dL Low 0.3 - 1 .2 mg/dL [facility] Phone: Bun/Cre Ratio 16 [facility] Phone: Calcium [Mass/Vol] 9.4 mg/dL 8.6 - 10. 4 mg/dL [facility] Phone: Chloride [Moles/Vol] 104 mmol/L 98 - 10 7 mmol/L [facility] Phone: CO2 [Moles/Vol] 19 mmol/L Low 20 - 31 mmol/L [facility] Phone: Creatinine [Mass/Vol] 0.56 mg/dL 0.5 - 0.9 mg/dL [facility] Phone: GFR >60 >60 mL/min [employer] Phone: GFR Comment [facility] Phone: Comment on above: Average GFR for 20-2 9 years old: 116 mL/min/1.73sq m Chronic Kidney Disease: <60 mL/min/1.73sq m Kidney failure: <15 mL/min/1.73sq m eGFR calculated using average adult body mass. Additional eGFR calculator available at: http://www.[employer]/Fio_crcl_2012.htm GFR Non- >60 >60 mL/min [facility] Phone: GFR Staging [facility] Phone: Comment on above: Stage 1: Some kidney damage normal GFR Stage 2: Mild kidney damage GFR 60-89 Stage 3: Moderate kidney damage GFR 30-59 Stage 4: Severe kidney damage GFR 15-29 Stage 5: Severe kidney damage GFR <15 ESRD - chronic treatment by dialysis or transplant Glucose [Mass/Vol] 83 mg/dL 70 - 99 mg/dL [facility] Phone: Interpretation and review of laboratory results Abnormal [facility] Phone: Potassium [Moles/Vol] 3.9 mmol/L 3.7 - 5.3 mmol/L [facility] Phone: Protein [Mass/Vol] 7.2 g/dL 6.4 - 8.3 g/dL [facility] Phone: Sodium [Moles/Vol] 137 mmol/L 135 - 144 mmol/L [facility] Phone: Urea nitrogen [Mass/Vol] 9 mg/dL 6 - 20 mg/dL [facility] Phone: Fibrinogenon 07-09-2019 Fibrinogen 498 mg/dL High 185-451 [facility] Comment on above: Performed By: #### F IB, PT, PTT, URI ####[facility] [place] [address] lab Director: Urbano Moore MD FibrinogenOrdered By: Jorge Mckeon on 07-09-2019 Fibrinogen 498 mg/dL High 185 - 451 mg/dL [facility] Phone: Microscopic UrinalysisOrdere d By: Chantal Mckeon on 07-09-2019 - [facility] Phone: Amorphous, UA NOT REPORTED None [facility] Phone: Bacteria, UA 1+ Abnormal None [facility] Phone: Casts UA NOT REPORTED /LPF [facility] Phone: Crystals UA NOT REPORTED None /HPF [facility] Phone: Epithelial Cells UA 2 TO 5 [facility] Phone: Interpretation and review of laboratory results Abnormal [facility] Phone: Mucus, UA TRACE Abnormal None [facility] Phone: Other Observations UA NOT REPORTED NOT REQ. [facility] Phone: RBC, UA None [facility] Phone: Renal Epithelial, Urine NOT REPORTED 0 /HPF [facility] Phone: Trichomonas, UA NOT REPORTED None [facility] Phone: WBC, UA None [facility] Phone: Yeast, UA NOT REPORTED None [facility] Phone: No Panel InformationOrdered By: Chantal Mckeon on 07-09-2019 Single live intraute rine with gestational age of 36 weeks, 0 days by current sonographic biometry. The estimated due date is 08/06/2019 by measurements. Biophysical profile score of 8/8. [facility] Phone: EXAMINATION: BIOPHYS ICAL PROFILE WITH NON-STRESS TEST; TRANSABDOMINAL SECOND/THIRD TRIMESTER [...] Qualitative Fluid: 2/2 Biophysical Profile Score: 8/8 [facility] Phone: Bimal, Mhpn Incoming R adiant Results From [employer]/Pacs - 07/09/2019 12:29 PM EST EXAMINATION: BIOPHYSICAL [...] by measurements. Biophysical profile score of 8/8. [facility] Phone: Interpretation and review of laboratory results Abnormal [facility] Phone: PTon 07-09-2019 INR Coag (PPP) [Relative time] 0.9 {INR} Normal 0.9-1.2 [facility] Comment on above: Performed By: #### F IB, PT, PTT, URI ####[address] [place] [address] lab Director: Urbano Moore MD PT Coag (PPP) [Time] 9.1 s Low 9.7-12.2 [facility] Comment on above: Performed By: #### F IB, PT, PTT, URI ####[address] [place] [id number] lab Director: Urbano Moore MD Protein, urine, randomOrdere d By: Chantal Mckeon on 07-09-2019 Protein (U) [Mass/Vol] 42 mg/dL [facility] [employer] Phone: Comment on above: No normal range esta blished. Protein,Tot,Ellsworth Uron 2019 Tot Prot. Conc. 42 mg/dL Normal [facility] Comment on above: Result Comment: No n ormal range established. Performed By: #### U RTP ####[facility] [place] [address] lab Director: Urbano Moore MD Protime-INROrdered By: Nicolas Mckeon on 07-09-2019 INR Coag (PPP) [Relative time] 0.9 {INR} [facility] Work Phone: PT Coag (PPP) [Time] 9.1 s Low [employer] Work Phone: US BIOPHYS PROFILE W N ON [...] Jose Garcia MD 07/09/19 Final result Normal [facility] US OB 14 PLUS WEEKS SINGLE O [...] Jose Garcia MD 07/09/19 Final result Normal [facility] Uric Acidon 07-09-2019 Urate [Mass/Vol] 4.5 mg/dL Normal 2.4-5.7 [facility] Comment on above: Performed By: #### F IB, PT, PTT, URI ####[facility] [place] [address] lab Director: Urbano Moore MD Uric acidOrdered By: Gianni Mckeon on 07-09-2019 Urate [Mass/Vol] 4.5 mg/dL 2.4 - 5.7 mg/dL [facility] Phone: UrinalysisOrdered By: Jorge Mckeon on 07-09-2019 Bilirubin Urine Negative NEGATIVE [facility] Phone: Color, UA YELLOW YELLOW [facility] Work Phone: Glucose, Ur Negative NEGATIVE [facility] Phone: Interpretation and review of laboratory results Abnormal [facility] Work Phone: Ketones Ql (U) Negative NEGATIVE [facility] Work Phone: Leukocyte esterase Test strip Ql (U) Negative NEGATIVE [facility] Phone: Nitrite, Urine Negative NEGATIVE [facility] Phone: pH, UA 7.[address] [facility] Phone: Protein, UA TRACE Abnormal NEGATIVE [facility] Phone: Specific D Lo, UA 1.015 [employer] Work Phone: Turbidity UA CLEAR CLEAR [employer] Work Phone: Urinalysis Comments NOT REPORTED [facility] Work Phone: Urine Hgb Negative NEGATIVE [facility] Phone: Urobilinogen, Urine Normal Normal [facility] Phone: Urinalysis, Routineon 2019 Acetoacetic Acid,Ur Negative Normal NEG [facility] Comment on above: Performed By: #### U A, UMICAO ####[facility] [place] [address] lab Director: Urbano Moore MD Bilirubin, SemiQt,Ur Negative Normal NEG [facility] Comment on above: Performed By: #### U A, UMICAO ####[facility] [place] [address] lab Director: Urbano Moore MD Color (U) YELLOW Normal YEL [facility] Comment on above: Performed By: #### U A, UMICAO ####[address] , [place] [id number] Lab Director: Urbano Moore MD Glucose Ql (U) Negative Normal [facility] Comment on above: Performed By: #### U A, UMICAO ####[address] , [place] [id number] Lab Director: Urbano Moore MD Hemoglobin, Ur Negative Normal [facility] Comment on above: Performed By: #### U A, UMICAO ####[address] [place] [address] Lab Director: Urbano Moore MD Leukocyte esterase Test strip Ql (U) Negative Normal [facility] Comment on above: Performed By: #### U A, UMICAO ####[address] [place] [address] Lab Director: Urbano Moore MD Nitrite,Ur Negative Normal [facility] Comment on above: Performed By: #### U A, UMICAO ####[address] [place] [address] Lab Director: Urbano Moore MD pH (U) 7.5 [pH] Normal 5.0-9.0 [facility] Comment on above: Performed By: #### U A, UMICAO ####[address] [place] [address] Lab Director: Urbano Moore MD Protein Ql (U) TRACE Abnormal [facility] Comment on above: Performed By: #### U A, UMICAO ####[address] [place] [address] Lab Director: Urbano Moore MD Specific gravity (U) [Rel density] 1.015 Normal 1.010-1.02 0 [facility] Comment on above: Performed By: #### U A, UMICAO ####[address] [place] [address] Lab Director: Urbano Moore MD Turbidity CLEAR Normal CLEAR [facility] Comment on above: Performed By: #### U A, UMICAO ####[address] , [facility]83 Lab Director: Urbano Moore MD Urobilinogen,Ur Normal Normal NORM [facility] Comment on above: Performed By: #### U A, UMICAO ####[address] [place] [address] Lab Director: Urbano Moore MD Comment NOT REPORTED Normal [facility] Comment on above: Performed By: #### U A, UMICAO ####[address] , [facility]83[facility])[phone] Director: Urbano Moore MD Urinalysis,Microon 0 ----- Normal [facility] Comment on above: Performed By: #### U A, UMICAO ####[address] , [place] [phone] Director: Urbano Moore MD Bacteria LM.HPF (Urine sed) [#/Area] 1+ Abnormal NONE [facility] Comment on above: Performed By: #### U A, UMICAO ####[address] [place] [address] Lab Director: Urbano Moore MD Epithelial cells LM.HPF (Urine sed) [#/Area] 2 TO 5 Normal 0-25 [facility] Comment on above: Performed By: #### U A, UMICAO ####[address] [place] [address] Lab Director: Urbano Moore MD Mucus Strands TRACE Abnormal NONE [facility] Comment on above: Performed By: #### U A, UMICAO ####[address] , [place] [phone] Director: Urbano Moore MD RBC (U) [#/Vol] None Normal 0-2 [facility] Comment on above: Performed By: #### U A, UMICAO ####[address] [place] [address] Lab Director: Urbano Moore MD WBC (U) [#/Vol] None Normal 0-5 [facility] Comment on above: Performed By: #### U A, UMICAO ####[address] , [place] [phone] Director: Urbano Moore MD Amorphous sediment LM Ql (Urine sed) NOT REPORTED Normal [facility] Comment on above: Performed By: #### U A, UMICAO ####[address] [place] [address] Lab Director: Urbano Moore MD Casts LM.LPF (Urine sed) [#/Area] NOT REPORTED Normal [facility] Comment on above: Performed By: #### U A, UMICAO ####[address] , [place] [phone] Director: Urbano Moore MD Crystals LM Nom (Urine sed) NOT REPORTED Normal [facility] Comment on above: Performed By: #### U A, UMICAO ####[address] , [place] [phone] Director: Urbano Moore MD Epithelial, Renal NOT REPORTED Normal 0 [facility] Comment on above: Performed By: #### U A, UMICAO ####[address] [place] [address] Lab Director: Urbano Moore MD Other Observations NOT REPORTED Normal NREQ [facility] Comment on above: Performed By: #### U A, UMICAO ####[facility] [place] [address] Lab Director: Urbano Moore MD Trichomonas NOT REPORTED Normal [facility] Comment on above: Performed By: #### U A, UMICAO ####[facility] [place] [address] Lab Director: Urbano Moore MD Yeast LM Ql (Urine sed) NOT REPORTED Normal [facility] Comment on above: Performed By: #### U A, UMICAO ####[facility] [place] [address] Lab Director: Urbano Moore MD Urinalysis, Routineon 2019 Acetoacetic Acid,Ur TRACE Abnormal NEG [facility] Comment on above: Performed By: #### U A #### [facility] [address] [place] [address] [employer] Technician: Urbano Moore MD Bilirubin, SemiQt,Ur Negative Normal [facility] Comment on above: Performed By: #### U A #### [facility] [address] [place] [address] [employer] Technician: Urbano Moore MD Color (U) YELLOW Normal YEL [facility] Comment on above: Performed By: #### U A #### [facility] [address] [place] [address] [employer] And [employer] Technician: Urbano Moore MD Glucose Ql (U) Negative Normal [facility] Comment on above: Performed By: #### U A #### [facility] [address] [place] [address] [employer] And [employer] Technician: Urbano Moore MD Hemoglobin, Ur Negative Normal NEG [facility] Comment on above: Performed By: #### U A #### [facility] [address] [place], [place] [phone] Body And [employer] Technician: Urbano Moore MD Leukocyte esterase Test strip Ql (U) Negative Normal NEG [facility] Comment on above: Performed By: #### U A #### [facility] [address] [place], [place] [phone] [employer] Technician: Urbano Moore MD Nitrite,Ur Negative Normal NEG [facility] Comment on above: Performed By: #### U A #### [facility] [address] [place], [place] [phone] Body And [employer] Technician: Urbano Moore MD pH (U) 7.0 [pH] Normal 5.0-9.0 [facility] Comment on above: Performed By: #### U A #### [facility] [address] [place], [place] [phone] [employer] Technician: Urbano Moore MD Protein Ql (U) 1+ Abnormal NEG [facility] Comment on above: Performed By: #### U A #### [facility] [address] [place], [place] [phone] Body And [employer] Technician: Urbano Moore MD Specific gravity (U) [Rel density] 1.020 Normal 1.010-1.02 0 [facility] Comment on above: Performed By: #### U A #### [facility] [address] [place], [place] [phone] [employer] Technician: Urbano Moore MD Turbidity CLEAR Normal CLEAR [facility] Comment on above: Performed By: #### U A #### [facility] [address] [place] [address] [employer] And Frame Technician: Urbano Moore MD Urobilinogen,Ur Normal Normal NORM [facility] Comment on above: Performed By: #### U A #### [facility] [address] [place] [address] [employer] And Frame Technician: Urbano Moore MD Comment NOT REPORTED [facility] Comment on above: Performed By: #### U A #### [facility] [address] [place] [phone] [employer] Technician: Urbano Moore MD Urinalysis,Microon 0 ----- Normal [facility] Comment on above: Performed By: #### U A #### [facility] [address] [place] [facility]83 [employer] And Frame Technician: Urbano Moore MD Bacteria LM.HPF (Urine sed) [#/Area] 1+ Abnormal [facility] Comment on above: Performed By: #### U A #### [address] [place] [facility]83 [employer] And Frame Technician: Urbano Moore MD Epithelial cells LM.HPF (Urine sed) [#/Area] 2 TO 5 Normal 0-25 [facility] Comment on above: Performed By: #### U A #### [address] [place] [phone] [employer] Technician: Urbano Moore MD Mucus Strands 1+ Abnormal [facility] Comment on above: Performed By: #### U A #### [address] [place] [facility]83 [employer] And [employer] Technician: Urbano Moore MD RBC (U) [#/Vol] 0 TO 2 Normal 0-2 [facility] Comment on above: Performed By: #### U A #### [facility] [address] [place] [facility]83 [employer] And [employer] Technician: Urbano Moore MD WBC (U) [#/Vol] 0 TO 2 Normal 0-5 [facility] Comment on above: Performed By: #### U A #### [facility] [address] [place] [address] [employer] And Frame Technician: Urbano Moore MD Amorphous sediment LM Ql (Urine sed) NOT REPORTED Normal NONE [facility] Comment on above: Performed By: #### U A #### [facility] [address] [place], [place] [phone] [employer] And [employer] Technician: Urbano Moore MD Casts LM.LPF (Urine sed) [#/Area] NOT REPORTED Normal [facility] Comment on above: Performed By: #### U A #### [facility] [address] [place], [place] [phone] [employer] And [employer] Technician: Urbano Moore MD Crystals LM Nom (Urine sed) NOT REPORTED Normal [facility] Comment on above: Performed By: #### U A #### [facility] [address] [place], [place] 3924883 [employer] And Frame Technician: Urbano Moore MD Epithelial, Renal NOT REPORTED Normal 0 [facility] Comment on above: Performed By: #### U A #### [facility] [address] [place], [place] [phone] [employer] And [employer] Technician: Urbano Moore MD Other Observations NOT REPORTED Normal NREQ [facility] Comment on above: Performed By: #### U A #### [facility] [address] [place], [place] 1221583 [employer] And Frame Technician: Urbano Moore MD Trichomonas NOT REPORTED Normal [facility] Comment on above: Performed By: #### U A #### [facility] [address] [place] [address] [employer] And Frame Technician: Urbano Moore MD Yeast LM Ql (Urine sed) NOT REPORTED Normal [facility] Comment on above: Performed By: #### U A #### [facility] [address] [place], [place] 1244383 [employer] Technician: Urbano Moore MD Rule Out Grp.B Strepon 06-27 Rule Out Grp.B Strep Specimen Descriptio n .VAGINA Special Requests NOT REPORTED Culture NEGATIVE FOR GROUP B STREPTOCOCCI Report Status FINAL 06/27/2019 Normal [facility] Comment on above: Performed By: #### U A #### [facility] [address] [place] [address] [employer] And Frame Technician: Urbano Moore MD Urinalysis, Routineon 2018 Acetoacetic Acid,Ur Negative Normal [facility] Comment on above: Performed By: #### U A #### [facility] [address] [place] [address] Body And Frame Technician: Urbano Moore MD Bilirubin, SemiQt,Ur Negative Normal [facility] Comment on above: Performed By: #### U A #### [facility] [address] [place] [address] Body And Frame Technician: Urbano Moore MD Color (U) YELLOW Normal YEL [facility] Comment on above: Performed By: #### U A #### [facility] [address] [place], [place] [phone] Body And Frame Technician: Urbano Moore MD Glucose Ql (U) Negative [facility] Comment on above: Performed By: #### U A #### [facility] [address] [place] [address] Body And Frame Technician: Urbano Moore MD Hemoglobin, Ur Negative Normal [facility] Comment on above: Performed By: #### U A #### [facility] [address] [place] [address] Body And Frame Technician: Urbano Moore MD Leukocyte esterase Test strip Ql (U) Negative Normal [facility] Comment on above: Performed By: #### U A #### [facility] [address] [place] [address] Body And Frame Technician: Urbano Moore MD Nitrite,Ur Negative Normal [facility] Comment on above: Performed By: #### U A #### [facility] [address] [place], [place] [phone] Body And Frame Technician: Urbano Moore MD pH (U) 7.5 [pH] Normal 5.0-9.0 [facility] Comment on above: Performed By: #### U A #### [facility] [address] [place], [place] 5302383 Body And Frame Technician: Urbano Moore MD Protein Ql (U) Negative Normal NEG [facility] Comment on above: Performed By: #### U A #### [facility] [address] [place], [place] 9321583 [employer] And Frame Technician: Urbano Moore MD Specific gravity (U) [Rel density] 1.010 Normal 1.010-1.02 0 [facility] Comment on above: Performed By: #### U A #### [facility] [address] [place], [place] [phone] Body And Frame Technician: Urbano Moore MD Turbidity CLEAR Normal CLEAR [facility] Comment on above: Performed By: #### U A #### [facility] [address] [place], [place] [phone] Body And Frame Technician: Urbano Moore MD Urobilinogen,Ur Normal Normal NORM [facility] Comment on above: Performed By: #### U A #### [facility] [address] [place], [place] 1992583 Body And Frame Technician: Urbano Moore MD Comment NOT REPORTED Normal [facility] Comment on above: Performed By: #### U A #### [facility] [address] [place], [place] 1688183 Body And Frame Technician: Urbano Moore MD Hemoglobinon 04-27-2019 Hemoglobin (Bld) [Mass/Vol] 12.2 g/dL Normal 11.9-15.1 [facility] Comment on above: Performed By: #### U A #### [facility] [address] [place], [place] 1555883 Body And Frame Technician: Urbano Moore MD Hemoglobin (Bld) [Mass/Vol] 12.2 g/dL 11.9 - 15.1 g/dL [place], [place] Hemoglobin A1Con 04-27-2019 HbA1c (Bld) [Mass fraction] 5.0 % Normal 4.8-5.9 [facility] Comment on above: Performed By: #### U A #### [facility] [address] [place] [address] Body And Frame Technician: Urbano Moore MD HbA1c (Bld) [Mass fraction] 97 mg/dL Normal [facility] Comment on above: Result Comment: The ADA and AACC recommend providing the estimated average glucose result to permit better patient understanding of their HBA1c result. Performed By: #### U A #### [facility] [address] [place] [address] Body And Frame Technician: Urbano Moore MD Glucose [Mass/Vol] 97 mg/dL [place], [place] Comment on above: The ADA and AACC rec ommend providing the estimated average glucose result to permit better patient understanding of their HBA1c result. HbA1c (Bld) [Mass fraction] 5.0 % 4.8 - 5.9 % [place], [place] Cytologyon 01-15-2019 Cytology (NOTE) [id number] [facility] [employer] [facility] ANATOMIC PATHOLOGY [address] [place] [phone] GYNECOLOGIC CYTOLOGY REPORT Patient Name: JENNIFER SWEET MR#: [id number] Specimen #[id number] Source: 1: Cervical material, (ThinPrep vial, Imaging-assisted review) Clinical History : [id number].[id number] High risk HPV DNA testing is requested if the diagnosis is abnormal LMP: 10/14/18 INTERPRETATION Cervical material, (ThinPrep vial, Imaging-assisted review): Specimen Adequacy: Satisfactory for evaluation. - Endocervical/transformatio n zone component present. Descriptive Diagnosis: Negative for intraepithelial lesion or malignancy. Sandwich Board Carrier: GUERITA Mcdonald JD(ASCP) Electronically Signed Out benitez/01/23/2019 Normal [facility] Comment on above: Performed By: #### U A #### [facility] [address] [place] [address] Body And Frame Technician: Urbano Moore MD Chlamydia/GC DNA, Uron 11-27 Chlamydia Probe, Ur Negative Normal NEG [facility] Comment on above: Result Comment: CHLA MYDIA [...] target. Performed By: #### U A #### [facility] [address] [place], [place] 964[address]83 Body And Frame Technician: Urbano Moore MD Gonorrhea Probe, Ur Negative Normal NEG [facility] Comment on above: Result Comment: NEIS SERIA [...] target. Performed By: #### U A #### [facility] [address] [place] [address] Body And Frame Technician: Urbano Moore MD HIV Ag/Abon 11-26-2018 HIV Ag/Ab NONREACTIVE Normal NR [facility] Comment on above: Result Comment: No l aboratory evidence of HIV infection. If acute HIV infection is suspected, consider testing for HIV-1 RNA. Performed By: #### G LYHGB #### [facility] [address] [place] [address] Body And Frame Technician: Urbano Moore MD #### AHCV, HIVCMB #### [facility] [address] [place], [place] [id number] Body And Frame Technician: Porfirio Calix MD Hep C Abon 11-26-2018 Hep C Ab NONREACTIVE Normal [facility] Comment on above: Result Comment: The hepatitis [...] PCR. Performed By: #### G LYHGB #### [address] [place] [address] Body And Frame Technician: Urbano Moore MD #### AHCV, HIVCMB #### [place] [address] [place], [place] [id number] Body And Frame Technician: Porfirio Calix MD Profileon 9 T.pallidum Ab Screen NONREACTIVE Normal [facility] Comment on above: Result Comment: T. pallidum antibodies are not detected. There is no serological evidence of infection with T. pallidum (early primary syphilis cannot be excluded). Retest in 2-4 weeks if syphilis is clinically suspect. Performed By: #### U A #### [address] [place] [address] Body And Frame Technician: Urbano Moore MD Hep B Surf Ag NONREACTIVE Normal [facility] Comment on above: Performed By: #### U A #### [address] [place] [address] Body And Frame Technician: Urbano Moore MD Rubella Ab, IgG 124.7 IU/mL [facility] Comment on above: Result Comment: REFERENCE RANGE: <5.0 NON-REACTIVE (non-immune) 5.0 TO 9.9 EQUIVOCAL >=10.0 REACTIVE (immune) Performed By: #### U A #### [address] [place], [place] [id number] Body And Frame Technician: Urbano Moore MD HCG, Quanton 11-25-2018 HCG, Quant [id number] IU/L High <5 [facility] Comment on above: Result Comment: Non-preg premeno <=5 Postmeno <=8 Male <=3 If HCG results do not concur with clinical observations, additional testing to confirm results is recommended. Elevated results not associated with may be found in patients with other diseases such as tumors of the germ cells (testis, ovaries, etc.), bladder, pancreas, stomach, lungs, and liver. Performed By: #### B HCG #### [facility] [address] [place] [address] [place] [address] Body And Frame Technician: Urbano Moore MD Hemoglobin A1Con 11-25-2018 HbA1c (Bld) [Mass fraction] 4.8 % Normal 4.8-5.9 [facility] Comment on above: Performed By: #### G LYHGB #### [address] [place] [address] Body And Frame Technician: Urbano Moore MD #### GOKUL HIVCMB #### [address] [id number] Body And Frame Technician: Porfirio Calix MD HbA1c (Bld) [Mass fraction] 91 mg/dL Normal [facility] Comment on above: Result Comment: The ADA and AACC recommend providing the estimated average glucose result to permit better patient understanding of their HBA1c result. Performed By: #### G LYHGB #### [address] [place] [address] Body And Frame Technician: Urbano Moore MD #### GOKUL HIVCMB #### [place] [address] [place], [place] [id number] Body And Frame Technician: Porfirio Calix MD Profileon 9 Abs. Basophil 0.03 k/uL Normal 0.00-0.20 [facility] Comment on above: Performed By: #### U A #### [facility] [address] [place] [address] Body And Frame Technician: Urbano Moore MD Abs.Imm.Granulocyte <0.03 Normal 0.00-0.30 [facility] Comment on above: Performed By: #### U A #### [facility] [address] [place], [place] 049[address]83 Body And Frame Technician: Urbano Moore MD Abs.Neutrophil (Seg) 4.36 k/uL Normal 1.50-8.10 [facility] Comment on above: Performed By: #### U A #### [facility] [address] [place] [address] Body And Frame Technician: Urbano Moore MD Basophils/100 WBC (Bld) 0 % Normal 0-2 [facility] Comment on above: Performed By: #### U A #### [address] [place], [facility]83 Body And Frame Technician: Urbano Moore MD Eosinophils (Bld) [#/Vol] 0.08 10*3/uL Normal 0.00-0.44 [facility] Comment on above: Performed By: #### U A #### [address] [place], [facility]83 Body And Frame Technician: Urbano Moore MD Eosinophils/100 WBC (Bld) 1 % Normal 1-4 [facility] Comment on above: Performed By: #### U A #### [address] [place], [facility]83 Body And Frame Technician: Urbano Moore MD Erythrocyte distribution width (RBC) [Ratio] 13.1 % Normal 11.8-14.4 [facility] Comment on above: Performed By: #### U A #### [address] [place], [facility]83 Body And Frame Technician: Urbano Moore MD Hematocrit (Bld) [Volume fraction] 37.8 % Normal 36.3-47.1 [facility] Comment on above: Performed By: #### U A #### [facility] [address] [place] [facility]83 Body And Frame Technician: Urbano Moore MD Hemoglobin (Bld) [Mass/Vol] 11.9 g/dL Normal 11.9-15.1 [facility] Comment on above: Performed By: #### U A #### [facility] [address] [place] [facility]83 Body And Frame Technician: Urbano Moore MD Immature granulocytes (Bld) [#/Vol] 0 % Normal 0 [facility] Comment on above: Performed By: #### U A #### [facility] [address] [place] [facility]83 Body And Frame Technician: Urbano Moore MD Lymphocytes (Bld) [#/Vol] 2.11 10*3/uL Normal 1.10-3.70 [facility] Comment on above: Performed By: #### U A #### [address] [place] [facility]83 Body And Frame Technician: Urbano Moore MD Lymphocytes/100 WBC (Bld) 28 % Normal 24-43 [facility] Comment on above: Performed By: #### U A #### [facility] [address] [place] [facility]83 Body And Frame Technician: Urbano Moore MD MCH (RBC) [Entitic mass] 26.0 pg Normal 25.2-33.5 [facility] Comment on above: Performed By: #### U A #### [facility] [address] [place] [facility]83 Body And Frame Technician: Urbano Moore MD MCHC (RBC) [Mass/Vol] 31.5 g/dL Normal 28.4-34.8 [facility] Comment on above: Performed By: #### U A #### [facility] [address] [place] [facility]83 Body And Frame Technician: Urbano Moore MD MCV (RBC) [Entitic vol] 82.5 fL Low 82.6-102.9 [facility] Comment on above: Performed By: #### U A #### [facility] [address] [place] [facility]83 Body And Frame Technician: Urbano Moore MD Monocytes (Bld) [#/Vol] 0.99 10*3/uL Normal 0.10-1.20 [facility] Comment on above: Performed By: #### U A #### [facility] [address] [place] [facility]83 Body And Frame Technician: Urbano Moore MD Monocytes/100 WBC (Bld) 13 % High 3-12 [facility] Comment on above: Performed By: #### U A #### [facility] [address] [place] [address] Body And Frame Technician: Urbano Moore MD Neutrophil (Seg) 58 % Normal 36-65 [facility] Comment on above: Performed By: #### U A #### [facility] [address] [place] [address] Body And Frame Technician: Urbano Moore MD NRBC Automated 0.0 per 100 WBC Normal 0.0 [facility] Comment on above: Performed By: #### U A #### [facility] [address] [place] [facility]34 ( Body And Frame Technician: Urbano Moore MD Platelet mean volume (Bld) [Entitic vol] 10.2 fL Normal 8.1-13.5 [facility] Comment on above: Performed By: #### U A #### [facility] [address] [place] [address] Body And Frame Technician: Urbano Moore MD Platelets (Bld) [#/Vol] 311 10*3/uL Normal 138-453 [facility] Comment on above: Performed By: #### U A #### [facility] [address] [place], [place] [id number] Body And Frame Technician: Urbano Moore MD RBC (Bld) [#/Vol] 4.58 10*6/uL Normal 3.95-5.11 [facility] Comment on above: Performed By: #### U A #### [facility] [address] [place], [place] [id number] Body And Frame Technician: Urbano Moore MD WBC (Bld) [#/Vol] 7.6 10*3/uL Normal 3.5-11.3 [facility] Comment on above: Performed By: #### U A #### [facility] [address] [place], [place] [id number] Body And Frame Technician: Urbano Moore MD Auto Diff Performed NOT REPORTED Normal [facility] Comment on above: Performed By: #### U A #### [facility] [address] [place], [facility]83 Body And Frame Technician: Urbano Moore MD Platelets (Bld) [#/Vol] NOT REPORTED Normal [facility] Comment on above: Performed By: #### U A #### [facility] [address] [place], [facility]83 Body And Frame Technician: Urbano Moore MD RBC morphology finding Nom (Bld) NOT REPORTED Normal [facility] Comment on above: Performed By: #### U A #### [facility] [address] [place], [facility]83 Body And Frame Technician: Urbano Moore MD WBC Morphology NOT REPORTED Normal [facility] Comment on above: Performed By: #### U A #### [facility] [address] [place], [place] [id number] Body And Frame Technician: Urbano Moore MD Type + Scrnon 11-25 Type + Scrn Negative Normal [facility] Comment on above: Performed By: #### P RTYS #### [facility] [address] [place], [place] [id number] Body And Frame Technician: Urbano Moore MD Toxicology Scree, Urineon Amphetamine(s),Ur Negative Normal [facility] Comment on above: Performed By: #### C PDAU #### [facility] [address] [place], [place] [id number] Body And Frame Technician: Urbano Moore MD Barbiturate(s),Ur Negative Normal NEG [facility] Comment on above: Performed By: #### C PDAU #### [facility] [address] [place], [place] [id number] Body And Frame Technician: Urbano Moore MD Benzodiazepine(s) Negative Normal [facility] Comment on above: Performed By: #### C PDAU #### [facility] [address] [place], [facility]83 Body And Frame Technician: Urbano Moore MD Buprenorphrine, Ur Negative [facility] Comment on above: Performed By: #### C PDAU #### [facility] [address] [place], [place] [address] Body And Frame Technician: Urbano Moore MD Cannabinoid(s),Ur Negative Normal [facility] Comment on above: Performed By: #### C PDAU #### [facility] [address] [place], [facility]83 Body And Frame Technician: Urbano Moore MD Cocaine Metabolite Negative [facility] Comment on above: Performed By: #### C PDAU #### [facility] [address] [place], [place] [id number] Body And Frame Technician: Urbano Moore MD Methadone Ql (U) Negative Normal [facility] Comment on above: Performed By: #### C PDAU #### [facility] [address] [place], [place] [id number] Body And Frame Technician: Urbano Moore MD Methamphetamine, Ur Negative Normal NEG [facility] Comment on above: Performed By: #### C PDAU #### [facility] [address] [place], [place] [id number] Body And Frame Technician: Urbano Moore MD Opiate(s), Ur Negative Normal NEG [facility] Comment on above: Performed By: #### C PDAU #### [facility] [address] [place], [place] [id number] Body And Frame Technician: Urbano Moore MD Oxycodone, Urine Negative Normal NEG [facility] Comment on above: Performed By: #### C PDAU #### [facility] [address] [place] [address] Body And Frame Technician: Urbano Moore MD Phencyclidine, Ur Negative Normal [facility] Comment on above: Performed By: #### C PDAU #### [facility] [address] [place], [facility]83 Body And Frame Technician: Urbano Moore MD Propoxyphene,Urine Negative Normal NEG [facility] Comment on above: Performed By: #### C PDAU #### [facility] [address] [place], [facility]83 Body And Frame Technician: Urbano Moore MD Tricyclic antidepressants Screen Ql (U) Negative [facility] Comment on above: Result Comment: Drug screen results are to be used for medical purposes only. All positive results are unconfirmed. Testing for employment or legal uses should be sent to a reference laboratory for confirmation. Performed By: #### C PDAU #### [facility] [address] [place] [address] Body And Frame Technician: Urbano Moore MD Interpretive Info NOT REPORTED [facility] Comment on above: Performed By: #### C PDAU #### [facility] [address] [place] [address] Body And Frame Technician: Urbano Moore MD MDMA, Urine NOT REPORTED Normal NEG [facility] Comment on above: Performed By: #### C PDAU #### [facility] [address] [place] [address] Body And Frame Technician: Urbano Moore MD ABO/Rh(D)on 11-22-2018 ABO/Rh(D) Positive Normal [facility] Comment on above: Performed By: #### A BRH #### [facility] [address] [place] [address] Body And Frame Technician: Urbano Moore MD HCG, Quanton 11-22-2018 HCG, Quant [id number] IU/L High <5 [facility] Comment on above: Result Comment: Non-preg premeno <=5 Postmeno <=8 Male <=3 If HCG results do not concur with clinical observations, additional testing to confirm results is recommended. Elevated results not associated with may be found in patients with other diseases such as tumors of the germ cells (testis, ovaries, etc.), bladder, pancreas, stomach, lungs, and liver. Performed By: #### B HCG #### [facility] [address] [place] [address] Body And Frame Technician: Urbano Moore MD US OB TRANSVAGINALon 019 OB TRANSVAGINAL EXAMINATION: FIRST TRIMESTER OBSTETRIC ULTRASOUND [...] hemorrhage. Yolk Sac: Present Pole: Single pole [place] Rump Length: 2 mm Heart Rate: No [...] Oni Burroughs MD 11/22/18 Final result Normal [facility] Urinalysis, Routineon 2018 Acetoacetic Acid,Ur Negative Normal [facility] Comment on above: Performed By: #### U A #### [facility] [address] [place], [place] [id number] Body And Frame Technician: Urbano Moore MD Bilirubin, SemiQt,Ur Negative [facility] Comment on above: Performed By: #### U A #### [facility] [address] [place], [place] [id number] Body And Frame Technician: Urbano Moore MD Color (U) YELLOW Normal [facility] Comment on above: Performed By: #### U A #### [facility] [address] [place], [place] [id number] Body And Frame Technician: Urbano Moore MD Glucose Ql (U) Negative [facility] Comment on above: Performed By: #### U A #### [facility] [address] [place], [place] [id number] Body And Frame Technician: Urbano Moore MD Hemoglobin, Ur Negative Normal [facility] Comment on above: Performed By: #### U A #### [facility] [address] [place], [place] [id number] Body And Frame Technician: Urbano Moore MD Leukocyte esterase Test strip Ql (U) Negative Normal [facility] Comment on above: Performed By: #### U A #### [facility] [address] [place], [place] [id number] Body And Frame Technician: Urbano Moore MD Nitrite,Ur Negative [facility] Comment on above: Performed By: #### U A #### [facility] [address] [place] [address] Body And Frame Technician: Urbano Moore MD pH (U) 6.5 [pH] Normal 5.0-9.0 [facility] Comment on above: Performed By: #### U A #### [facility] [address] [place] [address] Body And Frame Technician: Urbnao Moore MD Protein Ql (U) Negative Normal NEG [facility] Comment on above: Performed By: #### U A #### [facility] [address] [place] [address] Body And Frame Technician: Urbano Moore MD Specific gravity (U) [Rel density] 1.020 Normal 1.010-1.02 0 [facility] Comment on above: Performed By: #### U A #### [facility] [address] [place], [facility]83 Body And Frame Technician: Urbano Moroe MD Turbidity CLEAR Normal CLEAR [facility] Comment on above: Performed By: #### U A #### [facility] [address] [place] [address] Body And Frame Technician: Urbano Moore MD Urobilinogen,Ur Normal Normal NORM [facility] Comment on above: Performed By: #### U A #### [facility] [address] [place], [facility]83 Body And Frame Technician: Urbano Moore MD Comment NOT REPORTED Normal [facility] Comment on above: Performed By: #### U A #### [facility] [address] [place] [address] Body And Frame Technician: Urbano Moore MD Vital Signs Date Time Vital Sign Value Performing Clinician Facility 02-01-2024 23:37-0400 Body weight 115.66 kg PHYSICIAN LETICIA [facility] 02-01-2024 22:30-0400 Body temperature 97.4 [degF] PHYSICIAN NO [facility] 02-01-2024 22:30-0400 Diastolic blood pressure 72 mm[Hg] PHYSICIAN NO [facility] 02-01-2024 22:30-0400 Heart rate 82 /min PHYSICIAN NO [facility] 02-01-2024 22:30-0400 Respiratory rate 16 /min PHYSICIAN NO [facility] 02-01-2024 22:30-0400 SaO2% (BldA) [Mass fraction] 95 % PHYSICIAN NO [facility] 02-01-2024 22:30-0400 Systolic blood pressure 135 mm[Hg] PHYSICIAN NO [facility] 02-01-2024 22:17-0400 Body height 167.64 cm PHYSICIAN NO [facility] 12-22-2023 18:30-0400 Body temperature 98.7 [degF] PHYSICIAN NO [facility] 12-22-2023 18:30-0400 Diastolic blood pressure 56 mm[Hg] PHYSICIAN NO [facility] 12-22-2023 18:30-0400 Heart rate 88 /min PHYSICIAN NO [facility] 12-22-2023 18:30-0400 Respiratory rate 20 /min PHYSICIAN NO [facility] 12-22-2023 18:30-0400 SaO2% (BldA) [Mass fraction] 98 % PHYSICIAN NO [facility] 12-22-2023 18:30-0400 Systolic blood pressure 105 mm[Hg] PHYSICIAN NO [facility] 12-22-2023 16:09-0400 Body height 167.64 cm PHYSICIAN NO [facility] 12-22-2023 16:09-0400 Body weight 113.75 kg PHYSICIAN NO [facility] 07-18-2019 08:24-0500 Body temperature 98.4 [degF] Chantal Pool PROTECTION CONSULTANT - CNM Work Phone: [facility] Work Phone: 07-18-2019 08:24-0500 Diastolic blood pressure 82 mm[Hg] Chantal Pool PROTECTION CONSULTANT - CNM Work Phone: [employer] Work Phone: 07-18-2019 08:24-0500 Heart rate 75 /min Chantal Pool PROTECTION CONSULTANT - CNM Work Phone: [employer] Work Phone: 07-18-2019 08:24-0500 Respiratory rate 16 /min Chantal Pool PROTECTION CONSULTANT - CNM Work Phone: [employer] Work Phone: 07-18-2019 08:24-0500 Systolic blood pressure 141 mm[Hg] Chantal Pool PROTECTION CONSULTANT - CNM Work Phone: [employer] Work Phone: 07-15-2019 01:23-0500 SaO2% (BldA) [Mass fraction] 97 % Chantal Pool PROTECTION CONSULTANT - CNM Work Phone: [employer] Work Phone: 07-09-2019 12:52-0500 Diastolic blood pressure 67 mm[Hg] Chantal Pool PROTECTION CONSULTANT - CNM Work Phone: [employer] Work Phone: 07-09-2019 12:52-0500 Heart rate 76 /min Chantal Pool PROTECTION CONSULTANT - CNM Work Phone: [employer] Work Phone: 07-09-2019 12:52-0500 Systolic blood pressure 125 mm[Hg] Chantal Pool PROTECTION CONSULTANT - CNM Work Phone: [employer] Work Phone: 07-09-2019 12:23-0500 Respiratory rate 16 /min Chantal Pool PROTECTION CONSULTANT - CNM Work Phone: [employer] Work Phone: 07-09-2019 12:08-0500 Body temperature 98.49 [degF] Chantal Pool PROTECTION CONSULTANT - CNM Work Phone: [facility] Work Phone: Encounters Encounter Date Encounter Type Care Provider Facility Start: 02-07-2024 End: 02-07-2024 ambulatory [facility] Start: 02-06-2024 End: 02-06-2024 ambulatory CANDELARIA L FLORO Not Available Start: 02-06-2024 End: 02-06-2024 ambulatory [facility] Start: 02-03-2024 End: 02-03-2024 ambulatory CANDELARIA L FLORO Not Available Start: 02-03-2024 End: 02-03-2024 ambulatory CAMDEN LALA Not Available Start: 02-01-2024 End: 02-01-2024 Patient encounter procedure PHYSICIAN NO [facility] Start: 02-01-2024 End: 02-01-2024 ambulatory PHYSICIAN NO [facility] Work Phone: Start: 01-30-2024 End: 01-30-2024 ambulatory [facility] Start: 01-27-2024 End: 01-27-2024 ambulatory CANDELARIA L FLORO Not Available Start: 01-27-2024 End: 01-27-2024 ambulatory AYANA Arroyo [facility] Start: 01-23-2024 End: 01-23-2024 ambulatory [facility] Start: 01-23-2024 End: 01-23-2024 ambulatory CANDELARIA L FLORO Not Available Start: 01-20-2024 End: 01-20-2024 ambulatory CANDELRAIA L FLORO Not Available Start: 01-20-2024 End: 01-20-2024 ambulatory CANDELARIA L FLORO Not Available Start: 01-17-2024 End: 01-17-2024 [facility] Start: 01-16-2024 End: 01-16-2024 ambulatory CANDELARIA L FLORO Not Available Start: 01-14-2024 End: 01-14-2024 ambulatory CANDELARIA L FLORO Not Available Start: 01-08-2024 End: 01-08-2024 ambulatory AMY Caro RUPALIKEVIN [facility] Start: 01-07-2024 End: 01-07-2024 [facility] Start: 01-07-2024 End: 01-07-2024 ambulatory CANDELARIA FLORO [facility] Start: 12-26-2023 End: 12-26-2023 ambulatory CANDELARIA L FLORO Not Available Start: 12-22-2023 End: 12-22-2023 Emergency department patient visit PHYSICIAN LETICIA [facility] Work Phone: Start: 12-17-2023 End: 12-17-2023 ambulatory CANDELARIA L FLORO Not Available Start: 11-29-2023 End: 11-29-20[facility] Start: 11-21-2023 End: 11-21-2023 ambulatory CANDELARIA L FLORO Not Available Start: 10-24-2023 End: 10-24-2023 ambulatory CANDELARIA L FLORO Not Available Start: 10-01-2023 End: 10-01-2023 ambulatory CANDELARIA FLORO Not Available Start: 09-19-2023 End: 09-19-2023 ambulatory CANDELARIA L FLORO Not Available Start: 08-21-2023 End: 08-21-2023 ambulatory CANDELARIA L FLORO Not Available Start: 08-05-2023 End: 08-05-2023 ambulatory CANDELARIA L FLORO Not Available Start: 06-02-2020 End: 06-02-2020 Patient encounter procedure LILLIAM GUY Facility: Start: 07-14-2019 End: 07-18-2019 Evaluation and management of inpatient CHANTAL MCKEON [facility] Start: 07-14-2019 End: 07-18-2019 Evaluation and management of inpatient Chantal Mckeon PROTECTION CONSULTANT - CNM [facility] Comment on above: S/P primary low franco sverse (Primary Dx) Start: 07-09-2019 End: 07-09-2019 Patient encounter procedure FIDELITY [facility] Start: 07-09-2019 End: 07-09-2019 Subsequent hospital visit by physician Chantal Mckeon APRN - MELAM Work Phone: [facility] Labor and Delivery Comment on above: Elevated blood press ure affecting , antepartum; SGA (small for gestational age) Start: 07-08-2019 End: 07-09-2019 Patient encounter procedure FIDELITY [facility] Start: 06-23-2019 End: 06-24-2019 Patient encounter procedure [facility] Start: 06-23-2019 End: 06-23-2019 Subsequent hospital visit by physician Luli Bolden MD Work Phone: [facility] Laboratory Comment on above: 36 weeks gestation o f Start: 06-07-2019 End: 06-07-2019 [facility] Start: 04-27-2019 End: 04-28-2019 Patient encounter procedure [facility] Start: 04-27-2019 End: 04-27-2019 Subsequent hospital visit by physician Luli Bodlen [facility] Laboratory Comment on above: 27 weeks gestation o f Start: 01-15-2019 End: 01-16-2019 Patient encounter procedure MIROSLAVA Nagy [facility] Start: 11-25-2018 End: 11-26-2018 Patient encounter procedure [facility] Start: 11-22-2018 Emergency department [facility] Procedures Date Procedure Procedure Detail Performing Clinician Start: 12-22-2023 Ultrasound scan - obstetric PHYSICIAN NO FAMILY Start: 12-22-2023 Plain chest X-ray PHYSICIAN NO FAMILY Start: 07-18-2019 DISCHARGE PATIENT MIROSLAVA TAPIA Start: 07-18-2019 Ct head/brain w/o contrast material MIROSLAVA TAPIA Start: 07-18-2019 INSERT PERIPHERAL IV MIROSLAVA TAPIA Start: 07-18-2019 Blood count complete auto&auto difrntl wbc MIROSLAVA TAPIA Start: 07-18-2019 Comprehensive metabolic panel MIROSLAVA TAPIA Start: 07-18-2019 Ct head/brain w/o contrast material Maxine Crawley PROTECTION CONSULTANT - CNM Work Phone: Start: 07-18-2019 Comprehensive metabolic panel Maxine Crawley PROTECTION CONSULTANT - CNM Work Phone: Start: 07-18-2019 INITIATE OXYGEN THERAPY PROTOCOL MIROSLAVA TAPIA Start: 07-17-2019 INITIATE OXYGEN THERAPY PROTOCOL MIROSLAVA DAISY Start: 07-16-2019 INITIATE OXYGEN THERAPY PROTOCOL MIROSLAVA TAPIA Start: 07-15-2019 INITIATE OXYGEN THERAPY PROTOCOL MIROSLAVA DAISY Start: 07-15-2019 Blood count complete automated MIROSLAVA TAPIA Start: 07-15-2019 Blood count complete automated Anabelademond Bragg DO Work Phone: Start: 07-14-2019 Level iv surg pathology gross&microscopic exam MIROSLAVA VANDANADez Start: 07-14-2019 DIET GENERAL MIROSLAVA VANDANADez Start: 07-14-2019 ENCOURAGE DEEP BREATHING AND COUGHING MIROSLAVAGUADALUPE TAPIA Start: 07-14-2019 INITIATE OXYGEN THERAPY PROTOCOL MIROSLAVA VANDANADez Start: 07-14-2019 PLACE INTERMITTENT PNEUMATIC COMPRESSION DEVICE MIROSLAVA VANDANADez Start: 07-14-2019 AMBULATE PATIENT MIROSLAVA ROSSDez Start: 07-14-2019 CATHETER REMOVAL MIROSLAVA ROSSDez Start: 07-14-2019 FULL CODE MIROSLAVA ROSSDez Start: 07-14-2019 INTAKE AND OUTPUT MIROSLAVA VANDANADez Start: 07-14-2019 NOTIFY PHYSICIAN (SPECIFY) MIROSLAVA VANDANADez Start: 07-14-2019 STRAIGHT CATH MIROSLAVA VANDANADez Start: 07-14-2019 VITAL SIGNS MIROSLAVA VANDANADez Start: 07-14-2019 WOUND CARE MIROSLAVA VANDANADez Start: 07-14-2019 TRANSFER PATIENT MIROSLAVA VANDANADez Start: 07-14-2019 PATIENT STATUS (DIRECT) MIROSLAVA VANDANADez Start: 07-14-2019 Assay of blood/uric acid MIROSLAVA VANDANADez Start: 07-14-2019 Blood count complete auto&auto difrntl wbc MIROSLAVA VANDANADez Start: 07-14-2019 Comprehensive metabolic panel MIROSLAVA VANDANADez Start: 07-14-2019 Fibrinogen activity MIROSLAVA VANDANADez Start: 07-14-2019 Lactate dehydrogenase ldh MIROSLAVA VANDANADez Start: 07-14-2019 End: 07-14-2019 delivery only Anabela F Tj Bragg DO Work Phone: Start: 07-14-2019 Comprehensive metabolic panel Chantal Mckeon PROTECTION CONSULTANT - CNM Work Phone: Start: 07-14-2019 Drug screen class list a MIROSLAVA TAPIA Start: 07-14-2019 Level iv surg pathology gross&microscopic exam MIROSLAVA TAPIA Start: 07-14-2019 Drug screen class list a Chantal Mckeon PROTECTION CONSULTANT - CNM Work Phone: Start: 07-14-2019 Level iv surg pathology gross&microscopic exam Chantal Mckeon PROTECTION CONSULTANT - CNM Work Phone: Start: 07-14-2019 H/O: section S/P primary low transverse Chantal Mckeon PROTECTION CONSULTANT - CNM Work Phone: Start: 07-09-2019 DISCHARGE PATIENT MIROSLAVA TAPIA Start: 07-09-2019 biophysical profile non-stress testing MIROSLAVA TAPIA Start: 07-09-2019 Us preg uterus after 1st trimest 06/17 gestation MIROSLAVA TAPIA Start: 07-09-2019 Assay of blood/uric acid MIROSLAVA TAPIA Start: 07-09-2019 Blood count complete auto&auto difrntl wbc MIROSLAVA TAPIA Start: 07-09-2019 Comprehensive metabolic panel MIROSLAVA TAPIA Start: 07-09-2019 Fibrinogen activity MIROSLAVA TAPIA Start: 07-09-2019 Prothrombin time MIROSLAVA TAPIA Start: 07-09-2019 Thromboplastin time partial plasma/whole blood MIROSLAVA TAPIA Start: 07-09-2019 CONTRACTION -MONITORING MIROSLAVA TAPIA Start: 07-09-2019 DIET NPO, NOW MIROSLAVA TAPIA Start: 07-09-2019 FULL CODE MIROSLAVA TAPIA Start: 07-09-2019 Gluc bld gluc mntr dev cleared fda spec home use MIROSLAVA TAPIA Start: 07-09-2019 NOTIFY PHYSICIAN (SPECIFY) MIROSLAVA TAPIA Start: 07-09-2019 SALINE LOCK IV MIROSLAVA TAPIA Start: 07-09-2019 ASSESS HEART TONES MIROSLAVA TAPIA Start: 07-09-2019 MONITOR HEART TONES MIROSLAVA TAPIA Start: 07-09-2019 VITAL SIGNS MIROSLAVA TAPIA Start: 07-09-2019 Protein total xcpt refractometry urine MIROSLAVA TAPIA Start: 07-09-2019 Urinalysis microscopic only MIROSLAVA TAPIA Start: 07-09-2019 Urnls dip stick/tablet rgnt auto w/o microscopy MIROSLAVA TAPIA Start: 07-09-2019 Us preg uterus after 1st trimest 06/17 gestation Chantal Enriquez CNM Work Phone: Start: 07-09-2019 End: 07-09-2019 Comprehensive metabolic panel Chantal Enriquez [employer] Work Phone: Start: 07-09-2019 Urinalysis microscopic only Chantal Enriquez [employer] Work Phone: Start: 07-09-2019 Urnls dip stick/tablet rgnt auto w/o microscopy Chantal Enriquez CNM Work Phone: Start: 07-09-2019 DISCHARGE PATIENT [...] TAPIA Start: 04-27-2019 Blood count hemoglobin Chantal Montgomery [employer] Work Phone: Start: 04-27-2019 Hemoglobin glycosylated a1c Chantal Montgomery [employer] Work Phone: Start: 01-15-2019 Screen pap by vanessa nagy md supv MIROSLAVA TAPIA Start: 11-25-2018 C.TRACHOMATIS N.GONORRHOEAE DNA, URINE MIROSLAVA ROSSDez Start: 11-25-2018 Drug screen, qualitate/multi MIROSLAVA ROSSDez Start: 11-25-2018 Gonadotropin chorionic quantitative MIROSLAVA ROSSDez Start: 11-25-2018 Antibody hiv-1&hiv-2 single result MIROSLAVA [...] TAPIA Start: 11-22-2018 Gonadotropin chorionic quantitative MIROSLAVA ROSSDez H/O: section Status pos t repeat low transverse section PHYSICIAN NO FAMILY Plan of Treatment Date Care Activity Detail Author Start: 02-01-2024 Hospital admission [facility] Start: 02-01-2024 End: 02-01-2024 [facility] Start: 01-15-2022 Cervical cancer screen Cervical canc er screen [place], [place] Start: 11-26-2019 Chlamydia screen Chlamydia screen [place], [place] Start: 08-25-2019 End: 08-25-2019 ambulatory 08/25/2019 Visit Obstetrics and Gynecology Chantal Mckeon, PROTECTION CONSULTANT - CNM [address] [place], [place] [id number] [facility] Start: 08-17-2019 HPV vaccine (1 - Fem conor 2-dose series) HPV vaccine (1 - Female 2-dose series) [facility] Phone: Comment on above: Postponed from 05/24 (Not Indicated) Start: 08-17-2019 Influenza vaccination Flu vaccine (# 1) [facility] Phone: Comment on above: Postponed from 02/15 (Not Indicated) Start: 07-30-2019 End: 07-30-2019 ambulatory 07/30/2019 Visit Obstetrics and Gynecology Chantal Mckeon APRN - CNM [address] [place] [address] [phone] [facility] Start: 07-22-2019 End: 07-22-2019 ambulatory 07/22/2019 Visit Obstetrics and Gynecology Chantal Mckeon APRN - CNM [address] [place] [address] [phone] [facility] Start: 07-21-2019 DTaP/Tdap/Td vaccine (1 - Tdap) DTaP/Tdap/Td vaccine (1 - Tdap) [facility] Phone: Comment on above: Postponed from 05/24 (Not Indicated) Start: 07-21-2019 Varicella Vaccine (1 of 2 - 2-dose childhood series) Varicella Vaccine (1 of 2 - 2-dose childhood series) [facility] Phone: Comment on above: Postponed from 05/24 (Not Indicated) Start: 07-16-2019 End: 07-16-2019 Patient encounter procedure 07/16/2019 Routine Obstetrics and Gynecology Chantal Mckeon APRN - CNM [address] [place] [address] [phone] [facility] Start: 07-09-2019 End: 07-09-2019 Patient encounter procedure 07/09/2019 Routine Obstetrics and Gynecology Chantal Mckeon APRN - CNRancho [address] [place] [address] [phone] [facility] Start: 06-30-2019 End: 06-30-2019 Patient encounter procedure 06/30/2019 Routine Obstetrics and Gynecology Chantal Mckeon APRN - IAN [address] [place] [address] [phone] [facility] Start: 06-29-2019 DTaP/Tdap/Td vaccine (1 - Tdap) DTaP/Tdap/Td vaccine (1 - Tdap) [facility] [email or web address] Phone: Comment on above: Postponed from 05/24 (Not Indicated) Start: 06-29-2019 Varicella Vaccine (1 of 2 - 2-dose childhood series) Varicella Vaccine (1 of 2 - 2-dose childhood series) [facility] [employer] Phone: Comment on above: Postponed from 05/24 (Not Indicated) Start: 06-10-2019 HPV vaccine (1 - Fem conor 2-dose series) HPV vaccine (1 - Female 2-dose series) [facility] [place] Comment on above: Postponed from 05/24 (Not Indicated) Start: 05-11-2019 End: 05-11-2019 Routine 05/11/2019 Routine Obstetrics and Gynecology Chantal Mckeon APRN - CNM [address] [place] [address] [phone] [facility] RN CASE MGR Start: 05-07-2019 DTaP/Tdap/Td vaccine (1 - Tdap) DTaP/Tdap/Td vaccine (1 - Tdap) [facility] [place] Comment on above: Postponed from 05/24 (Not Indicated) Start: 05-07-2019 Varicella Vaccine (1 of 2 - 2-dose childhood series) Varicella Vaccine (1 of 2 - 2-dose childhood series) [facility] [place] Comment on above: Postponed from 05/24 (Not Indicated) Start: 02-15-2019 Influenza vaccination Flu vaccine (# 1) [employer] [facility]- [place], [place] nonstress test nonst ress test OB Routine Daily until discontinued starting 07/10/2019 [facility] Phone: Comment on above: Daily until disconti nued starting 07/10/2019 Initiate Oxygen Ther apy Protocol Initiate Oxygen Therapy Protocol Respiratory Care Routine Daily until discontinued starting 07/14/2019 [facility] Phone: Comment on above: Daily until disconti nued starting 07/14/2019 Nonrebreather mask oxygen Nonrebreather mask oxygen Respiratory Care Routine As directed - RT (PRN) until discontinued starting 07/09/2019 [facility] Phone: Comment on above: As directed - RT (ND N) until discontinued starting 07/09/2019 Patient Education [facility] Work Phone: Patient referral [facility] Work Phone: End: 06-23-2019 Strep B Screen, Vaginal / Rectal Strep B Screen, Vaginal / Rectal Microbiology Routine 36 weeks gestation of 1 Occurrences starting 06/23/2019 until 06/23/2019 [facility] Phone: Comment on above: 1 Occurrences starti ng 06/23/2019 until 06/23/2019 Strep B Screen, Vagi nal / Rectal Strep B Screen, Vaginal / Rectal Microbiology Routine 36 weeks gestation of 06/23/2019 10:09 PM EST [facility] Phone: End: 07-14-2019 Surgical Pathology Surgical Pathology Lab Routine One Time for 1 Occurrences starting 07/14/2019 until 07/14/2019 [facility] Phone: Comment on above: One Time for 1 Occur rences starting 07/14/2019 until 07/14/2019 End: 07-09-2019 SVE SVE Point of Care Testing Routine One Time for 1 Occurrences starting 07/09/2019 until 07/09/2019 [facility] Phone: Comment on above: One Time for 1 Occur rences starting 07/09/2019 until 07/09/2019 Immunizations Immunization Date Immunization Notes Care Provider Fa cility 07-14-2019 diphtheria, tetanus toxoids and acellular pertussis vaccine, unspecified formulation Chantal Guy PROTECTION CONSULTANT - CNM Work Phone: [facility] Work Phone: Payers Date Payer Category Payer Self-pay [id number] 2022 Unknown [id number] 2014 Unknown BCBS BCBS - [place] P PO xxxxxxxxxxxx 2014-Present [address] [place] [address] xxxxxxxxxxxx [id number] 1996 Unknown [id number] 2.16.840.1.302698.3.579.2.173 1996 Unknown [id number] 2.16.840.1.683292.3.579.2.173 1996 Unknown [id number] 2.16.840.1.929833.3.579.2.173 1996 Unknown [id number] 2.16.840.1.119951.3.579.2.173 1996 Unknown [id number] 2.16.840.1.195534.3.579.2.173 1996 Unknown [id number] 2.16.840.1.291541.3.579.2.173 1996 Unknown [id number] 2.16.840.1.136946.3.579.2.173 1996 Unknown [id number] 2.16.840.1.445806.3.579.2.173 1996 Unknown [id number] 2.16.840.1.862543.3.579.2.173 1996 Unknown [id number] 2.16.840.1.374306.3.579.2.593 1996 Unknown [id number] 2.16.840.1.554202.3.579.2.128 6 1996 Unknown [id number] 2.16.840.1.969966.3.579.2.128 6 1996 Unknown [id number] 2.16.840.1.601047.3.579.2.128 6 1996 Unknown [id number] 2.16.840.1.439421.3.579.2.128 6 1996 Unknown [id number] 2.16.840.1.432785.3.579.2.128 6 1996 Unknown [id number] 2.16.840.1.927771.3.579.2.128 6 1996 Unknown [id number] 2.16.840.1.416767.3.579.2.128 6 1996 Unknown [id number] 2.16.840.1.412888.3.579.2.128 6 1996 Unknown [id number] 2.16.840.1.316589.3.579.2.128 6 1996 Unknown [id number] 2.16.840.1.475204.3.579.2.128 6 1996 Unknown [id number] 2.16.840.1.161213.3.579.2.128 6 1996 Unknown [id number] 2.16.840.1.390248.3.579.2.128 6 1996 Unknown [id number] 2.16.840.1.120510.3.579.2.128 6 1996 Unknown [id number] 2.16.840.1.417603.3.579.2.128 6 1996 Unknown [id number] 2.16.840.1.222604.3.579.2.125 9 1996 Unknown [id number] 2.16.840.1.343795.3.579.2.125 9 1996 Unknown [id number] 2.16.840.1.813794.3.579.2.125 9 1996 Unknown [id number] 2.16.840.1.798834.3.579.2.125 9 1996 Unknown [id number] 2.16.840.1.317570.3.579.2.125 9 1996 Unknown [id number] 2.16.840.1.238250.3.579.2.125 9 1996 Unknown [id number] 2.16.840.1.871474.3.579.2.125 9 1996 Unknown [id number] 2.16.840.1.687677.3.579.2.125 9 1996 Unknown [id number] 2.16.840.1.877244.3.579.2.125 9 1996 Unknown [id number] 2.16.840.1.843167.3.579.2.125 9 1996 Unknown [id number] 2.16.840.1.407594.3.579.2.125 9 1996 Unknown [id number] 2.16.840.1.603766.3.579.2.125 9 1996 Unknown [id number] 2.16.840.1.632049.3.579.2.125 9 1996 Unknown [id number] 2.16.840.1.905293.3.579.2.125 9 1996 Unknown [id number] 2.16.840.1.124759.3.579.2.125 9 1996 Unknown [id number] 2.16.840.1.053814.3.579.2.125 9 1996 Unknown [id number] 2.16.840.1.770841.3.579.2.125 9 1996 Unknown [id number] 2.16.840.1.380858.3.579.2.125 9 1996 Unknown [id number] 2.16.840.1.107284.3.579.2.125 9 1996 Unknown [id number] 2.16.840.1.605418.3.579.2.125 9 1996 Unknown [id number] 2.16.840.1.782127.3.579.2.125 9 1996 Unknown [id number] 2.16.840.1.762960.3.579.2.125 9 1959 Unknown [id number] Unknown Cathie BC/JUSTYN [id number] Unknown [id number] 2.16.840.1.699820.3.579.2.531 Unknown [id number] 2.16.840.1.713113.3.579.2.531 Social History Date Type Detail Facility Start: 04-27-2019 End: 12-22-2023 Tobacco smoking status NHIS Never smoker [facility] Start: 04-27-2019 End: 07-17-2019 Alcohol intake Current non-drinker of alcohol (finding) [place] Start: 10-28-2018 [facility] Sex Assigned At Not on file [place], [place] Start: 1995 Sex Assigned At Female F [facility] Hospital Discharge instructions 12-22-2023 Note Date & Type Note Facility 12-22-2023 Hospital Discharg e instructions Additional Instructions Please return to emergency department for any new or worrisome symptoms including any return of chest pain, shortness of breath, abdominal pain, vaginal bleeding, headache, vision changes. Follow-up with OB 1 to 2 days as well as your family physician within the next 3 to 5 days. [facility] Work Phone: History of Present illness Narrative 07-18-2019 Kiley Lee RN - 07/18/2019 5:25 PM Maxine Velazquez, ROMAIN - IAN - 07/18/2019 12:41 PM Dennys Chantal MontgomeryROMAIN CNM - 07/17/2019 11:38 AM EST Note [...] urine sample collected. documented in this encounter [employer] Work Phone: Hospital Discharge instructions 07-18-2019 Instructions Note Date & Type Note Facility 07-18-2019 Hospital Discharg e instructions Kiley Lee RN - 07/18/2019 Follow-up with your OB doctor as specified. [facility] OB Department phone: Dr. Daisy Mckeon CNM Dr. Jaylan Keen CN [address] [facility] [address] [place] Idalia Dos Santos, MSN, PROTECTION CONSULTANT, CNM [place] [id number] [address] [facility] [address] [address] [facility] [id number] Twila Haro [address] [place], [place] [id number] Maxine Crawley [facility] [address] [place], [place] [id number] DIET Eat a well balanced diet focusing on foods high in fiber and protein. Drink plenty of fluids especially water. To avoid constipation you may take a mild stool softener as recommended by your doctor or editor school photograph. ACTIVITY Gradually increase your activity. Resume exercise regimen only after advice by your doctor or editor school photograph. Avoid lifting anything heavier than a gallon of milk for SIX weeks. Avoid driving until your doctor or editor school photograph has given their approval. Rise slowly from [...] of harming yourself or your infant. If will not stop crying, contact another adult for help or place infant in their crib on their back and take a break. NEVER shake your infant. BLEEDING Vaginal bleeding will decrease in amount [...] medications as recommended by your doctor or editor school photograph for pain If you develop a warm, red, tender area on your breast or develop a fever contact your OB provider. For moms: If you become engorged, feeding may be more difficult or painful for 1-2 days. You may find it helpful to hand express some milk so that the infant can latch on more easily. While , continue to take your vitamins as directed by your doctor or editor school photograph. Refer to the booklet in the folder/binder for more information. If you feel you need more assistance or have questions, please call Jacklyn Garcia IBCLC, color consultant, at or the OB department to [...] in your calf. documented in this encounter [facility] Phone: History of Present illness Narrative 07-09-2019 Chantal Mckeon APRN - CNM - 07/09/2019 12:47 PM Rajni uHssein RN - 07/09/2019 10:19 AM EST Note [...] AT THIS TIME. documented in this encounter [facility] Phone: Evaluation note Note Date & Type Note Facility Evaluation note Diagnosis 36 weeks gestation of state, incidental documented in this encounter [facility] Phone: Evaluation note Note Date & Type Note Facility Evaluation note Diagnosis Elevated blood pressure affecting , antepartum SGA (small for gestational age) [id number] without mention of malnutrition, unspecified (weight) documented in this encounter [facility] Phone: Evaluation note Note Date & Type Note Facility Evaluation note Diagnosis Elevated blood pressure affecting , antepartum- Primary S/P primary low transverse delivery, without mention of indication, unspecified as to episode of care 39 weeks gestation of state, incidental Non-reassuring heart rate with late deceleration Meconium in amniotic fluid affecting management of mother in third trimester documented in this encounter [facility] Phone: Evaluation note Note Date & Type Note Facility Evaluation note No assessment information availa [facility] Work Phone: Hospital Discharge instructions Instructions Note Date & Type Note Facility Hospital Discharge instructions Rajni Bruno RN - 07/09/2019 OUTPATIENT DISCHARGE Viv D[facility] or [place] Maxine Quintanilla [facility] ACTIVITY LIMITATIONS: ( X )Up and [...] AND DELIVERY . 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 Advance Directives and Living Will Power of Sandstone Splitter Latest Code Status on File Code Status [...] Code 07/09/2019 10:35 AM 07/09/2019 3:46 PM Advance Directive Response Recorded Date/ Time Advance Directives No February 11, 2021 12:02pm Summary Purpose Family History No Family History Records Found Relationship Condition Age at Onset Recorded Date/T ivette Not Specified No pertinent family history Unknown Chief Complaint and Reason for Visit Chief Complaint 28 wks, sob, low mov ement Chief Complaint 28 wks, sob, low mov ement no movement Additional Source Comments INFORMATION SOURCE (unrecogn ized section and content) DATE CREATED AUTHOR 07/20/2019 [facility] DATE CREATED AUTHOR AUTHOR'S ORGANIZ ATION 06/15/2020 [facility] DATE CREATED AUTHOR AUTHOR'S ORGANIZ ATION 10/31/2022 [facility] dical Specialist DATE CREATED AUTHOR AUTHOR'S ORGANIZ ATION 11/30/2023 [facility] DATE CREATED AUTHOR AUTHOR'S ORGANIZ ATION [facility]20[facility] DATE CREATED AUTHOR AUTHOR'S ORGANIZ ATION 02/08/2024 [facility] DATE CREATED AUTHOR AUTHOR'S ORGANIZ ATION 02/09/2024 [facility] DATE CREATED AUTHOR AUTHOR'S ORGANIZ ATION 02/10/2024 [facility] dical Specialists EPIC Reason for Visit (unrecogniz ed section and content) Reason Comments Hypertension SENT FROM OFFICE Reason Comments Hypertension Status Reason Specialty Diagnoses / Procedures Referre d By Contact Referred To Contact Diagnoses Normal labor Pool, Chantal Montgomery, PROTECTION CONSULTANT - CNM [address] [place] [address] [facility] Care Teams (unrecognized sec tion and content) Team Status: Active Member Role Status Dates PHYSICIAN NO FAMILY Primary Care Provider Active Team Status: Inactive Member Role Status Dates PHYSICIAN NO FAMILY Primary Care Provider Active Start: December 22, 2023 End: December 22, 2023 Paty Burnette MD Emergency Provider Active Start: December 22, 2023 End: December 22, 2023 Team Status: Inactive Member Role Status Dates PHYSICIAN NO FAMILY Primary Care Provider Active Start: February 01, 2024 End: February 01, 2024 Camden Lala MD Attending Provider Active Star t: February 01, 2024 End: February 01, 2024 Goals (unrecognized section and content) Goals may be documented in a n alternate sectionGoals may be documented in an alternate section FOR RECORDS PERTAINING TO PATIENTS WHO ARE [...] BE BASED ON THE PRIMARY CLINICAL RECORDS. [employer] [facility]. provides no warranty or guarantee of the accuracy or completeness of information in this document.
[2024-02-12] MEDS: FAMOTIDINE/PF 20 MG/2 ML VIAL IV (20:40)
[2024-02-12] MEDS: CITRIC ACID/SODIUM CITRATE 30 ML SOLUTION ORACIT SHOHL'S SOLN PO (20:40)
[2024-02-12] MEDS: METOCLOPRAMIDE HCL 10 MG/2 ML VIAL IVP (20:40)
[2024-02-12 20:45] LABS: Hematocrit 34.6 % (36.0-48.0); Hemoglobin 11.1 g/dL (12.0-16.0); Mean Corpuscular HGB Conc 32.1 g/dL (29.9-35.2); Mean Corpuscular Hemoglobin 24.1 pg (26.7-34.0); Mean Corpuscular Volume 75.2 fL (81.0-99.0); Mean Platelet Volume 10.6 fL (9.5-13.5); Platelet Count 285 10^3/uL (150-450); Red Cell Distribution Width 14.1 % (11.0-15.0); White Blood Count 9.9 10^3/uL (4.0-11.0)
--- NOTE | 2024-02-12 20:49 | PM.OBHP ---
OB - H&P: HPI History of Present Illness Chief complaint: BLEEDING, 36-WEEKS : 3 Para: 2 Gestational age based on last menstrual period: 35.4 Comments: 35.4 weeks gestation and vaginal bleeding History of Present Dating criteria: LMP confirmed by 1st trimester US care: good care Ultrasounds: normal 1st trimester US and normal mid trimester US complications: other complications comment: vaginal bleeding Narrative: seeing MFM in [place] and Dr Lala and myself monitored for gestational hypertension Labs Blood type: A (+) positive Rubella: immune RPR/VDLR: nonreactive GBS status: unknown HBsAG: negative Review of Systems ROS Status of ROS: 10 or more systems reviewed and unremarkable except as noted in history and below Meds Home Medications and Allergies Allergies Allergy/AdvReac Type Severity Reaction Status Date / Time No Known Drug Allergies Allergy Verified 11/14/23 17:58 Exam Constitutional Vital Signs, click to edit/add: Last Vital Signs Pulse 100 H 02/12/24 20:41 BP 172/87 H 02/12/24 20:41 Documenting provider has reviewed patient's vital signs: yes Common normals: no apparent distress, average body habitus and oriented x3 General appearance: cooperative and comfortable Orientation/consciousness: Yes awake, Yes oriented to person, Yes oriented to place and Yes oriented to time HENMT Common normals: normocephalic Eye Common normals: EOMs intact bilaterally General eye: normal appearance of both eyes Neck & C-Spine Common normals: full ROM Lymph Lymphatic: no lymphadenopathy noted Respiratory Common normals: normal respiratory effort Effort & inspection: able to speak in complete sentences Cardio Common normals: regular rate and regular rhythm Rate: regular rate GI Common normals: Normal to inspection, nondistended, normoactive bowel sounds present Palpation: soft Common normals: no CVA tenderness Back & Pelvis Common normals: no CVA tenderness Extremity Common normals: normal to inspection Neuro Common normals: oriented x3 Sensorium/orientation: awake, alert, oriented to person, oriented to place and oriented to time Psych Attitude: calm Thought process: normal thought process Results Labs Labs: Short CBC 02/12/24 Range/Units 20:35 WBC 9.9 (4.0-11.0) 10^3/uL Hgb 11.1 L (12.0-16.0) g/dL Hct 34.6 L (36.0-48.0) % Plt Count 285 (150-450) 10^3/uL OB - A/P Assessment and Plan (1) Vaginal bleeding: Urinary Catheter Management Urinary Catheter Management Urethral: Cath placed during this visit: no Urethral indwelling: Yes Reason for continuing: prolonged immobilization
[2024-02-12] MEDS: LACTATED RINGER'S SOLUTION 1,000 ML 50 ML IV (21:30)
--- NOTE | 2024-02-12 21:47 | PM.ONB ---
Brief Operative Note Date of procedure: 02/12/24 Pre-op diagnosis general: iup at 35 4/7wks, significant vaginal bleeding, suspect placental abruption Post-op diagnosis: same as pre-op Procedure: NAME OF PROCEDURE: [ section ] PROCEDURE: Patient was taken back to the Operating Room where she was given a spinal anesthesia with Duramorph without difficulty. She was prepped and draped in the normal sterile fashion. A Pfannenstiel skin incision was then made 2 cm above the symphysis pubis and carried down to underlying rectus fascia using a Bovie. The fascia was incised in the midline and extended laterally using Middleton scissors. Two Ivelisse clamps were placed on the superior aspect of the fascia and dissected off the underlying rectus muscles. The same was performed on the inferior aspect as well. The muscles were then in the midline. Peritoneum was identified and entered bluntly. The peritoneum was then extended superiorly and inferiorly with good visualization of the bladder. The bladder blade was inserted. A low transverse incision was made on the patient's uterus and extended laterally digitally. The infant was then delivered atraumatically after the bladder blade was removed in the cephalic position. The cord was clamped and cut. Cord blood was obtained. The infant was handed off to awaiting team. The patient's placenta was spontaneously delivered. The uterus was then exteriorized. The uterus was cleared of all clots and debris. The bladder blade was reinserted. The patient's uterine incision was closed using #0 Vicryl in a running lock fashion. Excellent hemostasis was assured. The uterus was then returned to the patient's abdomen. The patient's abdomen was copiously irrigated using warm saline. Peritoneal gutters were cleared of all clots and debris. Again excellent hemostasis was assured. The patient's peritoneum was closed using 3-0 Vicryl in a running fashion. The patient's fascia was closed using #0 Vicryl in a running fashion. The patient's skin was closed using 4-0 Vicryl subcuticularly. The patient tolerated the procedure well. Sponge, lap, and needle counts were correct x2. The patient was taken to the Recovery Room in stable condition. Anesthesia: spinal Surgeon: Constantin Melo Research Animal Facility Supervisor: Paz Temple Estimated blood loss (mL): 575 Pathology: other (placenta) Condition: stable Disposition: PACU Urinary Catheter Management Urinary Catheter Management Urethral: Cath placed during this visit: no Urethral indwelling: Yes
--- NOTE | 2024-02-12 21:49 | PM.OBPRCCS ---
Procedure Pre-op/Post-op diagnoses: Pre-Op/Post-Op Diagnoses Operation Date: 02/12/24 20:45 <No data on this case meets the specified criteria> Procedure: Procedures Operation Date: 02/12/24 20:45 Actual Procedure Side Surgeon p Not Applicable Constantin Melo DO Extracorporeal Technician: CANDELARIA ROWLAND Estimated blood loss (mL): 575 Disposition: PACU Anesthesia type: Spinal
[2024-02-12] MEDS: BUPIVACAINE LIPOSOME/PF 266 MG/13.3 ML VIAL INJ (21:57)
--- NOTE | 2024-02-12 22:17 | PM.EN ---
Event Note Event Note: Air Export Coordinator Note: I first assisted Dr Melo with repeat section as directed. I independently closed the SQ layer with 4-0 vicryl without difficulty. I then independently closed the skin incision with 3-0 vicryl on a Sudhir needle without difficulty. Hemostasis noted at completion of procedure. Patient tolerated procedure well.
[2024-02-12] MEDS: KETOROLAC TROMETHAMINE 30 MG/ML VIAL IVP (22:50)
[2024-02-12] MEDS: ACETAMINOPHEN 500 MG TABLET 1000 MG PO (22:51)
[2024-02-12] MEDS: OXYTOCIN/0.9 % SODIUM CHLORIDE 20 UNITS/1,000 ML PLAST..BAG 125 UNIT IV (23:00)
[2024-02-13] VITALS (39 sets, daily range): BP systolic 111–131; BP diastolic 55–77; PULSE 64–91; TEMP 36.7; O2SAT 97–99
[2024-02-13] MEDS: KETOROLAC TROMETHAMINE 30 MG/ML VIAL IVP ×2 (04:47→10:30)
[2024-02-13] MEDS: CEFAZOLIN SODIUM/DEXTROSE,ISO 2 GM/50 ML PIGGYBACK IV (04:47)
[2024-02-13 06:34] LABS: Basophils Percent Auto 0.1 % (0.2-2.0); Hematocrit 28.1 % (36.0-48.0); Hemoglobin 8.9 g/dL (12.0-16.0); Immature Granulocytes Abs Auto 0.08 10^3/uL (0.00-0.03); Immature Granulocytes Pct Auto 0.5 % (0.0-0.5); Lymphocytes Absolute Auto 1.2 10^3/uL (1.2-3.8); Lymphocytes Percent Auto 7.6 % (20.5-60.0); Mean Corpuscular HGB Conc 31.7 g/dL (29.9-35.2); Mean Corpuscular Hemoglobin 23.9 pg (26.7-34.0); Mean Corpuscular Volume 75.3 fL (81.0-99.0); Monocytes Absolute Auto 0.7 10^3/uL (0.3-0.8); Monocytes Percent Auto 4.4 % (1.7-12.0); Neutrophils Absolute Auto 13.6 10^3/uL (1.4-6.5); Neutrophils Percent Auto 87.4 % (43.0-75.0); Platelet Count 254 10^3/uL (150-450); Red Blood Count 3.73 10^6/uL (4.20-5.40); Red Cell Distribution Width 14.2 % (11.0-15.0); White Blood Count 15.5 10^3/uL (4.0-11.0)
--- NOTE | 2024-02-13 08:15 | PM.OBPN ---
OB - PN: Subj Subjective Patient comments: no complaints and pain well controlled [place] status: doing well Exam Constitutional Vital Signs, click to edit/add: Last Vital Signs Temp 98.1 F 02/13/24 00:00 Pulse 68 02/13/24 00:01 Resp 15 02/13/24 00:01 BP 117/63 02/13/24 00:01 Pulse Ox 99 02/13/24 00:01 O2 Del Method Room Air 02/13/24 00:01 Documenting provider has reviewed patient's vital signs: yes Common normals: no apparent distress Respiratory Common normals: normal respiratory effort and clear to auscultation bilaterally Cardio Common normals: regular rate and regular rhythm GI Common normals: Normal to inspection, nondistended, normoactive bowel sounds present Extremity Common normals: no calf tenderness Results Labs Labs: Short CBC 02/12/24 02/13/24 Range/Units 20:35 06:29 WBC 9.9 15.5 H (4.0-11.0) 10^3/uL Hgb 11.1 L 8.9 L (12.0-16.0) g/dL Hct 34.6 L 28.1 L (36.0-48.0) % Plt Count 285 254 (150-450) 10^3/uL Urinary Catheter Management Urinary Catheter Management Urethral: Cath placed during this visit: no Urethral indwelling: Yes OB - PN: A/P Assessment and Plan (1) Vaginal bleeding: Plan - day: 1 Plan: routine postop care Time Spent with Patient Time: Total time spent is greater than 50% in coordination of care (as documented) at patient's floor/unit and/or counseling patient: Total time spent with greater than 50% in coordination of care (as documented) at patient's floor/unit and/or counseling patient: less than 15 minutes
[2024-02-13] MEDS: DOCUSATE SODIUM 100 MG CAPSULE PO ×2 (10:37→21:17)
[2024-02-13] MEDS: ACETAMINOPHEN 500 MG TABLET 1000 MG PO (15:21)
[2024-02-13] MEDS: SIMETHICONE 80 MG TAB.CHEW PO (16:24)
[2024-02-13] MEDS: IBUPROFEN 400 MG TABLET 800 MG PO (16:48)
[2024-02-13] MEDS: ENOXAPARIN SODIUM 40 MG/0.4 ML SYRINGE SUBQ (21:17)
[2024-02-14] MEDS: IBUPROFEN 400 MG TABLET 800 MG PO ×2 (03:09→10:08)
[2024-02-14] MEDS: ACETAMINOPHEN 500 MG TABLET 1000 MG PO ×2 (03:09→08:48)
[2024-02-14] MEDS: SIMETHICONE 80 MG TAB.CHEW PO (03:09)
[2024-02-14 03:12] VITALS: BP 129/62; PULSE 71
--- NOTE | 2024-02-14 07:51 | PM.OBPN ---
OB - PN: Subj Subjective Patient comments: no complaints and pain well controlled status: doing well Exam Constitutional Vital Signs, click to edit/add: Last Vital Signs Temp 98.1 F 02/13/24 17:55 Pulse 71 02/14/24 03:12 Resp 18 02/14/24 03:12 BP 129/62 02/14/24 03:12 Pulse Ox 98 02/13/24 01:15 O2 Del Method Room Air 02/14/24 03:12 Documenting provider has reviewed patient's vital signs: yes Common normals: no apparent distress Respiratory Common normals: normal respiratory effort and clear to auscultation bilaterally Cardio Common normals: regular rate and regular rhythm GI Common normals: Normal to inspection, nondistended, normoactive bowel sounds present Extremity Common normals: no calf tenderness Urinary Catheter Management Urinary Catheter Management Urethral: Cath placed during this visit: yes, but has since been removed by the nurse Urethral indwelling: Yes Removal date: 02/13/24 Removal time: 15:30 OB - PN: A/P Assessment and Plan (1) Vaginal bleeding: Plan - day: 2 Plan: routine postop care, discharge home and other (fu 1wk) Time Spent with Patient Time: Total time spent is greater than 50% in coordination of care (as documented) at patient's floor/unit and/or counseling patient: Total time spent with greater than 50% in coordination of care (as documented) at patient's floor/unit and/or counseling patient: less than 15 minutes
[2024-02-14] MEDS: DOCUSATE SODIUM 100 MG CAPSULE PO (08:48)
[2024-02-14 08:53] VITALS: BP 129/65; PULSE 89
== END 2024-02-14 09:30 | disposition home or self-care (01) | DRG 788 ==
PROVIDERS: Midwife; Admitting Provider Obstetrics & Gynecology; PCP Family Medicine; Visit Provider Obstetrics & Gynecology
PROC: 10D00Z1 Extraction of Products of Conception, Low, Open Approach (ICD-10-PCS; CPT 59514; principal; 2024-02-12 20:45)
DX: O45.93 Premature separation of placenta, unspecified, third trimester (principal); O13.4 Gestational [pregnancy-induced] hypertension without significant proteinuria, complicating childbirth; O34.211 Maternal care for low transverse scar from previous cesarean delivery; Z37.0 Single live birth; Z3A.35 35 weeks gestation of pregnancy
CPT/HCPCS: 36415; 64488; 80307; 85025; 85027; 86850; 86900; 86901; 88307; 94667; 96372; 96374; 96375; J0665; J0690; J1100; J1200; J1650; J1885; J2274; J2371; J2405; J2590; J2765